=== PATIENT | female | born 1995 | race Caucasian/White ===

== ENCOUNTER 2016-10-27 15:15 | Emergency (ER) | payer OTHER, BC ==
[~2016-10-27 15:15] MED LIST: EMOQTAB PO; INDE80CA PO; LAMI1TAB8 PO; PROPRANOLOL HCL PO; SERO1TAB PO; SING10TA32 PO; WELLTAB38 PO; WELLTAB40 PO; XANA0.5T PO; fiber supplement PO; zyzal PO
[2016-10-27] MEDS ORDERED: ACETAMINOPHEN 325 MG TAB As Ordered ONE (17:14)
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
--- NOTE | 2016-10-27 17:20 | EDDOCDS ---
Physician Documentation [facility] Name: Ghassan Richards Age: 21 yrs Sex: Female : 1995 Arrival Date: 10/27/2016 Time: 15:15 Bed Triage 3 Private MD: Nanci Disposition: 10/27/16 16:59 Discharged to Home/Self Care. Impression: Strain of muscle, fascia and tendon at neck level, Headache. - Condition is Stable. - Discharge Instructions: General Headache Without Cause, Soft Tissue Injury of the Neck. - Prescriptions for Robaxin 500 mg Oral Tablet - take 2 tablet by ORAL route every 6 hours As needed; 40 tablet. - Medication Reconciliation, Local Pharmacy Hours form. - Follow up: Nanci; When: Call to arrange an appointment; Reason: Recheck today's complaints, Continuance of care. - Problem is new. - Symptoms are unchanged. Historical: - Allergies: no known allergies; - Home Meds: 1. Lamictal Oral 2 times per day 2. Amitriptyline Oral once daily 3. Singulair Oral once daily 4. l-methylfolate calcium 7.5 mg daily 5. zyzal 5mg daily 6. thorazine 200 mg daily - PMHx: Bipolar disorder; Anxiety; GERD; Asthma; - PSHx: eye surgery; Tonsillectomy; Adenoidectomy; - Immunization history: Last tetanus immunization: - up to date. < 5 years ago. - Social history: Smoking status: Patient states was never smoker of tobacco. No barriers to communication noted, The patient speaks fluent Urdu, Speaks appropriately for age. - Family history: Not pertinent. - Last oral intake was: yogurt at 1400. - : The pt / caregiver states he / she is not on anticoagulants. Home medication list is obtained from the patient. - Exposure Risk Screening:: None identified. 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 5 in. (165.10 cm) (R); Pain 3/10; 17:15 BP 134 / 80; Pulse 105; Resp 20; Temp 98.9; Pulse Ox 99% on R/A; Pain 3/10; ar3 15:16 Body Mass Index 33.28 (90.72 kg, 165.10 cm) lr2 Kincaid Coma Score: 15:27 Eye Response: spontaneous(4). Verbal Response: oriented(5). Motor Response: obeys ead commands(6). Total: 15. Trauma Score (Adult): 15:27 Eye Response: spontaneous(1); Verbal Response: oriented(1); Motor Response: obeys ead commands(2); Systolic BP: > 89 mm Hg(4); Respiratory Rate: 10 to 29 per min(4); Kincaid Score: 15; Trauma Score: 12 MDM: 16:57 Acetaminophen Tablet 975 mg PO once ordered. mo1 Administered Medications: 17:16 Drug: Acetaminophen 975 mg [acetaminophen 325 mg tablet (3 tabs)] Route: PO; dsf 17:19 Follow up: Response: Pt left department before re-evaluation is appropriate dsf Signatures: Kalani Callahan RN RN Jenna KaurRN RN dsf Nemesio Pruitt PA PA mo1 Bethanie Hollins,RN RN michelle MTDToni
--- NOTE | 2016-10-29 18:20 | EDDOCDS ---
Physician Documentation [facility] Name: Ghassan Richards Age: 21 yrs Sex: Female : 1995 Arrival Date: 10/27/2016 Time: 15:15 Bed Triage 3 Private MD: Nanci Disposition: 10/27/16 16:59 Discharged to Home/Self Care. Impression: Strain of muscle, fascia and tendon at neck level, Headache. - Condition is Stable. - Discharge Instructions: General Headache Without Cause, Soft Tissue Injury of the Neck. - Prescriptions for Robaxin 500 mg Oral Tablet - take 2 tablet by ORAL route every 6 hours As needed; 40 tablet. - Medication Reconciliation, Local Pharmacy Hours form. - Follow up: Nanci; When: Call to arrange an appointment; Reason: Recheck today's complaints, Continuance of care. - Problem is new. - Symptoms are unchanged. Historical: - Allergies: no known allergies; - Home Meds: 1. Lamictal Oral 2 times per day 2. Amitriptyline Oral once daily 3. Singulair Oral once daily 4. l-methylfolate calcium 7.5 mg daily 5. zyzal 5mg daily 6. thorazine 200 mg daily - PMHx: Bipolar disorder; Anxiety; GERD; Asthma; - PSHx: eye surgery; Tonsillectomy; Adenoidectomy; - Immunization history: Last tetanus immunization: - up to date. < 5 years ago. - Social history: Smoking status: Patient states was never smoker of tobacco. No barriers to communication noted, The patient speaks fluent Turkish, Speaks appropriately for age. - Family history: Not pertinent. - Last oral intake was: yogurt at 1400. - : The pt / caregiver states he / she is not on anticoagulants. Home medication list is obtained from the patient. - Exposure Risk Screening:: None identified. 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 5 in. (165.10 cm) (R); Pain 3/10; 17:15 BP 134 / 80; Pulse 105; Resp 20; Temp 98.9; Pulse Ox 99% on R/A; Pain 3/10; ar3 15:16 Body Mass Index 33.28 (90.72 kg, 165.10 cm) lr2 Sophia Coma Score: 15:27 Eye Response: spontaneous(4). Verbal Response: oriented(5). Motor Response: obeys ead commands(6). Total: 15. Trauma Score (Adult): 15:27 Eye Response: spontaneous(1); Verbal Response: oriented(1); Motor Response: obeys ead commands(2); Systolic BP: > 89 mm Hg(4); Respiratory Rate: 10 to 29 per min(4); Sophia Score: 15; Trauma Score: 12 MDM: 16:57 Acetaminophen Tablet 975 mg PO once ordered. mo1 17:50 [facility] Payment Agreement was scanned into [employer] and attached to record. gjb 17:50 [facility] was scanned into [employer] and attached to record. b 17:50 Financial registration complete. gjb Administered Medications: 17:16 Drug: Acetaminophen 975 mg [acetaminophen 325 mg tablet (3 tabs)] Route: PO; dsf 17:19 Follow up: Response: Pt left department before re-evaluation is appropriate dsf Signatures: Kalani Callahan RN RN Jenna KaurRN RN dsf Nemesio Pruitt PA PA mo1 Bethanie HollinsRN RN [place] The chart was reviewed and I authenticate all verbal orders and agree with the evaluation and treatment provided.Attachments: 17:50 [place] Payment Agreement gjb Chart Complete MTDD
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
--- NOTE | 2016-10-29 18:20 | EDDOCDS ---
Physician Documentation [facility] Name: Ghassan Richards Age: 21 yrs Sex: Female : 1995 Arrival Date: 10/27/2016 Time: 15:15 Bed Triage 3 Private MD: Nanci Disposition: 10/27/16 16:59 Discharged to Home/Self Care. Impression: Strain of muscle, fascia and tendon at neck level, Headache. - Condition is Stable. - Discharge Instructions: General Headache Without Cause, Soft Tissue Injury of the Neck. - Prescriptions for Robaxin 500 mg Oral Tablet - take 2 tablet by ORAL route every 6 hours As needed; 40 tablet. - Medication Reconciliation, Local Pharmacy Hours form. - Follow up: Nanci; When: Call to arrange an appointment; Reason: Recheck today's complaints, Continuance of care. - Problem is new. - Symptoms are unchanged. Historical: - Allergies: no known allergies; - Home Meds: 1. Lamictal Oral 2 times per day 2. Amitriptyline Oral once daily 3. Singulair Oral once daily 4. l-methylfolate calcium 7.5 mg daily 5. zyzal 5mg daily 6. thorazine 200 mg daily - PMHx: Bipolar disorder; Anxiety; GERD; Asthma; - PSHx: eye surgery; Tonsillectomy; Adenoidectomy; - Immunization history: Last tetanus immunization: - up to date. < 5 years ago. - Social history: Smoking status: Patient states was never smoker of tobacco. No barriers to communication noted, The patient speaks fluent Lao, Speaks appropriately for age. - Family history: Not pertinent. - Last oral intake was: yogurt at 1400. - : The pt / caregiver states he / she is not on anticoagulants. Home medication list is obtained from the patient. - Exposure Risk Screening:: None identified. BRONC BREAKER: 10/27 15:28 LMP N/A - control method ead Vital Signs: 15:16 BP 131 / 96; Pulse 121; Resp 20; Temp 98.4(O); Pulse Ox 99% on R/A; Weight 90.72 kg / lr2 200 lbs (R); Height 5 ft. 5 in. (165.10 cm) (R); Pain 3/10; 17:15 BP 134 / 80; Pulse 105; Resp 20; Temp 98.9; Pulse Ox 99% on R/A; Pain 3/10; ar3 15:16 Body Mass Index 33.28 (90.72 kg, 165.10 cm) lr2 Mckenna Coma Score: 15:27 Eye Response: spontaneous(4). Verbal Response: oriented(5). Motor Response: obeys ead commands(6). Total: 15. Trauma Score (Adult): 15:27 Eye Response: spontaneous(1); Verbal Response: oriented(1); Motor Response: obeys ead commands(2); Systolic BP: > 89 mm Hg(4); Respiratory Rate: 10 to 29 per min(4); Mckenna Score: 15; Trauma Score: 12 MDM: 16:57 Acetaminophen Tablet 975 mg PO once ordered. mo1 17:50 [facility] Payment Agreement was scanned into [employer] and attached to record. gjb 17:50 [facility] was scanned into [employer] and attached to record. b 17:50 Financial registration complete. gjb Administered Medications: 17:16 Drug: Acetaminophen 975 mg [acetaminophen 325 mg tablet (3 tabs)] Route: PO; dsf 17:19 Follow up: Response: Pt left department before re-evaluation is appropriate dsf Signatures: Kalani Callahan RN RN Jenna KaurRN RN dsf Nemesio Pruitt PA PA mo1 Bethanie HollinsRN RN [place] The chart was reviewed and I authenticate all verbal orders and agree with the evaluation and treatment provided.Attachments: 17:50 [facility] Payment Agreement gjb Chart Complete MTDD
== END 2016-10-27 17:18 | disposition home or self-care (01) ==
LOC: M ED 15:15
DX: S16.1XXA Strain of muscle, fascia and tendon at neck level, initial encounter (principal); S00.93XA Contusion of unspecified part of head, initial encounter; F31.9 Bipolar disorder, unspecified; K21.9 Gastro-esophageal reflux disease without esophagitis; J45.909 Unspecified asthma, uncomplicated; Z79.899 Other long term (current) drug therapy; V49.50XA Passenger injured in collision with unspecified motor vehicles in traffic accident, initial encounter; Y92.410 Unspecified street and highway as the place of occurrence of the external cause; Y93.89 Activity, other specified; Y99.9 Unspecified external cause status

== ENCOUNTER 2016-11-21 17:12 | Emergency (ER) | payer OTHER, BC ==
[~2016-11-21] VITALS: Ht 162.6 cm; Wt 101.6 kg
[2016-11-21] MEDS ORDERED: LAMO100T (17:26)
[2016-11-21] MEDS ORDERED: LEVOTAB10 (17:26)
[2016-11-21] MEDS ORDERED: RANI150T (17:26)
[2016-11-21] MEDS ORDERED: [UNRECOGNIZED DRUG - OTHER] (17:26)
[2016-11-21] MEDS ORDERED: METH54TA (17:26)
[2016-11-21] MEDS ORDERED: CHLOR50TA (17:26)
[2016-11-21] MEDS ORDERED: AMIT50TA (17:26)
[2016-11-21] MEDS ORDERED: NS 1,000 ML IV ONE (18:30)
--- NOTE | 2016-11-21 18:59 | REP ---
Clinical: Headache. Findings: The ventricle sulci and cisterns are normal in position and appearance. Faustin white differentiation is maintained. No acute intracranial hemorrhage, mass/mass effect, pathology or trauma noted. No extra-axial fluid collections are identified. Calvarium is intact. There is partial opacification to the ethmoid sinuses suggesting sinusitis. Impression: Ethmoid sinus opacification suggesting sinusitis. No acute intracranial pathology, hemorrhage or mass/mass effect. Signed by Emiliano Mart MD 11/21/2016 06:51 P
[2016-11-21 19:00] LABS: BASO % 0.6 % (0.0-1.0); EOS # 0.1 K/mm3 (0.0-0.50); EOS % 0.9 % (0.0-3.0); LARGE UNSTAINED CELL # 0.2 K/mm3 (0.0-0.4); LARGE UNSTAINED CELL % 2.6 % (0.0-4.0); LYMPH # 2.5 K/mm3 (1.5-6.5); LYMPH % 38.6 % (24.0-44.0); MEAN CORPUSCULAR HGB CONC 33.9 g/dl (32.0-36.5); MEAN CORPUSCULAR VOLUME 85.4 fl (80.0-96.0); MONO # 0.4 K/mm3 (0.0-0.8); MONO % 6.1 % (0.0-5.0); NEUTROPHILS # 3.1 K/mm3 (1.8-7.7); NEUTROPHILS % 51.1 % (36.0-66.0); PLATELET COUNT, AUTOMATED 278 k/mm3 (150-450); RED CELL DISTRIBUTION WIDTH 12.5 % (11.5-14.5); WHITE BLOOD COUNT 6.1 K/mm3 (4.0-10.0)
[2016-11-21 19:25] LABS: INR 0.92
[2016-11-21 19:28] LABS: ANION GAP 9 MEQ/L (8-16); BLOOD UREA NITROGEN 7 MG/DL (7-18); CARBON DIOXIDE LEVEL 24 MEQ/L (21-32); CHLORIDE LEVEL 108 MEQ/L (98-107); CREATININE FOR GFR 0.72 MG/DL (0.55-1.02); GLUCOSE, FASTING 85 MG/DL (70-105); POTASSIUM SERUM 3.8 MEQ/L (3.5-5.1); SODIUM LEVEL 141 MEQ/L (136-145)
--- NOTE | 2016-11-21 19:44 | REP ---
Clinical: Chest pain . Comparison: 11/30/2014 . Technique: PA and lateral. Findings: The mediastinum and cardiac silhouette are normal. The lung crenshaw are clear and without acute consolidation, effusion, or pneumothorax. The skeletal structures are intact and normal. Impression: 1. No acute cardiopulmonary process. 2. No focal consolidation. Signed by Emiliano Mart MD 11/21/2016 07:36 P
[2016-11-21] MEDS ORDERED: GI COCKTAIL 50ML BTL(HYOSCYAMINE/MAALOX/LIDOCAINE VISCOUS)(1:3:1) PO ONE (21:45)
[2016-11-21] MEDS ORDERED: AUGM875T27 PO (22:04)
[2016-11-21 22:14] VITALS: BP 136/71
--- NOTE | 2016-11-22 09:27 | ECGEPIP ---
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
== END 2016-11-21 22:19 | disposition home or self-care (01) ==
LOC: M ED 18:13
DX: F07.81 Postconcussional syndrome (principal); R07.89 Other chest pain; J01.90 Acute sinusitis, unspecified; Z79.899 Other long term (current) drug therapy; Z88.8 Allergy status to other drugs, medicaments and biological substances

== ENCOUNTER 2016-12-06 20:03 | Emergency (ER) | payer OTHER, BC ==
[~2016-12-06] VITALS: Ht 162.6 cm; Wt 99.8 kg
[~2016-12-06 20:03] MED LIST changes: +AMIT50TA; +AUGM875T27 PO; +CHLOR50TA; +LAMO100T; +LEVOTAB10; +METH54TA; +RANI150T; +[UNRECOGNIZED DRUG - OTHER]
[2016-12-06] MEDS ORDERED: ZANA2CAP PO (20:15)
[2016-12-07] MEDS ORDERED: KETOROLAC 30 MG/ML VIAL (J1885) IV ONE (00:15)
[2016-12-07] MEDS ORDERED: diphenhydrAMINE INJ 50MG/ML VIAL (J1200) IV ONE (00:15)
[2016-12-07] MEDS ORDERED: METOCLOPRAMIDE INJ 10MG/2ML VIAL (J2765) IV ONE (00:15)
[2016-12-07] MEDS ORDERED: NS 1,000 ML IV ONE (00:15)
[2016-12-07 02:02] VITALS: BP 128/83
== END 2016-12-07 02:05 | disposition home or self-care (01) ==
LOC: M ED 21:01
DX: G43.909 Migraine, unspecified, not intractable, without status migrainosus (principal); Z88.8 Allergy status to other drugs, medicaments and biological substances; Z79.899 Other long term (current) drug therapy; J45.909 Unspecified asthma, uncomplicated; F90.9 Attention-deficit hyperactivity disorder, unspecified type; F41.9 Anxiety disorder, unspecified; F32.9 Major depressive disorder, single episode, unspecified
CPT/HCPCS: 96361; 96374; 96375; 99282; J1200; J1885; J2765

== ENCOUNTER → 2016-12-29 | Outpatient (CLI) | payer BC ==
[~2016-12-29] MED LIST changes: +ZANA2CAP PO
== END ==
LOC: M SLEEP HO 10:00
PROVIDERS: ATTEND Family Medicine
DX: R06.83 Snoring (principal)

== ENCOUNTER → 2017-01-05 | Outpatient (CLI) | payer BC ==
--- NOTE | 2017-01-10 08:38 | SLEEPHOME ---
DATE OF PROCEDURE: 01/05/2017 ORDERED BY: Dr. Salma Akers. INTERPRETATION: Diagnostic home sleep testing was performed due to concern for the obstructive sleep apnea syndrome. 10 hours and 59 minutes of data were reviewed. Of these, 8 hours and 21 minutes were marked as time in bed. During the interval marked time in bed, there were only 16 respiratory events of 10 seconds in duration or greater for a respiratory event index of 1.9. Baseline heart rate 77 beats per minute. Pulse rate ranged 60-125. Baseline saturation 95%. Lowest oxygen saturation appreciated 91%. Snoring was noted throughout the study and testing was performed in both the supine and non-supine positions. IMPRESSION: Normal nocturnal polysomnography with snoring. RECOMMENDATION: If the patient's sleep symptoms persist, referral for formal in laboratory sleep testing would be more sensitive to identify mild obstructive sleep apnea syndrome.
== END ==
LOC: M SLEEP HO 13:59
PROVIDERS: ATTEND Family Medicine
DX: R06.81 Apnea, not elsewhere classified (principal)

== ENCOUNTER → 2017-02-17 | Outpatient (CLI) | payer BC | LOC: M WUC 13:17 | PROVIDERS: ATTEND Nurse Practitioner Psychiatric/Mental Health | DX: F31.61 Bipolar disorder, current episode mixed, mild (principal) ==

== ENCOUNTER → 2017-09-19 | Outpatient (CLI) | payer BC ==
[2017-09-19 18:37] LABS: ALBUMIN 3.6 GM/DL (3.2-5.2); ALBUMIN/GLOBULIN RATIO 1.38 (1.00-1.93); ALKALINE PHOSPHATASE 119 U/L (45-117); ALT/SGPT 27 U/L (12-78); ANION GAP 9 MEQ/L (8-16); AST/SGOT 17 U/L (7-37); BILIRUBIN,TOTAL 0.2 MG/DL (0.2-1.0); BLOOD UREA NITROGEN 13 MG/DL (7-18); CALCIUM LEVEL 8.2 MG/DL (8.5-10.1); CARBON DIOXIDE LEVEL 24 MEQ/L (21-32); CHLORIDE LEVEL 109 MEQ/L (98-107); CREATININE FOR GFR 0.75 MG/DL (0.55-1.02); GLOMERULAR FILTRATION RATE > 60.0 (>60); GLUCOSE, FASTING 126 MG/DL (70-105); POTASSIUM SERUM 4.2 MEQ/L (3.5-5.1); SODIUM LEVEL 142 MEQ/L (136-145); TOTAL PROTEIN 6.2 GM/DL (6.4-8.2)
[2017-09-19 19:12] LABS: BASO % 0.6 % (0.0-1.0); EOS # 0.1 10^3/uL (0.0-0.50); HEMATOCRIT 40.5 % (36.0-47.0); HEMOGLOBIN 13.4 g/dl (12.0-16.0); IMMATURE GRANULOCYTE % 0.3 % (0-0); LYMPH # 2.6 10^3/uL (1.5-6.5); LYMPH % 41.3 % (24.0-44.0); MEAN CORPUSCULAR HEMOGLOBIN 27.9 pg (27.0-33.0); MEAN CORPUSCULAR HGB CONC 33.1 g/dl (32.0-36.5); MEAN CORPUSCULAR VOLUME 84.4 fl (80.0-96.0); MONO # 0.6 10^3/uL (0.0-0.8); MONO % 9.9 % (0.0-5.0); NEUTROPHILS # 2.9 10^3/uL (1.8-7.7); NEUTROPHILS % 46.9 % (36.0-66.0); PLATELET COUNT, AUTOMATED 303 10^3/uL (150-450); RED CELL DISTRIBUTION WIDTH 12.8 % (11.5-14.5); WHITE BLOOD COUNT 6.2 10^3/uL (4.0-10.0)
== END ==
LOC: M WUC 10:11
DX: R19.7 Diarrhea, unspecified (principal); R10.84 Generalized abdominal pain
CPT/HCPCS: 80053

== ENCOUNTER → 2017-09-20 | Outpatient (REF) | payer BC | LOC: M LAB REF 10:06 | DX: R19.7 Diarrhea, unspecified (principal) | CPT/HCPCS: 87507 ==

== ENCOUNTER 2017-11-02 21:04 | Inpatient (IN) | payer BC, OTHER ==
[2017-11-02 22:11] LABS: HEMATOCRIT 39.9 % (36.0-47.0); MEAN CORPUSCULAR HEMOGLOBIN 28.3 pg (27.0-33.0); MEAN CORPUSCULAR HGB CONC 35.1 g/dl (32.0-36.5); MEAN CORPUSCULAR VOLUME 80.8 fl (80.0-96.0); PLATELET COUNT, AUTOMATED 284 10^3/uL (150-450); RED BLOOD COUNT 4.94 10^6/uL (4.00-5.40); RED CELL DISTRIBUTION WIDTH 12.3 % (11.5-14.5); WHITE BLOOD COUNT 8.3 10^3/uL (4.0-10.0)
[2017-11-02 22:27] LABS: CONTROL LINE HCG INT CTR LINE PRESENT; HCG, SERUM QUALITATIVE NEGATIVE (NEGATIVE)
[2017-11-02 22:33] LABS: AMPHETAMINES LEVEL URINE NEGATIVE (NEGATIVE); BARBITURATES URINE NEGATIVE (NEGATIVE); BENZODIAZEPINES URINE NEGATIVE (NEGATIVE); CANNABINOIDS URINE NEGATIVE (NEGATIVE); COCAINE METABOLITE URINE NEGATIVE (NEGATIVE); METHADONE URINE NEGATIVE (NEGATIVE); OPIATES URINE NEGATIVE (NEGATIVE); PHENCYCLIDINE URINE NEGATIVE (NEGATIVE)
[2017-11-02 22:41] LABS: ACETAMINOPHEN LEVEL < 2.0 UG/ML (10.0-30.0); ALBUMIN 3.7 GM/DL (3.2-5.2); ALKALINE PHOSPHATASE 160 U/L (45-117); ALT/SGPT 36 U/L (12-78); AST/SGOT 21 U/L (7-37); BILIRUBIN,DIRECT < 0.1 MG/DL (0.0-0.2); BILIRUBIN,TOTAL 0.2 MG/DL (0.2-1.0); BLOOD UREA NITROGEN 9 MG/DL (7-18); CALCIUM LEVEL 8.3 MG/DL (8.5-10.1); CARBON DIOXIDE LEVEL 22 MEQ/L (21-32); CHLORIDE LEVEL 102 MEQ/L (98-107); CREATININE FOR GFR 1.01 MG/DL (0.55-1.30); GLUCOSE, FASTING 316 MG/DL (70-100); POTASSIUM SERUM 4.1 MEQ/L (3.5-5.1); SALICYLATE LEVEL < 1.7 MG/DL (5.0-30.0); SODIUM LEVEL 136 MEQ/L (136-145)
[2017-11-02 22:52] LABS: ALBUMIN/GLOBULIN RATIO 1.23 (1.00-1.93); ETHYL ALCOHOL (ETHANOL) < 0.003 % (0.000-0.010); TOTAL PROTEIN 6.7 GM/DL (6.4-8.2)
[2017-11-02] MEDS ORDERED: MAALOX 30 ML SUSP *UDC PO (23:00)
[2017-11-02] MEDS ORDERED: MOM 30ML SUSPENSION UDC PO (23:00)
[2017-11-02] MEDS ORDERED: ACETAMINOPHEN TAB 650MG DOSE (2X325MG) PO (23:00)
[2017-11-02 23:01] LABS: ANION GAP 12 MEQ/L (8-16)
[2017-11-02] MEDS: HumaLOG INSULIN (NovoLOG) PER UNIT SC (23:56)
[2017-11-03] MEDS ORDERED: NICOTINE 21MG/24HR 1 EA TRANSDERMAL TD (09:00)
[2017-11-03] MEDS ORDERED: MULTIVITAMINS/MINERALS THERAP 1 TAB PO (09:00)
[2017-11-03] MEDS ORDERED: ALBUTEROL 90 MCG/ACT 8GM HFA INHALER INH (10:00)
[2017-11-03] MEDS: FAMOTIDINE 20 MG TAB PO (10:13)
[2017-11-03 11:14] LABS: ESTIMATED AVERAGE GLUCOSE 183 MG/DL (60-110)
[2017-11-03] MEDS: lamoTRIgine 100MG TAB PO ×2 (13:26→20:55)
[2017-11-03] MEDS: METHYLPHENIDATE ER 18 MG TABLET (CONCERTA) PO (13:26)
[2017-11-03] MEDS: MULTIVITAMINS/MINERALS THERAP 1 TAB PO (13:26)
[2017-11-03] MEDS: metFORMIN (GLUCOPHAGE) 500 MG TAB PO (17:01)
[2017-11-03 17:06] LABS: BEDSIDE GLUCOSE 231 MG/DL (70-105)
[2017-11-03] MEDS: LORazepam 1 MG TAB PO (20:54)
[2017-11-03] MEDS: MONTELUKAST 10 MG TAB PO (20:55)
[2017-11-03] MEDS: OLANZapine 10 MG TAB PO (20:55)
[2017-11-03] MEDS: OMEPRAZOLE 20 MG CAP PO (20:56)
[2017-11-03] MEDS: traZODone 50 MG TAB PO (20:56)
[2017-11-04 06:25] LABS: BEDSIDE GLUCOSE 154 MG/DL (70-105)
[2017-11-04 07:12] LABS: CHOLESTEROL LEVEL 191 MG/DL (<200); CHOLESTEROL RISK RATIO 4.441 (<5); HDL CHOLESTEROL 43 MG/DL (>40); LDL CHOLESTEROL 106.2 MG/DL (<100); NON-HDL-C 148 MG/DL; TRIGLYCERIDES LEVEL 209 MG/DL (<150)
[2017-11-04 07:14] LABS: ALBUMIN 3.6 GM/DL (3.2-5.2); ALKALINE PHOSPHATASE 112 U/L (45-117); ALT/SGPT 32 U/L (12-78); ANION GAP 9 MEQ/L (8-16); AST/SGOT 17 U/L (7-37); BILIRUBIN,TOTAL 0.3 MG/DL (0.2-1.0); BLOOD UREA NITROGEN 10 MG/DL (7-18); CALCIUM LEVEL 8.4 MG/DL (8.5-10.1); CARBON DIOXIDE LEVEL 26 MEQ/L (21-32); CHLORIDE LEVEL 106 MEQ/L (98-107); CREATININE FOR GFR 0.74 MG/DL (0.55-1.30); GLOMERULAR FILTRATION RATE > 60.0 (>60); GLUCOSE, FASTING 152 MG/DL (70-100); POTASSIUM SERUM 3.9 MEQ/L (3.5-5.1); SODIUM LEVEL 141 MEQ/L (136-145); TOTAL PROTEIN 6.6 GM/DL (6.4-8.2)
[2017-11-04] MEDS ORDERED: PILL CUTTER/CRUSHER XX (08:00)
[2017-11-04] MEDS: FAMOTIDINE 20 MG TAB PO (08:16)
[2017-11-04] MEDS: MULTIVITAMINS/MINERALS THERAP 1 TAB PO (08:16)
[2017-11-04] MEDS: metFORMIN (GLUCOPHAGE) 500 MG TAB PO ×2 (08:16→17:15)
[2017-11-04] MEDS: METHYLPHENIDATE ER 18 MG TABLET (CONCERTA) PO (08:16)
[2017-11-04] MEDS: lamoTRIgine 100MG TAB PO ×2 (08:16→20:34)
[2017-11-04] MEDS: LORazepam 1 MG TAB PO ×2 (14:25→20:34)
[2017-11-04 17:07] LABS: BEDSIDE GLUCOSE 116 MG/DL (70-105)
[2017-11-04] MEDS: OLANZapine 10 MG TAB PO (20:33)
[2017-11-04] MEDS: OMEPRAZOLE 20 MG CAP PO (20:33)
[2017-11-04] MEDS: MONTELUKAST 10 MG TAB PO (20:34)
[2017-11-05 06:25] LABS: BEDSIDE GLUCOSE 141 MG/DL (70-105)
[2017-11-05] MEDS: MULTIVITAMINS/MINERALS THERAP 1 TAB PO (08:19)
[2017-11-05] MEDS: lamoTRIgine 100MG TAB PO (08:19)
[2017-11-05] MEDS: FAMOTIDINE 20 MG TAB PO (08:20)
[2017-11-05] MEDS: metFORMIN (GLUCOPHAGE) 500 MG TAB PO (08:20)
[2017-11-05] MEDS: METHYLPHENIDATE ER 18 MG TABLET (CONCERTA) PO (08:20)
== END 2017-11-05 13:30 | disposition home or self-care (01) | DRG 753 ==
LOC: M ED INP 23:00 → M PSY 11-03 00:33 → M ED 21:04
DX: F31.9 Bipolar disorder, unspecified (principal); Z68.41 Body mass index [BMI] 40.0-44.9, adult; F60.3 Borderline personality disorder; E66.9 Obesity, unspecified; J45.909 Unspecified asthma, uncomplicated; K21.9 Gastro-esophageal reflux disease without esophagitis; Z79.899 Other long term (current) drug therapy; Z91.5 Personal history of self-harm; Z88.8 Allergy status to other drugs, medicaments and biological substances

== ENCOUNTER → 2017-12-21 | Outpatient (CLI) | payer OTHER, BC ==
[2017-12-21 12:31] LABS: ANION GAP 8 MEQ/L (8-16); BLOOD UREA NITROGEN 7 MG/DL (7-18); CALCIUM LEVEL 8.6 MG/DL (8.5-10.1); CARBON DIOXIDE LEVEL 25 MEQ/L (21-32); CHLORIDE LEVEL 109 MEQ/L (98-107); CREATININE FOR GFR 0.71 MG/DL (0.55-1.30); GLOMERULAR FILTRATION RATE > 60.0 (>60); GLUCOSE, FASTING 115 MG/DL (70-100); SODIUM LEVEL 142 MEQ/L (136-145)
[2017-12-21 13:08] LABS: MALB URINE SIEMENS 30.2 MG/L
[2017-12-21 15:23] LABS: ESTIMATED AVERAGE GLUCOSE 157 MG/DL (60-110); HEMOGLOBIN A1c 7.1 %
[2017-12-22 14:14] LABS: C-PEPTIDE 4.9 ng/mL (1.1-4.4)
== END ==
LOC: M WUC 08:39
DX: E11.9 Type 2 diabetes mellitus without complications (principal)

== ENCOUNTER → 2018-09-01 | Outpatient (CLI) | payer BC, OTHER ==
[~2018-09-01] MED LIST changes: +ARIP5TA PO; -AUGM875T27 PO; +AUGM875T28 PO; +GLUC500T PO; -INDE80CA PO; +INDE80CA9 PO; +L-ME1TAB PO; +LAMO300T PO; +LEVOTAB10 PO; +LORA1TAB12 PO; +LORA2TAB9 PO; +METH54TA PO; +NEXP1IMP SC; +OLAN10TA2 PO; +OLAN15TA PO; +OMEP20CA3 PO; +RANI150T PO; +TRAZO50TA PO; +VITMTA PO
[2018-09-01 09:46] LABS: BLOOD UREA NITROGEN 11 MG/DL (7-18); CALCIUM LEVEL 8.4 MG/DL (8.5-10.1); CARBON DIOXIDE LEVEL 21 MEQ/L (21-32); CHLORIDE LEVEL 109 MEQ/L (98-107); CREATININE FOR GFR 0.78 MG/DL (0.55-1.30); GLOMERULAR FILTRATION RATE > 60.0 (>60); GLUCOSE, FASTING 109 MG/DL (70-100); POTASSIUM SERUM 3.9 MEQ/L (3.5-5.1); SODIUM LEVEL 141 MEQ/L (136-145)
[2018-09-01 10:18] LABS: HEMOGLOBIN A1c 5.5 %
== END ==
LOC: M LAB 07:50
PROVIDERS: ATTEND Physician Assistant
DX: E11.9 Type 2 diabetes mellitus without complications (principal)

== ENCOUNTER → 2018-09-01 | Outpatient (CLI) | payer BC, OTHER ==
[2018-09-01 09:52] LABS: ALBUMIN 3.7 GM/DL (3.2-5.2); ALT/SGPT 19 U/L (12-78); BILIRUBIN,TOTAL 0.2 MG/DL (0.2-1.0); BLOOD UREA NITROGEN 10 MG/DL (7-18); CALCIUM LEVEL 8.5 MG/DL (8.5-10.1); CARBON DIOXIDE LEVEL 21 MEQ/L (21-32); CHLORIDE LEVEL 109 MEQ/L (98-107); CREATININE FOR GFR 0.79 MG/DL (0.55-1.30); GLOMERULAR FILTRATION RATE > 60.0 (>60); GLUCOSE, FASTING 105 MG/DL (70-100); LITHIUM LEVEL 0.37 MEQ/L (0.60-1.20); POTASSIUM SERUM 3.8 MEQ/L (3.5-5.1); SODIUM LEVEL 140 MEQ/L (136-145); TOTAL PROTEIN 6.4 GM/DL (6.4-8.2)
== END ==
LOC: M LAB 07:59
DX: F31.60 Bipolar disorder, current episode mixed, unspecified (principal)

== ENCOUNTER → 2018-12-12 | Outpatient (CLI) | payer BC, OTHER ==
[~2018-12-12] MED LIST changes: +ARIP1TAB6 PO; -ARIP5TA PO
== END ==
LOC: M WUC 11:13
PROVIDERS: ATTEND Nurse Practitioner Adult Health
DX: F31.60 Bipolar disorder, current episode mixed, unspecified (principal)

== ENCOUNTER → 2019-01-11 | Outpatient (REF) | payer OTHER | LOC: M LAB REF 18:34 | PROVIDERS: ATTEND Physician Assistant | DX: L02.611 Cutaneous abscess of right foot (principal) ==

== ENCOUNTER → 2019-03-06 | Outpatient (CLI) | payer BC, OTHER ==
[~2019-03-06] MED LIST changes: -METH54TA; -METH54TA PO; +METH54TA5; +METH54TA5 PO; -OMEP20CA3 PO; +OMEP20CA4 PO; +TRAZ1TAB10 PO; -TRAZO50TA PO
== END ==
LOC: M LAB 17:32
PROVIDERS: ATTEND Physician Assistant
DX: R11.2 Nausea with vomiting, unspecified (principal)

== ENCOUNTER → 2019-03-07 | Outpatient (CLI) | payer BC, OTHER ==
[2019-03-07 13:06] LABS: BASO % 0.4 % (0.0-1.0); EOS # 0.1 10^3/uL (0.0-0.50); EOS % 1.2 % (0.0-3.0); HEMATOCRIT 42.5 % (36.0-47.0); HEMOGLOBIN 14.3 g/dl (12.0-15.5); LYMPH # 2.1 10^3/uL (1.5-6.5); LYMPH % 19.2 % (24.0-44.0); MEAN CORPUSCULAR HEMOGLOBIN 30.8 pg (27.0-33.0); MEAN CORPUSCULAR HGB CONC 33.6 g/dl (32.0-36.5); MEAN CORPUSCULAR VOLUME 91.6 fl (80.0-96.0); MONO # 0.7 10^3/uL (0.0-0.8); MONO % 6.8 % (0.0-5.0); NEUTROPHILS # 7.8 10^3/uL (1.8-7.7); NEUTROPHILS % 71.9 % (36.0-66.0); PLATELET COUNT, AUTOMATED 252 10^3/uL (150-450); RED BLOOD COUNT 4.64 10^6/uL (4.00-5.40); WHITE BLOOD COUNT 10.8 10^3/uL (4.0-10.0)
== END ==
LOC: M WUC 09:12
PROVIDERS: ATTEND Physician Assistant
DX: R11.2 Nausea with vomiting, unspecified (principal)

== ENCOUNTER → 2019-03-21 | Outpatient (REF) | payer OTHER | LOC: M LAB REF 17:03 | PROVIDERS: ATTEND Physician Assistant | DX: N39.0 Urinary tract infection, site not specified (principal) ==

== ENCOUNTER → 2019-04-08 | Outpatient (REF) | payer OTHER | LOC: M LAB REF 15:41 | PROVIDERS: ATTEND Physician Assistant | DX: N89.8 Other specified noninflammatory disorders of vagina (principal) ==

== ENCOUNTER → 2019-04-08 | Outpatient (CLI) | payer OTHER ==
[~2019-04-08] MED LIST changes: -LAMO100T; +LAMO100T3; -LORA1TAB12 PO; +LORA1TAB4 PO; +LORA2TAB14 PO; -LORA2TAB9 PO; +OMEP1CAP73 PO; -OMEP20CA4 PO
[2019-04-08 14:11] LABS: BASO # 0.1 10^3/uL (0.0-0.2); BASO % 0.5 % (0.0-1.0); EOS # 0.1 10^3/uL (0.0-0.50); EOS % 0.9 % (0.0-3.0); HEMATOCRIT 42.2 % (36.0-47.0); HEMOGLOBIN 14.2 g/dl (12.0-15.5); LYMPH # 2.2 10^3/uL (1.5-6.5); LYMPH % 19.3 % (24.0-44.0); MEAN CORPUSCULAR HEMOGLOBIN 29.6 pg (27.0-33.0); MEAN CORPUSCULAR HGB CONC 33.6 g/dl (32.0-36.5); MEAN CORPUSCULAR VOLUME 88.1 fl (80.0-96.0); MONO # 0.5 10^3/uL (0.0-0.8); NEUTROPHILS # 8.7 10^3/uL (1.8-7.7); PLATELET COUNT, AUTOMATED 291 10^3/uL (150-450); RED BLOOD COUNT 4.79 10^6/uL (4.00-5.40); WHITE BLOOD COUNT 11.6 10^3/uL (4.0-10.0)
[2019-04-08 14:23] LABS: ALBUMIN 3.6 GM/DL (3.2-5.2); ALT/SGPT 23 U/L (12-78); BILIRUBIN,TOTAL 0.2 MG/DL (0.2-1.0); BLOOD UREA NITROGEN 10 MG/DL (7-18); CARBON DIOXIDE LEVEL 23 MEQ/L (21-32); CHLORIDE LEVEL 112 MEQ/L (98-107); CREATININE FOR GFR 0.78 MG/DL (0.55-1.30); FREE T4 0.77 NG/DL (0.76-1.46); GLOMERULAR FILTRATION RATE > 60.0 (>60); GLUCOSE, FASTING 121 MG/DL (70-100); IRON (FE) 75 UG/DL (50-170); PERCENT SATURATION 22.6 % (13.2-45.0); POTASSIUM SERUM 3.8 MEQ/L (3.5-5.1); SODIUM LEVEL 142 MEQ/L (136-145); TOTAL IRON BINDING CAPACITY 332 UG/DL (250-450); TOTAL PROTEIN 6.5 GM/DL (6.4-8.2)
== END ==
LOC: M SMT 11:06
PROVIDERS: ATTEND Physician Assistant
DX: R53.83 Other fatigue (principal)

== ENCOUNTER → 2019-04-15 | Outpatient (CLI) | payer OTHER ==
[~2019-04-15] MED LIST changes: +LAMO100T; -LAMO100T3; +LORA1TAB12 PO; -LORA1TAB4 PO; -LORA2TAB14 PO; +LORA2TAB9 PO; -OMEP1CAP73 PO; +OMEP20CA4 PO
[2019-04-15 12:29] LABS: BASO # 0.1 10^3/uL (0.0-0.2); BASO % 0.7 % (0.0-1.0); EOS # 0.1 10^3/uL (0.0-0.50); EOS % 1.2 % (0.0-3.0); HEMATOCRIT 43.1 % (36.0-47.0); HEMOGLOBIN 14.9 g/dl (12.0-15.5); LYMPH # 2.7 10^3/uL (1.5-6.5); LYMPH % 27.6 % (24.0-44.0); MEAN CORPUSCULAR HGB CONC 34.6 g/dl (32.0-36.5); MEAN CORPUSCULAR VOLUME 89.6 fl (80.0-96.0); MONO # 0.6 10^3/uL (0.0-0.8); MONO % 6.1 % (0.0-5.0); NEUTROPHILS # 6.2 10^3/uL (1.8-7.7); PLATELET COUNT, AUTOMATED 309 10^3/uL (150-450); RED BLOOD COUNT 4.81 10^6/uL (4.00-5.40); WHITE BLOOD COUNT 9.8 10^3/uL (4.0-10.0)
[2019-04-15 12:44] LABS: ALBUMIN 3.6 GM/DL (3.2-5.2); ALT/SGPT 22 U/L (12-78); BILIRUBIN,TOTAL 0.3 MG/DL (0.2-1.0); BLOOD UREA NITROGEN 11 MG/DL (7-18); CALCIUM LEVEL 8.9 MG/DL (8.5-10.1); CARBON DIOXIDE LEVEL 24 MEQ/L (21-32); CHLORIDE LEVEL 112 MEQ/L (98-107); CHOLESTEROL LEVEL 158 MG/DL (<200); CHOLESTEROL RISK RATIO 3.291 (<5); CREATININE FOR GFR 0.74 MG/DL (0.55-1.30); GLOMERULAR FILTRATION RATE > 60.0 (>60); GLUCOSE, FASTING 111 MG/DL (70-100); HDL CHOLESTEROL 48 MG/DL (>40); LDL CHOLESTEROL 89 MG/DL (<100); LITHIUM LEVEL 0.52 MEQ/L (0.60-1.20); NON-HDL-C 110 MG/DL; POTASSIUM SERUM 4.1 MEQ/L (3.5-5.1); SODIUM LEVEL 142 MEQ/L (136-145); TOTAL PROTEIN 6.3 GM/DL (6.4-8.2); TRIGLYCERIDES LEVEL 107 MG/DL (<150)
[2019-04-15 13:00] LABS: HEMOGLOBIN A1c 5.4 %
== END ==
LOC: M WUC 09:38
PROVIDERS: ATTEND Nurse Practitioner Adult Health
DX: F31.60 Bipolar disorder, current episode mixed, unspecified (principal)

== ENCOUNTER → 2019-05-04 | Outpatient (REF) | payer OTHER ==
[~2019-05-04] MED LIST changes: -LAMO100T; +LAMO100T3; -LORA1TAB12 PO; +LORA1TAB4 PO; +LORA2TAB14 PO; -LORA2TAB9 PO; +OMEP1CAP73 PO; -OMEP20CA4 PO
== END ==
LOC: M LAB REF 17:17
PROVIDERS: ATTEND Physician Assistant
DX: N39.0 Urinary tract infection, site not specified (principal)

== ENCOUNTER → 2019-05-30 | Outpatient (REF) | payer BC, OTHER | LOC: M LAB REF 17:09 | PROVIDERS: ATTEND Advanced Practice Midwife | DX: Z12.4 Encounter for screening for malignant neoplasm of cervix (principal) ==

== ENCOUNTER → 2019-06-15 | Outpatient (CLI) | payer OTHER ==
[~2019-06-15] MED LIST changes: +LAMO100T; -LAMO100T3; +LORA1TAB12 PO; -LORA1TAB4 PO; -LORA2TAB14 PO; +LORA2TAB9 PO; -OMEP1CAP73 PO; +OMEP20CA4 PO
[2019-06-15 12:25] LABS: PLATELET COUNT, AUTOMATED 246 10^3/uL (150-450)
[2019-06-15 12:45] LABS: ALBUMIN 3.2 GM/DL (3.2-5.2); ALT/SGPT 17 U/L (12-78); BILIRUBIN,DIRECT < 0.1 MG/DL (0.0-0.2); BILIRUBIN,TOTAL 0.3 MG/DL (0.2-1.0); TOTAL PROTEIN 6.4 GM/DL (6.4-8.2); VALPROIC ACID (DEPAKOTE) 52.5 UG/ML (50.0-100.0)
== END ==
LOC: M WUC 09:01
PROVIDERS: ATTEND Psychiatry & Neurology Psychiatry
DX: Z79.899 Other long term (current) drug therapy (principal)

== ENCOUNTER → 2019-09-02 | Outpatient (CLI) | payer OTHER, MEDICAID ==
[~2019-09-02] MED LIST changes: -LAMO100T; +LAMO100T3; +OMEP-172 PO; -OMEP20CA4 PO
[2019-09-02 15:14] LABS: ALBUMIN 3.8 GM/DL (3.2-5.2); ALT/SGPT 27 U/L (12-78); BILIRUBIN,TOTAL 0.2 MG/DL (0.2-1.0); BLOOD UREA NITROGEN 11 MG/DL (7-18); CARBON DIOXIDE LEVEL 25 MEQ/L (21-32); CHLORIDE LEVEL 104 MEQ/L (98-107); CHOLESTEROL LEVEL 185 MG/DL (<200); CHOLESTEROL RISK RATIO 3.557 (<5); CREATININE FOR GFR 0.72 MG/DL (0.55-1.30); FREE T4 0.85 NG/DL (0.76-1.46); GLOMERULAR FILTRATION RATE > 60.0 (>60); GLUCOSE, FASTING 143 MG/DL (70-100); HDL CHOLESTEROL 52 MG/DL (>40); LDL CHOLESTEROL 107 MG/DL (<100); NON-HDL-C 133 MG/DL; POTASSIUM SERUM 4.2 MEQ/L (3.5-5.1); SODIUM LEVEL 137 MEQ/L (136-145); TOTAL PROTEIN 6.9 GM/DL (6.4-8.2); TRIGLYCERIDES LEVEL 129 MG/DL (<150)
[2019-09-02 15:15] LABS: THYROID PEROXIDASE ANTIBODY < 28.0 U/ML (<60.0)
[2019-09-02 15:16] LABS: THYROGLOBULIN ANTIBODY 19.5 U/ML (<60.0)
[2019-09-02 15:19] LABS: HCG, SERUM QUALITATIVE NEGATIVE (NEGATIVE)
== END ==
LOC: M WUC 11:38
PROVIDERS: ATTEND Physician Assistant
DX: E03.9 Hypothyroidism, unspecified (principal); E66.8 Other obesity; N91.1 Secondary amenorrhea

== ENCOUNTER → 2019-11-17 | Outpatient (REF) | payer OTHER, MEDICAID ==
[~2019-11-17] MED LIST changes: -LORA1TAB12 PO; +LORA1TAB4 PO; +LORA2TAB14 PO; -LORA2TAB9 PO; -OMEP-172 PO; +OMEP1CAP73 PO
== END ==
LOC: M LAB REF 17:02
PROVIDERS: ATTEND Physician Assistant
DX: N39.0 Urinary tract infection, site not specified (principal)

== ENCOUNTER → 2020-01-02 | Outpatient (REF) | payer OTHER, MEDICAID | LOC: M LAB REF 17:01 | PROVIDERS: ATTEND Physician Assistant | DX: J02.9 Acute pharyngitis, unspecified (principal) ==

== ENCOUNTER 2020-02-27 19:04 | Emergency (ER) | payer BC, OTHER, MEDICAID ==
[~2020-02-27] VITALS: Ht 162.6 cm; Wt 113.6 kg
[2020-02-27] MEDS ORDERED: LEVOTAB18 (19:14)
[2020-02-27] MEDS ORDERED: VRAY6CAP (19:14)
[2020-02-27] MEDS ORDERED: BUSP10TA (19:14)
[2020-02-27] MEDS ORDERED: LAMO25TA4 (19:14)
[2020-02-27] MEDS ORDERED: CONC36TA4 (19:14)
[2020-02-27 20:12] LABS: BASO % 0.5 % (0.0-1.0); EOS # 0.1 10^3/uL (0.0-0.5); EOS % 0.7 % (0.0-3.0); HEMATOCRIT 41.5 % (36.0-47.0); HEMOGLOBIN 14.2 g/dl (12.0-15.5); LYMPH # 3.4 10^3/uL (1.5-5.0); LYMPH % 38.6 % (24.0-44.0); MEAN CORPUSCULAR HEMOGLOBIN 29.6 pg (27.0-33.0); MEAN CORPUSCULAR HGB CONC 34.2 g/dl (32.0-36.5); MEAN CORPUSCULAR VOLUME 86.6 fl (80.0-96.0); MONO # 0.6 10^3/uL (0.0-0.8); MONO % 7.3 % (0.0-5.0); NEUTROPHILS # 4.6 10^3/uL (1.5-8.5); NEUTROPHILS % 52.7 % (36.0-66.0); PLATELET COUNT, AUTOMATED 316 10^3/uL (150-450); RED BLOOD COUNT 4.79 10^6/uL (4.00-5.40); WHITE BLOOD COUNT 8.8 10^3/uL (4.0-10.0)
[2020-02-27 20:34] LABS: ALBUMIN 3.4 GM/DL (3.2-5.2); ALT/SGPT 22 U/L (12-78); BILIRUBIN,DIRECT 0.1 MG/DL (0.0-0.2); BILIRUBIN,TOTAL 0.2 MG/DL (0.2-1.0); BLOOD UREA NITROGEN 12 MG/DL (7-18); CALCIUM LEVEL 8.8 MG/DL (8.5-10.1); CARBON DIOXIDE LEVEL 24 MEQ/L (21-32); CHLORIDE LEVEL 107 MEQ/L (98-107); CREATININE FOR GFR 0.85 MG/DL (0.55-1.30); GLOMERULAR FILTRATION RATE > 60.0 (>60); GLUCOSE, FASTING 151 MG/DL (70-100); LIPASE 74 U/L (73-393); SODIUM LEVEL 137 MEQ/L (136-145); TOTAL PROTEIN 6.8 GM/DL (6.4-8.2)
[2020-02-27 22:18] VITALS: BP 136/93
[2020-02-27 22:57] LABS: CHLAMYDIA DNA AMPLIFICATION NEGATIVE (NEGATIVE); GC DNA AMPLIFICATION NEGATIVE (NEGATIVE)
== END 2020-02-27 22:23 | disposition home or self-care (01) ==
LOC: M ED 19:04
DX: N94.10 Unspecified dyspareunia (principal); R31.29 Other microscopic hematuria; Z79.899 Other long term (current) drug therapy; Z88.8 Allergy status to other drugs, medicaments and biological substances

== ENCOUNTER → 2020-07-04 | Outpatient (CLI) | payer BC, OTHER, MEDICAID ==
[~2020-07-04] MED LIST changes: +BUSP10TA; +CONC36TA4; +LAMO25TA4; +LEVOTAB18; +VRAY6CAP
[2020-07-04 09:11] LABS: BASO % 0.6 % (0.0-1.0); EOS # 0.1 10^3/uL (0.0-0.5); EOS % 0.9 % (0.0-3.0); HEMATOCRIT 41.7 % (36.0-47.0); HEMOGLOBIN 13.9 g/dl (12.0-15.5); LYMPH # 2.2 10^3/uL (1.5-5.0); MEAN CORPUSCULAR HGB CONC 33.3 g/dl (32.0-36.5); MEAN CORPUSCULAR VOLUME 83.9 fl (80.0-96.0); MONO # 0.5 10^3/uL (0.0-0.8); MONO % 6.9 % (0.0-5.0); NEUTROPHILS # 4.1 10^3/uL (1.5-8.5); NEUTROPHILS % 59.3 % (36.0-66.0); PLATELET COUNT, AUTOMATED 331 10^3/uL (150-450); RED BLOOD COUNT 4.97 10^6/uL (4.00-5.40)
[2020-07-04 09:45] LABS: HCG, SERUM QUALITATIVE NEGATIVE (NEGATIVE)
[2020-07-04 09:52] LABS: ALBUMIN 3.5 GM/DL (3.2-5.2); ALT/SGPT 24 U/L (12-78); BILIRUBIN,TOTAL 0.3 MG/DL (0.2-1.0); BLOOD UREA NITROGEN 10 MG/DL (7-18); CALCIUM LEVEL 8.9 MG/DL (8.5-10.1); CARBON DIOXIDE LEVEL 27 MEQ/L (21-32); CHLORIDE LEVEL 105 MEQ/L (98-107); CHOLESTEROL LEVEL 157 MG/DL (<200); CHOLESTEROL RISK RATIO 3.568 (<5); CREATININE FOR GFR 0.75 MG/DL (0.55-1.30); GLOMERULAR FILTRATION RATE > 60.0 (>60); GLUCOSE, FASTING 163 MG/DL (70-100); GLUCOSE,RANDOM 163 MG/DL (LESS THAN 200); HCG, SERUM QUANTITATIVE < 1.0 MIU/ML; HDL CHOLESTEROL 44 MG/DL (>40); LDL CHOLESTEROL 86 MG/DL (<100); NON-HDL-C 113 MG/DL; PHOSPHORUS LEVEL 3.6 MG/DL (2.5-4.9); POTASSIUM SERUM 3.9 MEQ/L (3.5-5.1); PROLACTIN 19.7 NG/ML; SODIUM LEVEL 138 MEQ/L (136-145); TOTAL 25(OH) VITAMIN D 28.4 NG/ML (30.0-100.0); TOTAL PROTEIN 6.8 GM/DL (6.4-8.2); TRIGLYCERIDES LEVEL 133 MG/DL (<150)
[2020-07-04 11:03] LABS: HEMOGLOBIN A1c 6.2 %
== END ==
LOC: M LAB 08:31
PROVIDERS: ATTEND Registered Nurse
DX: F31.9 Bipolar disorder, unspecified (principal)

== ENCOUNTER → 2020-07-20 | Outpatient (CLI) | payer BC, OTHER, MEDICAID | LOC: M LAB 15:21 | PROVIDERS: ATTEND Registered Nurse | DX: F31.2 Bipolar disorder, current episode manic severe with psychotic features (principal) ==

== ENCOUNTER → 2020-07-30 | Outpatient (REF) | payer MEDICAID, OTHER | LOC: M SFHCWAGY 17:00 | PROVIDERS: ATTEND Nurse Practitioner Women's Health | DX: Z11.3 Encounter for screening for infections with a predominantly sexual mode of transmission (principal) ==

== ENCOUNTER → 2020-09-12 | Outpatient (CLI) | payer OTHER, MEDICAID ==
[2020-09-12 11:41] LABS: BASO % 0.6 % (0.0-1.0); EOS # 0.1 10^3/uL (0.0-0.5); EOS % 1.3 % (0.0-3.0); HEMATOCRIT 42.7 % (36.0-47.0); LYMPH # 2.4 10^3/uL (1.5-5.0); LYMPH % 38.6 % (24.0-44.0); MEAN CORPUSCULAR HEMOGLOBIN 27.5 pg (27.0-33.0); MEAN CORPUSCULAR HGB CONC 32.8 g/dl (32.0-36.5); MEAN CORPUSCULAR VOLUME 83.9 fl (80.0-96.0); MONO # 0.5 10^3/uL (0.0-0.8); MONO % 7.3 % (0.0-5.0); NEUTROPHILS # 3.2 10^3/uL (1.5-8.5); NEUTROPHILS % 51.9 % (36.0-66.0); PLATELET COUNT, AUTOMATED 294 10^3/uL (150-450); RED BLOOD COUNT 5.09 10^6/uL (4.00-5.40); WHITE BLOOD COUNT 6.2 10^3/uL (4.0-10.0)
[2020-09-12 12:28] LABS: ALBUMIN 3.5 GM/DL (3.2-5.2); ALT/SGPT 25 U/L (12-78); BILIRUBIN,TOTAL 0.4 MG/DL (0.2-1.0); BLOOD UREA NITROGEN 11 MG/DL (7-18); CALCIUM LEVEL 8.7 MG/DL (8.5-10.1); CARBON DIOXIDE LEVEL 25 MEQ/L (21-32); CHLORIDE LEVEL 106 MEQ/L (98-107); CHOLESTEROL LEVEL 201 MG/DL (<200); CHOLESTEROL RISK RATIO 4.276 (<5); CREATININE FOR GFR 0.67 MG/DL (0.55-1.30); FREE T4 0.86 NG/DL (0.76-1.46); GLOMERULAR FILTRATION RATE > 60.0 (>60); GLUCOSE, FASTING 129 MG/DL (70-100); HDL CHOLESTEROL 47 MG/DL (>40); LDL CHOLESTEROL 119 MG/DL (<100); NON-HDL-C 154 MG/DL; POTASSIUM SERUM 4.4 MEQ/L (3.5-5.1); SODIUM LEVEL 138 MEQ/L (136-145); TOTAL PROTEIN 6.5 GM/DL (6.4-8.2); TRIGLYCERIDES LEVEL 175 MG/DL (<150)
[2020-09-12 13:25] LABS: HEMOGLOBIN A1c 6.6 %
== END ==
LOC: M WUC 09:30
PROVIDERS: ATTEND Physician Assistant
DX: Z13.29 Encounter for screening for other suspected endocrine disorder (principal); Z13.220 Encounter for screening for lipoid disorders

== ENCOUNTER → 2021-02-28 | Outpatient (CLI) | payer OTHER, MEDICAID ==
[~2021-02-28] MED LIST changes: -OLAN10TA2 PO; -OLAN15TA PO; +OLAN15TA13 PO; +OLAN1TAB20 PO
[2021-02-28 11:15] LABS: BASO # 0.1 10^3/uL (0.0-0.2); BASO % 0.7 % (0.0-1.0); EOS # 0.1 10^3/uL (0.0-0.5); EOS % 1.5 % (0.0-3.0); HEMATOCRIT 40.5 % (36.0-47.0); HEMOGLOBIN 13.9 g/dl (12.0-15.5); LYMPH # 2.7 10^3/uL (1.5-5.0); LYMPH % 36.9 % (24.0-44.0); MEAN CORPUSCULAR HEMOGLOBIN 29.1 pg (27.0-33.0); MEAN CORPUSCULAR HGB CONC 34.3 g/dl (32.0-36.5); MEAN CORPUSCULAR VOLUME 84.7 fl (80.0-96.0); MONO # 0.5 10^3/uL (0.0-0.8); MONO % 7.2 % (2.0-8.0); NEUTROPHILS # 3.9 10^3/uL (1.5-8.5); NEUTROPHILS % 53.4 % (36.0-66.0); PLATELET COUNT, AUTOMATED 290 10^3/uL (150-450); RED BLOOD COUNT 4.78 10^6/uL (4.00-5.40); WHITE BLOOD COUNT 7.4 10^3/uL (4.0-10.0)
[2021-02-28 11:43] LABS: HEMOGLOBIN A1c 5.9 %
[2021-02-28 11:49] LABS: BLOOD UREA NITROGEN 11 MG/DL (7-18); CALCIUM LEVEL 8.4 MG/DL (8.5-10.1); CARBON DIOXIDE LEVEL 27 MEQ/L (21-32); CHLORIDE LEVEL 106 MEQ/L (98-107); CREATININE FOR GFR 0.58 MG/DL (0.55-1.30); FREE T4 0.75 NG/DL (0.76-1.46); GLOMERULAR FILTRATION RATE > 60.0 (>60); GLUCOSE, FASTING 131 MG/DL (70-100); POTASSIUM SERUM 4.2 MEQ/L (3.5-5.1); SODIUM LEVEL 137 MEQ/L (136-145)
[2021-02-28 11:51] LABS: ESTRADIOL 118.4 PG/ML; FOLLICLE STIMULATING HORMONE 0.9 mIU/mL; LUTEINIZING HORMONE 3.4 mIU/mL
[2021-03-01 16:08] LABS: TESTOSTERONE FREE (DIRECT) 3.3 pg/mL (0.0-4.2)
== END ==
LOC: M PLALAB 07:46
PROVIDERS: ATTEND Nurse Practitioner Women's Health
DX: N93.9 Abnormal uterine and vaginal bleeding, unspecified (principal); Z68.41 Body mass index [BMI] 40.0-44.9, adult

== ENCOUNTER → 2021-03-21 | Outpatient (CLI) | payer BC, MEDICAID ==
--- NOTE | 2021-03-21 11:26 | REP ---
INDICATION: N93.9 AUB. COMPARISON: None. TECHNIQUE: Transabdominal and endovaginal probe images with color and duplex Doppler interrogation of the adnexa. FINDINGS: Bladder is partially filled measuring 5.1 x 4.1 x 7 cm. Uterus is anteverted measuring 8.5 x 3.5 by 4.3 cm. On Ev probe the endometrium has a maximum thickness of 12 mm and slightly heterogeneous. May be trace amount of fluid in the endometrial cavity. There are multiple nabothian cysts in the cervix. I do not see evidence of free fluid in the cul-de-sac uterine contour is smooth and regular. No discrete mass. The right ovary is 2.2 x 1.8 x 1.8 cm. Doppler tracing shows resistive index of 0.56. There is flow within the ovary. No adjacent fluid to the ovary. No mass. The left ovary is 2.2 x 1.8 x 2.3 cm. There are multiple subcentimeter follicles in this ovary, most of them are peripheral arrayed. The Doppler tracing shows resistive index of 0.55. Color flow seen within that ovary. No fluid adjacent or discrete ovarian mass. IMPRESSION: 1. Uterus not enlarged. Endometrial stripe thickness of 12 mm and slight heterogeneity. No discrete endometrial nodule or mass. Small nabothian cyst in the cervix. No free fluid in the cul-de-sac 2. Ovaries not enlarged without discrete mass. Normal blood flow and Doppler interrogation, no evidence of torsion. No pelvic free fluid or adnexal mass. <Electronically signed by Jesus Tomlin > 03/21/21 2143
== END ==
LOC: M WHC 10:22
PROVIDERS: ATTEND Nurse Practitioner Women's Health
DX: N93.9 Abnormal uterine and vaginal bleeding, unspecified (principal); N88.8 Other specified noninflammatory disorders of cervix uteri

== ENCOUNTER 2021-06-12 22:54 | Emergency (ER) | payer BC, OTHER, MEDICAID ==
[~2021-06-12] VITALS: Ht 162.6 cm; Wt 113.6 kg
[2021-06-12 22:55] VITALS: BP 136/90
[2021-06-12] MEDS ORDERED: LEXA1TAB PO (23:06)
[2021-06-12] MEDS ORDERED: LEXA5TAB13 PO (23:06)
[2021-06-12 23:51] LABS: APPEARANCE, URINE CLOUDY (CLEAR); BACTERIA, URINE AUTO NEGATIVE (NEGATIVE); BILIRUBIN, URINE AUTO NEGATIVE (NEGATIVE); BLOOD, URINE BLOOD NEGATIVE (NEGATIVE); COLOR, URINE YELLOW (YELLOW); GLUCOSE, URINE (UA) AUTO NEGATIVE (NEGATIVE); KETONE, URINE AUTO NEGATIVE (NEGATIVE); LEUKOCYTE ESTERASE, URINE AUTO NEGATIVE (NEGATIVE); MUCUS, URINE SMALL (NEGATIVE); NITRITE, URINE AUTO NEGATIVE (NEGATIVE); PROTEIN, URINE AUTO NEGATIVE (NEGATIVE); RBC, URINE AUTO 1 /HPF (0-3); SPECIFIC GRAVITY URINE AUTO 1.018 (1.002-1.035); SQUAMOUS EPITHELIAL CELL UR AU 4 /HPF (0-6); UROBILINOGEN, URINE AUTO 0.2 mg/dL (0.0-2.0); WBC, URINE AUTO 0 /HPF (0-3)
--- OUTSIDE RECORDS SUMMARY | 2021-08-07 07:26 | CCD ---
Continuity of Care Document (CCD) Created on: 06/21/2021 Ghassan Richards External Reference #: [id number] : [id number] Sex: Female Author Author Ghassan PASTOR DO Organization Unknown Address [address] [facility] [address] [place] [address] Phone [phone] Care Team Providers Care Issuing Operator Name Role Phone Stevenson Pastor DO AUTM [phone] Problems Active Problems Provider Date Morbid obesity Stevenson Pastor DO Onset: 1 Attention deficit hyperactivity disorder, combined type Chri santhosh Pastor DO Onset: 05/20/2021 Recurrent major depression in partial remission Stevenson Pastor DO Onset: 05/20/2021 Polycystic ovary syndrome Stevenson Pastor DO Onset: Body mass index 40+ - severely obese Stevenson Pastor DO Onset: 06/18/2021 Umbilical hernia Stevenson Pastor DO Onset: 1 Abdominal pain Stevenson Pastor DO Onset: 1 Social History Type Date Description Comments Sex [...] 1 1/2 by mouth every day Unknown Bactrim DS 800-160mg Tablets 1 tab by mouth twice a day for 10 days 30tabs Unknown Immunizations Description No Information Available Vital Signs Date Vital Result Comment 06/18/2021 9:30am BP Systolic 110 mmHg BP Diastolic 66 mmHg Heart Rate 82 /min Height 64.25 inches 5'4.25" Weight 244.00 lb BMI (Body Mass Index) 41.6 kg/m2 05/20/2021 12:57pm BP Systolic 140 mmHg BP Diastolic 60 mmHg Heart Rate 82 /min Height 64.25 inches 5'4.25" Weight 247.00 lb BMI (Body Mass Index) 42.1 kg/m2 Results Test Acquired Date Facility Test Result H/L Range Note CBC With Differential 06/16/[address] [address] [phone] White Blood Count 9.8 10 Normal 4.0-10.0 Red Blood Count 5.01 10 Normal 4.00-5.40 Hemoglobin 14.6 g/dL Normal 12.0-15.5 Hematocrit 42.6 % Normal 36.0-47.0 Mean Corpuscular Volume 85.0 fl Normal 80.0-96.0 Mean Corpuscular Hemoglobin 29.1 pg Normal 27.0-33.0 Mean Corpuscular HGB Conc 34.3 g/dL Normal 32.0-36.5 Red Cell Distribution Width 12.3 % Normal 11.5-14.5 Platelet Count, Automated 299 10 Normal 150-450 Neutrophils % 59.5 % Normal 36.0-66.0 Lymph % 33.4 % Normal 24.0-44.0 [place] % 5.5 % Normal 2.0-8.0 Eos % 0.7 % Normal 0.0-3.0 Baso % 0.6 % Normal 0.0-1.0 Immature Granulocyte % 0.3 % Normal 0-3.0 Nucleated Red Blood Cell % 0.0 % Normal 0-0 Neutrophils # 5.8 10 Normal 1.5-8.5 Lymph # 3.3 10 Normal 1.5-5.0 [place] # 0.5 10 Normal 0.0-0.8 Eos # 0.1 10 Normal 0.0-0.5 Baso # 0.1 10 Normal 0.0-0.2 Ua W/ Reflex To Culture 06/16/[address] [address] [phone] Appearance, Urine RFX HAZY Normal Clear Color, Urine RFX YELLOW Normal Yellow PH,Urine RFX 5.0 units Normal 5.0-9.0 Specific [place] Ur Auto RFX 1.021 Normal 1.002-1.035 Protein, Urine Auto RFX NEGATIVE mg/dL Normal Negative Glucose, Urine (Ua) Auto RFX NEGATIVE mg/dL Normal Negative Ketone, Urine Auto RFX NEGATIVE mg/dL Normal Negative Urobilinogen, Urine Auto RFX 0.2 mg/dL Normal 0.0-2.0 Bilirubin, Urine Auto RFX NEGATIVE Normal Negative Nitrite, Urine Auto RFX NEGATIVE Normal Negative Leukocyte Esterase Ur Auto RFX TRACE High Negative Blood, Urine Blood RFX NEGATIVE Normal Negative WBC, Urine Auto RFX 3 /HPF Normal 0-3 RBC, Urine Auto RFX 0 /HPF Normal 0-3 Bacteria, Urine Auto RFX NEGATIVE Normal Negative Squam Epithelial Cell Ur Aurfx 6 /HPF Normal 0-6 Mucus, Urine RFX SMALL Normal Negative Hyaline Cast, Urine Auto RFX 0 /LPF Normal 0-1 Comprehensive Metabolic Profil 06/16/[address] [address] [phone] Glucose, Fasting 82 mg/dL Normal 70-100 Blood Urea Nitrogen 12 mg/dL Normal 7-18 Creatinine For GFR 0.62 mg/dL Normal 0.55-1.30 Glomerular Filtration Rate > 60.0 Normal >60 1 Sodium Level 136 mEq/L Normal 136-145 Potassium Serum 4.5 mEq/L Normal 3.5-5.1 2 Chloride Level 106 mEq/L Normal 98-107 Carbon Dioxide Level 27 mEq/L Normal 21-32 Anion Gap 3 mEq/L Low 8-16 Calcium Level 8.4 mg/dL Low 8.5-10.1 Ast/Sgot 27 U/L Normal 7-37 Alt/SGPT 22 U/L Normal 12-78 Alkaline Phosphatase 65 U/L Normal 45-117 Bilirubin,Total 0.3 mg/dL Normal 0.2-1.0 Total Protein 7.5 GM/DL Normal 6.4-8.2 Albumin 3.7 GM/DL Normal 3.2-5.2 Albumin/Globulin Ratio 1.0 Low 1.2-2.2 Liver Profile 06/16/2021 [facility] [address] [place] [address] [phone] Bilirubin,Direct < 0.1 mg/dL Normal 0.0-0.2 Laboratory test finding 06/16/2021 [facility] [address] [place] [address] [phone] HCG Serum Qualitative NEGATIVE Normal Negative 3 Wound Culture 06/16/2021 [facility] [address] [place] [address] [phone] Wound Culture FULL REPORT IN L <SEE NOTE> Normal 4 Ua Routine 06/12/2021 [facility] [address] [place], [place] [id number] [phone] Appearance, Urine CLOUDY High Clear Color, Urine YELLOW Normal Yellow PH,Urine 7.0 units Normal 5.0-9.0 Specific [place] Urine Auto 1.018 Normal 1.002-1.035 Protein, Urine [...] /LPF Normal 0-1 Complete Blood Count 05/20/2021 [facility] Sales/Marketing: [place] [address] [phone] WBC 6.5 x10*3/UL 4.1 - 10.9 RBC [...] 2.0 - 7.8 Comprehensive Chem Profile 05/20/2021 [facility] [place] [place] Sales/Marketing: [place] [address] [phone] Glucose 89 mg/dL 74 - 99 5 BUN 8 mg/dL 7 - 18 Creatinine [...] mL/min >60 GFR >= 60 mL/min >60 6 Lipid Profile 05/20/2021 [facility] [place] Sales/Marketing: Dr José Luis [place] [address] [phone] Cholesterol 174 mg/dL 131 - 200 Triglycerides 99 mg/dL 30 - 150 HDL Cholesterol 49 mg/dL 35 - 60 LDL (Calculated) 105 CALC 50 - 159 Laboratory test finding 05/20/2021 [facility] [employer] [facility] [place] [place] Sales/Marketing: Dr José Luis [place] [address] [phone] Thyroid Stimulating Hormone 1.26 uIU/mL 0.3 6 - 3.74 1 Units are mL/min/1.73 m2 Chronic Kidney Disease Staging per NKF: Stage I & II GFR >=60 Normal to Mildly Decreased Stage III GFR 30-59 Moderately Decreased Stage IV GFR 15-29 Severely Decreased Stage V GFR <15 Very Little GFR Left ESRD GFR <15 on ROLL CLAMP OPERATOR 2 Testing was performed on a S LIGHTLY hemolyzed specimen. Suggest recollection of specimen for more accurate test results. 3 note:<nlbl:demographic_chang ed> 4 FULL REPORT IN LAB NOTES (eC W and Medent). ORGANISM 1: STAPHYLOCOCCUS SP COAG NEG QUANTITY OF GROWTH FEW ORGANISM 2: STREP ANGINOSUS GRP QUANTITY OF GROWTH FEW QUANTITY OF GROWTH FEW ORGANISM 1: STAPHYLOCOCCUS SP COAG NEG ORGANISM 2: STREP ANGINOSUS GRP ORGANISM 3: STAPHYLOCOCCUS SP COAG NEG STAPHYLOCOCCUS SP COAG NEG: REACTION ICR (INDUCIBLE CC RESISTANCE) IV ICR TEST RESULT TETRACYCLINE PO 250 mg qid <=1 S PENICILLIN G IV 1 mu q6H >=0.5 R PENICILLIN G IV 1 mu q6h >=0.5 R PENICILLIN G PO 250mg q6h fasting >=0.5 R TRIMETHOPRIM/SULFAMETHOXAZOLE IV 160mg TMP & 800mg SMXq6h <=10 S TRIMETHOPRIM/SULFAMETHOXAZOLE PO Bactrim DS Bid <=10 S ERYTHROMYCIN IV 500mg q6h <=0.25 S ERYTHROMYCIN PO 500mg q6h <=0.25 S GENTAMICIN IV 80mg q8h <=0.5 S CLINDAMYCIN IV 600mg q6h 0.25 S CLINDAMYCIN PO 150mg q6h 0.25 S OXACILLIN IV 500mg q6h <=0.25 S VANCOMYCIN IV 500mg q8h 1 S LINEZOLID (ZYVOX) IV 600MG Q12HR 1 S LINEZOLID (ZYVOX) PO 600MG Q12HR 1 S An isolate with a (+) POSITIVE ICR test is considered CLINDAMYCIN RESISTANT; however, clindamycin may still be effective in some patients. An isolate with a (-) NEGATIVE ICR test is considered CLIDAMYCIN SENSITIVE. Oxacillin result predicts susceptibility to all penicillinase-stable penicillins (Nafcillin, Dicloxacilin), Cephalosporins, Carbapenems, Amoxicillin/Clavulanate & Ampicillin/Sulbactam per CSLI standards. STREP ANGINOSUS GRP: REACTION TETRACYCLINE PO 250 mg qid >=16 R PENICILLIN G IV 1 mu q6h <=0.06 S PENICILLIN G PO 250mg q6h fasting <=0.06 S AMPICILLIN IV 500mg q6h <=0.25 S AMPICILLIN PO 500mg q6h fasting <=0.25 S ERYTHROMYCIN IV 500mg q6h 2 R ERYTHROMYCIN PO 500mg q6h 2 R CLINDAMYCIN IV 600mg q6h <=0.25 S CLINDAMYCIN PO 150mg q6h <=0.25 S LEVOFLOXACIN IV 500mg qd 1 S LEVOFLOXACIN PO 250mg qd 1 S LEVOFLOXACIN PO 500mg qd 1 S VANCOMYCIN IV 500mg q8h 0.5 S MOXIFLOXACIN (AVELOX) IV 400MG QD 0.25 S MOXIFLOXACIN (AVELOX) PO 400MG QD 0.25 S CEFTRIAXONE IV 1gm q24h <=0.12 S CEFOTAXIME IV 1gm q8h <=0.12 S STAPHYLOCOCCUS SP COAG NEG: REACTION ICR (INDUCIBLE CC RESISTANCE) IV ICR TEST RESULT TETRACYCLINE PO 250 mg qid >=16 R PENICILLIN G IV 1 mu q6H >=0.5 R PENICILLIN G IV 1 mu q6h >=0.5 R PENICILLIN G PO 250mg q6h fasting >=0.5 R TRIMETHOPRIM/SULFAMETHOXAZOLE IV 160mg TMP & 800mg SMXq6h <=10 S TRIMETHOPRIM/SULFAMETHOXAZOLE PO Bactrim DS Bid <=10 S ERYTHROMYCIN IV 500mg q6h >=8 R ERYTHROMYCIN PO 500mg q6h >=8 R GENTAMICIN IV 80mg q8h 8 I CLINDAMYCIN IV 600mg q6h 0.25 S CLINDAMYCIN PO 150mg q6h 0.25 S OXACILLIN IV 500mg q6h >=4 R VANCOMYCIN IV 500mg q8h 1 S LINEZOLID (ZYVOX) IV 600MG Q12HR 2 S LINEZOLID (ZYVOX) PO 600MG Q12HR 2 S An isolate with a (+) POSITIVE ICR test is considered CLINDAMYCIN RESISTANT; however, clindamycin may still be effective in some patients. An isolate with a (-) NEGATIVE ICR test is considered CLIDAMYCIN SENSITIVE. 5 100-125 mg/dL PRE-DIABET ES/FASTING >126 mg/dL DIABETES/FASTING 6 CHRONIC KIDNEY DISEASE STAGI NG PER NKF STAGE I & II GFR >= 60 NORMAL TO MILDLY DECREASED STAGE III GFR 30-59 MODERATELY DECREASED STAGE IV GFR 15-29 SEVERELY DECREASED STAGE V GFR <15 VERY LITTLE GFR LEFT ESRD GFR <15 ON ROLL CLAMP OPERATOR Procedures Date Code Description Status 06/18/2021 24724 Office/Outpatient Established Mo d MDM 30-39 Min Completed 05/20/2021 50484 Preventative Medicine (18-39Yrs) Completed 05/20/2021 92258 Brief Emotional/Beha v Assessment W/ Scoring Doc Per Standard Inst Completed 05/20/2021 38100 EKG/Interpretation & Report Comp leted Medical Devices Description No Information Available Encounters Type Date Location Provider Dx Diagnosis Office Visit 06/18/2021 9:40a [facility] sarah Pastor, DO R10.30 Lower abdominal pain, unspec ified K42.9 Umbilical hernia without obs truction or gangrene Z68.41 Body mass index [BMI] 40.0-4 4.9, adult E66.01 Morbid (severe) obesity due to excess calories F33.41 Major depressive disorder, r ecurrent, in partial remission E28.2 Polycystic ovarian syndrome Office Visit 05/20/2021 1:00p [facility] sarah Pastor, DO Z00.00 Encntr for general adult med [...] cardiovascular disorders Assessments Date Code Description Provider 06/18/2021 R10.30 Lower abdominal pain, unspecifie d Stevenson Pastor, 06/18/2021 K42.9 Umbilical hernia without obstruc tion or gangrene Stevenson Pastor, 06/18/2021 Z68.41 Body mass index [BMI] 40.0-44.9, adult Stevenson Pastor, 06/18/2021 E66.01 Morbid (severe) obesity due to e xcess calories Stevenson Pastor, DO 06/18/2021 F33.41 Major depressive disorder, recur rent, in partial remission Stevenson Pastor, DO 06/18/2021 E28.2 Polycystic ovarian syndrome Chrtrevor trevizo Malcom, DO 05/20/2021 Z00.00 Encounter for genera l adult [...] DO 05/20/2021 F41.1 Generalized anxiety disorder Chr sarah Pastor, DO 05/20/2021 N91.5 Oligomenorrhea, unspecified Chrtrevor santhosh Malcom, DO 05/20/2021 Z13.220 Encounter for screening for lipo id disorders Stevenson Pastor, 05/20/2021 Z13.6 Encounter for screening for card iovascular disorders Stevenson Pastor DO Plan of Treatment Future Appointment(s):* 08/19/2021 9:40 am - Stevenson Pastor DO at [facility] 06/18/2021 - Stevenson Pastor DO* R10.30 Lower abdominal pain, unspecified* Comments:* Her acute pain does some consistent with a possible soft tissue abscess, there was some brown discharge today. Patient will complete bactrim and I will refer to surgery for evaluation especially as exam is difficult. * K42.9 Umbilical hernia without obstruction or gangrene* Comments:* Referral to general surgery. * Z68.41 Body mass index [BMI] 40.0-44.9, adult * E66.01 Morbid (severe) obesity due to excess calories* Comments:* She is working some on diet and has lost 3 lbs since JUAN MANUEL. * Recommendations:* Discussed components of healthy lifestyle and lifestyle changes. Balanced diet, 150 minutes of physical activity per week. * F33.41 Major depressive disorder, recurrent, in partial remission* Comments:* Decent control on current regimen, however with stress of the last year should would like to consider changing medications. This is managed by behavior health and she prefers to discuss with them of which she has an appt in 2 days. She is also seeing therapy. Emphasized that healthy lifestyles, exercise in particular can have substantial benefits for mental health. * E28.2 Polycystic ovarian syndrome* Comments:* She is seeing fertility specialist this week as well. Functional Status Description No Information Available Mental Status Description No Information Available Referrals Description No Information Available
--- OUTSIDE RECORDS SUMMARY | 2021-08-07 07:26 | CCD | Continuity of Care Document ---
Author Author Ghassan PASTOR DO Organization Unknown Address [address] [facility] [address] [place] [address] Phone [phone] Care Team Providers Care Director School Of Nursing Name Role Phone Stevenson Pastor DO AUTM [phone] Problems Active Problems Provider Date Morbid obesity [...] H/L Range Note CBC With Differential 06/16/[address] [address] [phone] White Blood Count 9.8 10 Normal 4.0-10.0 [...] 36.0-66.0 Lymph % 33.4 % Normal 24.0-44.0 Hampton % 5.5 % Normal 2.0-8.0 Eos % 0.7 % Normal 0.0-3.0 Baso % 0.6 % Normal 0.0-1.0 Immature Granulocyte % 0.3 % Normal 0-3.0 Nucleated Red Blood Cell % 0.0 % Normal 0-0 Neutrophils # 5.8 10 Normal 1.5-8.5 Lymph # 3.3 10 Normal 1.5-5.0 Hampton # 0.5 10 Normal 0.0-0.8 Eos # 0.1 10 Normal 0.0-0.5 Baso # 0.1 10 Normal 0.0-0.2 Ua W/ Reflex To Culture 06/16/[address] [address] [phone] Appearance, Urine RFX HAZY Normal Clear Color, Urine RFX YELLOW Normal Yellow PH,Urine RFX 5.0 units Normal 5.0-9.0 Specific [place] Ur Auto RFX 1.021 Normal 1.002-1.035 Protein, [...] /LPF Normal 0-1 Comprehensive Metabolic Profil 06/16/[address] [address] [phone] Glucose, Fasting 82 mg/dL Normal 70-100 Blood [...] Ratio 1.0 Low 1.2-2.2 Liver Profile 06/16/2021 [facility] nter [address] [place] [address] [phone] Bilirubin,Direct < 0.1 mg/dL Normal 0.0-0.2 Laboratory test finding 06/16/2021 [facility] [address] [place] [address] [phone] HCG Serum Qualitative NEGATIVE Normal Negative 3 Wound Culture 06/16/2021 [facility] [address] [place] [address] [phone] Wound Culture FULL REPORT IN L <SEE NOTE> Normal 4 Ua Routine 06/12/2021 [facility] [address] [place], [place] [id number] [phone] Appearance, Urine CLOUDY High Clear Color, Urine YELLOW Normal Yellow PH,Urine 7.0 units Normal 5.0-9.0 Specific [place] Urine Auto 1.018 Normal 1.002-1.035 Protein, Urine [...] /LPF Normal 0-1 Complete Blood Count 05/20/2021 [facility] Triage Rn: [place] [address] [phone] WBC 6.5 x10*3/UL 4.1 - 10.9 RBC [...] 2.0 - 7.8 Comprehensive Chem Profile 05/20/2021 [facility] [place] [place] Triage Rn: [place] [address] [phone] Glucose 89 mg/dL 74 - 99 5 [...] 60 mL/min >60 6 Lipid Profile 05/20/2021 [facility] [place] Triage Rn: Dr José [place] [address] [phone] Cholesterol 174 mg/dL 131 - 200 Triglycerides 99 mg/dL 30 - 150 HDL Cholesterol 49 mg/dL 35 - 60 LDL (Calculated) 105 CALC 50 - 159 Laboratory test finding 05/20/2021 [facility] [place] [place] Triage Rn: Dr [place] [address] [phone] Thyroid Stimulating Hormone 1.26 uIU/mL 0.3 6 - 3.74 1 Units are mL/min/1.73 m2 Chronic Kidney Disease Staging per NKF: Stage I & II GFR >=60 Normal to Mildly Decreased Stage III GFR 30-59 Moderately Decreased Stage IV GFR 15-29 Severely Decreased Stage V GFR <15 Very Little GFR Left ESRD GFR <15 on LABOR CONCILIATOR 2 Testing was performed on a S [...] LITTLE GFR LEFT ESRD GFR <15 ON LABOR CONCILIATOR Procedures Date Code Description Status 05/20/2021 28277 Preventative Medicine (18-39Yrs) Completed 05/20/2021 12750 Brief Emotional/Beha v Assessment W/ Scoring Doc Per Standard Inst Completed 05/20/2021 64625 EKG/Interpretation & Report Comp leted Medical Devices Description No Information Available Encounters Type Date Location Provider Dx Diagnosis Office Visit 05/20/2021 1:00p [facility] Chr sarah Pastor, DO Z00.00 Encntr for general [...] Lower abdominal pain, unspecifie d Stevenson Pastor, DO 06/18/2021 K42.9 Umbilical hernia without obstruc tion or gangrene Stevenson Pastor, DO 06/18/2021 Z68.41 Body mass index [BMI] 40.0-44.9, adult Stevenson Pastor, DO 06/18/2021 E66.01 Morbid (severe) obesity due to e xcess calories Stevenson Pastor, DO 06/18/2021 F33.41 Major depressive disorder, recur rent, in partial remission Stevenson Pastor, DO 06/18/2021 E28.2 Polycystic ovarian syndrome Escobar Pastor, DO 05/20/2021 Z00.00 Encounter for genera l [...] Pastor, DO 05/20/2021 N91.5 Oligomenorrhea, unspecified Chri stop Malcom, DO 05/20/2021 Z13.220 Encounter for screening for lipo id disorders Stevenson Pastor, DO 05/20/2021 Z13.6 Encounter for screening for card iovascular disorders Stevenson Pastor DO Plan of Treatment Future Appointment(s):* 08/19/2021 9:40 am - Stevenson Pastor DO at [facility] 06/18/2021 - Stevenson Pastor DO* [...]
--- OUTSIDE RECORDS SUMMARY | 2021-08-07 07:26 | CCD | Continuity of Care Document ---
Author Author Ghassan COOPER Organization Unknown Address [address] [place] [address] [place] [address] Phone [phone] Care Team Providers Care Video Editing Intern Name Role Phone Salma Christine DO AUTM [employer] AUTM [phone] Problems Active Problems Provider Date Asthma without status asthmaticus Onset: Attention deficit hyperactivity disorder Onset: Anxiety state Onset: Social History Type Date Description Comments Sex Unknown Tobacco Use Start: Unknown Never Smoked Cigarettes ETOH Use Denies alcohol use Tobacco Use Start: Unknown Patient has never smoked Smoking Status Reviewed: 05/09/21 Patient has never smoked Allergies and adverse [...] Available Procedures Date Code Description Status 05/09/2021 68087 Office/Outpatient Established Mo d MDM 30-39 Min [...]
--- OUTSIDE RECORDS SUMMARY | 2021-08-07 07:26 | CCD | Continuity of Care Document ---
Author Author Ghassan COOPER Organization Unknown Address [address] [place] [address] [place] [address] Phone [phone] Care Team Providers Care Delivery Crew Member Name Role Phone Salma Christine DO AUTM [employer] AUTM [phone] Problems Active Problems Provider Date Asthma without [...] Available Procedures Date Code Description Status 05/09/2021 32657 Office/Outpatient Established Mo d MDM 30-39 Min Completed Medical Devices Description No Information Available Encounters Type Date Location Provider Dx Diagnosis Office Visit 05/09/2021 5:10p Main Office Jory Godfrey J0 6.9 Acute upper respiratory infection, unspecified A08.4 Viral intestinal infection, unspecified Z20.828 Contact w and exposure to ot h viral communicable diseases Assessments Date Code Description Provider 07/06/2021 Z20.828 Contact with and (miguel spected) exposure to other viral communicable diseases Vega GodfreyAMyriam 05/30/2021 Z20.828 Contact with and (miguel spected) [...]
--- OUTSIDE RECORDS SUMMARY | 2021-08-07 07:26 | CCD ---
Continuity of Care Document (CCD) Created on: 06/20/2021 Ghassan Farmer External Reference #: [id number] : [id number] Sex: Female Author Author Ghassan KANG PA-C Organization Unknown Address [facility] [address] [place] [address] Phone [phone] Care Team Providers Care Plastics Design Engineer Name Role Phone Family [facility] AUTM Marilu vailable Problems Description No Information Available Social History Type Date Description Comments Sex Unknown Allergies and adverse reactions Active Allergies Criticality Reaction | Severity Comments Date NKFA Unable to assess criticality 11/19/2020 NKEA Unable to assess criticality 11/19/2020 Nystatin Unable to assess criticality 11/19/2020 Inactive Allergies NKDA Unable to assess criticality 11/19/2020 Medications Active Medications SIG Qnty Indications Ordering Provide r Date Escitalopram Oxalate 10mg Tablets 2 tabs by mouth every day 135tabs F33.9 Yunior Whitney MD 021 Concerta 36mg Tablets ER take one tablet [...] Information Available Procedures Date Code Description Status 06/20/2021 48764 Office/Outpatient Established Mo d MDM 30-39 Min Completed 04/22/2021 98199 Office/Outpatient Established Mo d MDM 30-39 Min Completed 03/21/2021 55251 Office/Outpatient Established Mo d MDM 30-39 Min Completed 02/14/2021 47444 Office/Outpatient Established Mo d MDM 30-39 Min Completed 01/21/2021 06759 Office/Outpatient Established Mo d MDM 30-39 Min Completed 12/20/2020 02513 Psychiatric Diag Eval W/Medical Service Completed Medical Devices Description No Information Available Encounters Type Date Location Provider Dx Diagnosis Office Visit 06/20/2021 11:00a [facility] Armando Kang PA-C F33.9 Major depressive disorder, recurrent, unspecified F90.9 Attention-deficit hyperactiv ity disorder, unspecified type F60.3 Borderline personality disor ed Assessments Date Code Description Provider 06/20/2021 F33.9 Major depressive disorder, recur rent, unspecified Armando Kang PA-C 06/20/2021 F33.9 Major depressive disorder, recur rent, unspecified Nancy Lampack, [facility] 06/20/2021 F90.9 Attention-deficit hyperactivity disorder, unspecified type Armando Kang PA-C 06/20/2021 F90.9 Attention-deficit hyperactivity disorder, unspecified type Nancy Lampack, [facility] 06/20/2021 F60.3 Borderline personality disorder Armando Kang PA-C 06/20/2021 F60.3 Borderline personality disorder Nancy Lampack, [facility] 06/06/2021 F33.9 Major depressive disorder, recur rent, unspecified Nancy Lampack, [facility] 06/06/2021 F60.3 Borderline personality disorder Nancy Lampack, [facility] 06/06/2021 F90.9 Attention-deficit hyperactivity disorder, unspecified type Nancy Lampack, [facility] 05/22/2021 F33.9 Major depressive disorder, recur rent, unspecified Nancy Lampack, [facility] 05/22/2021 F60.3 Borderline personality disorder Nancy Lampack, [facility] 05/22/2021 F90.9 Attention-deficit hyperactivity disorder, unspecified type Nancy Lampack, [facility] 05/09/2021 F33.9 Major depressive disorder, recur rent, unspecified Nancy Lampack, [facility] 05/09/2021 F60.3 Borderline personality disorder Nancy Lampack, [facility] 05/09/2021 F90.9 Attention-deficit hyperactivity disorder, unspecified type Nancy Lampack, [facility] 04/22/2021 F33.9 Major depressive disorder, recur rent, unspecified Armando Kang, PA-C 04/22/2021 F60.3 Borderline personality disorder Armando Kang, PA-C 04/22/2021 F90.9 Attention-deficit hyperactivity disorder, unspecified type Armando Kang, PA-C 04/03/2021 F33.9 Major depressive disorder, recur rent, unspecified Nancy Lampack, [facility] 04/03/2021 F60.3 Borderline personality disorder Nancy Lampack, [facility] 04/03/2021 F90.9 Attention-deficit hyperactivity disorder, unspecified type Nancy Lampack, [facility] 03/21/2021 F33.9 Major depressive disorder, recur rent, unspecified Armando Kang, PA-C 03/21/2021 F60.3 Borderline personality disorder Armando Kang, PA-C 03/21/2021 F90.9 Attention-deficit hyperactivity disorder, unspecified type Armando Kang, PA-C 03/14/2021 F33.9 Major depressive disorder, recur rent, unspecified Nancy Lampack, [facility] 03/14/2021 F60.3 Borderline personality disorder Nancy Lampack, [facility] 03/14/2021 F90.9 Attention-deficit hyperactivity disorder, unspecified type Nancy Lampack, [facility] 02/14/2021 F33.9 Major depressive disorder, recur rent, unspecified Armando Kang, PA-C 02/14/2021 F60.3 Borderline personality disorder Armando Kang, PA-C 02/14/2021 F90.9 Attention-deficit hyperactivity disorder, unspecified type Armando Kang, PA-C 02/07/2021 F90.9 Attention-deficit hyperactivity disorder, unspecified type Nancy Lampack, [facility] 02/07/2021 F33.9 Major depressive disorder, recur rent, unspecified Nancy Lampack, [facility] 02/07/2021 F60.3 Borderline personality disorder Nancy Lampack, [facility] 01/31/2021 F90.9 Attention-deficit hyperactivity disorder, unspecified type Nancy Lampack, [facility] 01/31/2021 F33.9 Major depressive disorder, recur rent, unspecified Nancy Lampack, [facility] 01/31/2021 F60.3 Borderline personality disorder Nancy Lampack, [facility] 01/21/2021 F90.9 Attention-deficit hyperactivity disorder, unspecified type Armando Kang, PA-C 01/21/2021 F33.9 Major depressive disorder, recur rent, unspecified Armando aKng, PA-C 01/21/2021 F60.3 Borderline personality disorder Armando Kang, PA-C 01/14/2021 F90.9 Attention-deficit hyperactivity disorder, unspecified type Nancy Lampack, [facility] 01/14/2021 F33.9 Major depressive disorder, recur rent, unspecified Nancy Lampack, [facility] 12/20/2020 F90.9 Attention-deficit hyperactivity disorder, unspecified type Armando Kang, PA-C 12/20/2020 F33.9 Major depressive disorder, recur rent, unspecified Armando Kang, PA-C 12/20/2020 F60.3 Borderline personality disorder Armando Kang, PA-C Plan of Treatment Future Appointment(s):* 08/05/2021 4:40 pm - Armando Kang PA-C at [facility] * 08/05/2021 4:00 pm - BESSY Gan at [facility] * 07/01/2021 11:00 am - BESSY Gan at [facility] Functional Status Description No Information Available Mental Status Description No Information Available Referrals Description No Information Available
--- OUTSIDE RECORDS SUMMARY | 2021-08-07 07:26 | CCD | Continuity of Care Document ---
Author Author Ghassan KANG PA-C Organization Unknown Address [facility] [address] [place] [address] Phone [phone] Care Team Providers Care Director Of Retail Marketing Name Role Phone Family Medicine [facility] AUTM Marilu vailable [...] Available Procedures Date Code Description Status 06/20/2021 96085 Office/Outpatient Established Mo d MDM 30-39 Min Completed 04/22/2021 00431 Office/Outpatient Established Mo d MDM 30-39 Min Completed 03/21/2021 12251 Office/Outpatient Established Mo d MDM 30-39 Min Completed 02/14/2021 98687 Office/Outpatient Established Mo d MDM 30-39 Min Completed 01/21/2021 44717 Office/Outpatient Established Mo d MDM 30-39 Min Completed 12/20/2020 00971 Psychiatric Diag Eval W/Medical Service Completed Medical [...] depressive disorder, recur rent, unspecified Nancy Lampack, [facility] 06/20/2021 F90.9 Attention-deficit hyperactivity disorder, unspecified type Armando Kang PA-C 06/20/2021 F90.9 Attention-deficit hyperactivity disorder, unspecified type Nancy Lampack, [facility] 06/20/2021 F60.3 Borderline personality disorder Armando Kang PA-C 06/20/2021 F60.3 Borderline personality disorder Nancy Lampack, [facility] 06/06/2021 F33.9 Major depressive disorder, recur rent, unspecified Nancy Lampack, [facility] 06/06/2021 F60.3 Borderline personality disorder Nancy Lampack, [facility] 06/06/2021 F90.9 Attention-deficit hyperactivity disorder, unspecified type Nancy Lampack, [facility] 05/22/2021 F33.9 Major depressive disorder, recur rent, unspecified Nancy Lampack, [facility] 05/22/2021 F60.3 Borderline personality disorder Nancy Lampack, [facility] 05/22/2021 F90.9 Attention-deficit hyperactivity disorder, unspecified type Nancy Lampack, [facility] 05/09/2021 F33.9 Major depressive disorder, recur rent, unspecified Nancy Lampack, [facility] 05/09/2021 F60.3 Borderline personality disorder Nancy Lampack, [facility] 05/09/2021 F90.9 Attention-deficit hyperactivity disorder, unspecified type Nancy Lampack, [facility] 04/22/2021 F33.9 Major depressive disorder, recur rent, unspecified Armando Kang, PA-C 04/22/2021 F60.3 Borderline personality disorder Armando Kang, PA-C 04/22/2021 F90.9 Attention-deficit hyperactivity disorder, unspecified type Armando Kang, PA-C 04/03/2021 F33.9 Major depressive disorder, recur rent, unspecified Nancy Lampack, [facility] 04/03/2021 F60.3 Borderline personality disorder Nancy Lampack, [facility] 04/03/2021 F90.9 Attention-deficit hyperactivity disorder, unspecified type Nancy Lampack, [facility] 03/21/2021 F33.9 Major depressive disorder, recur rent, unspecified Armando Kang, PA-C 03/21/2021 F60.3 Borderline personality disorder Armando Kang, PA-C 03/21/2021 F90.9 Attention-deficit hyperactivity disorder, unspecified type Armando Kang, PA-C 03/14/2021 F33.9 Major depressive disorder, recur rent, unspecified Nancy Lampack, [facility] 03/14/2021 F60.3 Borderline personality disorder Nancy Lampack, [facility] 03/14/2021 F90.9 Attention-deficit hyperactivity disorder, unspecified type Nancy Lampack, [facility] 02/14/2021 F33.9 Major depressive disorder, recur rent, unspecified Armando Kang, PA-C 02/14/2021 F60.3 Borderline personality disorder Armando Kang, PA-C 02/14/2021 F90.9 Attention-deficit hyperactivity disorder, unspecified type Armando Kang, PA-C 02/07/2021 F90.9 Attention-deficit hyperactivity disorder, unspecified type Nancy Lampack, [facility] 02/07/2021 F33.9 Major depressive disorder, recur rent, unspecified Nancy Lampack, [facility] 02/07/2021 F60.3 Borderline personality disorder Nancy Lampack, [facility] 01/31/2021 F90.9 Attention-deficit hyperactivity disorder, unspecified type Nancy Lampack, [facility] 01/31/2021 F33.9 Major depressive disorder, recur rent, unspecified Nancy Lampack, [facility] 01/31/2021 F60.3 Borderline personality disorder Nancy Lampack, [facility] 01/21/2021 F90.9 Attention-deficit hyperactivity disorder, unspecified type Armando Kang, PA-C 01/21/2021 F33.9 Major depressive disorder, recur rent, unspecified Armando Kang, PA-C 01/21/2021 F60.3 Borderline personality disorder Armando Kang, PA-C 01/14/2021 F90.9 Attention-deficit hyperactivity disorder, unspecified type Nancy Lampack, [facility] 01/14/2021 F33.9 Major depressive disorder, recur rent, unspecified Nancy Lampack, [facility] 12/20/2020 F90.9 Attention-deficit hyperactivity disorder, unspecified type Armando Kang, PA-C 12/20/2020 F33.9 Major depressive disorder, recur rent, unspecified Armando Kang, PA-C 12/20/2020 F60.3 Borderline personality disorder Armando Kang, PA-C Plan of Treatment Future Appointment(s):* 08/05/2021 4:40 pm - Armando Kang PA-C at [facility] * 08/05/2021 4:00 pm - BESSY Gan at [facility] * 07/01/2021 11:00 am - BESSY Gan at [facility] Functional Status Description No Information Available Mental Status Description No Information Available Referrals Description No Information Available
--- OUTSIDE RECORDS SUMMARY | 2021-08-07 07:26 | CCD | Continuity of Care Document ---
Author Author Ghassan LECHUGA HI Organization Unknown Address [address] [place] [address] [place] [address] Phone [phone] Care Team Providers Care Coat Padder Name Role Phone Salma Christine DO AUTM [employer] AUTM [phone] Problems Active Problems Provider Date Asthma without [...] Available Procedures Date Code Description Status 05/09/2021 30096 Office/Outpatient Established Mo d MDM 30-39 Min Completed Medical Devices Description No Information Available Encounters Type Date Location Provider Dx Diagnosis Office Visit 05/09/2021 5:10p Main Office Jory Godfrey J0 6.9 Acute upper respiratory infection, unspecified A08.4 Viral intestinal infection, unspecified Z20.828 Contact w and exposure to ot h viral communicable diseases Assessments Date Code Description Provider 07/13/2021 Z20.828 Contact with and (miguel spected) exposure to other viral communicable diseases [facility] [place] 07/06/2021 Z20.828 Contact with and (miguel spected) exposure to other viral communicable diseases Jory Godfrey 05/30/2021 Z20.828 Contact with and (miguel spected) exposure to other viral communicable diseases ARELI Samuel 05/09/2021 J06.9 Acute upper respiratory infectio n, unspecified Wilda Godfrey.AMyriam 05/09/2021 A08.4 Viral intestinal infection, unsp ecified Wilda Godfrey.A. 05/09/2021 Z20.828 Contact with and (miguel spected) exposure to other viral communicable diseases Jory Godfrey Plan of Treatment No Information Available Functional Status Description No Information Available Mental Status Description No Information Available Referrals Description No Information Available
--- OUTSIDE RECORDS SUMMARY | 2021-08-07 07:26 | CCD | Continuity of Care Document ---
Author Author Ghassan KANG PA-C Organization Unknown Address [facility] [address] [place] [address] Phone [phone] Care Team Providers Care Orderly Name Role Phone [facility] AUTM Marilu vailable Problems Description No Information [...] Available Procedures Date Code Description Status 06/20/2021 52656 Office/Outpatient Established Mo d MDM 30-39 Min Completed 04/22/2021 12818 Office/Outpatient Established Mo d MDM 30-39 Min Completed 03/21/2021 41158 Office/Outpatient Established Mo d MDM 30-39 Min Completed 02/14/2021 07733 Office/Outpatient Established Mo d MDM 30-39 Min Completed 01/21/2021 35805 Office/Outpatient Established Mo d MDM 30-39 Min Completed 12/20/2020 14210 Psychiatric Diag Eval W/Medical Service Completed Medical [...] depressive disorder, recur rent, unspecified Nancy Lampack, [facility] 06/20/2021 F90.9 Attention-deficit hyperactivity disorder, unspecified type Armando Kang PA-C 06/20/2021 F90.9 Attention-deficit hyperactivity disorder, unspecified type Nancy Lampack, [facility] 06/20/2021 F60.3 Borderline personality disorder Armando Kang PA-C 06/20/2021 F60.3 Borderline personality disorder Nancy Lampack, [facility] 06/06/2021 F33.9 Major depressive disorder, recur rent, unspecified Nancy Lampack, [facility] 06/06/2021 F60.3 Borderline personality disorder Nancy Lampack, [facility] 06/06/2021 F90.9 Attention-deficit hyperactivity disorder, unspecified type Nancy Lampack, [facility] 05/22/2021 F33.9 Major depressive disorder, recur rent, unspecified Nancy Lampack, [facility] 05/22/2021 F60.3 Borderline personality disorder Nancy Lampack, [facility] 05/22/2021 F90.9 Attention-deficit hyperactivity disorder, unspecified type Nancy Lampack, [facility] 05/09/2021 F33.9 Major depressive disorder, recur rent, unspecified Nancy Lampack, [facility] 05/09/2021 F60.3 Borderline personality disorder Nancy Lampack, [facility] 05/09/2021 F90.9 Attention-deficit hyperactivity disorder, unspecified type Nancy Lampack, [facility] 04/22/2021 F33.9 Major depressive disorder, recur rent, unspecified Armando Kang, PA-C 04/22/2021 F60.3 Borderline personality disorder Armando Kang, PA-C 04/22/2021 F90.9 Attention-deficit hyperactivity disorder, unspecified type Armando Kang, PA-C 04/03/2021 F33.9 Major depressive disorder, recur rent, unspecified Nancy Lampack, [facility] 04/03/2021 F60.3 Borderline personality disorder Nancy Lampack, [facility] 04/03/2021 F90.9 Attention-deficit hyperactivity disorder, unspecified type Nancy Lampack, [facility] 03/21/2021 F33.9 Major depressive disorder, recur rent, unspecified Armando Kang, PA-C 03/21/2021 F60.3 Borderline personality disorder Armando Kang, PA-C 03/21/2021 F90.9 Attention-deficit hyperactivity disorder, unspecified type Armando Kang, PA-C 03/14/2021 F33.9 Major depressive disorder, recur rent, unspecified Nancy Lampack, [facility] 03/14/2021 F60.3 Borderline personality disorder Nancy Lampack, [facility] 03/14/2021 F90.9 Attention-deficit hyperactivity disorder, unspecified type Nancy Lampack, [facility] 02/14/2021 F33.9 Major depressive disorder, recur rent, unspecified Armando Kang, PA-C 02/14/2021 F60.3 Borderline personality disorder Armando Kang, PA-C 02/14/2021 F90.9 Attention-deficit hyperactivity disorder, unspecified type Armando Kang, PA-C 02/07/2021 F90.9 Attention-deficit hyperactivity disorder, unspecified type Nancy Lampack, [facility] 02/07/2021 F33.9 Major depressive disorder, recur rent, unspecified Nancy Lampack, [facility] 02/07/2021 F60.3 Borderline personality disorder Nancy Lampack, [facility] 01/31/2021 F90.9 Attention-deficit hyperactivity disorder, unspecified type Nancy Lampack, [facility] 01/31/2021 F33.9 Major depressive disorder, recur rent, unspecified Nancy Lampack, [facility] 01/31/2021 F60.3 Borderline personality disorder Nancy Lampack, [facility] 01/21/2021 F90.9 Attention-deficit hyperactivity disorder, unspecified type Armando Kang, PA-C 01/21/2021 F33.9 Major depressive disorder, recur rent, unspecified Armando Kang, PA-C 01/21/2021 F60.3 Borderline personality disorder Armando Kang, PA-C 01/14/2021 F90.9 Attention-deficit hyperactivity disorder, unspecified type Nancy Lampack, [facility] 01/14/2021 F33.9 Major depressive disorder, recur rent, unspecified Nancy Lampack, [facility] 12/20/2020 F90.9 Attention-deficit hyperactivity disorder, unspecified type Armando Kang, PA-C 12/20/2020 F33.9 Major depressive disorder, recur rent, unspecified Armando Kang, PA-C 12/20/2020 F60.3 Borderline personality disorder Armando Kang, PA-C Plan of Treatment Future Appointment(s):* 08/05/2021 4:40 pm - Armando Kang PA-C at [facility] * 08/05/2021 4:00 pm - BESSY Gan at [facility] * 07/01/2021 11:00 am - BESSY Gan at [facility] Functional Status Description No Information Available Mental Status Description No Information Available Referrals Description No Information Available
--- OUTSIDE RECORDS SUMMARY | 2021-08-07 07:26 | CCD | Continuity of Care Document ---
Author Author Ghassan GAN Organization Unknown Address [address] [address] Phone [phone] Care Team Providers Care Elastic Attacher Overlock Name Role Phone [facility] AUTM Marilu vailable Problems Description No Information [...] Available Procedures Date Code Description Status 06/20/2021 53740 Office/Outpatient Established Mo d MDM 30-39 Min Completed 04/22/2021 95143 Office/Outpatient Established Mo d MDM 30-39 Min Completed 03/21/2021 76265 Office/Outpatient Established Mo d MDM 30-39 Min Completed 02/14/2021 95536 Office/Outpatient Established Mo d MDM 30-39 Min Completed 01/21/2021 77372 Office/Outpatient Established Mo d MDM 30-39 Min Completed 12/20/2020 90837 Psychiatric Diag Eval W/Medical Service Completed Medical [...] unspecified Nancy Lampack, [facility] 06/20/2021 F90.9 Attention-deficit hyperactivity disorder, unspecified type Armando Kang PA-C 06/20/2021 F90.9 Attention-deficit hyperactivity disorder, unspecified type Nancy Lampack, [facility] 06/20/2021 F60.3 Borderline personality disorder Armando Kang PA-C 06/20/2021 F60.3 Borderline personality disorder Nancy Lampack, [facility] 06/06/2021 F33.9 Major depressive disorder, recur [...] Major depressive disorder, recur rent, unspecified Nancy Sultana, [facility] 12/20/2020 F90.9 Attention-deficit hyperactivity disorder, unspecified type Armando Kang, PA-C 12/20/2020 F33.9 Major depressive disorder, recur rent, unspecified Armando Kang, PA-C 12/20/2020 F60.3 Borderline personality disorder Armando Kang, [facility] Plan of Treatment Future Appointment(s):* 08/05/2021 4:40 pm - Armando Kang PA-C at [facility] * 08/05/2021 4:00 pm - BESSY Gan at [facility] * 07/01/2021 11:00 am - BESSY Gan at [facility] Functional Status Description No Information Available Mental Status Description No Information Available Referrals Description No Information Available
--- OUTSIDE RECORDS SUMMARY | 2021-08-07 07:26 | CCD | Continuity of Care Document ---
Author Author Ghassan LECHUGA [place] Organization Unknown Address [address] [place] [address] [place] [address] Phone [phone] Care Team Providers Care Train Dispatcher Name Role Phone Salma Christine DO AUTM [employer] [place] [employer] AUTM [phone] Problems Active Problems Provider Date Asthma without [...] Available Procedures Date Code Description Status 05/09/2021 33531 Office/Outpatient Established Mo d MDM 30-39 Min [...] spected) exposure to other viral communicable diseases Wilda Godfrey.AMyriam 05/30/2021 Z20.828 Contact with and (miguel spected) [...]
--- OUTSIDE RECORDS SUMMARY | 2021-08-07 07:27 | CCD | Continuity of Care Document ---
Author Author Ghassan PASTOR DO Organization Unknown Address [address] [facility] [address] [place] [address] Phone [phone] Care Team Providers Care Mailroom Associate Name Role Phone Stevenson Pastor DO AUTM [phone] Problems Active Problems Provider Date Morbid obesity [...] H/L Range Note CBC With Differential 06/16/[address] [address] [phone] White Blood Count 9.8 10 Normal 4.0-10.0 [...] 36.0-66.0 Lymph % 33.4 % Normal 24.0-44.0 [place] % 5.5 % Normal 2.0-8.0 Eos % 0.7 % Normal 0.0-3.0 Baso % 0.6 % Normal 0.0-1.0 Immature Granulocyte % 0.3 % Normal 0-3.0 Nucleated Red Blood Cell % 0.0 % Normal 0-0 Neutrophils # 5.8 10 Normal 1.5-8.5 Lymph # 3.3 10 Normal 1.5-5.0 [place] # 0.5 10 Normal 0.0-0.8 Eos # 0.1 10 Normal 0.0-0.5 Baso # 0.1 10 Normal 0.0-0.2 Ua W/ Reflex To Culture 06/16/[address] [address] [phone] Appearance, Urine RFX HAZY Normal Clear Color, Urine RFX YELLOW Normal Yellow PH,Urine RFX 5.0 units Normal 5.0-9.0 Specific [place] Ur Auto RFX 1.021 Normal 1.002-1.035 Protein, [...] /LPF Normal 0-1 Comprehensive Metabolic Profil 06/16/[address] [id number] [phone] Glucose, Fasting 82 mg/dL Normal 70-100 Blood [...] Ratio 1.0 Low 1.2-2.2 Liver Profile 06/16/2021 [facility] nter [address] [place] [address] [phone] Bilirubin,Direct < 0.1 mg/dL Normal 0.0-0.2 Laboratory test finding 06/16/[address] [id number] [phone] HCG Serum Qualitative NEGATIVE Normal Negative 3 Ua Routine 06/12/2021 [facility] [address] [address] [phone] Appearance, Urine CLOUDY High Clear Color, Urine YELLOW Normal Yellow PH,Urine 7.0 units Normal 5.0-9.0 Specific [place] Urine Auto 1.018 Normal 1.002-1.035 Protein, Urine [...] /LPF Normal 0-1 Complete Blood Count 05/20/2021 [facility] Towel Sorter: [place] [address] [phone] WBC 6.5 x10*3/UL 4.1 - 10.9 RBC [...] 2.0 - 7.8 Comprehensive Chem Profile 05/20/2021 [facility] Towel Sorter: [place] [address] [phone] Glucose 89 mg/dL 74 - 99 4 BUN 8 mg/dL 7 - 18 Creatinine [...] mL/min >60 GFR >= 60 mL/min >60 5 Lipid Profile 05/20/2021 [facility] Towel Sorter: [place] [address] [phone] Cholesterol 174 mg/dL 131 - 200 Triglycerides 99 mg/dL 30 - 150 HDL Cholesterol 49 mg/dL 35 - 60 LDL (Calculated) 105 CALC 50 - 159 Laboratory test finding 05/20/2021 [facility] Towel Sorter: [place] [address] [phone] Thyroid Stimulating Hormone 1.26 uIU/mL 0.3 6 - 3.74 1 Units are mL/min/1.73 m2 Chronic Kidney Disease Staging per NKF: Stage I & II GFR >=60 Normal to Mildly Decreased Stage III GFR 30-59 Moderately Decreased Stage IV GFR 15-29 Severely Decreased Stage V GFR <15 Very Little GFR Left ESRD GFR <15 on BENDING ROLL HAND 2 Testing was performed on a S LIGHTLY hemolyzed specimen. Suggest recollection of specimen for more accurate test results. 3 note:<nlbl:demographic_chang ed> 4 100-125 mg/dL PRE-DIABET ES/FASTING >126 mg/dL DIABETES/FASTING 5 CHRONIC KIDNEY DISEASE STAGI NG PER NKF STAGE I & II GFR >= 60 NORMAL TO MILDLY DECREASED STAGE III GFR 30-59 MODERATELY DECREASED STAGE IV GFR 15-29 SEVERELY DECREASED STAGE V GFR <15 VERY LITTLE GFR LEFT ESRD GFR <15 ON BENDING ROLL HAND Procedures Date Code Description Status 05/20/2021 02586 Preventative Medicine (18-39Yrs) Completed 05/20/2021 55282 Brief Emotional/Beha v Assessment W/ Scoring Doc Per Standard Inst Completed 05/20/2021 05653 EKG/Interpretation & Report Comp leted Medical Devices Description No Information Available Encounters Type Date Location Provider Dx Diagnosis Office Visit 05/20/2021 1:00p [facility] Chr sarah Pastor, DO Z00.00 [...] e xcess calories Stevenson Pastor, DO 05/20/2021 Z00.00 Encounter for genera [...] DO 05/20/2021 F41.1 Generalized anxiety disorder Chr istop Malcom, DO 05/20/2021 N91.5 Oligomenorrhea, unspecified Chri stop Malcom, DO 05/20/2021 Z13.220 Encounter for screening for lipo id disorders Stevenson Pastor, DO 05/20/2021 Z13.6 Encounter for screening for card iovascular disorders Stevenson Pastor DO Plan of Treatment Future Appointment(s):* 08/19/2021 9:40 am - Stevenson Pastor DO at [facility] 06/18/2021 - Stevenson Pastor DO* R10.30 Lower abdominal pain, unspecified * K42.9 Umbilical hernia without obstruction or gangrene * Z68.41 Body mass index [BMI] 40.0-44.9, adult * E66.01 Morbid (severe) obesity due to excess calories* Recommendations:* Discussed components of healthy lifestyle and lifestyle changes. Balanced diet, 150 minutes of physical activity per week. Functional Status Description No Information Available Mental Status Description No Information Available Referrals Description No Information Available
--- OUTSIDE RECORDS SUMMARY | 2021-08-07 07:27 | CCD | Continuity of Care Document ---
Author Author Ghassan PASTOR DO Organization Unknown Address [address] [facility] [address] [place] [address] Phone [phone] Care Team Providers Care Oilseed Meat Presser Name Role Phone Stevenson Pastor DO AUTM [phone] Problems Active Problems Provider Date Morbid obesity [...] H/L Range Note CBC With Differential 06/16/[address] [address] [phone] White Blood Count 9.8 10 Normal 4.0-10.0 [...] 36.0-66.0 Lymph % 33.4 % Normal 24.0-44.0 [place] % 5.5 % Normal 2.0-8.0 Eos % 0.7 % Normal 0.0-3.0 Baso % 0.6 % Normal 0.0-1.0 Immature Granulocyte % 0.3 % Normal 0-3.0 Nucleated Red Blood Cell % 0.0 % Normal 0-0 Neutrophils # 5.8 10 Normal 1.5-8.5 Lymph # 3.3 10 Normal 1.5-5.0 [place] # 0.5 10 Normal 0.0-0.8 Eos # 0.1 10 Normal 0.0-0.5 Baso # 0.1 10 Normal 0.0-0.2 Ua W/ Reflex To Culture 06/16/[address] [address] [phone] Appearance, Urine RFX HAZY Normal Clear Color, Urine RFX YELLOW Normal Yellow PH,Urine RFX 5.0 units Normal 5.0-9.0 Specific [place] Ur Auto RFX 1.021 Normal 1.002-1.035 Protein, [...] /LPF Normal 0-1 Comprehensive Metabolic Profil 06/16/[address] [address] [phone] Glucose, Fasting 82 mg/dL Normal 70-100 Blood [...] Ratio 1.0 Low 1.2-2.2 Liver Profile 06/16/2021 [facility] nter [address] [place] [address] [phone] Bilirubin,Direct < 0.1 mg/dL Normal 0.0-0.2 Laboratory test finding 06/16/2021 [facility] [address] [place] [address] [phone] HCG Serum Qualitative NEGATIVE Normal Negative 3 Wound Culture 06/16/2021 [facility] nter [address] [place] [address] [phone] Wound Culture FULL REPORT IN L <SEE NOTE> Normal 4 Ua Routine 06/12/2021 [facility] n[facility] [address] [place], [place] [id number] [phone] Appearance, Urine CLOUDY High Clear Color, Urine YELLOW Normal Yellow PH,Urine 7.0 units Normal 5.0-9.0 Specific [place] Urine Auto 1.018 Normal 1.002-1.035 Protein, Urine [...] /LPF Normal 0-1 Complete Blood Count 05/20/2021 [facility] Salesperson Stereo Equipment: [place] [address] [phone] WBC 6.5 x10*3/UL 4.1 - 10.9 RBC [...] 2.0 - 7.8 Comprehensive Chem Profile 05/20/2021 [facility], [place] Salesperson Stereo Equipment: [place] [address] [phone] Glucose 89 mg/dL 74 - 99 5 [...] 60 mL/min >60 6 Lipid Profile 05/20/2021 [facility] [place] , [place] Salesperson Stereo Equipment: Dr José Luis [place] [address] [phone] Cholesterol 174 mg/dL 131 - 200 Triglycerides 99 mg/dL 30 - 150 HDL Cholesterol 49 mg/dL 35 - 60 LDL (Calculated) 105 CALC 50 - 159 Laboratory test finding 05/20/2021 [facility] [place], [place] Salesperson Stereo Equipment: Dr José Luis [place] [address] [phone] Thyroid Stimulating Hormone 1.26 uIU/mL 0.3 6 - 3.74 1 Units are mL/min/1.73 m2 Chronic Kidney Disease Staging per NKF: Stage I & II GFR >=60 Normal to Mildly Decreased Stage III GFR 30-59 Moderately Decreased Stage IV GFR 15-29 Severely Decreased Stage V GFR <15 Very Little GFR Left ESRD GFR <15 on JOB SERVICE CONSULTANT 2 Testing was performed on a S LIGHTLY hemolyzed specimen. Suggest recollection of specimen for more accurate test results. 3 note:<nlbl:demographic_chang ed> 4 FULL REPORT IN LAB NOTES (eC W and Medent). ORGANISM 1: STAPHYLOCOCCUS SP COAG NEG QUANTITY OF GROWTH FEW ORGANISM 2: STREP ANGINOSUS GRP QUANTITY OF GROWTH FEW ORGANISM 1: STAPHYLOCOCCUS [...] S CEFOTAXIME IV 1gm q8h <=0.12 S 5 100-125 mg/dL PRE-DIABET ES/FASTING >126 mg/dL DIABETES/FASTING 6 CHRONIC KIDNEY DISEASE STAGI NG PER NKF STAGE I & II GFR >= 60 NORMAL TO MILDLY DECREASED STAGE III GFR 30-59 MODERATELY DECREASED STAGE IV GFR 15-29 SEVERELY DECREASED STAGE V GFR <15 VERY LITTLE GFR LEFT ESRD GFR <15 ON JOB SERVICE CONSULTANT Procedures Date Code Description Status 05/20/2021 12930 Preventative Medicine (18-39Yrs) Completed 05/20/2021 50987 Brief Emotional/Beha v Assessment W/ Scoring Doc Per Standard Inst Completed 05/20/2021 81944 EKG/Interpretation & Report Comp leted Medical Devices Description No Information Available Encounters Type Date Location Provider Dx Diagnosis Office Visit 05/20/2021 1:00p [facility] 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, recur rent, in partial remission Stevenson Pastor, DO 06/18/2021 E28.2 Polycystic ovarian syndrome Petertrevor santhosh Pastor, DO 05/20/2021 Z00.00 Encounter for genera l adult medical examination without abnormal findings Stevenson Pastor, DO 05/20/2021 R03.0 Elevated blood-press ure reading, without diagnosis of hypertension Stevenson Pastor, DO 05/20/2021 Z68.41 Body mass index [BMI] 40.0-44.9, adult Fishsarah Torresg, DO 05/20/2021 E66.01 Morbid (severe) obesity due to e xcess calories Stevenson Pastor, DO 05/20/2021 F90.2 Attention-deficit hyperactivity disorder, combined type Stevenson Pastor, DO 05/20/2021 F33.41 Major depressive disorder, recur rent, in partial remission Stevenson Pastor, DO 05/20/2021 F41.1 Generalized anxiety disorder Chr sarah Pastor, DO 05/20/2021 N91.5 Oligomenorrhea, unspecified Escobar Pastor, DO 05/20/2021 Z13.220 Encounter for screening for lipo id disorders Stevenson Pastor, DO 05/20/2021 Z13.6 Encounter for screening for card iovascular disorders Stevenson Pastor DO Plan of Treatment Future Appointment(s):* 08/19/2021 9:40 am - Stevenson Pastor DO at [facility] 06/18/2021 - Stevenson Pastor DO* [...]
--- OUTSIDE RECORDS SUMMARY | 2021-08-07 07:27 | CCD | Continuity of Care Document ---
Author Author Ghassan PASTOR DO Organization Unknown Address [address] [address] Phone [phone] Care Team Providers Care Robotics Software Engineer Name Role Phone Stevenson Pastor DO AUTM [phone] Problems Active Problems Provider Date Morbid obesity [...] H/L Range Note CBC With Differential 06/16/2021 [facility] [address] [place] [address] [phone] White Blood Count 9.8 10 Normal 4.0-10.0 [...] 36.0-66.0 Lymph % 33.4 % Normal 24.0-44.0 [place] % 5.5 % Normal 2.0-8.0 Eos % 0.7 % Normal 0.0-3.0 Baso % 0.6 % Normal 0.0-1.0 Immature Granulocyte % 0.3 % Normal 0-3.0 Nucleated Red Blood Cell % 0.0 % Normal 0-0 Neutrophils # 5.8 10 Normal 1.5-8.5 Lymph # 3.3 10 Normal 1.5-5.0 [place] # 0.5 10 Normal 0.0-0.8 Eos # 0.1 10 Normal 0.0-0.5 Baso # 0.1 10 Normal 0.0-0.2 Ua W/ Reflex To Culture 06/16/2021 [place] [id number] [phone] Appearance, Urine RFX HAZY Normal Clear Color, Urine RFX YELLOW Normal Yellow PH,Urine RFX 5.0 units Normal 5.0-9.0 Specific [place] Ur Auto RFX 1.021 Normal 1.002-1.035 Protein, [...] /LPF Normal 0-1 Comprehensive Metabolic Profil 06/16/[address] [id number] [phone] Glucose, Fasting 82 mg/dL Normal 70-100 Blood [...] Ratio 1.0 Low 1.2-2.2 Liver Profile 06/16/2021 [facility] nter [address] [place] [address] [phone] Bilirubin,Direct < 0.1 mg/dL Normal 0.0-0.2 Laboratory test finding 06/16/[address] [id number] [phone] HCG Serum Qualitative NEGATIVE Normal Negative 3 Ua Routine 06/12/2021 [facility] nter [address] [place] [address] [phone] Appearance, Urine CLOUDY High Clear Color, Urine YELLOW Normal Yellow PH,Urine 7.0 units Normal 5.0-9.0 Specific [place] Urine Auto 1.018 Normal 1.002-1.035 Protein, Urine [...] /LPF Normal 0-1 Complete Blood Count 05/20/2021 [facility] pc Manager Fleet: [place] [address] [phone] WBC 6.5 x10*3/UL 4.1 - 10.9 RBC [...] 2.0 - 7.8 Comprehensive Chem Profile 05/20/2021 [facility] segura Manager Fleet: [place] [address] [phone] Glucose 89 mg/dL 74 - 99 4 [...] 60 mL/min >60 5 Lipid Profile 05/20/2021 [facility] Manager Fleet: Dr José Luis Pastor [place] [address] [phone] Cholesterol 174 mg/dL 131 - 200 Triglycerides 99 mg/dL 30 - 150 HDL Cholesterol 49 mg/dL 35 - 60 LDL (Calculated) 105 CALC 50 - 159 Laboratory test finding 05/20/2021 [facility], pc Manager Fleet: [place] [address] [phone] Thyroid Stimulating Hormone 1.26 uIU/mL 0.3 6 - 3.74 1 Units are mL/min/1.73 m2 Chronic Kidney Disease Staging per NKF: Stage I & II GFR >=60 Normal to Mildly Decreased Stage III GFR 30-59 Moderately Decreased Stage IV GFR 15-29 Severely Decreased Stage V GFR <15 Very Little GFR Left ESRD GFR <15 on SOCIAL WORKER CLINICAL 2 Testing was performed on a S [...] LITTLE GFR LEFT ESRD GFR <15 ON SOCIAL WORKER CLINICAL Procedures Date Code Description Status 05/20/2021 25025 Preventative Medicine (18-39Yrs) Completed 05/20/2021 30004 Brief Emotional/Beha v Assessment W/ Scoring Doc Per Standard Inst Completed 05/20/2021 93330 EKG/Interpretation & Report Comp leted Medical Devices Description No Information Available Encounters Type Date Location Provider Dx Diagnosis Office Visit 05/20/2021 1:00p [facility] sarah Pastor DO Z00.00 Encntr for general [...] adult medical examination without abnormal findings Stevenson Pastro, 05/20/2021 R03.0 Elevated blood-press ure reading, without diagnosis of hypertension Stevenson Pastor, 05/20/2021 Z68.41 Body mass index [BMI] 40.0-44.9, adult Stevenson Pastor, 05/20/2021 E66.01 Morbid (severe) obesity due to e xcess calories Stevenson Pastor, 05/20/2021 F90.2 Attention-deficit hyperactivity disorder, combined type Stevenson Pastor, 05/20/2021 F33.41 Major depressive disorder, recur rent, in partial remission Stevenson Pastor, 05/20/2021 F41.1 Generalized anxiety disorder Chr sarah Pastor, DO 05/20/2021 N91.5 Oligomenorrhea, unspecified Escobar Pastor, DO 05/20/2021 Z13.220 Encounter for screening for lipo id disorders Stevenson Pastor DO 05/20/2021 Z13.6 Encounter for screening for card iovascular disorders Stevenson Pastor DO Plan of Treatment Future Appointment(s):* 06/18/2021 9:40 am - Stevenson Pastor DO at [facility] * 08/19/2021 9:40 am - Stevenson Pastor DO at [facility] 05/20/2021 - Stevenson Pastor DO* [...]
--- OUTSIDE RECORDS SUMMARY | 2021-08-07 07:28 | CCD ---
Author Author [facility] Organization [facility] Address Unknown Phone Unavailable Care Team Providers Care Ambulance Paramedic Name Role Phone Carrillo, Ashok Unavailable Unavailable Carrillo, Ashok Unavailable Unavailable Carrillo, Ashok Unavailable Unavailable Carrillo, Ashok Unavailable Unavailable Carrillo, Ashok Unavailable Unavailable Carrillo, Ashok Unavailable Unavailable Carrillo, Ashok Unavailable Unavailable Carrillo, Ashok Unavailable Unavailable Carrillo, Ashok Unavailable Unavailable Carrillo, Ashok Unavailable Unavailable Carrillo, Ashok Unavailable Unavailable Carrillo, Ashok Unavailable Unavailable Carrillo, Ashok Unavailable Unavailable Carrillo, Ashok Unavailable Unavailable Carrillo, Ashok Unavailable Unavailable Carrillo, Ashok Unavailable Unavailable Carrillo, Ashok Unavailable Unavailable Carrillo, Ashok Unavailable Unavailable Carrillo, Ashok Unavailable Unavailable [id number], [phone] Unavailable Unavailable CUMMINGS, J ISI PA Unavailable [...] Unavailable CUMMINGS, J ISI PA Unavailable Unavailable Angélica Dasilva MD Unavailable Unavailable [...] Unavailable Angélica Dasilva MD Unavailable Unavailable Dasilva, Angélica Santana MD Unavailable Unavailable Dasilva, Angélica Santana MD Unavailable Unavailable Dasilva, Angélica Santana MD Unavailable Unavailable Dasilva, Angélica Santana MD Unavailable Unavailable Dasilva, Angélica Santana MD Unavailable Unavailable Dasilva, Angélica Santana MD Unavailable Unavailable Dasilva, Angélica Santnaa MD Unavailable Unavailable Dasilva, nAgélica Santana MD Unavailable Unavailable Dasilva, Angélica Santana [...] Unavailable Dasilva, Angélica Santana MD Unavailable Unavailable ALLISON, DELBERT PA Unavailable Unavailable [...] PA Unavailable Unavailable LAMPACK, BRITTNEY Unavailable Unavailable CUMMINGS, J ISI PA Unavailable Unavailable CUMMINGS, J ISI PA Unavailable Unavailable CUMMINGS, J ISI PA Unavailable Unavailable CUMMINGS, J ISI PA Unavailable Unavailable CUMMINGS, J ISI PA Unavailable Unavailable CUMMINGS, J IIS PA Unavailable Unavailable CUMMINGS, J ISI PA [...] Unavailable CUMMINGS, J ISI PA Unavailable Unavailable Atlantic, Christopher DO Unavailable Unavailable Atlantic, Christopher DO Unavailable Unavailable Atlantic, Christopher DO Unavailable Unavailable Atlantic, Christopher DO Unavailable Unavailable Malcom, Christopher DO Unavailable Unavailable Malcom, Christopher DO Unavailable Unavailable Malcom, Christopher DO Unavailable Unavailable Atlantic, Christopher DO Unavailable Unavailable Atlantic, Christopher DO Unavailable Unavailable Atlantic, Christopher DO Unavailable Unavailable Malcom, Christopher DO Unavailable Unavailable Atlantic, Christopher DO Unavailable Unavailable LEONORA, JAYANT COTTON CLASSER Unavailable Unavailable LEONORA, JAYANT COTTON CLASSER Unavailable Unavailable Izabela Zaragoza Unavailable [phone] Izabela Zaragoza Unavailable [phone] Camejo, Mata Unavailable Unavailable Camejo, Mata Unavailable [...] Unavailable Unavailable Camejo, Mata Unavailable Unavailable TURRIN, NHAN Unavailable Unavailable TURRIN, NHAN Unavailable Unavailable TURRIN, NHAN Unavailable Unavailable TURRIN, NHAN Unavailable Unavailable Dwello PA PA, Lynn Unavailable [...] Unavailable O'martha, A Nemesio PA Unavailable Unavailable Fabian Linder ARELI Unavailable Unavailable Re-disclosure Warning The records that [...] is protected by Article 27-F of the [facility] Public Health law. If you continue you may have access to information: Regarding HIV / AIDS; Provided by facilities licensed or operated by the [facility] Office of Mental Health; or Provided by the [facility] Office for People With Developmental Disabilities. If such information is present, then the following [facility] mandated warning applies: This information has been [...] law may result in a fine or detention sentence or both. A general authorization for the release of medical or other information is NOT sufficient authorization for further disc losure. Allergies and Adverse Reactions Type Description Substance Reaction Status Data Source(s ) Drug Allergy Drug Allergy NKDA MEDENT ([facility]) Family History Family Member Name Family Member Gender Family Member Status Date o f Status Description Data Source(s) Unknown Female Diagnosis 03/05/2018 12:00:00 AM EDT NextGen ([facility]) Unknown Female Diagnosis 02/11/2018 12:00:00 AM EDT NextGen ([facility]) Encounters Encounter Providers Location Date Indications Data Source(s ) Referrer: Ashok Carrillo 07/18/2021 09:28:06 AM EST Sema4 ([facility]) Outpatient Attender: ISI SINGLETON 07/11 03:06:00 PM EST - 07/11/2021 03:06:00 PM EST [facility] Outpatient Attender: ISI SINGLETON [facility] 06/20 11:00:00 AM EDT MEDENT ([facility]) Outpatient Attender: ISI SINGLETON 06/20 10:48:00 AM EDT - 06/20/2021 10:48:00 AM EDT [facility] Outpatient Attender: BRITTNEY RAINEY 2020 09:57:00 AM EDT - 06/20/2021 09:57:00 AM EDT [facility] Outpatient Attender: Stevenson Virgen 06/18/2021 09:40:00 AM EDT MEDENT ([facility] ) Outpatient Attender: Fabian SINGLETON 02:27:04 PM EDT - 06/16/2021 03:12:01 PM EDT DocuTap ([facility]) Emergency Attender: NHAN SAMUEL 2020 03:21:00 PM EDT - 2021 07:15:00 PM EDT [facility] Patient discharged. Outpatient Attender: BRITTNEY RAINEY 2020 09:54:00 AM EDT - 06/06/2021 09:54:00 AM EDT [facility] Unknown [address] [address] 05/27/2021 12:00:00 AM EDT eCW1 ([facility]) Outpatient Attender: BRITTNEY RAINEY 2020 09:55:00 AM EDT - 05/22/2021 09:55:00 AM EDT [facility] Outpatient Attender: Stevenson Virgen 05/20/2021 01:00:00 PM EDT MEDENT ([facility] ) Outpatient Attender: DEBLERT kyle 05/09/2021 05:10:00 PM EDT MEDENT ([facility]) Outpatient Attender: Izabela SINGLETON 05/2021 12:13:36 PM EDT - 05/09/2021 12:52:24 PM EDT DocuTap ([facility]) Outpatient Attender: BRITTNEY RAINEY 2020 09:53:00 AM EDT - 05/09/2021 09:53:00 AM EDT [facility] OFFICE OUTPATIENT VISIT 15 MINUTES Attender: Max Dasilva MD Phys ical Therapy 05/02/2021 01:15:00 PM EDT MEDENT ([facility]) Outpatient Attender: SII SINGLETON Family [facility] 04/22 03:00:00 PM EDT MEDENT ([facility]) Outpatient Attender: ISI SINGLETON 04/22 02:58:00 PM EDT - 04/22/2021 02:58:00 PM EDT [facility] Outpatient [address] [address] 04/18/2021 12:00:00 AM EDT eCW1 ([facility]) Outpatient Attender: BRITTNEY RAINEY 2020 09:51:00 AM EDT - 04/03/2021 09:51:00 AM EDT [facility] Outpatient Attender: Mata Camejo Physical Therapy 03/28/2021 10:00:0 0 AM EDT MEDENT ([facility]) Outpatient Attender: ISI SINGLETON [facility] 03/21 12:40:00 PM EDT MEDENT ([facility]) Outpatient Attender: ISI SINGLETON 03/21 12:31:00 PM EDT - 03/21/2021 12:31:00 PM EDT [facility] Outpatient Attender: BRITTNEY RAINEY 2020 08:53:00 AM EDT - 03/14/2021 08:53:00 AM EDT [facility] Unknown [address] [address] 03/06/2021 12:00:00 AM EDT eCW1 ([facility]) Outpatient [address] [address] 02/28/2021 12:00:00 AM EDT eCW1 ([facility]) Outpatient Attender: ISI SINGLETON 02/14 12:54:00 PM EDT - 02/14/2021 12:54:00 PM EDT [facility] Outpatient Attender: ISI SINGLETON Family [facility] 02/14 12:40:00 PM EDT MEDENT ([facility]) Outpatient Attender: BRITTNEY RAINEY 2020 12:56:00 PM EDT - 02/07/2021 12:56:00 PM EDT [facility] OFFICE OUTPATIENT NEW 30 MINUTES Attender: Max Dasilva MD Physic al Therapy 02/07/2021 08:45:00 AM EDT MEDENT ([facility]) Outpatient Attender: BRITTNEY RAINEY 2020 01:01:00 PM EDT - 01/31/2021 01:01:00 PM EDT [facility] Outpatient Attender: ISI SINGLETON 01/21 12:23:00 PM EDT - 01/21/2021 12:23:00 PM EDT [facility] Outpatient Attender: ISI SINGLETON Family [facility] 01/21 12:20:00 PM EDT MEDENT ([facility]) Outpatient Attender: BRITTNEY RAINEY 2020 01:56:00 PM EDT - 01/14/2021 01:56:00 PM EDT [facility] Outpatient Attender: ISI SINGLETON 12/20 10:54:00 AM EDT - 12/20/2020 10:54:00 AM EDT [facility] Outpatient [address] [address] 12/20/2020 12:00:00 AM EDT eCW1 ([facility]) Outpatient Attender: [id number] 11/19/2020 10:00:00 AM EDT MEDENT ([facility]) Outpatient Attender: ISI SINGLETON 11/19 09:54:00 AM EDT - 11/19/2020 09:54:00 AM EDT [facility] Outpatient Attender: BRITTNEY RAINEY 2020 10:53:00 AM EST - 11/02/2020 10:53:00 AM EST [facility] Outpatient Attender: Nemesio SINGLETON [facility] 10/17/2020 07:30:00 AM EST MEDENT ([facility]) Outpatient Attender: JAYANT LEA LMSW 10:58:00 AM EST - 10/05/2020 10:58:00 AM EST [facility] Outpatient Attender: Nemesio SINGLETON [facility] 09/17/2020 10:20:00 AM EST MEDENT ([facility]) Outpatient Attender: Nemesio SINGLETON [facility] 09/10/2020 01:00:00 PM EST MEDENT ([facility]) OFFICE VISIT, ESTOutpatient Attender: Lynn SINGLETON PPNCNY W mauro 08/08/2020 10:40:00 AM EST - 08/08/2020 10:40:00 AM EST Encounter for oth general cnsl and advice on procreationEncounter for test, result negative NextGen ([facility]) Encounter for oth general cnsl and advic e on procreation Encounter for test, result neg ative Outpatient [address] [address] 07/30/2020 12:00:00 AM EST eCW1 ([facility]) Unknown [address] [address] 07/04/2020 12:00:00 AM EST eCW1 ([facility]) Outpatient Attender: Nemesio SINGLETON [facility] 06/22/2020 01:40:00 PM EDT MEDENT ([facility]) Unknown [address] [place] [address] 06/11/2020 12:00:00 AM EDT eCW1 ([facility]) Immunizations Vaccine Date Status Description Data Source(s) COVID-19 VACCINE Moderna 07/13/2021 12:00:00 AM EST completed [facility]SIIS Vaccine Series Complete: NOThis Data was Submitted to [facility] Via HelpHub. COVID-19 dose #2 given elsewhere Unspecified 12/20/2020 09:0 9:00 AM EDT completed eCW1 ([facility]) COVID-19 dose #2 given elsewhere Unspecified 12/20/2020 09:0 9:00 AM EDT completed eCW1 ([facility]) COVID-19 VACCINE Moderna 12/20/2020 12:00:00 AM EDT completed NYSIIS Vaccine Series Complete: YESThis Data wa s Submitted to [facility] Via Help[facility]. COVID-19 dose #1 given elsewhere Unspecified 11/22/2020 09:0 9:00 AM EDT completed eCW1 ([facility]) COVID-19 dose #1 given elsewhere Unspecified 11/22/2020 09:0 9:00 AM EDT completed eCW1 ([facility]) COVID-19 VACCINE Moderna 11/22/2020 12:00:00 AM EDT completed NYSIIS Vaccine Series Complete: NOThis Data was Submitted to [facility] Via HelpHub. Medications Medication Brand Name Start Date Product Form Dose Route Admi nistrative Instructions Pharmacy Instructions Status Indications Reaction Description Data Source(s) Escitalopram 10 MG Oral Tablet Escitalopram Oxalate 02/14/2021 1 2:00:00 AM EDT ORAL active MEDENT ( [facility]) lamotrigine 25 MG Oral Tablet Lamotrigine 01/13/2021 12:00:00 AM EDT active MEDENT ([facility]) Sertraline 25 MG Oral Tablet [Zoloft] Zoloft 25 MG Zoloft 25 MG 12/20/2020 12:00:00 AM EDT 1.0 {tablet} suspended Zoloft 25 MG eCW1 ([facility]) Sertraline 25 MG Oral Tablet Sertraline HCL 12/20/2020 12:00:00 AM EDT ORAL completed MEDENT ([facility]) Sertraline 25 MG Oral Tablet [Zoloft] Zoloft 25 MG Zoloft 25 MG 12/20/2020 12:00:00 AM EDT 1.0 {tablet} suspended Zoloft 25 MG eCW1 ([facility]) Sertraline 25 MG Oral Tablet [Zoloft] Zoloft 25 MG Zoloft 25 MG 12/20/2020 12:00:00 AM EDT 1.0 {tablet} active Zo loft 25 MG eCW1 ([facility]) lamotrigine 25 MG Oral Tablet [Lamictal] Lamictal 10/17/2020 12 :00:00 AM EST ORAL completed MEDENT ([facility]) 24 HR Methylphenidate Hydrochloride 36 M G Extended Release Oral Tablet [Concerta] Concerta 10/17/2020 12:00:00 AM EST ORAL act bonny MEDENT ([facility]) 24 HR Methylphenidate Hydrochloride 36 M G Extended Release Oral Tablet [Concerta] Concerta 09/17/2020 12:00:00 AM EST ORAL act bonny MEDENT ([facility]) 24 HR Metformin hydrochloride 500 MG Extended Release Oral Tablet Metformin HCL ER 09/17/2020 12:00:00 AM EST ORAL active MEDENT ([facility]) 24 HR Metformin hydrochloride 500 MG Extended Release Oral Tablet Metformin HCL ER 09/17/2020 12:00:00 AM EST active MEDENT ([facility]) lamotrigine 25 MG Oral Tablet Lamotrigine 09/11/2020 12:00:00 AM EST completed MEDENT ([facility]) Lamictal Starter/Not Taking Carbamazepine Lamictal Sta rter/Not Taking Carbamazepine 09/10/2020 12:00:00 AM EST completed MEDENT ([facility]) No Active Medications 09/10/2020 12:00:00 AM EST completed MEDENT ([facility]) 27-0.8 MG 27-0.8 MG 07/30/2020 12:00:00 AM EST 1.0 {tablet} active 27-0.8 MG e CW1 ([facility]) 27-0.8 MG 27-0.8 MG 07/30/2020 12:00:00 AM EST 1.0 {tablet} suspended 27-0.8 MG e CW1 ([facility]) 27-0.8 MG 27-0.8 MG 07/30/2020 12:00:00 AM EST 1.0 {tablet} active 27-0.8 MG e CW1 ([facility]) 27-0.8 MG 27-0.8 MG 07/30/2020 12:00:00 AM EST 1.0 {tablet} suspended 27-0.8 MG e CW1 ([facility]) 27-0.8 MG 27-0.8 MG 07/30/2020 12:00:00 AM EST 1.0 {tablet} active 27-0.8 MG e CW1 ([facility]) Norman Austin 07/04/2020 12:00:00 AM EST complet ed MEDENT ([facility]) Naproxen 500 MG Oral Tablet Naproxen 06/22/2020 12:00:00 AM EDT completed MEDENT ([facility]) Wrist Splint/Cock-Up/Right/Canvas/Large 06/22/2020 12:00:00 AM E DT active MEDENT ([facility]) Wrist Splint/Cock-Up/Left/Canvas/Large 06/22/2020 12:00:00 AM ED T active MEDENT ([facility]) 3 ML liraglutide 6 MG/ML Pen Injector [Saxenda] Saxenda 06/22/2020 12:00:00 AM EDT SUBCUTANEOUS completed M EDENT ([facility]) Novofine 06/22/2020 12:00:00 AM EDT active MEDENT ([facility]) Fluticasone Propionate Fluticasone Propionate 06/14/2020 12:00:00 AM E DT completed MEDENT ([facility]) Sprintec 28 0.25-35 MG-MCG Sprintec 28 0.25-35 MG-MCG 2019 12:00:00 AM EDT 1.0 {tablet} suspended Sprintec 28 0.25-35 MG-MCG eCW1 ([facility]) Sprintec 28 0.25-35 MG-MCG Sprintec 28 0.25-35 MG-MCG 2019 12:00:00 AM EDT 1.0 {tablet} active Sprintec 28 0.25-35 MG-MCG eCW1 ([facility]) Sprintec 28 0.25-35 MG-MCG Sprintec 28 0.25-35 MG-MCG 2019 12:00:00 AM EDT 1.0 {tablet} suspended Sprintec 28 0.25-35 MG-MCG eCW1 ([facility]) Sprintec 28 0.25-35 MG-MCG Sprintec 28 0.25-35 MG-MCG 2019 12:00:00 AM EDT 1.0 {tablet} suspended Sprintec 28 0.25-35 MG-MCG eCW1 ([facility]) Sprintec 28 0.25-35 MG-MCG Sprintec 28 0.25-35 MG-MCG 2019 12:00:00 AM EDT 1.0 {tablet} suspended Sprintec 28 0.25-35 MG-MCG eCW1 ([facility]) Sprintec 28 0.25-35 MG-MCG Sprintec 28 0.25-35 MG-MCG 2019 12:00:00 AM EDT 1.0 {tablet} suspended Sprintec 28 0.25-35 MG-MCG eCW1 ([facility]) levocetirizine dihydrochloride 5 MG Oral Tablet Levocetirizi ne Dihydrochloride 06/11/2020 12:00:00 AM EDT completed MEDENT ([facility]) Sprintec 28 Sprintec 28 06/11/2020 12:00:00 AM EDT completed MEDENT ([facility]) levocetirizine dihydrochloride 5 MG Oral Tablet Levocetirizi ne Dihydrochloride 03/21/2020 12:00:00 AM EDT completed MEDENT ([facility]) sitagliptin 100 MG Oral Tablet [Januvia] Januvia 100 m g tablet Januvia 100 mg tablet 1.00 {tablet} ORAL completed sitagliptin 100 MG Oral Tablet [Januvia] NextGen ([facility]) L-Methylfolate 15 mg tablet levomefolate calcium completed NextGen ([facility]) Omeprazole 20 MG Delayed Release Oral Ca psule omeprazole 20 mg capsule,delayed release omeprazole 20 mg capsule,delayed release 1 {capsule} ORA L completed take 1 capsule by or al route 2 times every day 30 minutes to 1 hour before a meal NextGen ([facility]) 24 HR Methylphenidate Hydrochloride 54 M G Extended Release Oral Tablet [Concerta] Concerta 54 mg tablet,extended release Concerta 54 mg tablet,extended release 1.00 {tablet} ORAL completed 24 HR methylphenidate hydrochloride 54 MG Extended Release Oral Tablet [Concerta] NextGen ([facility]) Clonazepam 2 MG Oral Tablet clonazepam 2 mg tablet clonazepam 2 mg tablet 1.00 {tablet} ORAL completed take 1 tablet by oral route 3 times every day NextGen ([facility]) Hollis Aspartate 5 MG Oral Capsule LITHATE (unknown s trength) LITHATE (unknown strength) completed NextGe n ([facility]) unknown dosage 1 tab twice a day levocetirizine dihydrochloride 5 MG Oral Tablet levoce tirizine 5 mg tablet levocetirizine 5 mg tablet 1.00 {tablet} ORAL comp leted take 1 tablet by oral route every day in the evening NextGen ([facility]) Losartan Potassium 50 MG Oral Tablet losartan 50 mg ta blet losartan 50 mg tablet 1.00 {tablet} ORAL completed take 1 tablet by oral route every day NextGen ([facility]) Lorazepam 2 MG Oral Tablet [Ativan] Ativan 2 mg tablet Ativan 2 mg tablet 1.00 {tablet} ORAL completed lorazepam 2 MG O ral Tablet [Ativan] NextGen ([facility]) montelukast 10 MG Oral Tablet montelukast 10 mg tablet monte lukast 10 mg tablet 1.00 {tablet} ORAL completed take 1 tablet by oral route every day in the evening NextGen ([facility]) Vraylar 4.5 mg capsule cariprazine 4.5 MG Oral Capsule 1.00 {capsule} ORAL completed cariprazine 4.5 MG Oral C apsule [Vraylar] NextGen ([facility]) Lamictal XR Starter (Green) 50 mg(14)-100 mg(14)-200 m g(7) tab,ext.rel {14 (24 HR lamotrigine 100 MG Extended Release Oral Tablet) / 7 (24 HR lamotrigine 200 MG Extended Release Oral Tablet) / 14 (24 HR lamotrigine 50 MG Extended Release Oral Tablet) } Pack completed Lamictal XR Green [facility] Insurance Providers Payer name Policy type / Coverage type Policy ID Covered libertarian ID Covered libertarian's relationship to pendleton Policy Pendleton Plan Information [facility] Part B [id number] Self [id number] [facility] Part B [id number] Family Dependent [id number] BS [facility] Part B [id number] Family Dependent [id number] BS [facility] Part B [id number] Self Y [id number] BS [facility] Part B [id number] Family Dependent [id number] [facility] B [id number] Self V [id number] [employer] [id number] Family Dependent VYA [id number] [employer] [id number] Family Dependent VYA [id number] [employer] [id number] Family Dependent VYA [id number] [employer] [id number] Family Dependent VYA [id number] [employer] [id number] Family Dependent VYA [id number] [employer] [id number] Family Dependent [id number] [employer] [id number] Family Dependent [id number] [employer] [id number] Family Dependent [id number] [employer] [id number] Family Dependent [id number] [employer] 417 Family Dependen t [employer] [id number] Family Dependent VYA [employer] Commercial [id number] Family Dependent VYA [employer] [id number] Family Dependent VYA [employer] [id number] Family Dependent VYA [employer] Workers Compensation [id number] Family Dependent [id number] [employer] Workers Compensation [id number] Self 0 [id number] Medicaid Medicaid [id number] Self [id number] [employer] [id number] Self [id number] [facility] NATIONAL ACCOUNT emp [id number] Employee [id number] [employer] Medigap Part B [id number] Family Dependent [id number] [employer] Part B [id number] Family Dependent [id number] [employer] [id number] Family Dependent [id number] [employer] [id number] Family Dependent [id number] [employer] [id number] Self [id number] [employer] Part B [id number] Family Dependent [id number] [employer] [id number] Self [id number] [employer] [id number] Self VYS [id number] [employer] Medigap Part B [id number] Family Dependent [id number] [employer]BS [place]N PPO 302/307 [id number] SP [id number] [facility] [employer] [id number] Family Dependent [id number] [employer] [id number] Self VYS [id number] [employer] Medigap Part B [id number] Family Dependent [id number] [employer] OUTPATIENT CLAIM [id number] FA2 [id number] [employer] [id number] Self VYS [id number] [employer] Medigap Part B [id number] Family Dependent [id number] MEDICAID [id number] SP [id number] [employer] [facility] [employer] Commercial [id number] Self VYS [id number] [employer] Medigap Part B [id number] Family Dependent [id number] BCBS EMPIRE AZEB DIV [id number] FA2 [id number] BCBS OF [place] 306/806 [id number] SP [id number] [facility] U[facility]W Commercial [id number] 2..[id number] Self VYS [id number] Harvest Plan Medigap Part B [id number] 2..1.612906.3.227.99 .806.506.0 Family Dependent [id number] EMEDNY [id number] SP [id number] [facility] U[facility]W Commercial [id number] 2..[id number] Self VYS [id number] [employer] Medigap Part B [id number] 2..1.747263.3.227.99 .806.506.0 Family Dependent [id number] [facility] [id number] UNK2 [id number] [employer] U/W Commercial [id number] 2..[id number] Self VYS [id number] [employer] Medigap Part B [id number] 2..1.774060.3.227.99 .806.506.0 Family Dependent [id number] [facility] Harvest Commercial [id number] 2..[id number] Family Dependent [id number] [facility] U/W Commercial [id number] [id number] Self VYS [id number] [employer] Medigap Part B [id number] 2..1.723259.3.227.99 .806.506.0 Family Dependent [id number] [facility] MEDICAID [id number] SP [id number] A [facility] [id number] DA2 89 [id number] [employer] COMMUNITY PLAN XIX - OP/ER [id number] 19 [id number] ALLSTATE INS CO NO FAULT [id number] MO2 [id number] [place] 306/806 [id number] SP [id number] ALLSTATE INS CO NO FAULT [id number] MO2 [id number] Har[employer] Medigap Part B [id number] [id number] .806.506.0 Family Dependent [id number] [employer] COMMUNITY PLAN XIX [id number] 19 [id number] [facility] [place] [id number] 18 [id number] MEDICAID CO [id number] 18 [id number] [facility] [id number] DA2 89 [id number] [facility] MEDICAID [id number] SP [id number] A [employer] [place] 306/806 [id number] MO2 [id number] BCBS/[employer] Commercial [id number] [facility] Harvest Commercial 2..1.75117 [id number] Family Dependent BCBS [place] AZEB DIV [id number] DA2 [id number] EXCELLUS BCBS P [id number] S VYA [id number] [employer] BCBS P [id number] C VYA [id number] [employer] BCBS P [id number] S YOU [id number] [place] [place] 306/8 P [id number] S [id number] Harvest Plan Medigap Part B [id number] Family Dependent [id number] [facility] U/W Commercial [id number] Self [id number] BCBS [place] AZEB DIV [id number] FA2 [id number] [facility] U/W Commercial [id number] Self [id number] Problems, Conditions, and Diagnoses Code Display Name Description Problem Type Effective Dates Data Source(s) F603 Borderline personality disorder Borderline personality disorder Diagnosis 07/11/2021 03:06:00 PM [facility] F428 Other obsessive-compulsive disorder Other obsess bonny-compulsive disorder Diagnosis 07/11/2021 03:06:00 PM [facility] Z6841 Body mass index [BMI]40.0-44.9, adult Scout dy mass index [BMI]40.0-44.9, adult Diagnosis 2021 03:21:00 PM EDT [facility] E6601 Morbid (severe) obesity due to excess ca lories Morbid (severe) obesity due to excess calories Diagnosis 2021 03:21:00 PM EDT [facility] G8929 Other chronic pain Other chronic pain Diagnosis 03:21:00 PM EDT [facility] R1033 Periumbilical pain Periumbilical pain Diagnosis 03:21:00 PM EDT [facility] F909 Attention-deficit hyperactivity disorder , unspecified type Attention- deficit hyperactivity disorder, unspecified type Diagnosis 06/06 09:54:00 AM EDT [facility] F339 Major depressive disorder, recurrent, un specified Major depressive disorder, recurrent, unspecified Diagnosis 06/06/2021 09:54:00 AM EDT [facility] F319 Bipolar disorder, unspecified Bipolar disorder, unspec ified Diagnosis 11/19/2020 09:54:00 AM EDT [facility] R10.30 Abdominal pain Abdominal pain Problem 06/18/2021 12:00: 00 AM EDT [facility] ([facility]) K42.9 Umbilical hernia Umbilical hernia Problem 06/18/2021 12 :00:00 AM EDT [facility] ([facility]) Z68.41 Body mass index 40+ - severely obese Bod y mass index 40+ - severely obese Problem 06/18/2021 12:00:00 AM EDT [facility] ([facility]) E28.2 Polycystic ovary syndrome Polycystic ovary syndrome Pr oblem 06/18/2021 12:00:00 AM EDT [facility] ([facility]) F33.41 Recurrent major depression in partial re mission Recurrent major depression in partial remission Problem 05/20/2021 12:00:00 AM EDT M EDENT ([facility]) F90.2 Attention deficit hyperactivity disorder , combined type Attention deficit hyperactivity disorder, combined type Problem 05/20/2021 12:00:00 AM EDT [facility] ([facility]) E66.01 Morbid obesity Morbid obesity Problem 05/20/2021 12:00: 00 AM EDT [facility] ([facility]) H61.22 [id number] Left ear impacted cerumen Problem 04/18/2021 12:00:00 AM EDT eCW1 ([facility]) R61 [id number] Diaphoresis Problem 04/18/2021 12:00:00 AM E DT eCW1 ([facility]) H91.93 [id number] Decreased hearing of both ears Problem 04/18/2021 12:00:00 AM EDT eCW1 ([facility]) R19.7 76850296 Diarrhea, unspecified type Problem 12:00:00 AM EDT eCW1 ([facility]) F32.9 35701401 Major depressive disorder, single episode , unspecified Problem 04/18/2021 12:00:00 AM EDT eCW1 ([facility]) F41.9 [id number] Anxiety disorder, unspecified Problem 04/18/2021 12:00:00 AM EDT eCW1 ([facility]) E74.39 [id number] Glucose intolerance Problem 04/18/2021 12:00 :00 AM EDT eCW1 ([facility]) Z68.41 939428899 BMI 40.0-44.9, adult Problem 12/20/2020 12:0 0:00 AM EDT eCW1 ([facility]) N91.1 315356082 Secondary amenorrhea Problem 12/20/2020 12:0 0:00 AM EDT eCW1 ([facility]) N93.9 [id number] Abnormal uterine bleeding (AUB) Problem 07/30/2020 12:00:00 AM EST eCW1 ([facility]) E66.01 247225394 Morbid (severe) obesity due to excess yeni ories Problem 07/30/2020 12:00:00 AM EST eCW1 ([facility]) Z68.41 053000988 Body mass index [BMI]40.0-44.9, adult Pro blem 07/30/2020 12:00:00 AM EST eCW1 ([facility]) Surgeries/Procedures Procedure Description Date Indications Data Source(s) OFFICE OUTPATIENT VISIT 25 MINUTES 06/20/2021 12:00:00 AM EDT [facility] ([facility]) OFFICE OUTPATIENT VISIT 25 MINUTES 06/18/2021 12:00:00 AM EDT [facility] ([facility]) ECG ROUTINE ECG W/LEAST 12 LDS W/I&R 05/20/2021 12:00: 00 AM EDT [facility] ([facility]) Brief Emotional/Behav Assessment W/ Scoring Doc Per Standard Inst 05/20/2021 12:00:00 AM EDT [facility] ([facility] ) INITIAL PREVENTIVE MEDICINE NEW PT AGE 18-39YRS 2020 12:00:00 AM EDT [facility] ([facility]) OFFICE OUTPATIENT VISIT 25 MINUTES 05/09/2021 12:00:00 AM EDT [facility] ([facility]) OFFICE OUTPATIENT VISIT 15 MINUTES 05/02/2021 12:00:00 AM EDT [facility] ([facility] ) OFFICE OUTPATIENT VISIT 25 MINUTES 04/22/2021 12:00:00 AM EDT [facility] ([facility]) Needle electromyography, each extremity, with related paraspinal areas, when performed, done with nerve conduction, amplitude and latency/velocity study; complete, five or more muscles studied, innervated by three or more nerves or four or more spinal levels (list separately in addition to the code for primary procedure). 03/28/2021 12:00:00 AM EDT MEDEN T ([facility] ) 19732 Nerve conduction studies 13 or more studies NEW 201203/28/2021 12:00:00 AM EDT [facility] ([facility] ) OFFICE CONSULTATION NEW/ESTAB PATIENT 60 MIN 12:00:00 AM EDT [facility] ([facility] ) OFFICE OUTPATIENT VISIT 25 MINUTES 03/21/2021 12:00:00 AM EDT [facility] ([facility]) OFFICE OUTPATIENT VISIT 25 MINUTES 02/14/2021 12:00:00 AM EDT [facility] ([facility]) RADEX WRIST COMPLETE MINIMUM 3 VIEWS 02/07/2021 12:00: 00 AM EDT [facility] ([facility] ) OFFICE OUTPATIENT NEW 30 MINUTES 02/07/2021 12:00:00 A M EDT [facility] ([facility] ) OFFICE OUTPATIENT VISIT 25 MINUTES 01/21/2021 12:00:00 AM EDT [facility] ([facility]) Psychiatric Diag Eval W/Medical Service 12/20/2020 12: 00:00 AM EDT [facility] ([facility]) PREVENT MED DIESEL ENGINE SPECIALIST&/RISK FACTOR REDJ SPX 45 MIN 11/19 12:00:00 AM EDT [facility] ([facility]) OFFICE OUTPATIENT VISIT 25 MINUTES 10/17/2020 12:00:00 AM EST [facility] ([facility]) Psychiatric Diagnostic Evaluation 10/05/2020 12:00:00 AM EST [facility] ([facility]) OFFICE OUTPATIENT VISIT 15 MINUTES 09/17/2020 12:00:00 AM EST [facility] ([facility]) OFFICE OUTPATIENT VISIT 25 MINUTES 09/10/2020 12:00:00 AM EST [facility] ([facility]) CVR Ball Holder.Svc. Preconception 08/08/2020 12 :00:00 AM EST - 08/08/2020 12:00:00 AM EST [facility] ([facility]) CVR Ball Holder.Svc. Other 08/08/2020 12:00:00 AM EST - 2019 12:00:00 AM EST [facility] ([facility]) CVR Med.Svc. Height/Weight 08/08/2020 12 :00:00 AM EST - 08/08/2020 12:00:00 AM EST [facility] ([facility]) CVR Blood Pressure 08/08/2020 12:00:00 AM EST - 2019 12:00:00 AM EST [facility] ([facility]) OFFICE VISIT, EST 08/08/2020 12:00:00 AM EST - 020 12:00:00 AM EST [facility] ([facility]) URINE TEST 08/08/2020 12:00:00 AM EST - 08/08/2020 12:00:00 AM EST [facility] ([facility]) Results ID Date Data Source [id number] 07/13/2021 12:00:00 AM EST [facility] Name Value Range Interpretation Code Description Data Cesia e(s) Supporting Document(s) SARS-CoV2 Rapid Antigen Negative [facility] This lab was ordered by [facility] and reported by [facility]. ID Date Data Source [id number] 07/18/2021 09:35:00 AM EST [facility]ema[facility] ([facility]) Name Value Range Interpretation Code Description Data Cesia rce(s) Supporting Document(s) V2 Expanded Carrier Screen (283) Lab Report: [id number] Normal (applies to non-numeric resu lts) Sema4 ([facility]) [file] +71s+vp celebrity services/+Qd/8sf/9R/95//Zf/of/eEf/OEf/P4f/K [file] s03giIQtw7Um/b2dqp9Dx876RKn3/07RJ9g26/+31f ++pvfvXLC+pTfwvvitCZwBfKQkgMLzSfaohx9JVKdsB6NixH3CUA67KfnUqsNhB7SL7KVIYRfmRzxmp6 qsuE1uWWl0FZs7qofXhWjEca/08dykyTZH2aCcRKFHLH8ZWccYf1hQ2k3xNMBr1bAQ/SvYt8ZDPUMBCo pNunp7BJrvyPpIGmdB9JOytTJnMHRNibH6tg0pMQAv DgBUtI9U0lhPR10NcBMCTwkX+TglAtywfMYoxTVZXdwbbacv4hxEZghPt4zsXbAlImn5eaf26rWcXFtx CGbB7xkOU1tFwPElDRsfpasdyjGzJoQ+ajAOu2P3XX3PGuTBj25Px71hWehf3h2w/y24VSmLFRwDdEjm SwsqcXnbR5noibYkulAGOEVrABVRAOWptOjAst24Db FtEKeD75x7t2S+r5dDhtGNqZCGfXnHMIMcGbkvyK//LsL3/+c0gutfz+b/znvf/ri/d8/tNf/Ozdd//b Jz/8/fydTxF52VwqirsCqtVJqwcuXju+7CGK8BuX8adnRK39IxwviHDy1Vn61SRarekXZJAr8aMhc6Ld h1vHSogNmaQF0zp09SD9p5Yyn7+vp5w0d3LtwAq5su puanpydAxb+ll3qgnMg2rEt7yPlDBlbcMKHSierW4IabwXq1go3jOyAry1+jsP9x4+9A5gFMfE9+q84d 01ps0k051Mwy386cvzzdPPz+/03uQCABzbw439+ue/kCL0R42/b1m0jpFn7+CemFsYHZYOmOlH7bfBBm VZ09ifRmRZhjnYAiFqxefCORMYagcUhOvtzDGXhUjC nAWMM6cLpDRQUIl77qU8KQ5vHPYJi7eyHQ2DiLCFJf/WjVl8sE26nnhiVtsjnO3wyNg1TnUDSb+e5IOA nELgKdOkiDP8AC0I2veuuVCN5PpjLRRZ7L9GII+lRg7smNLlXEihUvet7COcm4Q3zUCFshxN9zl6hPI1 lr2r27mayqsOiMOpozS4KjrgiLbI15uiX3A44ld/Trauma Manager [file] msligkFcBFWqIFliqklUBEVZXXyKrLdRqFUa/WiTbe 8rI/Wcz6O2+/+e03X/5ziDo2VLgCd16YGLzO3xHfoKx8HseK3hrP+DsJKKZjAuKcyfBLGduF1Y/CnMON 35JJtOUOUdHRG7QXXwk/bTIcWIFhvrcYHUkRDNT9uQK1PN7bdof0mLGaOjUAMoz7BZ3LrRgepPBiqhi/ wspNObBGQkvVcqMcbuvAQt4Z7OEyoi3acr9XTq32vq q23dNkp2wsyYRqDT7qfIFWsP4P9C0tHZDcwihl+lUOEefQGKZ6UK3GQ5IUmfuDGFJE+M+MsSenSMB2mN xnpUXXGIe/9EpZa364nr7zulbRWQOK4d8JJJ5XgOVaTK/Rviag7EHvcluxOBU44dbi5E5ZONa0pzzAxt k1m3FIgGAKp3LEOALIN26IdkttlrmHe5cHkKQHOrQG Mzz0wJjmwEq48wPTxofamLkCD8Neo9LPtOBD7uV4rHdTNLQ8+cW/v/iYt7RtYGA5tjw+VhDmEFuOQau2 WPB6JrmwkB0B43e8dxLsIR/OQQ7KLvFKMECvBYI7LKGS/rGp8qivw+vSiRM/automotive sales representative/V50393HAppd42p+Gb [file] +/02Lpdg/Z/wSp0Gob/+PDm4Tu2Nxh0i/HHw9+gdhq4cwdQ+automotive sales representative/fjDu2+9tXT+jmN8HbsmfiNVNfDAOs [file] last turner/m7OJdHT3ptEDXlOFkmHRHpxG6LpBXrXuyIKqqAkDhEqcubJT4KKk2I/G4fFb+ESF6CErdXohQAqp [file] bh3oI22zATHv2rz/akVe3LCBQRwPqr0FiIFrKhGp6/3eEyU+26j9G9aEMWDaASr/MEETING SPECIALIST/rJgC3Rch/i1Y [file] graphic design specialist//miwa4Ycw7uRcx06Ynh8pUSuOKgHcqwhEnj9drV0JeAklT2qdRvDCuluLzMHIjJS7UZYbep4ibPv [file] qhLXktlYWrevR8JpXC/oxygraph operator//8o09/6hM30H/n0BEUDU XhD77/kYpwLeC9kbrqy2CCGV0P/+QWB0111yi+ANCL+luhlQ2TvxNl2vVUqvXqiWpAWP0acPU6LPaoHi dsiiRlBnZ8fFsOXVClavlZom3+9NJf/+Mc5lqG6fwpxAu83ZJuM4+qFnS22kdFq/bsVuFs/72xwb5tbu wxE7906A6Re07Q+6GMnontCA88G11zKVK++fllH5ip 8r23wlS0dI8tKWxP3pooTxyAFAzUZ1HZkAI+EPL5kiSiLt8lH/1xxTqtunrrMIQWF/sT7yVOqwImIJXB Aj+zjw2JX78VrRkhTPA3ebLxmrOerVUrXtSwkPMPf8QaGjpL4jTTSz71PqaopWxt53CkzW+GxoXBM9ZU lWz8WxxmUezmcgInO3bVTUo0WvayTzw3VNJGzVEfYb p6cLpexQUD96NUA690rU/y7RzkjQSuZUqV6sVDgLNPQPtZX+etu5EgmTl3lLzkZLBEFAAG6LDVdVObYr PT8lxoEM/eaWdImlgllgAAnIMhVyIxSzFhPYJAjA/xZYNSYx/nbrdBt+DqSe0XxxWUHv8Khrwb5scOdl UL6sbDlwucl2WDPhzZSSxkuVWzfx5Uo1J3YVjrzrg5 Scrw4sTvFEdWjNFqQpChSV7sEgfzAAFXKR1/maQhUdWBLB81zFVoLOPV6Yt3z5+mvXm8qcqQhAEHFZdZ 7o0D0+FySGoQ2yRGDwKUDYQbtKPQdDXdHMbruKoS9PEvX8V9SL1+o+pSI9RSjSkbUUBwYIdYvArdDKu8 Bree+Ja5izwUiFq+b7HlEpyuNGp02XJCn5dzMCNLAjA [file] LsW01Kzv1Gm9IcSCbGLnr9R5MZL/L//PP77/rl19puS22ZS4Qjr8+/YXMi0zlnvd36elAcry47qzE+automotive sales representative [file] /fKf/5y80zu4W+wit81ccuuxgxoE/f//+finisher merchant products/OEff/ [file] 4mR95T73tYG34TTsbcAbaTv0b6tibxyU+/q/TAWANA+yOduqqzGdwEZsAC8EKM4eq2BfSjacRYApm8ArBec5 D9L4yUGsV9GfytBUUAEwuyvzsX0aZh1Xn793DgEiEIQcJNraQARydBlznbSiqjTPU2IeRNqxYSMAH6Vp A4OgfTQ8KUHfMmtoIEHYW2Vej1JkosYaJWQkTG14QL TuGpifE9MayYWzUMPuBYx5SXF8Xn4QBTUFPTjukQIePfe5Lrm5RRC0Vv8JfRWkhRLTvenxOQZmNm0Vc5 54WnSssEDuVPHpAy5dYzSgENKeGg7rPhK3WcDyRXJwRtF2Kwp7ZEqaXQ9aFAWsPW3UJ4TrvdGQnVpxXu C4JVYsCDM+PgplbmRvYmoKNzEgMCBvYmoKPDwvVHlw TGRkIn0pxGmrPs7cpYUxj1FetLB3q5FaJaKyCMGQCx2AOESsSe9ptZSjJCzcXBHkbRzgkcAlhcJTK3S5 NvB1rYVnV9DDPEUiatSQhIPtPgzyP8vXVO8RFPQRQFWyO6zzVH29lUM3Pd5ORDSMmVN8MN3EimBfCTf3 T4ZqJ5sexRL6DZwGCV2iDSjGD91zKJVvrW0sJWxLGF IfeJl1xHyWW1S1eBFjFP7mbpGfHG4+Ql2IEThfCHebQxRpSiE1ZoxlOKH0YgRqWZl0PyS2PVVuEG3LM9 RXIDA+XvriesVaJasENkTlDXCmXdwFNHynFathgPAaOX2TuZD3LITlC70zEYfzLEGcA4ViFBHiOi7+IH U5rfXkuGw4oJ2JvZxUAAnU763VPqzTjACgkrgRcqEL Q9fRbA/t7LvsXFonYTb2lUQ1pADKEnP/f+O15YR5iF9OAI/B2u3tORHYfahwbHV5CF2VLZWW8io8+Roque FaXd4N7tbFd7hdm4CSUjeY1ZRat5Wz/zSlzHYTMzOkj6OEpkksVPM5xOVJkK42VHsZidKotZH6GO6PS1 bEq9Get0g1wgWpKQkjcOk77LNVtDyMcLzh94HaiRVO 1AZ/7pG9UP+klZ4pMvev1Yg9aF1zx66zK/hmN7ZbF37tYtgOYIMdonVmaRwJRnJp1pxYbiiaFyhTCmXQ 4ESU9ua8GlBiY9IJDau0LpEvp0K6D3pAEsO6PolhPWE4P6NkB0yVKtA5F3hIRgQz2FKYIfIw8wmPBtJM euHIJrkMtcixAhhkOTP8PvE21koJ2uBA7GHVFivOh8 nL0UZq7SPAZwLP5xTG95Ju4qdANpCpiqAVIlJk2JK0PsDM9xX94eIXJ0MiZpAOC+PgplbmRvYmoKeHJl EfmmFMqjFdZsAOHpWVCeYZBdLwO0CpQgIoPGDTByTDQpUVOyYJUbMNDkKDWuTDnvYPMnSCy3Psm6ANJv ZRNmBG0vNgRwKOXtGUZnPRKnFILaMBJcqxDYJQKrIW TsNTT3XKJbGOIsSHWeMJbaIONgCAZ8XKR8SDFtOLCaPO1jUyNvKEAtXSp4EQRpJHHaAOKfppASFVFoSP FeQoLtUJUoECSuRYHqMHfgMIQqUOU5UZk6ROMxPKVqXN6nQuDlTUB4LwN2LGzuZFBmPTJemvFXVPXpZY FrHOWgYOBsOURiRTBhWWcrDYDdQBX0JaUjMKHjQZHh NZ9qYgJzRXX5SUt1CnrzNJYrHOMqraXELIZmDQMrTUVgCDOuIMJzAQGoSZwrULTxNMZ4QNRrWPFdIVZi ZT8fSlKcEEG4MHy4ATuvNAWnVZApnmYZQBPqPFQrNWq9ZACpOJXrYIGzCAgpQNOkOIH7JRX0IBAoNNKk PB3aDiOoVAK5FdQjRrRkBGUwAWQpozTTQGTcLOQbCJ ByLTTeQVWyBQYgFSgzYNUyMEH6IdX5QZPmIMRoXA0uWpOcIZO9BpT5VKNhSPNdVTBroeTEJMTkEVU2AM qlWCYaNEHaDXWuNPkiBUVrURYvOVUrLVUnPQHrXC2zAzYrOMP8KpRgHJgnAPTxHOBwoiTTGYZgDSQ3YL LjKUUfMJHeBXInTEwaAPSrRVN1GTTmLWVfIVZhQY7l IpAvACP9LkroPwbfGGPqAGRgvfXMVKVnVAX9VKO7BiVgWQXmFSDnFDvlUUYyXGTuJGWyIMDlMIGmUK1w MpWwXMB5WHR2RtrcSNGgTGWecdECVVZqTNC1DBz3HVPfMORkEWMqDMvgENLbJYR4SUZcMVQlASCsZF9s BjUhYLW4HSneQwzlYMKpEAWtmoEFYYQaUIW8NEV7As SpAKSwYTLyKSrpIGVsVINfYNLdNMZsGSUuMV9nQqRiOAA3IAX3JDIcIZEpJHVmjrJJAGOdAXS5SWFfQk IgAFXjAQUgAFzkGQBaVAG3MCH3WULePGOoKB0lNwTkSIG0YOgwTLRgVCGyJEDgfzZQIRVkKNZ2GTUeBN FgVLGmFFLpAOxmJHAjGNW9CBI5SMNiAEUdHC6eYxXj UGG5JaUeMXFyLTOiFZPnugQNRMOkHAY4IGzgTjZhDVOsFYKfHUcgVUDfOPrwTcQzUARzZTVrRW0uFdBv NEJ6GiJ2UxwfEDJcCPObgvHCJJPeBMO0FLIlDEEpQJHmWGLtTLkcGEJuXAB8XlBpXYRdOOLtBY8gGjAw TDO2Brq6QsBiCUExPIIwoyQBJGHrMTI1JVj6HvPzGU TbGZCzMGmhVZAnARiuXPRrDLEtMXJtQJ8uYvFpRCY5KJX7HWFkABNzVSOgoiPSUUYcDYI1WIimVPFhZI RdAFEjHRbyPBJuSUvbZAB2SRXpVWFhPD1jPbBrXTR5LGQ6NxTeUNDhEVTmybUWRQYhBNM0ErKfIZAyKS ZdWEGePHlsGMYlOBxoHRovMGTkPNDkXC9aZpPdJXU8 CHFmZlOlCVZsERNcfnZKVQQrXARpKUXhHaAbFWGfNATuEAnpEJKeAIHrIvJ1JAEkIVKyMB0jRjHkWRN9 ECUqAOJiKALkOPNaouEEWFXpIEHfBbv8TkBfQXIvLUMzGMroQVJnQRJaDiw8WLNfHJYaAB3oNrBjGMF5 SFI6LHBeVSLnHQFvgyVVNQQrYPNtNOYyVjZiHWOoQI GnBWmgCGHdMVX5NPB9NTErVYDqTS5zYfHfRXD0QpQ4HzazRHJyLZGzslTCPKPgMFOfEqN9RyJhKRDyDV RqXDqeTGCgXDC2LZy9OFUaYKJeQP6eXsEwWHJ8NjQ2XmqoYOIcNZQifeZPZMKgDRFlXzz0SVRqJDQjJE GnWSsnKFOnMYF9CLK0BYPaTBXqVD2lSkLcRWG6Uljh KQXcZNIkKOKdqlZLnFJszWyywqa6BF5SkTpvJJfiCz1Ch427PMS6CFDyAkjgGO5nfxFtZPQcRn7+CnN0 XML6rLIaCrg0Rdg0BSTYZYKEC8D= Patient: Ghassan BranchDate of : Specimen: BloodDate collected: 07/04/2021 Order #: [id number] received: 07/05/2021 Lab ID: [id number] diagnosis: Carrier TestingReport Date: 07/18/2021 09:35 AMTest: Expanded Carrier Screen (283 genes)Method: NANegative for all genes testedRecommendations* CGG repeat analysis of FMR1 for fragile X syndrome is not performedon males as repeat expansion of premutation alleles is not expectedin the male germline.* Individuals of , , and Mediterranean ancestryshould also be screened for hemoglobinopathies by CBC andhemoglobin electrophoresis.* Consideration of residual risk by ethnicity after a negativecarrier screen is recommended for the other diseases on the panel,especially in the case of a positive family history for a specificdisorder.Final report signed by Melva Norman, Ph.D.Test performed at [facility] LaboratoryReferred by: Ashok Carrillo M.D.SEE ATTACHMENT ID Date Data Source [id number] 06/16/2021 06:41:00 PM EDT [facility] ([facility]) Name Value Range Interpretation Code Description Data Cesia rce(s) Supporting Document(s) Wound Culture Laboratory test result [facility] ([facility]) <content>FULL REPORT IN LAB NOTES ([facility] a nd [facility]).</content>
<content></content>
<content>ORGANISM 1: STAPHYLOCOCCUS SP COAG NEG</content>
<content></content>
<content> QUANTITY OF GROWTH FEW</content>
<content></content>
<content></content>
<content>ORGAN ISM 2: STREP ANGINOSUS GRP</content>
<content></content>
<content> QUANTITY OF GROWTH FEW</content>
<content></content>
<content></content>
<content>QUANT ITY OF GROWTH FEW</content>
<content></content>
<content></content>
<content>ORGANISM 1: STAPHYLOCOCCUS SP COAG NEG</content>
<content>ORGANISM 2: STREP ANGINOSUS GRP</content>
<content>ORGANISM 3: STAPHYLOCOCCUS SP COAG NEG</content>
<content></content>
<content>STAPHYLOCOCCUS SP COAG NEG: REACTION</content>
<content>ICR (INDUCIBLE CC RESISTANCE) IV ICR TEST RESULT</content>
<content>TETRACYCLINE PO 250 mg qid <=1 S</content>
<content>PENICILLIN G IV 1 mu q6H >=0.5 R</content>
<content>PENICILLIN G IV 1 mu q6h >=0.5 R</content>
<content>PENICILLIN G PO 250mg q6h fasting >=0.5 R</content>
<content> TRIMETHOPRIM/SULFAMETHOXAZOLE IV 160mg TMP & 800mg SMXq6h <=10 S</content>
<content>TRIMETHOPRIM/SULFAMETHOXAZOLE PO Bactrim DS Bid <=10 S</content>
<content>ERYTHROMYCIN IV 500mg q6h <=0.25 S</content>
<content>ERYTHROMYCIN PO 500mg q6h <=0.25 S</content>
<content>GENTAMICIN IV 80mg q8h <=0.5 S</content>
<content>CLINDAMYCIN IV 600mg q6h 0.25 S</content>
<content>CLINDAMYCIN PO 150mg q6h 0.25 S</content>
<content>OXACILLIN IV 500mg q6h <=0.25 S</content>
<content>VANCOMYCIN IV 500mg q8h 1 S</content>
<content>LINEZOLID (ZYVOX) IV 600MG Q12HR 1 S</content>
<content> LINEZOLID (ZYVOX) PO 600MG Q12HR 1 S</content>
<content>An isolate with a (+) POSITIVE ICR test is considered</content>
<content>CLINDAMYCIN RESISTANT; however, clindamycin may still</content>
<content>be effective in some patients.</content>
<content>An isolate with a (-) NEGATIVE ICR test is considered</content>
<content>CLIDAMYCIN SENSITIVE.</content>
<content>Oxacillin result predicts susceptibility to all penicillinase-stable</content>
<content>penicillins (Nafcillin, Dicloxacilin), Cephalosporins, Carbapenems,</content>
<content>Amoxicillin/Clavulanate & Ampicillin/Sulbactam per [facility] standards.</content>
<content></content>
<content>STREP ANGINOSUS GRP: REACTION</content>
<content>TETRACYCLINE PO 250 mg qid >=16 R</content>
<content>PENICILLIN G IV 1 mu q6h <=0.06 S</content>
<content>PENICILLIN G PO 250mg q6h fasting <=0.06 S</content>
<content>AMPICILLIN IV 500mg q6h <=0.25 S</content>
<content> AMPICILLIN PO 500mg q6h fasting <=0.25 S</content>
<content>ERYTHROMYCIN IV 500mg q6h 2 R</content>
<content>ERYTHROMYCIN PO 500mg q6h 2 R</content>
<content>CLINDAMYCIN IV 600mg q6h <=0.25 S</content>
<content>CLINDAMYCIN PO 150mg q6h <=0.25 S</content>
<content>LEVOFLOXACIN IV 500mg qd 1 S</content>
<content> LEVOFLOXACIN PO 250mg qd 1 S</content>
<content>LEVOFLOXACIN PO 500mg qd 1 S</content>
<content>VANCOMYCIN IV 500mg q8h 0.5 S</content>
<content>MOXIFLOXACIN (AVELOX) IV 400MG QD 0.25 S</content>
<content>MOXIFLOXACIN (AVELOX) PO 400MG QD 0.25 S</content>
<content>CEFTRIAXONE IV 1gm q24h <=0.12 S</content>
<content> CEFOTAXIME IV 1gm q8h <=0.12 S</content>
<content></content>
<content>STAPHYLOCOCCUS SP COAG NEG: REACTION</content>
<content>ICR (INDUCIBLE CC RESISTANCE) IV ICR TEST RESULT</content>
<content>TETRACYCLINE PO 250 mg qid >=16 R</content>
<content> PENICILLIN G IV 1 mu q6H >=0.5 R</content>
<content>PENICILLIN G IV 1 mu q6h >=0.5 R</content>
<content>PENICILLIN G PO 250mg q6h fasting >=0.5 R</content>
<content>TRIMETHOPRIM/SULFAMETHOXAZOLE IV 160mg TMP & 800mg SMXq6h <=10 S</content>
<content>TRIMETHOPRIM/SULFAMETHOXAZOLE PO Bactrim DS Bid <=10 S</content>
<content>ERYTHROMYCIN IV 500mg q6h >=8 R</content>
<content> ERYTHROMYCIN PO 500mg q6h >=8 R</content>
<content>GENTAMICIN IV 80mg q8h 8 I</content>
<content>CLINDAMYCIN IV 600mg q6h 0.25 S</content>
<content>CLINDAMYCIN PO 150mg q6h 0.25 S</content>
<content>OXACILLIN IV 500mg q6h >=4 R</content>
<content>VANCOMYCIN IV 500mg q8h 1 S</content>
<content> LINEZOLID (ZYVOX) IV 600MG Q12HR 2 S</content>
<content>LINEZOLID (ZYVOX) PO 600MG Q12HR 2 S</content>
<content>An isolate with a (+) POSITIVE ICR test is considered</content>
<content>CLINDAMYCIN RESISTANT; however, clindamycin may still</content>
<content>be effective in some patients.</content>
< content>An isolate with a (-) NEGATIVE ICR test is considered</content>
<content>CLIDAMYCIN SENSITIVE.</content>
<content></content> ID Date Data Source [id number] 06/16/2021 06:41:00 PM EDT [facility] Name Value Range Interpretation Code Description Data Cesia rce(s) Supporting Document(s) HCG Serum Qualitative Laboratory test result [facility] <content>note:<nlbl:demographic_changed> </content>
<content></content> ID Date Data Source [id number] 06/16/2021 06:41:00 PM EDT [facility] ([facility]) Name Value Range Interpretation Code Description Data Cesia rce(s) Supporting Document(s) Bilirubin,Direct Laboratory test result 0.0-0.2 [facility] ID Date Data Source [id number] 06/16/2021 06:41:00 PM EDT [facility] Name Value Range Interpretation Code Description Data Cesia rce(s) Supporting Document(s) Glucose, Fasting 82 mg/dL 70-100 [facility] ([facility]) Blood Urea Nitrogen 12 mg/dL 7-18 [facility] ([facility]) Creatinine For GFR 0.62 mg/dL 0.55-1.30 [facility] [facility] Glomerular Filtration Rate Laboratory test result [facility] ([facility]) <content>Units are mL/min/1.73 m2</content>
<content></content>
<content>Chronic Kidney Disease Staging per NKF:</content>
<content></content>
<content>Stage I & II GFR >=60 Normal to Mildly Decreased</content>
<content>Stage III GFR 30- 59 Moderately Decreased</content>
<content>Stage IV GFR 15-29 Severely Decreased</content>
<content>Stage V GFR <15 Very Little GFR Left</content>
<content>ESRD GFR <15 on CPA TAX</content>
<content></content> Sodium Level 136 meq/L 136-145 [facility] ([facility]) Potassium Serum 4.5 meq/L 3.5-5.1 [facility] ([facility]) Testing was performed on a SLIGHTLY hemo lyzed specimen. Suggest recollection of specimen for more accurate test results. Chloride Level 106 meq/L 98-107 [facility] Carbon Dioxide Level 27 meq/L 21-32 [facility] ([facility]) Anion Gap 3 meq/L 8-16 [facility] ([facility]) Ast/Sgot 27 U/L 7-37 [facility] ([facility]) Calcium Level 8.4 mg/dL 8.5-10.1 [facility] ([facility]) Alt/SGPT 22 U/L 12-78 [facility] ([facility]) Alkaline Phosphatase 65 U/L 45-117 [facility] Total Protein 7.5 GM/DL 6.4-8.2 [facility] ([facility]) Bilirubin,Total 0.3 mg/dL 0.2-1.0 [facility] ([facility] Albumin 3.7 GM/DL 3.2-5.2 [facility] ([facility]) Albumin/Globulin Ratio 1.0 1.2-2.2 [facility] ([facility]) ID Date Data Source [id number] 06/16/2021 06:41:00 PM EDT [facility] ([facility] Name Value Range Interpretation Code Description Data Cesia rce(s) Supporting Document(s) Appearance, Urine RFX Laboratory test result [facility] ([facility]) Color, Urine RFX Laboratory test result [facility] ([facility]) PH,Urine RFX 5.0 units 5.0-9.0 [facility] ([facility]) Specific Odd Ur Auto RFX 1.021 1.002-1.035 [facility] ([facility]) Protein, Urine Auto RFX Laboratory test result [facility] ([facility]) Glucose, Urine (Ua) Auto RFX Laboratory test result [facility] ([facility]) Ketone, Urine Auto RFX Laboratory test result [facility] ([facility]) Urobilinogen, Urine Auto RFX 0.2 mg/dL 0.0-2.0 [facility] ([facility]) Bilirubin, Urine Auto RFX Laboratory test result [facility] ([facility]) Nitrite, Urine Auto RFX Laboratory test result [facility] ([facility]) Leukocyte Esterase Ur Auto RFX Laboratory test result [facility] ([facility]) Blood, Urine Blood RFX Laboratory test result [facility] ([facility]) WBC, Urine Auto RFX 3 /HPF 0-3 [facility] ([facility]) RBC, Urine Auto RFX 0 /HPF 0-3 [facility] ([facility]) Bacteria, Urine Auto RFX Laboratory test result [facility] ([facility]) Squam Epithelial Cell Ur Aurfx 6 /HPF 0-6 [facility] ([facility]) Mucus, Urine RFX Laboratory test result [facility] ([facility]) Hyaline Cast, Urine Auto RFX 0 /LPF 0-1 [facility] ([facility]) ID Date Data Source [id number] 06/16/2021 06:41:00 PM EDT [facility] ([facility]) Name Value Range Interpretation Code Description Data Cesia e(s) Supporting Document(s) White Blood Count 9.8 10 4.0-10.0 [facility] ([facility]) Red Blood Count 5.01 10 4.00-5.40 [facility] ([facility]) Hemoglobin 14.6 g/dL 12.0-15.5 [facility] ([facility]) Hematocrit 42.6 % 36.0-47.0 [facility] Mean Corpuscular Volume 85.0 fl 80.0-96.0 [facility]) Mean Corpuscular Hemoglobin 29.1 pg 27.0-33.0 [facility] ([facility]) Mean Corpuscular HGB Conc 34.3 g/dL 32.0-36.5 [facility] ([facility]) Red Cell Distribution Width 12.3 % 11.5-14.5 [facility] ([facility]) Platelet Count, Automated 299 10 150-450 [facility] ([facility]) Neutrophils % 59.5 % 36.0-66.0 [facility] ([facility]) Lymph % 33.4 % 24.0-44.0 [facility]) [place] % 5.5 % 2.0-8.0 [facility]) Eos % 0.7 % 0.0-3.0 [facility]) Immature Granulocyte % 0.3 % 0-3.0 [facility] ([facility]) Baso % 0.6 % 0.0-1.0 [facility]) Nucleated Red Blood Cell % 0.0 % 0-0 [facility] ([facility]) Neutrophils # 5.8 10 1.5-8.5 [facility] ([facility]) Lymph # 3.3 10 1.5-5.0 [facility] ([facility] [place] # 0.5 10 0.0-0.8 [facility] ([facility]) Eos # 0.1 10 0.0-0.5 [facility]) Baso # 0.1 10 0.0-0.2 [facility]) ID Date Data Source [id number] 06/14/2021 04:35:00 PM EDT [facility] [address] [place] [address] PHONE: [phone] FAX: [phone] Name .................. : LAKEISHA Carrera Acct Number.................. : [id number] ROOM. ................. : TR-1B MR Number ................... : [id number] Stay type ............. : E/R Discharge Date......... ... : 06/13/21 Admit Date ......... : 06/13/21 Admit Phys .................... : JIMMIE DISLA Date of ....... : 1995 Family Phys ................... : Phone .................. : [phone] Age ................................ : 26 Film# .................. .:[id number] Sex ................................. : F Unsigned transcriptions are preliminary reports and do not represent a medical or legal document CT ABD & PELVIS W/ IV ONLY [id number] COMPLETE:06/13/21 19:16 [facility] [id number] Reason(s): PERIUMBILICAL PAIN, HERNIA FELT ON EXAM [...] No significant abnormalities Page 1 of 3 [facility] [address] [place] [address] PHONE: [phone] FAX: [phone] Name .................. : LAKEISHA Carrera Acct Number.................. : [id number] ROOM. ................. : [facility] MR Number ................... : [id number] Stay type ............. : E/R Discharge Date......... ... : 06/13/21 Admit Date ......... : 06/13/21 Admit Phys .................... : JIMMIE DISLA Date of ....... : 1995 Family Phys ................... : Phone .................. : [phone] Age ................................ : 26 Film# .................. .:[id number] Sex ................................. : F Unsigned transcriptions are preliminary reports and do not represent a medical or legal document CT ABD & PELVIS W/ IV ONLY [id number] COMPLETE:06/13/21 19:16 [facility] [id number] Reason(s): PERIUMBILICAL PAIN, HERNIA FELT ON EXAM [...] By Sanju Mendieta MD , 06/14/21 16:35, JWDulce Transcribe Initials: GERARDO, Transcribe Date: 06/14/21 11:08, Dictation Date: Page 2 of 3 [place] [address] PHONE: [phone] FAX: [phone] Name .................. : LAKEISHA Carrera Acct Number.................. : [id number] ROOM. ................. : TR-1B MR Number ................... : [id number] Stay type ............. : E/R Discharge Date......... ... : 06/13/21 Admit Date ......... : 06/13/21 Admit Phys .................... : JIMMIE DISLA Date of ....... : 1995 Family Phys ................... : Phone .................. : [phone] Age ................................ : 26 Film# .................. .:[id number] Sex ................................. : F Unsigned transcriptions are preliminary reports and do not represent a medical or legal document CT ABD & PELVIS W/ IV ONLY [id number] COMPLETE:06/13/21 19:16 [facility] [id number] Reason(s): PERIUMBILICAL PAIN, HERNIA FELT ON EXAM Copy for: EMERGENCY DEPT via modem Copy for: 710 MED REC DISC HARGED Page 3 of 3 Name Value Range Interpretation Code Description Data Cesia rce(s) Supporting Document(s) ID Date Data Source [id number] 2021 03:21:00 PM EDT [facility] 1 OrderSheet [facility] Emergency Department [address] [place] [address] Phone #: ext- [phone] 15:12 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 Sex: F : 1995 Age: 26yWEIGHT:113.3 kg (S) HEIGHT:64 inches (S) BMI:42.9ALLERGIES: NystatinCHIEF COMPLAINT: abdominal painDIAGNOSIS: Abdominal painLAB ORDERSOrder Description Priority Entered Acknowledged InitialedUA Reflex to UA 15:37 2021 15:37 Leah Bosch Julie R.N.; R.NMyriam Verbal order per; [facility] Urine Qual STAT 15:37 2021 15:37 Ness [...] IV STAT 16:23 2021 16:53 Florencio,Contrast Only Nhan Samuel R.N.(Oxygen?(No)) M.Macrina;(IV?(Yes)) Reason for Study: PERIUMBILICAL PAIN, HERNIA FELT ON EXAM 2 OrderSheet [facility] Emergency Department [address] [place] [address] Phone #: ext- [phone] 15:12 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 Sex: F : 1995 Age: 26yMEDICATION/IV/DRIP/FLUID ORDERSOrder Description Priority Entered Acknowledged InitialedToradol 15 mg IVP 16:22 2021 16:37 Matias,X1 dose: 15 mg Nhan Samuel R.N.(NOW x1) Mariana.Macrina; Reason for ordering with alerts: Does not appear to be a true allergy -- 16:22 2021 Nhan Samuel M.D.GENERAL ORDERSOrder Description Priority Entered Acknowledged InitialedNPO 16:22 2021 16:23 Jimmie Matias Riccardo Rachel R.N. M.D.;Saline Lock 16:22 2021 16:36 Jimmie Matias Riccardo Rachel R.N. M.D.;[Electronically signed by Riki Wynne (19:18 2021)][Electronically signed by Nhan Samuel M.D. 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 Dose: 15 mg IVP Site: #1 right forearm Name Value Range Interpretation Code Description Data Cesia rce(s) Supporting Document(s) ID Date Data Source [id number] 2021 03:21:00 PM EDT [facility] 1 General Instructions [facility] Emergency Department [address] [place] [address] Phone #: ext- [phone] 15:12 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 Sex: F : 1995 Age: 26yChronic [...] of Abdominal Pain (Female) 2 General Instructions [facility] Emergency Department [address] [place] [address] Phone #: ext- [phone] 15:12 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 [facility]#: [id number] Sex: F : 1995 Age: 26yThe exact [...] for taking these medicines. 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 [place] [address]. All rights reserved. This information is not intended as asubstitute for professional medical care. Always follow your healthcare professional's instructions. You have been given the following additional information: Abdominal Pain, Unknown Cause, (Female)(Electronically signed by Nhan Samuel M.D. 2021 21:08) Name Value Range Interpretation Code Description Data Cesia rce(s) Supporting Document(s) ID Date Data Source [id number] 2021 03:21:00 PM EDT [facility] 1 Clinical Report - Nurses [facility] Emergency Department [address] [place] [address] Phone #: ext- [phone] 15:12 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 Sex: F : 1995 Age: 26yTRIAGEArrived by private vehicle. Historian: patient. Unaccompanied. ( started 1 month ago, last nightstabbing pain, went away and then today had lunch and the pain came back).Acuity: LEVEL 3.Chief Complaint: ABDOMINAL PAIN.Alert.Onset. (1 month). The patient has had nausea and abdominal pain. The pain is described as located inthe central area of the abdomen.Treatment SIZE PAINTER:None.SEPSIS SCREEN: SIRS SCREEN NEGATIVE. SEPSIS SCREEN NEGATIVE. [...] Ness Bosch R.N.ADDITIONAL SURGERIES:Eye surgery.Sinus Surgery.Tonsillectomy Adenoidectomy. --15:19 06/13/21 Ness Bosch R.N. 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 No skin integrity risk identified. --15:23 06/13/21 Ness Bosch R.N. Interventions Identification band on [...] Bosch R.N. 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 Verbalizes understanding. --16:37 06/13/21 Matias, Libertad, R.N. Patient transported to [place] by wheelchair with mask and tech. --16:54 06/13/21 Libertad Matias R.N.DISPOSITION / DISCHARGE Departure time: 19:18 2021. No learning barriers present. Discharge instructions provided and reviewed with the patient. Reviewed warnings (return for worsening codition). Reviewed referral to a primary care physician for followup and testing. Reviewed need for increased fluid intake. Patient verbalized understanding. Written instructions provided in Belgian. 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 Sex: F : 1995 Age: 26y [...] No sensory deficit.LABS, X-RAYS, AND EKGAbdominal CT: [facility] Call: [phone] Online chat: [email or web address] Name: GHASSAN FARMER (Age): 1995 26 Gender: FDate of Exam: 2021 Physician: NHAN SAMUEL # of Images: [id number] As: CT ABDOMEN/PELVIS WPROCEDURE INFORMATION:Exam: CT Abdomen And Pelvis With ContrastExam date and time: 2021 4:37 PMAge: 26 years oldClinical indication: Abdominal pain; Periumbilical; Patient HX: Physician felt umbilical hernia uponphysical examTECHNIQUE:Imaging protocol: Computed tomography of the abdomen and pelvis with contrast. 3 Clinical Report - Physicians/Mid Levels [facility] Emergency Department [address] [place] [address] Phone #: ext- [phone] 15:12 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 [facility]#: [id number] Sex: F : 1995 Age: 26yRadiation optimization: [...] or abscess.IMPRESSION:1. No acute intra-abdominal or pelvic findings.GHASSAN FARMER Preliminary Radiology ReportQUALITY ASSURANCE (QA) DISCREPANCY?If there is a discrepancy between the preliminary and final interpretation, please notify [email or web address].If you do not have access to our QA portal, call our QA team at [phone] STATEMENTThis report is intended only for the use of the referring physician, and only in accordance with law, If youreceived this in error, call [phone] . Midline surface umbilical defect with minute fat filled hernia. Clinically correlate site for priorpostsurgical intervention. Ill-defined soft tissue density within the midline subcutaneous fat should becorrelated for focal infectious or inflammatory etiology.Thank you for allowing us to participate in the care of your patient.Dictated and Authenticated by: Krystina Bell MD2021 6:35 PM Eastern Time ([facility]). Study type: abdomen and pelvis. Abdominal CTperformed with IV contrast. The study was interpreted by the radiologist.Laboratory Tests: Laboratory tests have been ordered, with results reviewed and considered in themedical decision making process. 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 Sex: F : 1995 Age: 26y >42 mL/min Normal 80 and above >35 mL/min Normal Female GFR Interpretation 20-39 yrs >60 mL/min Normal 40-49 yrs >58 mL/min Normal 50-59 yrs >51 mL/min Normal 60-69 yrs >45 mL/min Normal 70-79 yrs >39 mL/min Normal 80 and above >32 mL/min Normal Lipase: (JASON: 2021 16:32) ( MsgRcvd 2021 17:08) Final results Test Result Flag [...] NEGATIVE (NORMAL: NEGAT { KIT LOT # [id number] ){ KIT EXP DATE 09.30.22 ){ PROCEDURAL [...] for 6 Clinical Report - Physicians/Mid Levels [facility] Emergency Department [address] [place] [address] Phone #: ext- [phone] 15:12 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 2021 21:08) Name Value Range Interpretation Code Description Data Cesia rce(s) Supporting Document(s) ID Date Data Source [id number] 2021 05:13:00 PM EDT [facility] Name Value Range Interpretation Code Description Data Cesia rce(s) Supporting Document(s) COMPREHENSIVE METABOLIC PANEL [facility] COMPREHENSIVE METABOLIC PANEL Sodium [Moles/volume] in Serum or Plasma 138 mEq/L 134 - 153 [facility] Potassium [Moles/volume] in Serum or Plasma 3.6 mEq/L 3.6 - 5.0 [facility] Chloride [Moles/volume] in Serum or Plasma 101 mEq/L 98 - 107 [facility] Carbon dioxide, total [Moles/volume] in Serum or Plasma 26 MEQ/L 22 - 30 [facility] Glucose [Mass/volume] in Serum or Plasma 169 MG/DL 70 - 99 H [facility] BUN 11 MG/DL 7 - 21 [facility] al Creatinine [Mass/volume] in Serum or Plasma 0.6 MG/DL 0.7 - 1.5 L [facility] BUN/CREAT 18 8 - 27 [facility] al Protein [Mass/volume] in Serum or Plasma 7.1 G/DL 6.3 - 8.2 [facility] Albumin [Mass/volume] in Serum or Plasma 4.6 G/DL 3.9 - 5.0 [facility] Globulin [Mass/volume] in Serum by calculation 2.5 GM/DL 2.4 - 3.2 [facility] A/G RATIO 1.8 0.8 - 2.0 [facility] Calcium [Mass/volume] in Serum or Plasma 9.3 MG/DL 8.4 - 10.2 [facility] Bilirubin.total [Mass/volume] in Serum or Plasma <0.7 MG/DL 0.2 - 1.3 [facility] Alkaline phosphatase [Enzymatic activity/volume] in Serum or Plasma 67 U/L 38 - 126 [facility] Aspartate aminotransferase [Enzymatic activity/volume] in Serum or Plasma 15 U/L 5 - 40 [facility] Alanine aminotransferase [Enzymatic activity/volume] in Seru m or Plasma 16 U/L 7 - 56 [facility] Anion gap 3 in Serum or Plasma 11.0 mmol/L 8.0 - 16.0 [facility] AGE 26 yrs [facility] NON-AA GFR >60 mL/min [facility] AFR AMER GFR >60 mL/min [facility] Male GFR In terprentation 20-49 [...] >32 mL/min Normal ID Date Data Source [id number] 2021 05:08:00 PM EDT [facility] Name Value Range Interpretation Code Description Data Cesia rce(s) Supporting Document(s) Lipase [Enzymatic activity/volume] in Serum or Plasma 15 U/L 13 - 60 [facility] ID Date Data Source [id number] 2021 04:50:00 PM T [facility] Name Value Range Interpretation Code Description Data Cesia rce(s) Supporting Document(s) CBC W/AUTOMATED DIFF [facility] COMPLETE BLOOD COUNT Leukocytes [#/volume] in Blood by Automated count 8.3 10^3/uL 4.2 - 1 1.0 [facility] Erythrocytes [#/volume] in Blood by Automated count 4.88 10^6/uL 4. 20 - 5.40 [facility] Hemoglobin [Mass/volume] in Blood 14.5 g/dL 12.0 - 16.0 [facility] Hematocrit [Volume Fraction] of Blood by Automated count 40.9 % 3 7.0 - 47.0 [facility] Erythrocyte mean corpuscular volume [Entitic volume] by Auto mated count 83.8 fL 81.0 - 101 [facility] Erythrocyte mean corpuscular hemoglobin [Entitic mass] by Automated count 29.7 pg 27.0 - 34.0 [facility] Erythrocyte mean corpuscular hemoglobin concentration [Mass/volume] by Automated count 35.5 g/dL 31.0 - 36.0 [facility] Erythrocyte distribution width [Ratio] by Automated count 12.3 % 11.5 - 14.5 [facility] Platelets [#/volume] in Blood by Automated count 312 10^3/uL 150 - 45 0 [facility] Platelet mean volume [Entitic volume] in Blood by Automated count 9.6 fL 7.4 - 10.4 [facility] Neutrophils/100 leukocytes in Blood by Automated count 57.6 % 37. 0 - 80.0 [facility] Lymphocytes/100 leukocytes in Blood by Manual count 35.0 % 25.0 - 40.0 [facility] Monocytes/100 leukocytes in Blood by Automated count 5.7 % 3.0 - 8.0 [facility] Eosinophils/100 leukocytes in Blood by Automated count 1.0 % 0.0 - 7.0 [facility] Basophils/100 leukocytes in Blood by Automated count 0.5 % 0.0 - 2.5 [facility] %IG 0.2 % 0.0 - 0.[address] [facility] %NRBC 0.0 % 0.0 - 0.0 [facility] al Neutrophils [#/volume] in Blood by Automated count 4.75 10^3/uL 2.00 - 6.90 [facility] Lymphocytes [#/volume] in Blood by Automated count 2.89 10^3/uL 0.60 - 3.40 [facility] Monocytes [#/volume] in Blood by Automated count 0.47 10^3/uL 0.00 - 0.90 [facility] Eosinophils [#/volume] in Blood by Automated count 0.08 10^3/uL 0.00 - 0.70 [facility] Basophils [#/volume] in Blood by Automated count 0.04 10^3/uL 0.00 - 0.20 [facility] #IG 0.02 10^3/uL 0.00 - 0.10 [facility] ospital #NRBC 0.00 10^3/uL 0.00 - 0.00 [facility] MANUAL DIFF NOT INDICATED [facility] RBC MORPH NOT INDICATED [facility] ID Date Data Source [id number] 2021 04:49:00 PM EDT [facility] Name Value Range Interpretation Code Description Data Ceisa rce(s) Supporting Document(s) Lactate [Moles/volume] in Serum or Plasma 1.9 MMOL/L 0.2 - 2.2 [facility] ID Date Data Source [id number] 06/16/2021 08:29:00 AM EDT [facility] Name Value Range Interpretation Code Description Data Cesia rce(s) Supporting Document(s) CULTURE URINE [facility] _CULTURE URINE_$$[id number]$$[id number]$$[id number]$$[id number]$$[id number]$$[id number]$$[id number]$$[id number]$$[id number]$$ [id number]$$[id number]$$[id number]$$[id number]$$[id number]$$[id number]$$[id number]$$[id number]$$[id number]$$[id number]$$ [id number]$$[id number]$$[id number]$$[id number]$$[id number]$$[id number]$$[id number]$$[id number] -- Continued on next page --Patient: LAKEISHA Carrera Order: [id number] Page 2Culture: CULTURE URINE Status: Final ====$$[id number]$$[id number] DATE/TIME: 06/16/2021 08:06Culture: CULTURE URINE Status: FinalUrine Culture,Comprehensive: [id number] urogenital flora25,000-50,000 colony forming units per mLP1 Test performed by: [facility] Emma TOMLINSON #: [id number] [address] [place] [address] [phone] [facility] [id number] Director : Apollo Portillo MD NPI #:Product Safety Officer : 06/[email or web address] REF ID Date Data Source [id number] 2021 03:52:00 PM EDT [facility] Name Value Range Interpretation Code Description Data Cesia rce(s) Supporting Document(s) UA REFLEX TO UA CULTURE [facility] URINALYSIS SOURCE R [facility] COLOR yellow NORMAL: Yellow [facility] CLARITY clear NORMAL: Clear [facility] Specific gravity of Urine by Test strip 1.030 1.001 - 1.030 [facility] pH 6 5 - [facility] Glucose [Mass/volume] in Urine by Test strip NORM NORMAL: Negat [facility] Bilirubin.total [Presence] in Urine by Test strip NEG NORMAL: Negative [facility] Ketones [Presence] in Urine by Test strip NEG NORMAL: Negative [facility] Protein [Mass/volume] in Urine by Test strip 15 NORMAL: Negat [facility] Nitrite [Presence] in Urine by Test strip NEG NORMAL: Negative [facility] BLOOD NEG NORMAL: Negative [facility] Leukocyte esterase [Presence] in Urine by Test strip 25 OLIVIA L: Negative [facility] Urobilinogen [Mass/volume] in Urine by Test strip NOR less luca n 1.0 mg/dL [facility] MICROSCOPIC See Below [facility] ital WBC 7 - 10 NORMAL: NONE SEEN A [facility] Erythrocytes [#/volume] in Urine by Test strip 0 - 1 NORMAL: NON E SEEN [facility] EPITHELIAL FEW NORMAL: NONE SEEN [facility] Bacteria [Presence] in Urine sediment by Light microscopy Tr sumanth NORMAL: NONE SEEN [facility] ID Date Data Source [id number] 2021 03:49:00 PM EDT [facility] Name Value Range Interpretation Code Description Data Cesia rce(s) Supporting Document(s) HCG URINE QUAL NEGATIVE NORMAL: NEGATIVE [facility] HCG URINE QL REENTER NEGATIVE N[facility]AL: NE[facility]IVE [facility] # [id number] ){ KIT EXP DATE 09.30.22 ){ PROCEDURAL CONTROL VALID ) ID Date Data Source [id number] 06/12/2021 11:10:00 PM EDT [facility] ([facility]) Name Value Range Interpretation Code Description Data Cesia rce(s) Supporting Document(s) Appearance, Urine Laboratory test result [facility] ([facility]) Color, Urine Laboratory test result [facility] PH,Urine 7.0 units 5.0-9.0 [facility] Specific Odd Urine Auto 1.018 1.002-1.035 [facility] ([facility]) Glucose, Urine (Ua) Auto Laboratory test result [facility] ([facility]) Protein, Urine Auto Laboratory test result [facility] ([facility]) Ketone, Urine Auto Laboratory test result [facility] Urobilinogen, Urine Auto 0.2 mg/dL 0.0-2.0 [facility] T [facility] Bilirubin, Urine Auto Laboratory test result [facility] ([facility]) Nitrite, Urine Auto Laboratory test result [facility] Leukocyte Esterase, Urine Auto Laboratory test result [facility] ([facility]) Blood, Urine Blood Laboratory test result [facility] ([facility]) WBC, Urine Auto 0 /HPF 0-3 [facility] ([facility]) Bacteria, Urine Auto Laboratory test result [facility] RBC, Urine Auto 1 /HPF 0-3 [facility] ([facility]) Squamous Epithelial Cell Ur AU 4 /HPF 0-6 [facility] ([facility]) Mucus, Urine Laboratory test result [facility] Hyaline Cast, Urine Auto 0 /LPF 0-1 [facility] ID Date Data Source [id number] 05/30/2021 12:00:00 AM EDT [facility] Name Value Range Interpretation Code Description Data Cesia rce(s) Supporting Document(s) SARS-CoV2 Rapid Antigen Negative [facility] This lab was reported by [facility]. ID Date Data Source [id number] 05/20/2021 01:48:00 PM EDT [facility] ([facility]) Name Value Range Interpretation Code Description Data Cesia rce(s) Supporting Document(s) Thyrotropin [Units/volume] in Serum or Plasma by Detec tion limit <= 0.05 mIU/L 1.26 uIU/mL 0.36-3.74 [facility] ([facility] ) ID Date Data Source [id number] 05/20/2021 01:48:00 PM EDT [facility] ([facility]) Name Value Range Interpretation Code Description Data Cesia rce(s) Supporting Document(s) Triglyceride [Mass/volume] in Serum or Plasma 99 mg/dL 30-150 [facility] ([facility]) Cholesterol [Mass/volume] in Serum or Plasma 174 mg/dL 131-200 [facility] ([facility]) Cholesterol in LDL [Mass/volume] in Serum or Plasma by calcu lation 105 CALC 50-159 [facility] ([facility]) Cholesterol in HDL [Mass/volume] in Serum or Plasma 49 mg/dL 35-60 [facility] ([facility]) ID Date Data Source [id number] 05/20/2021 01:48:00 PM EDT [facility] ([facility]) Name Value Range Interpretation Code Description Data Cesia rce(s) Supporting Document(s) Glucose [Mass/volume] in Serum or Plasma 89 mg/dL 74-99 [facility] ([facility]) 100-125 mg/dL PRE-DIABETES/FASTING >126 mg/dL DIABETES/FASTING Urea nitrogen [Mass/volume] in Serum or Plasma 8 mg/dL 7-18 [facility] ([facility]) Creatinine 0.6 mg/dL 0.6-1.3 [facility] Sodium [Moles/volume] in Serum or Plasma 141 meq/L 136-145 [facility] ([facility]) Potassium [Moles/volume] in Serum or Plasma 4.0 meq/L 3.5-5.1 [facility] ([facility]) Carbon dioxide, total [Moles/volume] in Serum or Plasma 27 meq/L 21 -32 [facility] ([facility]) Chloride [Moles/volume] in Serum or Plasma 106 meq/L 98-107 [facility] ([facility]) Alkaline phosphatase isoenzyme [Units/volume] in Serum or Pl asma 56 mg/dL 46-116 [facility] ([facility]) Total Bilirubin 0.4 mg/dL 0.2-1.0 [facility] ([facility]) Calcium [Mass/volume] in Serum or Plasma 8.8 mg/dL 8.5-10.1 [facility] ([facility]) Aspartate aminotransferase [Enzymatic activity/volume] in Serum or Plasma 10 U/L 15-37 [facility] ([facility] ) Alanine aminotransferase [Enzymatic activity/volume] in Seru m or Plasma 19 U/L 12-78 [facility] ([facility]) Albumin [Mass/volume] in Serum or Plasma 3.8 g/dL 3.4-5.0 [facility] ([facility]) Glomerular filtration rate/1.73 sq M pre dicted among non-blacks [Volume Rate/Area] in Serum or Plasma by Creatinine-based formula (MDRD) Laboratory test result [facility] ) A/G Ratio 1.27 CALC 1.00-1.90 [facility] Proteinase 3 Ab [Units/volume] in Serum 6.8 g/dL 6.4-8.2 [facility] ([facility]) Glomerular filtration rate/1.73 sq M pre dicted among blacks [Volume Rate/Area] in Serum or Plasma by Creatinine-based formula (MDRD) Laboratory test result [facility] <content>CHRONIC KIDNEY DISEASE STAGING PER NKF</content>
<content></content>
<content>STAGE I & II GFR >= 60 NORMAL TO MILDLY DECREASED</content>
<content>STAGE III GFR 30-59 MODERATELY DECREASED</content>
<content>STAGE IV GFR 15-29 SEVERELY DECREASED</content>
<content>STAGE V GFR <15 VERY LITTLE GFR LEFT</content>
<content>ESRD GFR <15 ON CPA TAX</content>
<content></content> ID Date Data Source [id number] 05/20/2021 01:48:00 PM EDT [facility] ([facility]) Name Value Range Interpretation Code Description Data Cesia rce(s) Supporting Document(s) Leukocytes [#/volume] in Blood by Automated count 6.5 x10*3/UL 4.1-10 .9 [facility] Erythrocytes [#/volume] in Blood by Automated count 4.94 x10*6/UL 4.2 0-6.30 [facility] Hemoglobin [Mass/volume] in Blood 14.5 g/dL 12.0-18.0 [facility] Hematocrit [Volume Fraction] of Blood by Automated count 41.3 % 3 7.0-51.0 [facility] ([facility]) MCV 83.5 fL 80.0-97.0 [facility] ([facility]) MCHC 35.2 g/dL 31.0-38.0 [facility] ([facility]) MCH 29.4 pg 26.0-32.0 [facility] ([facility]) MPV 8.0 FL 7.8-11.0 [facility] ([facility]) Erythrocyte distribution width [Ratio] by Automated count 12.4 % 11.6-13.7 [facility] Platelets [#/volume] in Blood by Automated count 297 x10*3/UL 140-440 [facility] Mid % 6.9 % 1.7-9.3 [facility] ([facility]) Neut % 50.7 % 37.0-92.0 [facility] ([facility]) Lymph % 42.4 % 10.0-58.5 [facility] ([facility]) Lymph # 2.7 x10*3/UL 0.6-4.1 [facility] ([facility]) Mid # 0.5 x10*3/UL 0.1-0.6 [facility] ([facility]) Neut # 3.3 x10*3/UL 2.0-7.8 [facility] ([facility]) ID Date Data Source [id number] 05/09/2021 12:30:00 PM EDT [facility] Name Value Range Interpretation Code Description Data Cesia rce(s) Supporting Document(s) SARS-CoV-2 RNA Resp Ql BARBARA+probe NOT DETECTED [facility] This lab was ordered by RAFAEL snider and reported by RAFAEL Keys. ID Date Data Source [id number] 02/28/2021 08:00:00 AM EDT [facility] ([facility]) Name Value Range Interpretation Code Description Data Cesia rce(s) Supporting Document(s) Dehydroepiandrosterone sulfate (DHEA-S) [Mass/volume] in Serum or Plasma 181.0 ug/dL 110.0-431.7 Normal (applies to non-numeric results) [facility] ([facility]) Performed at: - [facility] [address] [id number] Product Safety Officer: Raven Bustillos MD, Phone: [phone] ID Date Data Source [id number] 02/28/2021 08:00:00 AM EDT [facility] ([facility]) Name Value Range Interpretation Code Description Data Cesia rce(s) Supporting Document(s) Testosterone Free (Direct) 3.3 pg/mL 0.0-4.2 Olivia l (applies to non-numeric results) [facility] ([facility]) Testosterone Total For T&D 12.0 ng/dL 13-71 Below low normal [facility] ([facility]) ID Date Data Source [id number] 02/28/2021 08:00:00 AM EDT [facility] ([facility]) Name Value Range Interpretation Code Description Data Cesia rce(s) Supporting Document(s) Follicle Stimulating Hormone 0.9 mIU/mL Nor mal (applies to non-numeric results) [facility] ([facility]) <content>NORMAL MENSTRUATING FEMALES:</c ontent>
<content>FOLLICULAR PHASE 2.5-10.2 mIU/mL</content>
<content>MID CYCLE PEAK 3.4-33.4 mIU/mL</content>
<content>LUTEAL PHASE 1.5-9.1 mIU/mL</content>
<content></content>
<content>: <0.3 mIU/mL</content>
<content>POST MENOPAUSAL FEMALES: 23.0-116.3 mIU/mL</content>
<content></content> Luteinizing Hormone 3.4 mIU/mL Normal (applies to non-nume kalie results) [facility] <content>NORMAL MENSTRUATING FEMALES:</c ontent>
<content>FOLLICULAR PHASE 1.9-12.5 mIU/mL</content>
<content>MID CYCLE PEAK 8.7-76.3 mIU/mL</content>
<content>LUTEAL PHASE 0.5-16.9 mIU/mL</content>
<content></content>
<content> <1.5 mIU/mL</content>
<content>POST MENOPAUSAL FEMALES: 15.9-54.0 mIU/mL</content>
<content>CONTRACEPTIVES 0.7-5.6 mIU/mL</content>
<content></content> ID Date Data Source [id number] 02/28/2021 08:00:00 AM EDT [facility]) Name Value Range Interpretation Code Description Data Cesia rce(s) Supporting Document(s) Free T4 0.75 ng/dL 0.76-1.46 Below low normal [facility] ( [facility]) Thyroid Stimulating Hormone 1.770 uIU/ML 0.358-3.740 Norm al (applies to non- numeric results) [facility] ([facility]) ID Date Data Source [id number] 02/28/2021 08:00:00 AM EDT [facility] ([facility]) Name Value Range Interpretation Code Description Data Cesia rce(s) Supporting Document(s) Estradiol (E2) [Mass/volume] in Serum or Plasma 118.4 pg/mL Normal (applies to non-numeric results) [facility] ([facility]) <content>NORMAL MENSTRUATING FEMALES:</content>
<content></content>
<content>FOLLICULAR PHASE 19.5-144.2 PG/ML</content>
<content>MID CYCLE PEAK 63.9- 356.7 PG/ML</content>
<content>LUTEAL PHASE 55.8-214.2 PG/ML</content>
<content></content>
<content>POST MENOPAUSAL FEMALES <32.2 PG/ML</content>
<content>(UNTREATED)</content>
<content></content>
<content>THE eESTRADIOL2 ASSAY IS PERFORMED ON THE [employer] BY</content>
<content>CHEMILUMINESCENCE AND SHOULD NOT BE COMPARED INTERCHANGEABLY</content>
<content>WITH OTHER METHODS.</content>
<content></content>
<content>Falsely elevated Estradiol test results can be seen in</content>
<content>patients treated with fulvestrant (Faslodex). Estradiol</content>
<content>concentrations in fulvestrant treated women should only be</content>
<content>measured by LC- MS (Liquid Chromatography-Mass Spectrometry).</content>
<content></content> ID Date Data Source [id number] 02/28/2021 08:00:00 AM EDT [facility] ([facility]) Name Value Range Interpretation Code Description Data Cesia rce(s) Supporting Document(s) Hemoglobin A1c 5.9 % Normal (applies to non-numeric r esults) [facility]) <content>REFERENCE RANGES:</content><br/ ><content></content>
<content><=5.6% NORMAL</content>
<content>5.7-6.4% SUGGESTS IMPAIRED GLUCOSE METABOLISM/PREDIABETIC</content>
<content>>= 6.5% ABNORMAL</content>
<content></content> Estimated Average Glucose 123 mg/dL 60-110 Above high normal [facility] ([facility]) ID Date Data Source [id number] 02/28/2021 08:00:00 AM EDT [facility] ([facility]) Name Value Range Interpretation Code Description Data Cesia rce(s) Supporting Document(s) White Blood Count 7.4 10 4.0-10.0 Normal (applies to non-numeri c results) [facility] ([facility]) Red Blood Count 4.78 10 4.00-5.40 Normal (applies to non-numeric results) [facility] ([facility]) Hemoglobin 13.9 g/dL 12.0-15.5 Normal (applies to non-numeric resul ts) [facility] ([facility]) Hematocrit 40.5 % 36.0-47.0 Normal (applies to non-numeric resul ts) [facility] ([facility]) Mean Corpuscular Volume 84.7 fl 80.0-96.0 Normal ( applies to non-numeric results) [facility] ([facility]) Mean Corpuscular Hemoglobin 29.1 pg 27.0-33.0 Norm al (applies to non-numeric results) [facility] ([facility]) Red Cell Distribution Width 12.1 % 11.5-14.5 Norm al (applies to non-numeric results) [facility] ([facility]) Mean Corpuscular HGB Conc 34.3 g/dL 32.0-36.5 Normal (applies to non-numeric results) [facility] ([facility]) Platelet Count, Automated 290 10 150-450 Normal (applies to non-numeric results) [facility] ([facility]) Neutrophils % 53.4 % 36.0-66.0 Normal (applies to non-numeric re sults) [facility] ([facility]) Lymph % 36.9 % 24.0-44.0 Normal (applies to non-numeric resul ts) [facility] ([facility]) [place] % 7.2 % 2.0-8.0 Normal (applies to non-numeric resul ts) [facility] ([facility]) Eos % 1.5 % 0.0-3.0 Normal (applies to non-numeric resul ts) [facility] ([facility]) Baso % 0.7 % 0.0-1.0 Normal (applies to non-numeric resul ts) [facility] ([facility]) Immature Granulocyte % 0.3 % 0-3.0 Normal (applies to non-n umeric results) [facility] ([facility]) Nucleated Red Blood Cell % 0.0 % 0-0 Normal (applies to n on-numeric results) [facility] ([facility]) Neutrophils # 3.9 10 1.5-8.5 Normal (applies to non-numeric re sults) [facility] ([facility]) Lymph # 2.7 10 1.5-5.0 Normal (applies to non-numeric resul ts) [facility] ([facility]) Eos # 0.1 10 0.0-0.5 Normal (applies to non-numeric resul ts) [facility] ([facility]) [place] # 0.5 10 0.0-0.8 Normal (applies to non-numeric resul ts) [facility] ([facility]) Baso # 0.1 10 0.0-0.2 Normal (applies to non-numeric resul ts) [facility] ([facility]) ID Date Data Source [id number] 02/28/2021 08:00:00 AM EDT [facility]) Name Value Range Interpretation Code Description Data Cesia rce(s) Supporting Document(s) Glucose, Fasting 131 mg/dL 70-100 Above high normal [facility]) Creatinine For GFR 0.58 mg/dL 0.55-1.30 Normal (applies to non -numeric results) [facility] ([facility]) Blood Urea Nitrogen 11 mg/dL 7-18 Normal (applies to non-nume kalie results) [facility] ([facility]) Glomerular Filtration Rate Laboratory test result Normal (applies to non- numeric results) [facility] ([facility]) <content>Units are mL/min/1.73 m2</content>
<content></content>
<content>Chronic Kidney Disease Staging per NKF:</content>
<content></content>
<content>Stage I & II GFR >=60 Normal to Mildly Decreased</content>
<content>Stage III GFR 30- 59 Moderately Decreased</content>
<content>Stage IV GFR 15-29 Severely Decreased</content>
<content>Stage V GFR <15 Very Little GFR Left</content>
<content>ESRD GFR <15 on CPA TAX</content>
<content></content> Sodium Level 137 meq/L 136-145 Normal (applies to non-numeric res ults) [facility] ([facility]) Potassium Serum 4.2 meq/L 3.5-5.1 Normal (applies to non-numeric results) [facility] ([facility]) Chloride Level 106 meq/L 98-107 Normal (applies to non-numeric r esults) [facility] ([facility]) Carbon Dioxide Level 27 meq/L 21-32 Normal (applies to non-num vu results) [facility] ([facility]) Anion Gap 4 meq/L 8-16 Below low normal [facility] ( [facility]) Calcium Level 8.4 mg/dL 8.5-10.1 Below low normal [facility] ([facility]) ID Date Data Source [id number] 11/19/2020 11:07:00 AM EDT [facility] ([facility]) Name Value Range Interpretation Code Description Data Cesia rce(s) Supporting Document(s) HCG Urine Qual Laboratory test result [facility] ([facility]) HCG Urine QL Reenter Laboratory test result [facility] ([facility]) { KIT LOT # [id number] ) { KIT EXP DATE 05.30.22 ) { PROCEDURAL CONTROL VALID ) ID Date Data Source [id number] 11/19/2020 04:26:00 PM EDT [facility] Name Value Range Interpretation Code Description Data Cesia rce(s) Supporting Document(s) HCG URINE QUAL NEGATIVE NORMAL: NEGATIVE [facility] HCG URINE QL REENTER NEGATIVE NORMAL: NEGATIVE [facility] { KIT LOT # [id number] ){ KIT EXP DATE 05.30.22 ){ PROCEDURAL CONTROL VALID ) ID Date Data Source [id number] 11/19/2020 11:05:00 AM EDT [facility] ([facility]) Name Value Range Interpretation Code Description Data Cesia rce(s) Supporting Document(s) Laboratory test finding (navigational concept) Laboratory test result [facility] ([facility]) {DIAGNOSIS: F31.9~{MEDICATIONS/DECLARED : CONCERTA, LAMOTRIGINE~{PRESCRIPTION INFO:~{PRESCRIPTIO PDF Laboratory test result [facility] ([facility]) {DIAGNOSIS: F31.9~{MEDICATIONS/DECLARED : CONCERTA, LAMOTRIGINE~{PRESCRIPTION INFO:~{PRESCRIPTIO ID Date Data Source [id number] 11/24/2020 02:40:00 PM EDT [facility] Name Value Range Interpretation Code Description Data Cesia rce(s) Supporting Document(s) Drugs identified in Urine FINAL [facility] TOXASSURE SELECT 13 (MW) Test Result Flag [...] clinical consultation, please call . Report . [facility] ID Date Data Source [id number] 09/12/2020 09:32:00 AM EST [facility] ([facility]) Name Value Range Interpretation Code Description Data Cesia rce(s) Supporting Document(s) Calcitriol [Mass/volume] in Serum or Plasma 40.4 pg/mL 19.9 -79.3 Normal (applies to non-numeric results) [facility] ([facility]) Performed at: [address] [id number] Product Safety Officer: Francoise Patel MD, Phone: [phone] ID Date Data Source [id number] 09/12/2020 09:32:00 AM EST [facility] ([facility]) Name Value Range Interpretation Code Description Data Cesia rce(s) Supporting Document(s) Hemoglobin A1c 6.6 % Normal (applies to non-numeric r esults) [facility] ([facility]) <content>REFERENCE RANGES:</content><br/ ><content></content>
<content><=5.6% NORMAL</content>
<content>5.7-6.4% SUGGESTS IMPAIRED GLUCOSE METABOLISM/PREDIABETIC</content>
<content>>= 6.5% ABNORMAL</content>
<content></content> Estimated Average Glucose 143 mg/dL 60-110 Above high normal [facility] ([facility]) ID Date Data Source [id number] 09/12/2020 09:32:00 AM EST [facility] ([facility]) Name Value Range Interpretation Code Description Data Cesia rce(s) Supporting Document(s) Thyroxine (T4) free [Mass/volume] in Serum or Plasma 0.86 ng/dL 0.76-1.46 Normal (applies to non-numeric results) [facility] ([facility]) <content>note:<nlbl:demographic_changed> </content>
<content></content> Thyrotropin [Units/volume] in Serum or Plasma 2.020 uIU/ML 0. 358-3.740 Normal (applies to non-numeric results) [facility] ([facility]) <content>note:<nlbl:demographic_changed> </content>
<content></content> ID Date Data Source [id number] 09/12/2020 09:32:00 AM EST [facility] ([facility]) Name Value Range Interpretation Code Description Data Cesia rce(s) Supporting Document(s) HDL Cholesterol 47 mg/dL Normal (applies to non-numeric results) [facility] ([facility]) Cholesterol Level 201 mg/dL Above high normal [facility] ([facility]) Triglycerides Level 175 mg/dL Above high normal [facility] ([facility]) LDL Cholesterol 119 mg/dL Above high normal [facility] ([facility]) Non-HDL-C 154 mg/dL Normal (applies to non-numeric resul ts) [facility] ([facility]) Cholesterol Risk Ratio 4.276 Normal (applies to non-n umeric results) [facility] ([facility]) ID Date Data Source [id number] 09/12/2020 09:32:00 AM EST [facility] ([facility]) Name Value Range Interpretation Code Description Data Cesia rce(s) Supporting Document(s) Blood Urea Nitrogen 11 mg/dL 7-18 Normal (applies to non-nume kalie results) [facility] ([facility]) Glucose, Fasting 129 mg/dL 70-100 Above high normal [facility] ([facility]) Glomerular Filtration Rate Laboratory test result Normal (applies to non- numeric results) [facility] ([facility]) <content>Units are mL/min/1.73 m2</content>
<content></content>
<content>Chronic Kidney Disease Staging per NKF:</content>
<content></content>
<content>Stage I & II GFR >=60 Normal to Mildly Decreased</content>
<content>Stage III GFR 30- 59 Moderately Decreased</content>
<content>Stage IV GFR 15-29 Severely Decreased</content>
<content>Stage V GFR <15 Very Little GFR Left</content>
<content>ESRD GFR <15 on CPA TAX</content>
<content></content> Creatinine For GFR 0.67 mg/dL 0.55-1.30 Normal (applies to non -numeric results) [facility] ([facility]) Chloride Level 106 meq/L 98-107 Normal (applies to non-numeric r esults) [facility] ([facility]) Sodium Level 138 meq/L 136-145 Normal (applies to non-numeric res ults) [facility] ([facility]) Potassium Serum 4.4 meq/L 3.5-5.1 Normal (applies to non-numeric results) [facility] [facility]) Carbon Dioxide Level 25 meq/L 21-32 Normal (applies to non-num vu results) [facility] ([facility]) Anion Gap 7 meq/L 8-16 Below low normal [facility] ( [facility]) Ast/Sgot 12 U/L 7-37 Normal (applies to non-numeric resul ts) [facility] ([facility]) Calcium Level 8.7 mg/dL 8.5-10.1 Normal (applies to non-numeric re sults) [facility] ([facility]) Alt/SGPT 25 U/L 12-78 Normal (applies to non-numeric resul ts) [facility] ([facility]) Alkaline Phosphatase 74 U/L 45-117 Normal (applies to non-num vu results) [facility] ([facility]) Bilirubin,Total 0.4 mg/dL 0.2-1.0 Normal (applies to non-numeric results) [facility]) Albumin 3.5 GM/DL 3.2-5.2 Normal (applies to non-numeric resul ts) [facility] ([facility]) Total Protein 6.5 GM/DL 6.4-8.2 Normal (applies to non-numeric re sults) [facility] ([facility]) Albumin/Globulin Ratio 1.2 1.2-2.2 Normal (applies to non-n umeric results) [facility] ([facility]) ID Date Data Source [id number] 09/12/2020 09:32:00 AM EST [facility] ([facility]) Name Value Range Interpretation Code Description Data Cesia rce(s) Supporting Document(s) Red Blood Count 5.09 10 4.00-5.40 Normal (applies to non-numeric results) [facility] ([facility]) White Blood Count 6.2 10 4.0-10.0 Normal (applies to non-numeri c results) [facility] ([facility]) Mean Corpuscular Volume 83.9 fl 80.0-96.0 Normal ( applies to non-numeric results) [facility] ([facility]) Hematocrit 42.7 % 36.0-47.0 Normal (applies to non-numeric resul ts) [facility] ([facility]) Hemoglobin 14.0 g/dL 12.0-15.5 Normal (applies to non-numeric resul ts) [facility] ([facility]) Mean Corpuscular Hemoglobin 27.5 pg 27.0-33.0 Norm al (applies to non-numeric results) [facility] ([facility]) Platelet Count, Automated 294 10 150-450 Normal (applies to non-numeric results) [facility] ([facility]) Mean Corpuscular HGB Conc 32.8 g/dL 32.0-36.5 Normal (applies to non-numeric results) [facility] ([facility]) Red Cell Distribution Width 12.4 % 11.5-14.5 Norm al (applies to non-numeric results) [facility] ([facility]) Lymph % 38.6 % 24.0-44.0 Normal (applies to non-numeric resul ts) [facility] ([facility]) Neutrophils % 51.9 % 36.0-66.0 Normal (applies to non-numeric re sults) [facility] ([facility]) Eos % 1.3 % 0.0-3.0 Normal (applies to non-numeric resul ts) [facility] ([facility]) [place] % 7.3 % 0.0-5.0 Above high normal [facility] ([facility]) Baso % 0.6 % 0.0-1.0 Normal (applies to non-numeric resul ts) [facility] ([facility]) Nucleated Red Blood Cell % 0.0 % 0-0 Normal (applies to n on-numeric results) [facility] ([facility]) Immature Granulocyte % 0.3 % 0-3.0 Normal (applies to non-n umeric results) [facility] ([facility]) Lymph # 2.4 10 1.5-5.0 Normal (applies to non-numeric resul ts) [facility] ([facility]) Neutrophils # 3.2 10 1.5-8.5 Normal (applies to non-numeric re sults) [facility] ([facility]) [place] # 0.5 10 0.0-0.8 Normal (applies to non-numeric resul ts) [facility] ([facility]) Eos # 0.1 10 0.0-0.5 Normal (applies to non-numeric resul ts) [facility] ([facility]) Baso # 0.0 10 0.0-0.2 Normal (applies to non-numeric resul ts) [facility] ([facility]) ID Date Data Source [id number] 09/12/2020 09:32:00 AM EST [facility] ([facility]) Name Value Range Interpretation Code Description Data Cesia rce(s) Supporting Document(s) Rheumatoid factor [Units/volume] in Serum or Plasma Laboratory test result [facility] ([facility]) HLA-B27 related Ag [Presence] Laboratory test result [facility] ([facility]) ID Date Data Source [id number] 09/12/2020 09:32:00 AM EST [facility] ([facility]) Name Value Range Interpretation Code Description Data Cesia rce(s) Supporting Document(s) C reactive protein [Mass/volume] in Serum or Plasma by High sensitivity method Laboratory test result [facility] ([facility]) ID Date Data Source [id number] 09/12/2020 09:32:00 AM EST [facility] ([facility]) Name Value Range Interpretation Code Description Data Cesia rce(s) Supporting Document(s) Cyclic citrullinated peptide IgG Ab [Units/volume] in Serum or Plasma Laboratory test result [facility] ([facility]) ID Date Data Source [id number] 09/02/2020 12:00:00 AM EST [facility] Name Value Range Interpretation Code Description Data Cesia rce(s) Supporting Document(s) SARS-CoV2 Rapid Antigen [facility] This lab was ordered by [facility] and reported by [facility]. ID Date Data Source [id number] 08/08/2020 11:07:06 AM EST [facility] ([facility]) Name Value Range Interpretation Code Description Data Cesia rce(s) Supporting Document(s) NegativeLot: [id number]: 10/28/2021 High Sensitivity Urine Test [facility] ([facility]) ID Date Data Source [id number] 08/03/2020 12:00:00 AM EST [facility] Name Value Range Interpretation Code Description Data Cesia rce(s) Supporting Document(s) SARS-CoV2 Rapid Antigen [facility] This lab was ordered by [facility] and reported by [facility]. ID Date Data Source [id number] & GC DNA [id number] 07/30/2020 12:00:00 AM EST eCW1 (Critical access hospital) Name Value Range Interpretation Code Description Data Cesia rce(s) Supporting Document(s) Negative Negative eCW1 ([facility]) Negative Negative eCW1 ([facility]) Procedure Social History Code Duration Value Status Description Data Source(s ) Smoking 05/09/2021 12:00:00 AM EDT Patient has never smoked co mpleted Patient has never smoked [facility] ([facility]) 08/08/2020 12:00:00 AM EST Current non-smoker completed C urrent non-smoker [facility] Smoking 08/08/2020 12:00:00 AM EST Never smoker completed Never s moker [facility] Vital Signs ID Date Data Source [id number] Name Value Range Interpretation Code Description Data Source(s) Diastolic blood pressure 66 mm[Hg] 66 mm[Hg] [facility] ([facility]) Heart rate 82 /min 82 /min [facility] ([facility]) Body height 64.25 [in_i] 64.25 [in_i] [facility] ([facility]) 5'4.25" Body weight 244.00 [lb_av] 244.00 [lb_av] [facility] ([facility]) Systolic blood pressure 110 mm[Hg] 110 mm[Hg] [facility] ([facility]) Body mass index (BMI) [Ratio] 41.6 kg/m2 41.6 k g/m2 [facility] ([facility]) Systolic blood pressure 140 mm[Hg] 140 mm[Hg] [facility] ([facility]) Diastolic blood pressure 60 mm[Hg] 60 mm[Hg] [facility] ([facility]) Heart rate 82 /min 82 /min [facility] ([facility]) Body height 64.25 [in_i] 64.25 [in_i] [facility] ([facility]) 5'4.25" Body weight 247.00 [lb_av] 247.00 [lb_av] [facility] ([facility]) Body mass index (BMI) [Ratio] 42.1 kg/m2 42.1 k g/m2 [facility] ([facility]) Systolic blood pressure 127 mm[Hg] 127 mm[Hg] [facility] ([facility]) Body temperature 98.0 [degF] 98.0 [degF] [facility] ([facility]) Body weight 255.00 [lb_av] 255.00 [lb_av] [facility] ([facility], [facility]) Body height 63 [in_i] 63 [in_i] [facility] ([facility], [facility]) 5'3" Body mass index (BMI) [Ratio] 45.2 kg/m2 45.2 k g/m2 [facility] ([facility], [facility]) Diastolic blood pressure 86 mm[Hg] 86 mm[Hg] [facility] ([facility], [facility]) Heart rate 76 /min 76 /min [facility] ([facility], [facility]) Respiratory rate 16 /min 16 /min [facility] ( [facility], [facility]) Oxygen saturation in Arterial blood by Pulse oximetry 98 % 98 % [facility] ([facility], [facility]) Body weight 245.6 [lb_av] 245.6 [lb_av] eCW1 (Critical access hospital) Body weight 111.4 kg 111.4 kg W1 ([facility]) Body height 63 [in_i] 63 [in_i] eCW1 ([facility]) Body mass index (BMI) [Ratio] 43.50 kg/m2 43.50 kg/m2 [facility] ([facility]) Heart rate 92 /min 92 /min W1 ([facility]) Respiratory rate 18 /min 18 /min eCW1 ([facility]) Systolic blood pressure 126 mm[Hg] 126 mm[Hg] e CW1 ([facility]) Diastolic blood pressure 84 mm[Hg] 84 mm[Hg] eCW1 ([facility]) Body weight 245.00 [lb_av] 245.00 [lb_av] [facility] ([facility] ) Body mass index (BMI) [Ratio] 42.0 kg/m2 42.0 k g/m2 [facility] ([facility] ) Body height 64 [in_i] 64 [in_i] [facility] ([facility] ) 5'4" Body temperature 96.9 [degF] 96.9 [degF] [facility] ([facility] ) Body mass index (BMI) [Ratio] 44.28 kg/m2 44.28 kg/m2 eCW1 ([facility]) Body weight 250 [lb_av] 250 [lb_av] eCW1 ([facility]) Diastolic blood pressure 78 mm[Hg] 78 mm[Hg] eCW1 ([facility]) Systolic blood pressure 126 mm[Hg] 126 mm[Hg] e CW1 ([facility]) Body weight 113.4 kg 113.4 kg eCW1 ([facility]) Body height 63 [in_i] 63 [in_i] eCW1 ([facility]) Body temperature 97.3 [degF] 97.3 [degF] [facility] ([facility]) Body height 64 [in_i] 64 [in_i] [facility] ([facility]) 5'4" Body mass index (BMI) [Ratio] 42.0 kg/m2 42.0 k g/m2 [facility] ([facility]) Body weight 245.00 [lb_av] 245.00 [lb_av] [facility] ([facility]) Body weight 249 [lb_av] 249 [lb_av] eCW1 ([facility]) Body weight 112.94 kg 112.94 kg eCW1 ([facility]) Body height 63 [in_i] 63 [in_i] eCW1 ([facility]) Body mass index (BMI) [Ratio] 44.1 kg/m2 44.1 k g/m2 eCW1 ([facility]) Systolic blood pressure 136 mm[Hg] 136 mm[Hg] e CW1 ([facility]) Diastolic blood pressure 86 mm[Hg] 86 mm[Hg] eCW1 ([facility]) Systolic blood pressure--sitting 135 mm[Hg] 135 mm[Hg] [facility] ([facility]) Diastolic blood pressure--sitting 88 mm[Hg] 88 mm[Hg] [facility] ([facility]) Respiratory rate 18 /min 18 /min [facility] ( [facility]) Body weight 249.12 [lb_av] 249.12 [lb_av] [facility] ([facility]) Body weight 113.003 kg 113.003 kg [facility] ([facility]) Body height 64 [in_i] 64 [in_i] [facility] ([facility]) 5'4" Body mass index (BMI) [Ratio] 42.8 kg/m2 42.8 k g/m2 [facility] ([facility]) Body surface area Derived from formula 2.15 m2 2.15 m2 [facility] ([facility]) Oxygen saturation in Arterial blood by Pulse oximetry 100 % 100 % [facility] ([facility]) Heart rate 77 /min 77 /min [facility] ([facility]) Body temperature 98.2 [degF] 98.2 [degF] [facility] ([facility]) Oral Respiratory rate 20 /min 20 /min [facility] ( [facility]) Body temperature 97.6 [degF] 97.6 [degF] [facility] ([facility]) Oxygen saturation in Arterial blood by Pulse oximetry 98 % 98 % [facility] ([facility]) Body height 63.25 [in_i] 63.25 [in_i] [facility] ([facility]) 5'3.25" Systolic blood pressure 124 mm[Hg] 124 mm[Hg] M [facility] ([facility]) Diastolic blood pressure 84 mm[Hg] 84 mm[Hg] [facility] ([facility]) Body weight 260.25 [lb_av] 260.25 [lb_av] [facility] ([facility]) Body mass index (BMI) [Ratio] 45.7 kg/m2 45.7 k g/m2 [facility] ([facility]) Heart rate 75 /min 75 /min [facility] ([facility]) [place] body weight 115 [lb_av] 115 [lb_av] [facility] ([facility]) Body height 63.25 [in_i] 63.25 [in_i] [facility] ([facility]) 5'3.25" Body weight 260.12 [lb_av] 260.12 [lb_av] [facility] ([facility]) Body mass index (BMI) [Ratio] 45.7 kg/m2 45.7 k g/m2 [facility] ([facility]) Diastolic blood pressure 74 mm[Hg] 74 mm[Hg] [facility] ([facility]) Systolic blood pressure 126 mm[Hg] 126 mm[Hg] M [facility] ([facility]) Heart rate 90 /min 90 /min [facility] ([facility]) Respiratory rate 18 /min 18 /min [facility] ( [facility]) Body temperature 97.1 [degF] 97.1 [degF] [facility] ([facility]) Oxygen saturation in Arterial blood by Pulse oximetry 97 % 97 % [facility] ([facility]) [place] body weight 115 [lb_av] 115 [lb_av] [facility] ([facility]) Body temperature 98.4 [degF] 98.4 [degF] [facility] ([facility]) Body mass index (BMI) [Ratio] 45.7 kg/m2 45.7 k g/m2 [facility] ([facility]) Diastolic blood pressure 74 mm[Hg] 74 mm[Hg] [facility] ([facility]) Body height 63.25 [in_i] 63.25 [in_i] [facility] ([facility]) 5'3.25" Body weight 260.00 [lb_av] 260.00 [lb_av] [facility] ([facility]) Oxygen saturation in Arterial blood by Pulse oximetry 97 % 97 % [facility] ([facility]) [place] body weight 115 [lb_av] 115 [lb_av] [facility] ([facility]) Systolic blood pressure 120 mm[Hg] 120 mm[Hg] M [facility] ([facility]) Heart rate 105 /min 105 /min [facility] ([facility]) Respiratory rate 18 /min 18 /min [facility] ( [facility]) Body height 165.10 cm 165.10 cm [facility] ([facility] Body weight 72.575 kg 72.575 kg [facility] ([facility]) Systolic blood pressure 126 mm[Hg] 126 mm[Hg] N [facility] ([facility]) Diastolic blood pressure 79 mm[Hg] 79 mm[Hg] [facility] ([facility]) Heart rate 83 /min 83 /min [facility] ([facility]) Body mass index (BMI) [Ratio] 26.63 kg/m2 Overweight 26.63 kg/m2 [facility] ([facility]) Body weight 254 [lb_av] 254 [lb_av] eCW1 ([facility]) Body weight 115.21 kg 115.21 kg W1 ([facility]) Body height 63 [in_i] 63 [in_i] eCW1 ([facility]) Body mass index (BMI) [Ratio] 44.99 kg/m2 44.99 kg/m2 [facility] ([facility]) Systolic blood pressure 124 mm[Hg] 124 mm[Hg] e CW1 ([facility]) Diastolic blood pressure 84 mm[Hg] 84 mm[Hg] eCW1 ([facility]) Body temperature 98.1 [degF] 98.1 [degF] [facility] ([facility]) Body mass index (BMI) [Ratio] 45.1 kg/m2 45.1 k g/m2 [facility] ([facility]) Heart rate 85 /min 85 /min [facility] ([facility]) Systolic blood pressure 118 mm[Hg] 118 mm[Hg] [facility] ([facility]) Respiratory rate 16 /min 16 /min [facility] ( [facility]) Diastolic blood pressure 80 mm[Hg] 80 mm[Hg] [facility] ([facility]) Body height 63.25 [in_i] 63.25 [in_i] [facility] ([facility]) 5'3.25" Body weight 256.38 [lb_av] 256.38 [lb_av] [facility] ([facility]) Oxygen saturation in Arterial blood by Pulse oximetry 99 % 99 % [facility] [place] body weight 115 [lb_av] 115 [lb_av] [facility] ([facility]) Patient Treatment Plan of Care Planned Activity Planned Date Details Description Data Source (s) 27-0.8 MG 07/30/2020 12:00:00 AM EST eCW1 ([facility]) 27-0.8 MG 07/30/2020 12:00:00 AM EST eCW1 ([facility]) Sprintec 28 0.25-35 MG-MCG 06/11/2020 12:00:00 AM EDT eCW1 ([facility]) Lorazepam 2 MG Oral Tablet [Ativan] [facility] ([facility]) Vraylar 4.5 mg capsule [facility] ([facility]) Hollis Aspartate 5 MG Oral Capsule [facility] ([facility]) Clonazepam 2 MG Oral Tablet [facility] ([facility]) sitagliptin 100 MG Oral Tablet [Januvia] [facility] ([facility]) Losartan Potassium 50 MG Oral Tablet [facility] ([facility]) levocetirizine dihydrochloride 5 MG Oral Tablet [facility] ([facility]) montelukast 10 MG Oral Tablet [facility] ([facility]) L-Methylfolate 15 mg tablet [facility] ([facility]) 24 HR Methylphenidate Hydrochloride 54 M G Extended Release Oral Tablet [Concerta] [facility] ([facility]) Omeprazole 20 MG Delayed Release Oral Capsule [facility] ([facility]) Lamictal XR Starter (Green) 50 mg(14)-100 mg(14)-200 mg(7) tab,ext. rel [facility] ([facility])
== END 2021-06-13 01:54 | disposition left against medical advice (07) ==
LOC: M ED 22:54
DX: Z53.21 Procedure and treatment not carried out due to patient leaving prior to being seen by health care provider (principal)

== ENCOUNTER 2021-06-16 15:22 | Emergency (ER) | payer BC, OTHER, MEDICAID ==
[~2021-06-16] VITALS: Ht 162.6 cm; Wt 100.0 kg
[~2021-06-16 15:22] MED LIST changes: +LEXA1TAB PO; +LEXA5TAB13 PO
--- OUTSIDE RECORDS SUMMARY | 2021-06-16 17:28 | CCD | Continuity of Care Document ---
Author Author Ghassan GAN [place] [address] Phone [phone] Care Team Providers Care Truss Driver Helper Name Role Phone [facility] AUTM Marilu vailable Problems Description No Information Available Social History Type Date Description Comments Sex Unknown Allergies, Adverse Reactions, Alerts Active Allergies Criticality Reaction | Severity Comments Date NKFA Unable to assess criticality 11/19/2020 NKEA Unable to assess criticality 11/19/2020 Nystatin Unable to assess criticality 11/19/2020 Inactive Allergies NKDA Unable to assess criticality 11/19/2020 Medications Active Medications SIG Qnty Indications Ordering Provide r Date Escitalopram Oxalate 10mg Tablets 1 1/2 tabs by mouth every day 135tabs F33.9 Yunior Whitney MD Concerta 36mg Tablets ER take one tablet by mouth every morning 30tabs Yunior Whintey MD Metformin HCL ER 500mg Tablets ER 24HR Take 2 Tablets By Mouth Every Day With Dinner Un known 09/17/2020 History Medications Sertraline HCL 25mg Tablets 1 by mouth every day 30tabs F90.9 Yunior Whitney MD 12/20/2020 - 01/21/2021 Immunizations Description No Information Available Vital Signs Date Vital Result Comment 11/19/2020 10:14am BP Systolic Sitting 135 mmHg BP Diastolic Sitting 88 mmHg Heart Rate 77 /min Body Temperature 98.2 F Oral Respiratory Rate 18 /min O2 % BldC Oximetry 100 % Weight 249.12 lb Weight 113.003 kg Height 64 inches 5'4" BMI (Body Mass Index) 42.8 kg/m2 BSA (Body Surface Area) 2.15 m2 Results Description No Information Available Procedures Date Code Description Status 04/22/2021 25005 Office/Outpatient Established Mo d MDM 30-39 Min Completed 03/21/2021 52999 Office/Outpatient Established Mo d MDM 30-39 Min Completed 02/14/2021 57596 Office/Outpatient Established Mo d MDM 30-39 Min Completed 01/21/2021 34673 Office/Outpatient Established Mo d MDM 30-39 Min Completed 12/20/2020 18652 Psychiatric Diag Eval W/Medical Service Completed Medical Devices Description No Information Available Encounters Description No Information Available Assessments Date Code Description Provider 06/06/2021 F33.9 Major depressive disorder, recur rent, unspecified Nancy Lampack, [facility] 06/06/2021 F60.3 Borderline personality disorder Nancy Lampack, [facility] 06/06/2021 F90.9 Attention-deficit hyperactivity disorder, unspecified type Nancy Lampack, [facility] 05/22/2021 F33.9 Major depressive disorder, recur rent, unspecified Nancy Lampack, [facility] 05/22/2021 F60.3 Borderline personality disorder Nancy Lampack, [facility] 05/22/2021 F90.9 Attention-deficit hyperactivity disorder, unspecified type Nancy Lampack, [facility] 05/09/2021 F33.9 Major depressive disorder, recur rent, unspecified Nancy Lampack, [facility] 05/09/2021 F60.3 Borderline personality disorder Nancy Lampack, [facility] 05/09/2021 F90.9 Attention-deficit hyperactivity disorder, unspecified type Nancy Lampack, [facility] 04/22/2021 F33.9 Major depressive disorder, recur rent, unspecified Armando Kang PA-C 04/22/2021 F60.3 Borderline personality disorder Armando Kang PA-C 04/22/2021 F90.9 Attention-deficit hyperactivity disorder, unspecified type Armando Kang PA-C 04/03/2021 F33.9 Major depressive disorder, recur rent, unspecified Nancy Lampack, [facility] 04/03/2021 F60.3 Borderline personality disorder Nancy Lampack, [facility] 04/03/2021 F90.9 Attention-deficit hyperactivity disorder, unspecified type Nancy Lampack, [facility] 03/21/2021 F33.9 Major depressive disorder, recur rent, unspecified Armando Kang, PA-C 03/21/2021 F60.3 Borderline personality disorder Armando Kang, PA-C 03/21/2021 F90.9 Attention-deficit hyperactivity disorder, unspecified type Armando Kang, PA-C 03/14/2021 F33.9 Major depressive disorder, recur rent, unspecified Nancy Lampack, [facility] 03/14/2021 F60.3 Borderline personality disorder Nancy Lampack, [facility] 03/14/2021 F90.9 Attention-deficit hyperactivity disorder, unspecified type Nancy Lampack, [facility] 02/14/2021 F33.9 Major depressive disorder, recur rent, unspecified Armando Jorge Luis, PA-C 02/14/2021 F60.3 Borderline personality disorder Armandorobert Kang, PA-C 02/14/2021 F90.9 Attention-deficit hyperactivity disorder, unspecified type Armando Kang, PA-C 02/07/2021 F90.9 Attention-deficit hyperactivity disorder, unspecified type Nancy Lampack, [facility] 02/07/2021 F33.9 Major depressive disorder, recur rent, unspecified Nancy Lampack, [facility] 02/07/2021 F60.3 Borderline personality disorder Nancy Lampack, [facility] 01/31/2021 F90.9 Attention-deficit hyperactivity disorder, unspecified type Nancy Lampack, [facility] 01/31/2021 F33.9 Major depressive disorder, recur rent, unspecified Nancy Lampack, [facility] 01/31/2021 F60.3 Borderline personality disorder Nancy Lampack, [facility] 01/21/2021 F90.9 Attention-deficit hyperactivity disorder, unspecified type Armando Kang, PA-C 01/21/2021 F33.9 Major depressive disorder, recur rent, unspecified Armando Kang, PA-C 01/21/2021 F60.3 Borderline personality disorder Armando Kang, PA-C 01/14/2021 F90.9 Attention-deficit hyperactivity disorder, unspecified type Nancy Lampack, [facility] 01/14/2021 F33.9 Major depressive disorder, recur rent, unspecified Nancy Lampack, [facility] 12/20/2020 F90.9 Attention-deficit hyperactivity disorder, unspecified type Armando Kang PA-C 12/20/2020 F33.9 Major depressive disorder, recur rent, unspecified Armando Kang PA-C 12/20/2020 F60.3 Borderline personality disorder Armando Kang PA-C Plan of Treatment Future Appointment(s):* 07/29/2021 11:00 am - [facility] * 07/15/2021 11:00 am - [facility] * 07/01/2021 11:00 am - [facility]Y Gan at [facility] * 06/20/2021 10:00 am - [facility] * 06/20/2021 11:00 am - Armando Kang PA-C at [facility] Functional Status Description No Information Available Mental Status Description No Information Available Referrals Description No Information Available
--- OUTSIDE RECORDS SUMMARY | 2021-06-16 17:28 | CCD | Continuity of Care Document ---
Author Author Ghassan CHARLES ME Organization Unknown Address [address] [place] [address] [place] [address] Phone [phone] Care Team Providers Care Felt Hat Inspector And Packer Name Role Phone Salma Christine DO [facility] [employer] [facility] [phone] Problems Active Problems Provider Date Asthma without status asthmaticus Onset: Attention deficit hyperactivity disorder Onset: Anxiety state Onset: Social History Type Date Description Comments Sex Unknown Tobacco Use Start: Unknown Never Smoked Cigarettes ETOH Use Denies alcohol use Tobacco Use Start: Unknown Patient has never smoked Smoking Status Reviewed: 05/09/21 Patient has never smoked Allergies, Adverse Reactions, Alerts Active Allergies Criticality Reaction | Severity Comments Date Nystatin Unable to assess criticality 06/26/2009 Medications Active Medications SIG Qnty Indications Ordering Provide r Date Lexapro 15MG Unknown Concerta 36MG Unknown Immunizations Description No Information Available Vital Signs Date Vital Result Comment 05/09/2021 6:25pm BP Systolic 127 mmHg BP Diastolic 86 mmHg Heart Rate 76 /min Respiratory Rate 16 /min O2 % BldC Oximetry 98 % Body Temperature 98.0 F Weight 255.00 lb Height 63 inches 5'3" BMI (Body Mass Index) 45.2 kg/m2 Pain Level 3 08/26/2019 6:48pm BP Systolic 146 mmHg BP Diastolic 92 mmHg Heart Rate 93 /min Respiratory Rate 16 /min O2 % BldC Oximetry 98 % Body Temperature 97.9 F Weight 245.00 lb Height 63 inches 5'3" BMI (Body Mass Index) 43.4 kg/m2 Pain Level 0 Results Description No Information Available Procedures Date Code Description Status 05/09/2021 39221 Office/Outpatient Established Mo d MDM 30-39 Min Completed Medical Devices Description No Information Available Encounters Type Date Location Provider Dx Diagnosis Office Visit 05/09/2021 5:10p Main Office Jory Godfrey J0 6.9 Acute upper respiratory infection, unspecified A08.4 Viral intestinal infection, unspecified Z20.828 Contact w and exposure to ot h viral communicable diseases Assessments Date Code Description Provider 05/09/2021 J06.9 Acute upper respiratory infectio n, unspecified Bobby King P.A. 05/09/2021 A08.4 Viral intestinal infection, unsp ecified Jory Godfrey 05/09/2021 Z20.828 Contact with and (miguel spected) exposure to other viral communicable diseases Bobby King, P.AMyriam Plan of Treatment No Information Available Functional Status Description No Information Available Mental Status Description No Information Available Referrals Description No Information Available
--- OUTSIDE RECORDS SUMMARY | 2021-06-16 17:28 | CCD | Continuity of Care Document ---
Author Author Ghassan CHARLES ND Organization Unknown Address [address] [place] [address] [place] [address] Phone [phone] Care Team Providers Care Die Assembler Name Role Phone Salma Christine DO AUTM [phone] [employer] [facility] [phone] Problems Active Problems Provider Date Asthma without [...] Available Procedures Date Code Description Status 05/09/2021 36435 Office/Outpatient Established Mo d MDM 30-39 Min Completed Medical Devices Description No Information Available Encounters Type Date Location Provider Dx Diagnosis Office Visit 05/09/2021 5:10p Main Office Jory Godfrey J0 6.9 Acute upper respiratory infection, unspecified A08.4 Viral intestinal infection, unspecified Z20.828 Contact w and exposure to ot h viral communicable diseases Assessments Date Code Description Provider 05/30/2021 Z20.828 Contact with and (miguel spected) exposure to other viral communicable diseases ARELI Samuel 05/09/2021 J06.9 Acute upper respiratory infectio n, unspecified Jory Godfrey 05/09/2021 A08.4 Viral intestinal infection, unsp ecified Wilda Godfrey.AMyriam 05/09/2021 Z20.828 Contact with and (miguel spected) exposure to other viral communicable diseases Jory Godfrey Plan of Treatment No Information Available Functional Status Description No Information Available Mental Status Description No Information Available Referrals Description No Information Available
--- OUTSIDE RECORDS SUMMARY | 2021-06-16 17:28 | CCD ---
Author Author [facility] Organization [facility] Address Unknown Phone Unavailable Care Team Providers Care Learning Consultant Name Role Phone Steffanie Menjivar Unavailable PROBLEMS Type Condition ICD9-CM Code [id number] Code Onset Dates Condition S tatus W/U Status Risk SNOMED Code Notes Problem General counseling for prescription of oral contraceptives V25.01 Active confirmed 107277187525498 Problem Dysmenorrhea 625.3 Active confirmed 1639016 00 Problem Irregular menstrual cycle 626.4 Active confirmed 13877235 Problem Family planning, BCP maintenance V25.41 Active confirmed 357381413847463 Problem Unspecified vitamin D deficiency 268.9 Active conf irmed 56515381 Problem Body mass index [BMI]40.0-44.9, adult Z68.41 Ac tive confirmed 032426393 Problem Encounter for monitoring of etonogestrel implant Z 30.49 Active confirmed 651049611 Problem Secondary amenorrhea N91.1 Active confirmed 275115207 Problem BMI 40.0-44.9, adult Z68.41 Active confirmed 659376457 Problem Glucose intolerance E74.39 Active confirmed 15933366 Problem Anxiety disorder, unspecified F41.9 Active confirm ed 729273619 Problem Morbid (severe) obesity due to excess calories E66 .01 Active confirmed 959768231 Problem Major depressive disorder, single episode, unspecified F32.9 Active confirmed 34684027 Problem Abnormal uterine bleeding (AUB) N93.9 Active confirmed 71343474889279 Problem Diarrhea, unspecified type R19.7 Active confirmed 67233674 Problem Decreased hearing of both ears H91.93 Active confir med 938106917 Problem Diaphoresis R61 Active confirmed 20623649 Problem Left ear impacted cerumen H61.22 Active [facility] med 4093984718949946 ALLERGIES Allergen (clinical drug ingredient) Drug/Non Drug Allergy do cumented on EMR Reaction Allergy Type Onset Date Status liraglutide Saxenda([facility] Code:[address]-24) suicidal Drug Allergy Active environmental sinus infections Non Drug Allergy Active ENCOUNTERS from 1995 to 2021-05-28 Encounter Location Date Provider Diagnosis [facility] [address] [facility] [facility] [phone] [place] [address] 27 May, 2021 Steffanie Servage IMMUNIZATIONS Vaccine Route Administration Date Status COVID-19 dose #2 given elsewhere Unspecified Unknown Apr il 2020 Administered COVID-19 dose #1 given elsewhere Unspecified Unknown Mar ch 2020 Administered SOCIAL HISTORY Sex Assigned At : Social History Observation Description Sex Assigned At Unknown Education: Question Answer Notes Level of Education: Not Finished College Audit Question Answer Notes Total Score: 0 Interpretation: Alcohol Education Language: Question Answer Notes Languages spoken: Khmer Orthodoxy: Question Answer Notes Orthodoxy 99 Other Sexual Hx: Question Answer Notes Had sex in the last 12 months (vaginal, oral, or anal)? Yes Have you ever had an STD? No Prevention Strategies discussed: Other with Men only Use protection? No Drug and Alcohol Question Answer Notes Total Score: 0 Interpretation: No problems reported Alcohol Screening: Question Answer Notes Did you have a drink containing alcohol in the past year? No Points 0 Interpretation Negative REASON FOR REFERRAL No Information VITAL SIGNS No information MEDICATIONS Medication SIG (Take, Route, Frequency, Duration) Notes Start Da te End Date Status Concerta 36 MG 1 tablet in the morning Orally Once a day Active Lexapro 5 MG 1 tablet Orally Once a day Active PROCEDURES No Information RESULTS No Results REASON FOR VISIT no show MEDICAL (GENERAL) HISTORY Type Description Date Medical History ADHD Medical History Anxiety Medical History Depression Medical History borderline personality disorder Medical History Asthma Medical History irregular menses Medical History morbid obesity Surgical History T & A Surgical History eyes bilateral surgery for exophoria Surgical History sinus surgery age 18 Surgical History wisdom teeth Hospitalization History Psychiatric admission Goals Section No Information Health Concerns No Information MEDICAL EQUIPMENT No Information MENTAL STATUS No Information FUNCTIONAL STATUS No Information ASSESSMENTS No Information PLAN OF TREATMENT Next Appt Details Provider Name:Cheryl Diaz, 2021-06-17 1 0:20:00 AM, [address], , [place], [address], Insurance Providers Payer Name Payer Address Payer Phone Insured Name Patient Relati onship to Insured Coverage Start Date Coverage End Date [facility] [address] [facility] [id number] SHANNEN SEGURA MEDICAID [employer] [address] [facility] [id number] STARLA SEGURA self
--- OUTSIDE RECORDS SUMMARY | 2021-06-16 17:28 | CCD | Continuity of Care Document ---
Author Author Ghassan GAN [place] [address] Phone [phone] Care Team Providers Care Flooring Machine Operator Name Role Phone [facility] AUTM Marilu vailable Problems Description No Information [...] tablet by mouth every morning 30tabs Yunior Whitney MD Metformin HCL ER 500mg Tablets ER [...] Available Procedures Date Code Description Status 04/22/2021 53187 Office/Outpatient Established Mo d MDM 30-39 Min Completed 03/21/2021 43215 Office/Outpatient Established Mo d MDM 30-39 Min Completed 02/14/2021 61303 Office/Outpatient Established Mo d MDM 30-39 Min Completed 01/21/2021 63132 Office/Outpatient Established Mo d MDM 30-39 Min Completed 12/20/2020 72193 Psychiatric Diag Eval W/Medical Service Completed Medical Devices Description No Information Available Encounters Description No Information Available Assessments Date Code Description Provider 06/06/2021 F33.9 Major depressive disorder, recur rent, unspecified Nancy Lampack, [facility] 06/06/2021 F60.3 Borderline personality disorder Nancy Lampack, [facility] 06/06/2021 F90.9 Attention-deficit hyperactivity disorder, unspecified type Nancy Lampack, [facility] 05/22/2021 F33.9 Major depressive disorder, recur rent, unspecified Nancy Lampack, [facility] 05/22/2021 F60.3 Borderline personality disorder Nancy Lampack, [facility] 05/22/2021 F90.9 Attention-deficit hyperactivity disorder, unspecified type Nancy Lampack, [facility] 05/09/2021 F33.9 Major depressive disorder, recur rent, unspecified Nancy Lampack, [facility] 05/09/2021 F60.3 Borderline personality disorder Nancy Lampack, [facility] 05/09/2021 F90.9 Attention-deficit hyperactivity disorder, unspecified type Nancy Lampack, [facility] 04/22/2021 F33.9 Major depressive disorder, recur rent, unspecified Armando Kang PA-C 04/22/2021 F60.3 Borderline personality disorder Armando Kang PA-C 04/22/2021 F90.9 Attention-deficit hyperactivity disorder, unspecified type Armando Kang PA-C 04/03/2021 F33.9 Major depressive disorder, recur rent, unspecified Nancy Lampack, [facility] 04/03/2021 F60.3 Borderline personality disorder Anncy Lampack, [facility] 04/03/2021 F90.9 Attention-deficit hyperactivity disorder, unspecified type Nancy Lampack, [facility] 03/21/2021 F33.9 Major depressive disorder, recur rent, unspecified Armando Kang, PA-C 03/21/2021 F60.3 Borderline personality disorder Armando Kang, PA-C 03/21/2021 F90.9 Attention-deficit hyperactivity disorder, unspecified type Armando Kang, PA-C 03/14/2021 F33.9 Major depressive disorder, recur rent, unspecified Anncy Lampack, [facility] 03/14/2021 F60.3 Borderline personality disorder Nancy Lampack, [facility] 03/14/2021 F90.9 Attention-deficit hyperactivity disorder, unspecified type Nancy Lampack, [facility] 02/14/2021 F33.9 Major depressive disorder, recur rent, unspecified Armando Jorge Luis, PA-C 02/14/2021 F60.3 Borderline personality disorder Armandorobert Kang, PA-C 02/14/2021 F90.9 Attention-deficit hyperactivity disorder, unspecified type Armando Kang, PA-C 02/07/2021 F90.9 Attention-deficit hyperactivity disorder, unspecified type Nancy Lampack, [facility] 02/07/2021 F33.9 Major depressive disorder, recur rent, unspecified Nancy Lampack, [facility] 02/07/2021 F60.3 Borderline personality disorder Nancy Lampack, [facility] 01/31/2021 F90.9 Attention-deficit hyperactivity disorder, unspecified type Nancy Lampack, [facility] 01/31/2021 F33.9 Major depressive disorder, recur rent, unspecified Nancy Lampack, [facility] 01/31/2021 F60.3 Borderline personality disorder Nancy Lampack, [facility] 01/21/2021 F90.9 Attention-deficit hyperactivity disorder, unspecified type Armando Kang, PA-C 01/21/2021 F33.9 Major depressive disorder, recur rent, unspecified Armando Kang, PA-C 01/21/2021 F60.3 Borderline personality disorder Armando Kang, PA-C 01/14/2021 F90.9 Attention-deficit hyperactivity disorder, unspecified type Nancy Lampack, [facility] 01/14/2021 F33.9 Major depressive disorder, recur [...] 07/01/2021 11:00 am - BESSY Gan at [facility] * 06/20/2021 10:00 am - BESSY Gan at [facility] * 06/20/2021 11:00 am - Armando Kang PA-C at [facility] Functional Status Description No Information Available Mental Status Description No Information Available Referrals Description No Information Available
--- OUTSIDE RECORDS SUMMARY | 2021-06-16 17:28 | CCD | Continuity of Care Document ---
Author Author Ghassan GAN [place] [address] Phone [phone] Care Team Providers Care Resistor Testing Machine Operator Name Role Phone [facility] AUTM Marilu vailable Problems Description No Information [...] Available Procedures Date Code Description Status 04/22/2021 93634 Office/Outpatient Established Mo d MDM 30-39 Min Completed 03/21/2021 32282 Office/Outpatient Established Mo d MDM 30-39 Min Completed 02/14/2021 12172 Office/Outpatient Established Mo d MDM 30-39 Min Completed 01/21/2021 28546 Office/Outpatient Established Mo d MDM 30-39 Min Completed 12/20/2020 24552 Psychiatric Diag Eval W/Medical Service Completed Medical Devices Description No Information Available Encounters Description No Information Available Assessments Date Code Description Provider 06/06/2021 F33.9 Major depressive disorder, recur rent, unspecified Nancy Lampack, [facility] 06/06/2021 F60.3 Borderline personality disorder Nancy Lampack, [facility] 06/06/2021 F90.9 Attention-deficit hyperactivity disorder, unspecified type Nancy Lampack, [facility] 05/22/2021 F33.9 Major depressive disorder, recur rent, unspecified Nancy Lampack, [facility] 05/22/2021 F60.3 Borderline personality disorder Nancy Lampack, [facility] 05/22/2021 F90.9 Attention-deficit hyperactivity disorder, unspecified type Nancy Lampack, [facility] 05/09/2021 F33.9 Major depressive disorder, recur rent, unspecified Nancy Lampack, [facility] 05/09/2021 F60.3 Borderline personality disorder Nancy Lampack, [facility] 05/09/2021 F90.9 Attention-deficit hyperactivity disorder, unspecified type Nancy Lampack, [facility] 04/22/2021 F33.9 Major depressive disorder, recur rent, unspecified Armando Kang PA-C 04/22/2021 F60.3 Borderline personality disorder Armando Kang PA-C 04/22/2021 F90.9 Attention-deficit hyperactivity disorder, unspecified type Armando Kang PA-C 04/03/2021 F33.9 Major depressive disorder, recur rent, unspecified Nancy Lampack, [facility] 04/03/2021 F60.3 Borderline personality disorder Nancy Lampack, [facility] 04/03/2021 F90.9 Attention-deficit hyperactivity disorder, unspecified type Nancy Lampack, [facility] 03/21/2021 F33.9 Major depressive disorder, recur rent, unspecified Armando Kang, PA-C 03/21/2021 F60.3 Borderline personality disorder Armando Kang, PA-C 03/21/2021 F90.9 Attention-deficit hyperactivity disorder, unspecified type Armando Kang, PA-C 03/14/2021 F33.9 Major depressive disorder, recur rent, unspecified Nancy Lampack, [facility] 03/14/2021 F60.3 Borderline personality disorder Nancy Lampack, [facility] 03/14/2021 F90.9 Attention-deficit hyperactivity disorder, unspecified type Nancy Lampack, [facility] 02/14/2021 F33.9 Major depressive disorder, recur rent, unspecified Armando Jorge Luis, PA-C 02/14/2021 F60.3 Borderline personality disorder Armandorobert Kang, PA-C 02/14/2021 F90.9 Attention-deficit hyperactivity disorder, unspecified type Armando Kang, PA-C 02/07/2021 F90.9 Attention-deficit hyperactivity disorder, unspecified type Nancy Lampack, [facility] 02/07/2021 F33.9 Major depressive disorder, recur rent, unspecified Nancy Lampack, [facility] 02/07/2021 F60.3 Borderline personality disorder Nancy Lampack, [facility] 01/31/2021 F90.9 Attention-deficit hyperactivity disorder, unspecified type Nancy Lampack, [facility] 01/31/2021 F33.9 Major depressive disorder, recur rent, unspecified Nancy Lampack, [facility] 01/31/2021 F60.3 Borderline personality disorder Nancy Lampack, [facility] 01/21/2021 F90.9 Attention-deficit hyperactivity disorder, unspecified type Armando Kang, PA-C 01/21/2021 F33.9 Major depressive disorder, recur rent, unspecified Armando Kang, PA-C 01/21/2021 F60.3 Borderline personality disorder Armando Kang, PA-C 01/14/2021 F90.9 Attention-deficit hyperactivity disorder, unspecified type Nancy Lampack, [facility] 01/14/2021 F33.9 Major depressive disorder, recur rent, [...] 07/01/2021 11:00 am - BESSY Gan at [facility] * 06/20/2021 10:00 am - BESSY Gan at [facility] * 06/20/2021 11:00 am - Armando Kang PA-C at [facility] Functional Status Description No Information Available Mental Status Description No Information Available Referrals Description No Information Available
--- OUTSIDE RECORDS SUMMARY | 2021-06-16 17:28 | CCD | Continuity of Care Document ---
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 Name Role Phone Stevenson Pastor DO AUTM [phone] Problems Active Problems Provider Date Morbid obesity Stevenson Pastor DO Onset: Attention deficit hyperactivity disorder, combined type Chri santhosh Pastor DO Onset: 05/20/2021 Recurrent major depression in partial remission Stevenson Pastor DO Onset: 05/20/2021 Social History Type Date Description Comments Sex Unknown ETOH Use Denies alcohol use Tobacco Use Start: Unknown Patient has never smoked Allergies and adverse reactions Active Allergies Criticality Reaction | Severity Comments Date Nystatin Unable to assess criticality rash as baby 05/20/2021 Medications Active Medications SIG Qnty Indications Ordering Provide r Date Concerta 18mg Tablets ER 2 by mouth daily Unknown Lexapro 10mg Tablets 1 1/2 by mouth every day Unknown Immunizations Description No Information Available Vital Signs Date Vital Result Comment 05/20/2021 12:57pm BP Systolic 140 mmHg BP Diastolic 60 mmHg Heart Rate 82 /min Height 64.25 inches 5'4.25" Weight 247.00 lb BMI (Body Mass Index) 42.1 kg/m2 Results Test Acquired Date Facility Test Result H/L Range Note Ua Routine 06/12/2021 [facility] [address], [place] [id number] [phone] Appearance, Urine CLOUDY High Clear Color, Urine YELLOW Normal Yellow PH,Urine 7.0 units Normal 5.0-9.0 Specific Alvo Urine Auto 1.018 Normal 1.002-1.035 Protein, Urine Auto NEGATIVE mg/dL Normal Negative Glucose, Urine (Ua) Auto NEGATIVE mg/dL Normal Negative Ketone, Urine Auto NEGATIVE mg/dL Normal Negative Urobilinogen, Urine Auto 0.2 mg/dL Normal 0.0-2.0 Bilirubin, Urine Auto NEGATIVE Normal Negative Nitrite, Urine Auto NEGATIVE Normal Negative Leukocyte Esterase, Urine Auto NEGATIVE Normal Negative Blood, Urine Blood NEGATIVE Normal Negative WBC, Urine Auto 0 /HPF Normal 0-3 RBC, Urine Auto 1 /HPF Normal 0-3 Bacteria, Urine Auto NEGATIVE Normal Negative Squamous Epithelial Cell Ur AU 4 /HPF Normal 0-6 Mucus, Urine SMALL Normal Negative Hyaline Cast, Urine Auto 0 /LPF Normal 0-1 Complete Blood Count 05/20/2021 [facility] [employer] Diving Teacher: Dr José [place] [address] [phone] WBC 6.5 x10*3/UL 4.1 - 10.9 RBC 4.94 x10*6/UL 4.20 - 6.30 Hemoglobin 14.5 g/dL 12.0 - 18.0 Hematocrit 41.3 % 37.0 - 51.0 MCV 83.5 fL 80.0 - 97.0 MCH 29.4 pg 26.0 - 32.0 MCHC 35.2 g/dL 31.0 - 38.0 RDW 12.4 % 11.6 - 13.7 PLT 297 x10*3/UL 140 - 440 MPV 8.0 FL 7.8 - 11.0 Lymph % 42.4 % 10.0 - 58.5 Mid % 6.9 % 1.7 - 9.3 Neut % 50.7 % 37.0 - 92.0 Lymph # 2.7 x10*3/UL 0.6 - 4.1 Mid # 0.5 x10*3/UL 0.1 - 0.6 Neut # 3.3 x10*3/UL 2.0 - 7.8 Comprehensive Chem Profile 05/20/2021 [facility] [employer] Diving Teacher: Dr José Luis [place] [address] [phone] Glucose 89 mg/dL 74 - 99 1 BUN 8 mg/dL 7 - 18 Creatinine 0.6 mg/dL 0.6 - 1.3 Sodium 141 mEq/L 136 - 145 Potassium 4.0 mEq/L 3.5 - 5.1 Chloride 106 mEq/L 98 - 107 Carbon Dioxide 27 mEq/L 21 - 32 Calcium 8.8 mg/dL 8.5 - 10.1 Alk. Phosphatase 56 mg/dL 46 - 116 Total Bilirubin 0.4 mg/dL 0.2 - 1.0 Ast (Sgot) 10 U/L Low 15 - 37 Alt (SGPT) 19 U/L 12 - 78 Albumin 3.8 g/dL 3.4 - 5.0 Total Protein 6.8 g/dL 6.4 - 8.2 A/G Ratio 1.27 CALC 1.00 - 1.90 GFR >= 60 mL/min >60 GFR >= 60 mL/min >60 2 Lipid Profile 05/20/2021 [facility] [employer] Diving Teacher: [place] José [place] [address] [phone] Cholesterol 174 mg/dL 131 - 200 Triglycerides 99 mg/dL 30 - 150 HDL Cholesterol 49 mg/dL 35 - 60 LDL (Calculated) 105 CALC 50 - 159 Laboratory test finding 05/20/2021 [place] [facility] Scuba Diving Teacher: [place] José [place] [address] [phone] Thyroid Stimulating Hormone 1.26 uIU/mL 0.3 6 - 3.74 1 100-125 mg/dL PRE-DIABET ES/FASTING >126 mg/dL DIABETES/FASTING 2 CHRONIC KIDNEY DISEASE STAGI NG PER NKF STAGE I & II GFR >= 60 NORMAL TO MILDLY DECREASED STAGE III GFR 30-59 MODERATELY DECREASED STAGE IV GFR 15-29 SEVERELY DECREASED STAGE V GFR <15 VERY LITTLE GFR LEFT ESRD GFR <15 ON ADMINISTRATIVE OFFICE CLERK Procedures Date Code Description Status 05/20/2021 08834 Preventative Medicine (18-39Yrs) Completed 05/20/2021 33064 Brief Emotional/Beha v Assessment W/ Scoring Doc Per Standard Inst Completed 05/20/2021 13936 EKG/Interpretation & Report Comp leted Medical Devices Description No Information Available Encounters Type Date Location Provider Dx Diagnosis Office Visit 05/20/2021 1:00p [facility] Chr sarah Pastor DO Z00.00 Encntr for general adult med ical exam w/o abnormal findings R03.0 Elevated blood-pressure read ing, w/o diagnosis of htn Z68.41 Body mass index [BMI] 40.0-4 4.9, adult E66.01 Morbid (severe) obesity due to excess calories F90.2 Attention-deficit hyperactiv ity disorder, combined type F33.41 Major depressive disorder, r ecurrent, in partial remission F41.1 Generalized anxiety disorder N91.5 Oligomenorrhea, unspecified Z13.220 Encounter for screening for lipoid disorders Z13.6 Encounter for screening for cardiovascular disorders Assessments Date Code Description Provider 05/20/2021 Z00.00 Encounter for genera l adult medical examination without abnormal findings Stevenson Pastor, DO 05/20/2021 R03.0 Elevated blood-press ure reading, without diagnosis of hypertension Stevenson Pastor, DO 05/20/2021 Z68.41 Body mass index [BMI] 40.0-44.9, adult Stevenson Pastor, DO 05/20/2021 E66.01 Morbid (severe) obesity due to e xcess calories Stevenson Pastor, DO 05/20/2021 F90.2 Attention-deficit hyperactivity disorder, combined type Stevenson Pastor, DO 05/20/2021 F33.41 Major depressive disorder, recur rent, in partial remission Stevenson Pastor, DO 05/20/2021 F41.1 Generalized anxiety disorder Chr istopher Pastor, DO 05/20/2021 N91.5 Oligomenorrhea, unspecified Chri stopher Pastor, DO 05/20/2021 Z13.220 Encounter for screening for lipo id disorders Stevenson Pastor, DO 05/20/2021 Z13.6 Encounter for screening for card iovascular disorders Stevenson Pastor DO Plan of Treatment Future Appointment(s):* 08/19/2021 9:40 am - Stevenson Pastor DO at [facility] 05/20/2021 - Stevenson Pastor DO* Z00.00 Encounter for general adult medical examination without abnormal findings* Comments:* She is generally doing well at this time without any acute complaints. Her medical, social and family history were reviewed at length. Her main issues include mental health and obesity at this time. Will obtain basic labs to better estimate ASCVD risk. Discussed healthy lifestyles at length today. * R03.0 Elevated blood-pressure reading, without diagnosis of hypertension* Comments:* Repeat blood pressure was reassuring, she is at risk given her weight, but I suspect initial blood pressure read was elevated related to significant anxiety about being in the clinic. * Z68.41 Body mass index [BMI] 40.0-44.9, adult * E66.01 Morbid (severe) obesity due to excess calories* Recommendations:* Discussed components of healthy lifestyle and lifestyle changes. Balanced diet, 150 minutes of physical activity per week. * F90.2 Attention-deficit hyperactivity disorder, combined type* Comments:* Well controlled on current regimen, managed by behavior health and seeing therapy. * F33.41 Major depressive disorder, recurrent, in partial remission* Comments:* Decent control on current regimen, managed by behavior health and seeing therapy. Emphasized that healthy lifestyles, exercise in particular can have substantial benefits for mental health. * F41.1 Generalized anxiety disorder* Comments:* As above. * N91.5 Oligomenorrhea, unspecified* Comments:* She does meet 2/3 criteria for PCOS with oligomenorrhea and reports ovarian cysts. She is seeing a specialist soon to further investigate this and help with fertility issues. * Z13.220 Encounter for screening for lipoid disorders * Z13.6 Encounter for screening for cardiovascular disorders Functional Status Description No Information Available Mental Status Description No Information Available Referrals Description No Information Available
--- OUTSIDE RECORDS SUMMARY | 2021-06-16 17:28 | CCD | Continuity of Care Document ---
Author Author Ghassan PASTOR DO Organization Unknown Address [address] [facility] [address] [place] [address] Phone [phone] Care Team Providers Care Communications Director Name Role Phone Stevenson Pastor DO AUTM [phone] Problems Active Problems Provider Date Morbid obesity Steevnson Pastor DO Onset: Attention deficit hyperactivity disorder, combined type Chri santhosh Pastor DO Onset: 05/20/2021 Recurrent major depression in partial remission Stevenson Pastor DO Onset: 05/20/2021 Social History Type Date Description Comments Sex Unknown ETOH Use Denies alcohol use Tobacco Use Start: Unknown Patient has never smoked Allergies, Adverse Reactions, [...] Date Facility Test Result H/L Range Note Complete Blood Count 05/20/2021 [place] [facility] [employer] Fo[employer] Kiss Maker: Dr José [place] [address] [phone] WBC 6.5 x10*3/UL 4.1 - 10.9 RBC [...] 2.0 - 7.8 Comprehensive Chem Profile 05/20/2021 [facility] [employer] Kiss Maker: [place] José [place] [address] [phone] Glucose 89 mg/dL 74 - 99 1 [...] 60 mL/min >60 2 Lipid Profile 05/20/2021 [facility] , [employer] Fo[employer] Kiss Maker: [place] José [place] [address] [phone] Cholesterol 174 mg/dL 131 - 200 Triglycerides 99 mg/dL 30 - 150 HDL Cholesterol 49 mg/dL 35 - 60 LDL (Calculated) 105 CALC 50 - 159 Laboratory test finding 05/20/2021 [place] [facility] [employer] Fo[employer] Kiss Maker: [place] José [place] [address] [phone] Thyroid Stimulating Hormone 1.26 uIU/mL 0.3 6 - 3.74 1 100-125 mg/dL PRE-DIABET ES/FASTING >126 mg/dL DIABETES/FASTING 2 CHRONIC KIDNEY DISEASE STAGI NG PER NKF STAGE I & II GFR >= 60 NORMAL TO MILDLY DECREASED STAGE III GFR 30-59 MODERATELY DECREASED STAGE IV GFR 15-29 SEVERELY DECREASED STAGE V GFR <15 VERY LITTLE GFR LEFT ESRD GFR <15 ON SHOE CUTTER Procedures Date Code Description Status 05/20/2021 53483 Preventative Medicine (18-39Yrs) Completed 05/20/2021 00932 Brief Emotional/Beha v Assessment W/ Scoring Doc Per Standard Inst Completed 05/20/2021 09244 EKG/Interpretation & Report Comp leted Medical Devices Description No Information Available Encounters Type Date Location Provider Dx Diagnosis Office Visit 05/20/2021 1:00p [facility] Chr sarah Pastor DO Z00.00 Encntr [...] adult medical examination without abnormal findings Stevenson Pastor DO 05/20/2021 R03.0 Elevated blood-press ure reading, without diagnosis of hypertension Stevenson Pastor DO 05/20/2021 Z68.41 Body mass index [BMI] 40.0-44.9, adult Stevenson Pastor DO 05/20/2021 E66.01 Morbid (severe) obesity due to e xcess calories Stevenson Pastor, DO 05/20/2021 F90.2 Attention-deficit hyperactivity disorder, combined type Stevenson Pastor, DO 05/20/2021 F33.41 Major depressive disorder, recur rent, in partial remission Stevenson Pastor, DO 05/20/2021 F41.1 Generalized anxiety disorder Chr istopher Pastor, DO 05/20/2021 N91.5 Oligomenorrhea, unspecified Chri santhosh Pastor, DO 05/20/2021 Z13.220 Encounter for screening for lipo id disorders Fishsarah Pastor, DO 05/20/2021 Z13.6 Encounter for screening for card iovascular disorders Fishsarah Malcom, DO Plan of Treatment 05/20/2021 - Fishsarah Duttonlogg, DO* Z00.00 Encounter for general adult medical [...]
--- OUTSIDE RECORDS SUMMARY | 2021-06-16 17:29 | CCD | Continuity of Care Document ---
Author Author Ghassan [place] [address] Phone [phone] Care Team Providers Care Supervisor Airplane Flight Attendant Name Role Phone [facility] AUTM Marilu vailable Problems Description No Information [...] r Date Escitalopram Oxalate 10mg Tablets 1 tab by mouth every day 90tabs F33.9 Yunior Whitney MD 02/14/2021 Concerta 36mg Tablets ER take one tablet [...] BSA (Body Surface Area) 2.15 m2 Results Test Acquired Date Facility Test Result H/L Range Note HCG Urine Qual 11/19/2020 [facility] HCG Urine Qual NEGATIVE Normal: Negative HCG Urine QL Reenter NEGATIVE Normal: Negative 1 Medwatch Toxassure Select 13 11/19/2020 [facility] Summary Report (Summary) FINAL 2, 3 PDF . 1 { KIT LOT # [id number] ) { KIT EXP DATE 05.30.22 ) { PROCEDURAL CONTROL VALID ) 2 {DIAGNOSIS: F31.9~{MEDICATI ONS/DECLARED: CONCERTA, LAMOTRIGINE~{PRESCRIPTION INFO:~{PRESCRIPTIO 3 TOXASSURE SELECT 13 (MW) Test Result Flag Units NO DRUGS DETECTED. Test Result Flag Units Ref Range Creatinine 140 mg/dL >=20 Declared Medications: The flagging and interpretation on this report are based on the following declared medications. Unexpected results may arise from inaccuracies in the declared medications. Note: The testing scope of this panel does not include following reported medications: Lamotrigine Methylphenidate (Concerta) For clinical consultation, please call . Procedures Date Code Description Status 04/22/2021 39076 Office/Outpatient Established Mo d MDM 30-39 Min Completed 03/21/2021 41827 Office/Outpatient Established Mo d MDM 30-39 Min Completed 02/14/2021 29882 Office/Outpatient Established Mo d MDM 30-39 Min Completed 01/21/2021 78565 Office/Outpatient Established Mo d MDM 30-39 Min Completed 12/20/2020 27515 Psychiatric Diag Eval W/Medical Service Completed 11/19/2020 34122 Preventive Counseling Indiv 45 M in Completed Medical Devices Description No Information Available Encounters Description No Information Available Assessments Date Code Description Provider 04/22/2021 F33.9 Major depressive disorder, recur rent, unspecified Armando Kang PA-C 04/22/2021 F60.3 Borderline personality disorder Armando Kang PA-C 04/22/2021 F90.9 Attention-deficit hyperactivity disorder, unspecified type Armando Kang PA-C 04/03/2021 F33.9 Major depressive disorder, recur rent, unspecified Nancy Lampack, [facility] 04/03/2021 F60.3 Borderline personality disorder Nancy Lamporen, [facility] 04/03/2021 F90.9 Attention-deficit hyperactivity disorder, unspecified type Nancy Lampack, [facility] 03/21/2021 F33.9 Major depressive disorder, recur rent, unspecified Armando Kang PA-C 03/21/2021 F60.3 Borderline personality disorder Armando Kang PA-C 03/21/2021 F90.9 Attention-deficit hyperactivity disorder, unspecified type RADHA AguilarC 03/14/2021 F33.9 Major depressive disorder, recur rent, unspecified Nancy Lampack, [facility] 03/14/2021 F60.3 Borderline personality disorder Nancy Lampack, [facility] 03/14/2021 F90.9 Attention-deficit hyperactivity disorder, unspecified type Nancy Lampack, [facility] 02/14/2021 F33.9 Major depressive disorder, recur rent, unspecified Armando Kang, PA-C 02/14/2021 F60.3 Borderline personality disorder Armandorobert Kang, PA-C 02/14/2021 F90.9 Attention-deficit hyperactivity disorder, unspecified type Armando Jorge Luis, PA-C 02/07/2021 F90.9 Attention-deficit hyperactivity disorder, unspecified type Nancy Lampack, [facility] 02/07/2021 F33.9 Major depressive disorder, recur rent, unspecified Nancy Lampack, [facility] 02/07/2021 F60.3 Borderline personality disorder Nancy Lampack, [facility] 01/31/2021 F90.9 Attention-deficit hyperactivity disorder, unspecified type Nancy Lampack, [facility] 01/31/2021 F33.9 Major depressive disorder, recur rent, unspecified Nancy Lampack, [facility] 01/31/2021 F60.3 Borderline personality disorder Nancy Lampack, [facility] 01/21/2021 F90.9 Attention-deficit hyperactivity disorder, unspecified type Armando Kang, PA-C 01/21/2021 F33.9 Major depressive disorder, recur rent, unspecified Armando Kang, PA-C 01/21/2021 F60.3 Borderline personality disorder Armando Kang, PA-C 01/14/2021 F90.9 Attention-deficit hyperactivity disorder, unspecified type Nancy Lampack, [facility] 01/14/2021 F33.9 Major depressive disorder, recur rent, unspecified Nancy Lampack, [facility] 12/20/2020 F90.9 Attention-deficit hyperactivity disorder, unspecified type Armando Kang, PA-C 12/20/2020 F33.9 Major depressive disorder, recur rent, unspecified Armando Kang, PA-C 12/20/2020 F60.3 Borderline personality disorder Armando Kang PA-C 11/19/2020 F31.9 Bipolar disorder, unspecified An terrie Hernandez RN Plan of Treatment Future Appointment(s):* 06/20/2021 10:00 am - BESSY Gan at [facility] * 06/06/2021 10:00 am - BESSY Gan at [facility] * 05/22/2021 10:00 am - BESSY Gan at [facility] * 06/20/2021 11:00 am - Armando Kang PA-C at [facility] Functional Status Description No Information Available Mental Status Description No Information Available Referrals Description No Information Available
--- OUTSIDE RECORDS SUMMARY | 2021-06-16 17:29 | CCD | Continuity of Care Document ---
Author Author Ghassan PASTOR DO Organization Unknown Address [address] [facility] [address] [place] [address] Phone [phone] Care Team Providers Care Golf Course Designer Name Role Phone Stevenson Pastor DO AUTM [phone] Problems Active Problems Provider Date Recurrent major depression in partial remission Stevenson Pastor DO Onset: 05/20/2021 Attention deficit hyperactivity disorder, combined type Chri santhosh Pastor DO Onset: 05/20/2021 Morbid obesity Stevenson Pastor DO Onset: Social History Type Date Description Comments [...] Date Facility Test Result H/L Range Note Laboratory test finding 05/20/2021 [facility] [employer] [employer]: [place] [address] [place] [address] [phone] TSH <pending> Procedures Description No Information Available Medical Devices Description No Information Available Encounters Description No Information Available Assessments Date Code Description Provider 05/20/2021 Z00.00 Encounter for genera l adult medical examination without abnormal findings Stevenson Pastor, 05/20/2021 R03.0 Elevated blood-press ure reading, without diagnosis of hypertension Stevenson Pastor DO 05/20/2021 E66.01 Morbid (severe) obesity due to e xcess calories Stevenson Pastor, 05/20/2021 F90.2 Attention-deficit hyperactivity disorder, combined type Stevenson Pastor, 05/20/2021 F33.41 Major depressive disorder, recur rent, in partial remission Stevenson Pastor DO Plan of Treatment 05/20/2021 - Stevenson Pastor DO* Z00.00 Encounter for general adult medical examination without abnormal findings * R03.0 Elevated blood-pressure reading, without diagnosis of hypertension * E66.01 Morbid (severe) obesity due to excess calories* Recommendations:* Discussed components of healthy lifestyle and lifestyle changes. Balanced diet, 150 minutes of physical activity per week. * F90.2 Attention-deficit hyperactivity disorder, combined type * F33.41 Major depressive disorder, recurrent, in partial remission Functional Status Description No Information Available Mental Status Description No Information Available Referrals Description No Information Available
--- OUTSIDE RECORDS SUMMARY | 2021-06-16 17:29 | CCD | Continuity of Care Document ---
Author Author Ghassan COOPER Organization Unknown Address [address] [place] [address] [place] [address] Phone [phone] Care Team Providers Care Quality Systems Specialist Name Role Phone Salma Christine DO AUTM [phone] [employer] AUTM [phone] Problems Active Problems Provider Date Asthma without [...] Available Procedures Date Code Description Status 05/09/2021 81457 Office/Outpatient Established Mo d MDM 30-39 Min [...] Acute upper respiratory infectio n, unspecified Bobby Cooper P.A. 05/09/2021 A08.4 Viral intestinal infection, unsp ecified Wilda Godfrey.A. 05/09/2021 Z20.828 Contact with and (miguel spected) exposure to other viral communicable diseases Bobby Cooper, P.AMyriam Plan of Treatment No Information Available Functional Status Description No Information Available Mental Status Description No Information Available Referrals Description No Information Available
--- OUTSIDE RECORDS SUMMARY | 2021-06-16 17:29 | CCD | Continuity of Care Document ---
Author Author Ghassan GAN Organization Unknown Address [address] [address] Phone [phone] Care Team Providers Care Clinical Professor Name Role Phone [facility] AUTM Marilu vailable Problems Description No Information Available Social History Type Date Description Comments Sex Unknown Allergies, Adverse Reactions, Alerts Active Allergies Reaction Severity Comments Date NKFA 11/19/2020 NKEA 11/19/2020 Nystatin 11/19/2020 Inactive Allergies NKDA 11/19/2020 Medications Active Medications SIG Qnty Indications [...] H/L Range Note HCG Urine Qual 11/19/2020 [facility] HCG Urine Qual NEGATIVE Normal: Negative HCG Urine QL Reenter NEGATIVE Normal: Negative 1 [employer] Toxassure Select 13 11/19/2020 [facility] Summary Report (Summary) FINAL 2, 3 PDF . 1 { KIT LOT # [id number] ) { KIT EXP DATE 05.30.22 ) [...] call . Procedures Date Code Description Status 03/21/2021 47051 Office/Outpatient Established Mo d MDM 30-39 Min Completed 02/14/2021 79998 Office/Outpatient Established Mo d MDM 30-39 Min Completed 01/21/2021 43414 Office/Outpatient Established Mo d MDM 30-39 Min Completed 12/20/2020 03591 Psychiatric Diag Eval W/Medical Service Completed 11/19/2020 14224 Preventive Counseling Indiv 45 M in Completed 10/05/2020 60712 Psychiatric Diagnostic Evaluatio n Completed Medical Devices Description No Information Available Encounters Description No Information Available Assessments Date Code Description Provider 03/21/2021 F33.9 Major depressive disorder, recur rent, unspecified RADHA AguilarC 03/21/2021 F60.3 Borderline personality disorder RADHA AguilarC 03/21/2021 F90.9 Attention-deficit hyperactivity disorder, unspecified type [facility], [facility] 03/14/2021 F33.9 Major depressive disorder, recur rent, unspecified Nancy Lampack, [facility] 03/14/2021 F60.3 Borderline personality disorder Nancy Lamporen, [facility] 03/14/2021 F90.9 Attention-deficit hyperactivity disorder, unspecified type Nancy Lampack, [facility] 02/14/2021 F33.9 Major depressive disorder, recur rent, unspecified Armando Kang, [facility] 02/14/2021 F60.3 Borderline personality disorder Armando Kang, [facility] 02/14/2021 F90.9 Attention-deficit hyperactivity disorder, unspecified type RADHA AguilarC 02/07/2021 F90.9 Attention-deficit hyperactivity disorder, unspecified type Nancy Lamporen, [facility] 02/07/2021 F33.9 Major depressive disorder, recur rent, unspecified Nancy Lampack, [facility] 02/07/2021 F60.3 Borderline personality disorder Nancy Lampack, [facility] 01/31/2021 F90.9 Attention-deficit hyperactivity disorder, unspecified type Nancy Lampack, [facility] 01/31/2021 F33.9 Major depressive disorder, recur rent, unspecified Nancy Lampack, [facility] 01/31/2021 F60.3 Borderline personality disorder Nancy Lampack, [facility] 01/21/2021 F90.9 Attention-deficit hyperactivity disorder, unspecified type Armando Kang, PA-C 01/21/2021 F33.9 Major depressive disorder, recur rent, unspecified Armando Kang, PA-C 01/21/2021 F60.3 Borderline personality disorder Armando Kang, PA-C 01/14/2021 F90.9 Attention-deficit hyperactivity disorder, unspecified type Nancy Lampack, [facility] 01/14/2021 F33.9 Major depressive disorder, recur rent, unspecified Nancy Lampack, [facility] 12/20/2020 F90.9 Attention-deficit hyperactivity disorder, unspecified type Armando Kang, PA-C 12/20/2020 F33.9 Major depressive disorder, recur rent, unspecified Armando Jorge Luis, PA-C 12/20/2020 F60.3 Borderline personality disorder Armandorobert Kang, PA-C 11/19/2020 F31.9 Bipolar disorder, unspecified An terrie Hernandez, RN 11/02/2020 F31.9 Bipolar disorder, unspecified Th eresa Weinberg, [facility] 10/05/2020 F31.9 Bipolar disorder, unspecified Paco Dunn LCSW Plan of Treatment Future Appointment(s):* 05/22/2021 10:00 am - [facility] * 05/09/2021 10:00 am - BESSY Gan at [facility] * 06/20/2021 11:00 am - Armando Kang PA-C at [facility] * 04/25/2021 11:00 am - BESSY Gan at [facility] Functional Status Description No Information Available Mental Status Description No Information Available Referrals Description No Information Available
--- OUTSIDE RECORDS SUMMARY | 2021-06-16 17:29 | CCD | Continuity of Care Document ---
Author Author Ghassan COOPER Organization Unknown Address [address] [place] [address] [place] [address] Phone [phone] Care Team Providers Care It Systems Analyst Name Role Phone Salma Christine DO AUT[employer] AUTM [phone] Problems Active Problems Provider Date Asthma without [...] Available Procedures Date Code Description Status 05/09/2021 22599 Office/Outpatient Established Mo d MDM 30-39 Min [...]
--- OUTSIDE RECORDS SUMMARY | 2021-06-16 17:29 | CCD | Continuity of Care Document ---
Author Author Ghassan KANG PAChelseaC Organization Unknown Address [facility] [address] [place] [address] Phone [phone] Care Team Providers Care Night Shift Name Role Phone Family [facility] AUTM Marilu vailable Problems Description No [...] H/L Range Note HCG Urine Qual 11/19/2020 [facility] HCG Urine Qual NEGATIVE Normal: Negative HCG Urine QL Reenter NEGATIVE Normal: Negative 1 Medwatch Toxassure Select 13 11/19/2020 [facility] Summary Report (Summary) FINAL 2, 3 PDF . 1 { KIT LOT # [id number] ) { KIT EXP DATE 05.30.22 ) [...] . Procedures Date Code Description Status 04/22/2021 19933 Office/Outpatient Established Mo d MDM 30-39 Min Completed 03/21/2021 66275 Office/Outpatient Established Mo d MDM 30-39 Min Completed 02/14/2021 28841 Office/Outpatient Established Mo d MDM 30-39 Min Completed 01/21/2021 44139 Office/Outpatient Established Mo d MDM 30-39 Min Completed 12/20/2020 36453 Psychiatric Diag Eval W/Medical Service Completed 11/19/2020 78689 Preventive Counseling Indiv 45 M in Completed Medical Devices Description No Information Available Encounters Type Date Location Provider Dx Diagnosis Office Visit 04/22/2021 3:00p [facility] Armando Kang PA-C F33.9 Major depressive disorder, recurrent, unspecified F60.3 Borderline personality disor ed F90.9 Attention-deficit hyperactiv ity disorder, unspecified type Assessments Date Code Description Provider 04/22/2021 F33.9 Major depressive disorder, recur rent, unspecified Armando Kang PA-C 04/22/2021 F60.3 Borderline personality disorder Armando Kang PA-C 04/22/2021 F90.9 Attention-deficit hyperactivity disorder, unspecified type Armando Kang PA-C 04/03/2021 F33.9 Major depressive disorder, recur rent, unspecified Nancy Lampack, [facility] 04/03/2021 F60.3 Borderline personality disorder Nancy Lampack, [facility] 04/03/2021 F90.9 Attention-deficit hyperactivity disorder, unspecified type Nancy Lampack, [facility] 03/21/2021 F33.9 Major depressive disorder, recur rent, unspecified Armando Kang, PA-C 03/21/2021 F60.3 Borderline personality disorder Armando Kang, PA-C 03/21/2021 F90.9 Attention-deficit hyperactivity disorder, unspecified type Armando Kang, PA-C 03/14/2021 F33.9 Major depressive disorder, recur rent, unspecified Nancy Lampack, [facility] 03/14/2021 F60.3 Borderline personality disorder Nancy Lampack, [facility] 03/14/2021 F90.9 Attention-deficit hyperactivity disorder, unspecified type Nancy Lampack, [facility] 02/14/2021 F33.9 Major depressive disorder, recur rent, unspecified Armando Kang, PA-C 02/14/2021 F60.3 Borderline personality disorder Armando Kang, PA-C 02/14/2021 F90.9 Attention-deficit hyperactivity disorder, unspecified type Armando Kang, PA-C 02/07/2021 F90.9 Attention-deficit hyperactivity disorder, unspecified type Nancy Lampack, [facility] 02/07/2021 F33.9 Major depressive disorder, recur rent, unspecified Nancy Lampack, [facility] 02/07/2021 F60.3 Borderline personality disorder Nancy Lampack, [facility] 01/31/2021 F90.9 Attention-deficit hyperactivity disorder, unspecified type Nancy Lampack, [facility] 01/31/2021 F33.9 Major depressive disorder, recur rent, unspecified Nancy Lampack, [facility] 01/31/2021 F60.3 Borderline personality disorder Nancy Lampack, [facility] 01/21/2021 F90.9 Attention-deficit hyperactivity disorder, unspecified type Armando Kang, PA-C 01/21/2021 F33.9 Major depressive disorder, recur rent, unspecified Armando Kang, PA-C 01/21/2021 F60.3 Borderline personality disorder Armando Kang, PA-C 01/14/2021 F90.9 Attention-deficit hyperactivity disorder, unspecified type Nancy Lampack, [facility] 01/14/2021 F33.9 Major depressive disorder, recur rent, unspecified Nancy Lampack, [facility] 12/20/2020 F90.9 Attention-deficit hyperactivity disorder, unspecified type Armando Kang PA-C 12/20/2020 F33.9 Major depressive disorder, recur rent, unspecified Armando Kang PA-C 12/20/2020 F60.3 Borderline personality disorder Armando Kang PA-C 11/19/2020 F31.9 Bipolar disorder, unspecified An terrie Hernandez RN 11/02/2020 F31.9 Bipolar disorder, unspecified Th BESSY Neal Plan of Treatment Future Appointment(s):* 05/22/2021 10:00 am - [facility] * 05/09/2021 10:00 am - BESSY Gan at [facility] * 06/20/2021 11:00 am - Armando Kang PA-C at [facility] Functional Status Description No Information Available Mental Status Description No Information Available Referrals Description No Information Available
--- OUTSIDE RECORDS SUMMARY | 2021-06-16 17:29 | CCD | Continuity of Care Document ---
Author Author Ghassan EASTON MD Organization Unknown Address [address] [place] [address], [facility] e [address] [place] [address] Phone [phone] Problems Description No Information Available Social History Type Date Description Comments Sex Unknown ETOH Use Denies alcohol use Tobacco Use Start: Unknown Denies Smoking Allergies, Adverse Reactions, Alerts Description No Known Drug Allergies Medications Active Medications SIG Qnty Indications Ordering Provide r Date Concerta 36mg Tablets ER 1 by mouth every day 90tabs Unknown Lexapro 5mg Tablets 1 tab by mouth daily. combine with the 10mg tab for a total of 15mg Un known Immunizations Description No Information Available Vital Signs Date Vital Result Comment 03/28/2021 10:34am Body Temperature 96.9 F Height 64 inches 5'4" Weight 245.00 lb BMI (Body Mass Index) 42.0 kg/m2 02/07/2021 8:56am Body Temperature 97.3 F Height 64 inches 5'4" Weight 245.00 lb BMI (Body Mass Index) 42.0 kg/m2 Results Description No Information Available Procedures Date Code Description Status 03/28/2021 32236 Consultation Outpatient Level 4 Completed 03/28/2021 72777 Nerve Conduction 13+ Studies Com pleted 03/28/2021 05027 Needle Electromyography,Complete Five Or More Muscles Studied Completed 02/07/2021 17893 Office/Outpatient [facility] 30 -44 Minutes Completed 02/07/2021 60112 X-Ray Wrist Complete Completed Medical Devices Description No Information Available Encounters Type Date Location Provider Dx Diagnosis Office Visit 03/28/2021 10:00a [facility] Mata Easton MD M54.2 Cervicalgia R20.2 Paresthesia of skin G56.01 Carpal tunnel syndrome, righ t upper limb Office Visit 02/07/2021 8:45a [facility] Max Dasilva MD G56.03 Carpal tunnel syndrome, bilateral upper limbs M18.12 Unil primary osteoarth of fi rst carpometacarp joint, l hand Assessments Date Code Description Provider 03/28/2021 M54.2 Cervicalgia Mata Easton MD 03/28/2021 R20.2 Paresthesia of skin Mata york MD 03/28/2021 G56.01 Carpal tunnel syndrome, right up per limb Mata Easton MD 02/07/2021 G56.03 Carpal tunnel syndrome, bilatera l upper limbs Max Dasilva MD 02/07/2021 G56.03 Carpal tunnel syndrome, bilatera l upper limbs Max Dasilva MD 02/07/2021 M18.12 Unilateral primary o steoarthritis of first carpometacarpal joint, left hand Max Dasilva MD Plan of Treatment Future Appointment(s):* 05/02/2021 1:15 pm - Max Dasilva MD at [facility] 03/28/2021 - Mata Easton MD* M54.2 Cervicalgia* Follow up:* EMG results with BLB. * R20.2 Paresthesia of skin * G56.01 Carpal tunnel syndrome, right upper limb Functional Status Description No Information Available Mental Status Description No Information Available Referrals Refer to Reason for Referral Status Appt Date Adebayo Ontiveros MD [facility] NO AUTH REQUIRED TO SCHEDULING NT Create d [address] [place] [address], [address] [place] [address] [phone]
--- OUTSIDE RECORDS SUMMARY | 2021-06-16 17:29 | CCD ---
Author Author [facility] Organization [facility] Address Unknown Phone Unavailable Care Team Providers Care Grain Trader Name Role Phone Steffanie Menjivar Unavailable PROBLEMS Type Condition ICD9-CM Code HEW45-DX Code Onset Dates Condition S tatus W/U Status Risk SNOMED Code Notes Problem General counseling for prescription of oral contraceptives V25.01 Active confirmed 775863377496289 Problem Dysmenorrhea 625.3 Active confirmed 3511214 00 Problem Irregular menstrual cycle 626.4 Active confirmed 49826909 Problem Family planning, BCP maintenance V25.41 Active confirmed 744098748383029 Problem Unspecified vitamin D deficiency 268.9 Active conf irmed 80856294 Problem Body mass index [BMI]40.0-44.9, adult Z68.41 Ac tive confirmed 831512077 Problem Encounter for monitoring of etonogestrel implant Z 30.49 Active confirmed 729642307 Problem Secondary amenorrhea N91.1 Active confirmed 747016102 Problem BMI 40.0-44.9, adult Z68.41 Active confirmed 439137962 Problem Glucose intolerance E74.39 Active confirmed 00358926 Problem Anxiety disorder, unspecified F41.9 Active confirm ed 158815595 Problem Morbid (severe) obesity due to excess calories E66 .01 Active confirmed 325658011 Problem Major depressive disorder, single episode, unspecified F32.9 Active confirmed 63505795 Problem Abnormal uterine bleeding (AUB) N93.9 Active confirmed 27389913660933 Problem Diarrhea, unspecified type R19.7 Active confirmed 20248548 Problem Decreased hearing of both ears H91.93 Active confir med 431921744 Problem Diaphoresis R61 Active confirmed 03429847 Problem Left ear impacted cerumen H61.22 Active [facility] med [id number] ALLERGIES Allergen (clinical drug ingredient) Drug/Non Drug Allergy do cumented on EMR Reaction Allergy Type Onset Date Status liraglutide Saxenda([facility] Code:[address]-02) suicidal Drug Allergy Active environmental sinus infections Non Drug Allergy Active ENCOUNTERS from 1996 to 2021-04-24 Encounter Location Date Provider Diagnosis [address] [phone] [place] [address] Mar, Steffanie Servage Encounter to establish care Z76.89 ; Glucose intolerance E74.39 ; Diarrhea, unspecified type R19.7 ; Decreased hearing of both ears H91.93 ; Diaphoresis R61 ; Left ear impacted cerumen H61.22 ; Anxiety disorder, unspecified F41.9 ; Major depressive disorder, single episode, unspecified F32.9 and Family history of diabetes mellitus Z83.3 IMMUNIZATIONS Vaccine Route Administration Date Status COVID-19 dose #2 given elsewhere Unspecified Unknown Nov Administered COVID-19 dose #1 given elsewhere Unspecified Unknown Oct Administered SOCIAL HISTORY Sex Assigned At : Social History Observation Description Sex Assigned At Unknown Education: Question Answer Notes Level of Education: Not Finished College Audit Question Answer Notes Total Score: 0 Interpretation: Alcohol Education Language: Question Answer Notes Languages spoken: Y[place] Uatsdin: Question Answer Notes Uatsdin 99 Other Sexual Hx: Question Answer Notes [...] REASON FOR REFERRAL No Information VITAL SIGNS Weight 245.6 lbs Mar, Weight-kg 111.4 kg Mar, Height 63 in Mar, BMI 43.50 kg/m2 Mar, Heart Rate 92 /min Mar, Respiratory Rate 18 /min Mar, Oximetry 100 Mar, Blood pressure systolic 126 mm Hg Mar, Blood pressure diastolic 84 mm Hg Mar, MEDICATIONS Medication SIG (Take, Route, Frequency, Duration) Notes Start Da te End Date Status Concerta 36 MG 1 tablet in the morning Orally Once a day Active Lexapro 5 MG 1 tablet Orally Once a day Active PROCEDURES No Information RESULTS No Results REASON FOR VISIT to establish MEDICAL (GENERAL) HISTORY Type Description Date Medical [...] No Information FUNCTIONAL STATUS No Information ASSESSMENTS Encounter Date Diagnosis Assessment Notes Treatment Notes Treatm ent Clinical Notes Mar, Encounter to establish care (ICD-10 - Z76.89) age appropriate anticipatory guidance given, per USPSTF recommendations; had covid vaccine Mar, Glucose intolerance (ICD-10 - E74.39) 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 Mar, Decreased hearing of both ears (ICD-10 - H91.93) cerumen in ear Mar, Diaphoresis (ICD-10 - R61) coincides with starting of lexapro Mar, Left ear impacted cerumen (ICD-10 - H61.22) discussed using dobrox or baby oil to soften up 3 days before making appt to have it removed. 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 Decreased hearing of both ears cerumen i n ear Diaphoresis coincides with start ing of lexapro Left ear impacted cerumen discussed david vo dobrox or baby oil to soften up 3 days before making appt to have it removed. Anxiety disorder, unspecified has been o n numerous psych medications thru [facility], feels she is stable Major depressive disorder, single episode, unspecified denies suicidal tlhoughts Treatment Notes Test Name Order Date GASTROINTESTINAL GI PANEL (GIPANEL) 2021-04-18 Next Appt Details 6 Weeks Steffanie follow up and flush ear Reason: Provider Name:Steffanie Menjivar, 01:00:00 PM, [address] [facility], , [place], [address], Insurance Providers Payer Name Payer Address Payer Phone Insured Name Patient Relati onship to Insured Coverage Start Date Coverage End Date [facility] [address] [facility] [id number] SHANNEN [place] [facility] [facility] [employer] [address] [facility] [address] STARLA SEGURA self
--- OUTSIDE RECORDS SUMMARY | 2021-06-16 17:29 | CCD | Continuity of Care Document ---
Author Author Ghassan TIWARI MD Organization Unknown Address [address] [place] [address] Phone [phone] Problems Description No Information Available Social History [...] Available Procedures Date Code Description Status 03/28/2021 69457 Consultation Outpatient Level 4 Completed 03/28/2021 23455 Nerve Conduction 13+ Studies Com pleted 03/28/2021 85535 Needle Electromyography,Complete Five Or More Muscles Studied Completed 02/07/2021 81778 Office/Outpatient [facility] 30 -44 Minutes Completed 02/07/2021 65618 X-Ray Wrist Complete Completed Medical Devices Description No Information Available Encounters Type Date Location Provider Dx Diagnosis Office Visit 03/28/2021 10:[place] Mata Camejo MD M54.2 Cervicalgia R20.2 Paresthesia of skin G56.01 Carpal tunnel syndrome, righ t upper limb Office Visit 02/07/2021 8:45a [place] Max Tiwari MD G56.03 Carpal tunnel syndrome, bilateral upper limbs M18.12 Unil primary osteoarth of fi rst carpometacarp joint, l hand Assessments Date Code Description Provider 05/02/2021 M54.2 Cervicalgia Max Tiwari MD 05/02/2021 R20.2 Paresthesia of skin Max Field rd, MD 05/02/2021 G56.01 Carpal tunnel syndrome, right up per limb Max Tiwari MD 03/28/2021 M54.2 Cervicalgia Mata Camejo MD 03/28/2021 R20.2 Paresthesia of skin Mata [place] MD 03/28/2021 G56.01 Carpal tunnel syndrome, right up per limb Mata Camejo MD 02/07/2021 G56.03 Carpal tunnel syndrome, bilatera l upper limbs Max Tiwari MD 02/07/2021 G56.03 Carpal tunnel syndrome, bilatera l upper limbs Max Tiwari MD 02/07/2021 M18.12 Unilateral primary o steoarthritis of first carpometacarpal joint, left hand Max Tiwari MD Plan of Treatment 05/02/2021 - Max Tiwari MD* M54.2 Cervicalgia * R20.2 Paresthesia of skin * G56.01 Carpal tunnel syndrome, right upper limb* Follow up:* PRN Functional Status Description No Information Available Mental Status Description No Information Available Referrals Refer to Dr Reason for Referral Status Appt Date Adebayo Ontiveros MD [facility] NO AUTH REQUIRED TO SCHEDULING NT Create d [address] [facility], [address] [place] [address] [phone]
--- OUTSIDE RECORDS SUMMARY | 2021-06-16 17:29 | CCD | Continuity of Care Document ---
Author Author Ghassan GAN Organization [place] [address] Phone [phone] Care Team Providers Care Piano Regulator Inspector Name Role Phone [facility] AUTM Marilu vailable Problems Description No [...] Available Procedures Date Code Description Status 04/22/2021 36614 Office/Outpatient Established Mo d MDM 30-39 Min Completed 03/21/2021 28462 Office/Outpatient Established Mo d MDM 30-39 Min Completed 02/14/2021 04080 Office/Outpatient Established Mo d MDM 30-39 Min Completed 01/21/2021 22545 Office/Outpatient Established Mo d MDM 30-39 Min Completed 12/20/2020 47918 Psychiatric Diag Eval W/Medical Service Completed Medical Devices Description No Information Available Encounters Description No Information Available Assessments Date Code Description Provider 05/09/2021 F33.9 Major depressive disorder, recur rent, unspecified Nancy Lampack, [facility] 05/09/2021 F60.3 Borderline personality disorder Nancy Lampack, [facility] 05/09/2021 F90.9 Attention-deficit hyperactivity disorder, unspecified type Nancy Lampack, [facility] 04/22/2021 F33.9 Major depressive disorder, recur rent, unspecified Armando Kang, PA-C 04/22/2021 F60.3 Borderline personality disorder Armando Kang, PA-C 04/22/2021 F90.9 Attention-deficit hyperactivity disorder, unspecified type Armando Kang, PA-C 04/03/2021 F33.9 Major depressive disorder, recur rent, unspecified Nancy Lampack, [facility] 04/03/2021 F60.3 Borderline personality disorder Nancy Lampack, [facility] 04/03/2021 F90.9 Attention-deficit hyperactivity disorder, unspecified type Nancy Lampack, [facility] 03/21/2021 F33.9 Major depressive disorder, recur rent, unspecified Armando Kang, PA-C 03/21/2021 F60.3 Borderline personality disorder Armando Kang, PA-C 03/21/2021 F90.9 Attention-deficit hyperactivity disorder, unspecified type Armando Jorge Luis, PA-C 03/14/2021 F33.9 Major depressive disorder, recur rent, unspecified Nancy Lampack, [facility] 03/14/2021 F60.3 [...] unspecified Nancy Lampack, [facility] 12/20/2020 F90.9 Attention-deficit hyperactivity disorder, unspecified type Armando Kang, PA-C 12/20/2020 F33.9 Major depressive disorder, recur rent, unspecified Armando Kang, PA-C 12/20/2020 F60.3 Borderline personality disorder Armando Kang, ARELI-C Plan of Treatment Future Appointment(s):* 07/29/2021 11:00 am - BESSY Gan at [facility] * 07/15/2021 11:00 am - BESSY Gan at [facility] * 07/01/2021 11:00 am - [facility] Gan [facility] * 06/20/2021 10:00 am - [facility]Y Gan [facility] * 06/06/2021 10:00 am - [facility]Y Gan [facility] * 06/20/2021 11:00 am - Armando Kang PA-C at [facility] Functional Status Description No Information Available Mental Status Description No Information Available Referrals Description No Information Available
--- OUTSIDE RECORDS SUMMARY | 2021-06-16 17:29 | CCD | Continuity of Care Document ---
Author Author Ghassan PASTOR DO Organization Unknown Address [address] [facility] [address] [place] [address] Phone [phone] Care Team Providers Care Small Business Representative Name Role Phone Stevenson Pastor DO AUTM [phone] Problems Active Problems Provider Date Recurrent major [...] H/L Range Note Complete Blood Count 05/20/2021 [place] [employer]: [place] [address] [phone] WBC 6.5 x10*3/UL 4.1 - 10.9 RBC [...] 2.0 - 7.8 Comprehensive Chem Profile 05/20/2021 [facility], [facility] Carpenter: [place] [address] [phone] Glucose 89 mg/dL 74 - 99 1 [...] 60 mL/min >60 2 Lipid Profile 05/20/2021 [facility] , Boat Carpenter: [place] [address] [phone] Cholesterol 174 mg/dL 131 - 200 Triglycerides 99 mg/dL 30 - 150 HDL Cholesterol 49 mg/dL 35 - 60 LDL (Calculated) 105 CALC 50 - 159 Laboratory test finding 05/20/2021 [place] [employer] [facility] [employer] Carpenter: [place] [address] [phone] Thyroid Stimulating Hormone 1.26 uIU/mL 0.3 6 - 3.74 1 100-125 mg/dL PRE-DIABET ES/FASTING >126 mg/dL DIABETES/FASTING 2 CHRONIC KIDNEY DISEASE STAGI NG PER NKF STAGE I & II GFR >= 60 NORMAL TO MILDLY DECREASED STAGE III GFR 30-59 MODERATELY DECREASED STAGE IV GFR 15-29 SEVERELY DECREASED STAGE V GFR <15 VERY LITTLE GFR LEFT ESRD GFR <15 ON MATERIAL CONTROL CLERK Procedures Description No Information Available Medical Devices Description No Information Available Encounters Description No Information Available Assessments Date Code Description Provider 05/20/2021 Z00.00 Encounter for genera l adult medical examination without abnormal findings Stevenson Pastor, 05/20/2021 R03.0 Elevated blood-press ure reading, without diagnosis of hypertension Stevenson Pastor, 05/20/2021 E66.01 Morbid (severe) obesity due to e xcess calories Stevenson Pastor, DO 05/20/2021 F90.2 Attention-deficit hyperactivity disorder, combined type Stevenson Pastor, DO 05/20/2021 F33.41 Major depressive disorder, recur rent, in partial remission Stevenson Pastor, 05/20/2021 F41.1 Generalized anxiety disorder [facility] sarah Pastor, DO 05/20/2021 N91.5 Oligomenorrhea, unspecified Chri santhosh Pastor, DO Plan of Treatment 05/20/2021 - Stevenson Pastor, DO* Z00.00 Encounter for general adult medical [...] anxiety about being in the clinic. * E66.01 Morbid (severe) obesity due to [...] investigate this and help with fertility issues. Functional Status Description No Information Available Mental Status Description No Information Available Referrals Description No Information Available
--- OUTSIDE RECORDS SUMMARY | 2021-06-16 17:29 | CCD | Continuity of Care Document ---
Author Author Ghassan TIWARI MD Organization Unknown Address [address] [place] [address] Phone [phone] Problems Description No Information Available Social History [...] Information Available Procedures Date Code Description Status 05/02/2021 90300 Office/Outpatient Established Lo w MDM 20-29 Min Completed 03/28/2021 98591 Consultation Outpatient Level 4 Completed 03/28/2021 02634 Nerve Conduction 13+ Studies Com pleted 03/28/2021 53613 Needle Electromyography,Complete Five Or More Muscles Studied Completed 02/07/2021 24852 Office/Outpatient [place] MDM 30 -44 Minutes Completed 02/07/2021 33629 X-Ray Wrist Complete Completed Medical Devices Description No Information Available Encounters Type Date Location Provider Dx Diagnosis Office Visit 05/02/2021 1:15p [place] Max Tiwari MD G56.01 Carpal tunnel syndrome, right upper limb Office Visit 03/28/2021 10:00a Leopoldterrie Camejo MD M54.2 Cervicalgia R20.2 Paresthesia of skin G56.01 Carpal tunnel syndrome, righ t upper limb Office Visit 02/07/2021 8:45a Leopoldterrie Tiwari MD G56.03 Carpal tunnel syndrome, bilateral upper limbs M18.12 Unil primary osteoarth of fi rst carpometacarp joint, l hand Assessments Date Code Description Provider 05/02/2021 G56.01 Carpal tunnel syndrome, right up [...] of Treatment 05/02/2021 - Max Tiwari MD* G56.01 Carpal tunnel syndrome, right upper limb * Follow up:* PRN Functional Status Description No Information Available Mental Status Description No Information Available Referrals Refer to Dr Reason for Referral Status Appt Date Adebayo Ontiveros MD [facility] NO AUTH REQUIRED TO SCHEDULING NT Create d [address] [facility], [address] [place] [address] [phone]
--- OUTSIDE RECORDS SUMMARY | 2021-06-16 17:30 | CCD ---
Author Author [facility] Organization [facility] Address Unknown Phone Unavailable Care Team Providers Care Oral Health Therapist Name Role Phone [id number] [phone] Unavailable Unavailable Angélica Dasilva MD Unavailable Unavailable Angélica Dasilva MD Unavailable Unavailable Angélica Dasilva MD Unavailable Unavailable Angélica Dasilva MD Unavailable Unavailable Angélica Dasilva MD Unavailable Unavailable Angélica Dasilva MD Unavailable Unavailable Angélica Dasilva MD Unavailable Unavailable Angélica Dasilva MD Unavailable Unavailable Angélica Dasilva MD Unavailable Unavailable Angélica Dasilva MD Unavailable Unavailable Angélica Dasilva MD Unavailable Unavailable Angélica Dasilva MD Unavailable Unavailable Angélica Dasilva MD Unavailable Unavailable Angélica Dasilva MD Unavailable Unavailable Dasilva, L Max GARCIA Unavailable Unavailable Dasilva, Angélica Santana MD Unavailable Unavailable Dasilva, L Max GARCIA Unavailable Unavailable Dasilva, L Max GARCIA Unavailable Unavailable Dasilva, L Max GARCIA Unavailable Unavailable Dasilva, L Max GARCIA Unavailable Unavailable Dasilva, L Max GARCIA Unavailable Unavailable Dasilva, Angélica Santana MD Unavailable Unavailable Dasilva, Angélica Santana MD Unavailable Unavailable Dasilva, Angélica Santana MD Unavailable Unavailable Dasilva, L Max GARCAI Unavailable Unavailable Dasilva, L Max GARCIA Unavailable Unavailable Dasilva, L Max GARCIA Unavailable Unavailable Dasilva, L Max GARCIA Unavailable Unavailable Dasilva, L Mxa GARCIA Unavailable Unavailable Dasilva, L Max GARCIA Unavailable Unavailable Dasilva, Angélica Santana MD Unavailable Unavailable Dasilva, Angélica Santana MD Unavailable Unavailable Dasilva, L Max GARCIA Unavailable Unavailable Dasilva, Angélica Santana MD Unavailable Unavailable Dasilva, L Max GARCIA Unavailable Unavailable Dasilva, L Max GARCIA Unavailable Unavailable Dasilva, Angélica Santana MD Unavailable Unavailable Dasilva, Angélica Santana MD Unavailable Unavailable Dasilva, Angélica Santana MD Unavailable Unavailable Dasilva, Angélica Santana MD Unavailable Unavailable Dasilva, Angélica Santana MD Unavailable Unavailable Dasilva, Angélica Santana MD Unavailable Unavailable Dasilva, L Max GARCIA Unavailable Unavailable Dasliva, L Max GARCIA Unavailable Unavailable Dasilva, L Max GARCIA Unavailable Unavailable Dasilva, L Max GARCIA Unavailable Unavailable Dasilva, Angélica Santana MD Unavailable Unavailable Dasilva, L Max GARCIA Unavailable Unavailable Dasilva, L Max GARCIA Unavailable Unavailable Dasilva, L Max GARCIA Unavailable Unavailable CUMMINGS, J ISI PA Unavailable Unavailable CUMMINGS, J ISI PA Unavailable Unavailable CUMMINGS, J ISI PA Unavailable Unavailable CUMMINGS, J ISI PA Unavailable Unavailable CUMMINGS, J ISI PA Unavailable Unavailable CUMMINGS, J ISI PA Unavailable Unavailable CUMMINGS, J ISI PA Unavailable Unavailable CUMMINGS, J ISI PA Unavailable Unavailable CUMMINGS, J ISI PA Unavailable Unavailable CUMMINGS, J ISI PA Unavailable Unavailable CUMMINGS, J ISI PA Unavailable Unavailable CUMMINGS, J ISI PA Unavailable Unavailable CUMMINGS, J ISI PA Unavailable Unavailable CUMMINGS, J ISI PA Unavailable Unavailable CUMMINGS, J ISI PA Unavailable Unavailable CUMMINGS, J ISI PA Unavailable Unavailable CUMMINGS, J ISI PA Unavailable Unavailable CUMMINGS, J ISI PA Unavailable Unavailable CUMMINGS, J ISI PA Unavailable Unavailable CUMMINGS, J ISI PA Unavailable Unavailable CUMMINGS, J ISI PA Unavailable Unavailable CUMMINGS, J ISI PA Unavailable Unavailable CUMMINGS, J ISI PA Unavailable Unavailable CUMMINGS, J ISI PA Unavailable Unavailable Deandre CUMMINGS PA Unavailable Unavailable Deandre CUMMINGS PA Unavailable Unavailable CUMMINGSDeandre PA Unavailable Unavailable ALLISON, DELBERT PA Unavailable Unavailable ALLISON, DELBERT PA Unavailable Unavailable ALLISON, DELBERT PA Unavailable Unavailable ALLISON, DELBERT PA Unavailable Unavailable ALLISON, DELBERT PA Unavailable Unavailable ALLISON, DELBERT PA Unavailable Unavailable ALLISON, DELBERT PA Unavailable Unavailable ALLISON, DELBERT PA Unavailable Unavailable ALLISON, DELBERT PA Unavailable Unavailable ALLISON, DELBERT PA Unavailable Unavailable ALLISON, DELBERT PA Unavailable Unavailable ALLISON, DELBERT PA Unavailable Unavailable ALLISON, DELBERT PA Unavailable Unavailable ALLISON, DELBERT PA Unavailable Unavailable ALLISON, DELBERT PA Unavailable Unavailable ALLISON, DELBERT PA Unavailable Unavailable ALLISON, DELBERT PA Unavailable Unavailable ALLISON, DELBERT PA Unavailable Unavailable ALLISON, DELBERT PA Unavailable Unavailable ALLISON, DELBERT PA Unavailable Unavailable ALLISON, DELBERT PA Unavailable Unavailable ALLISON, DELBERT PA Unavailable Unavailable ALLISON, DELBERT PA Unavailable Unavailable ALLISON, DELBERT PA Unavailable Unavailable ALLISON, DELBERT PA Unavailable Unavailable ALLISON, DELBERT PA Unavailable Unavailable ALLISON, DELBERT PA Unavailable Unavailable ALLISON, DELBERT PA Unavailable Unavailable ALLISON, DELBERT PA Unavailable Unavailable ALLISON, DELBERT PA Unavailable Unavailable ALLISON, DELBERT PA Unavailable Unavailable ALLISON, DELBERT PA Unavailable Unavailable ALLISON, DELBERT PA Unavailable Unavailable ALLISON, DELBERT PA Unavailable Unavailable ALLISON, DELBERT PA Unavailable Unavailable ALLISON, DELBERT PA Unavailable Unavailable LAMPACK, BRITTNEY Unavailable Unavailable Deandre CUMMINGS PA Unavailable Unavailable Deandre CUMMINGS PA Unavailable Unavailable Deandre CUMMINGS PA Unavailable Unavailable Deandre CUMMINGS PA Unavailable Unavailable Deandre CUMMINGSEB PA Unavailable Unavailable Deandre CUMMINGSEB PA Unavailable Unavailable Deandre CUMMINGSEB PA Unavailable Unavailable Deandre CUMMINGSEB PA Unavailable Unavailable Deandre CUMMINGSEB PA Unavailable Unavailable Deandre CUMMINGSEB PA Unavailable Unavailable Deandre CUMMINGSEB PA Unavailable Unavailable Deandre CUMMINGSEB PA Unavailable Unavailable Deandre CUMMINGSEB PA Unavailable Unavailable Deandre CUMMINGSEB PA Unavailable Unavailable Deandre CUMMINGSEB PA Unavailable Unavailable CUMMINGS, J ISI PA Unavailable Unavailable CUMMINGS, J ISI PA Unavailable Unavailable CUMMINGS, J ISI PA Unavailable Unavailable CUMMINGS, J ISI PA Unavailable Unavailable CUMMINGS, J ISI PA Unavailable Unavailable CUMMINGS, J ISI PA Unavailable Unavailable CUMMINGS, J ISI PA Unavailable Unavailable CUMMINGS, J ISI PA Unavailable Unavailable CUMMINGS, J ISI PA Unavailable Unavailable CUMMINGS, J ISI PA Unavailable Unavailable CUMMINGS, J ISI PA Unavailable Unavailable CUMMINGS, J ISI PA Unavailable Unavailable [place], Christopher DO Unavailable Unavailable [place], Christopher DO Unavailable Unavailable [place], Christopher DO Unavailable Unavailable [place], Christopher DO Unavailable Unavailable [place], Christopher DO Unavailable Unavailable [place], Christopher DO Unavailable Unavailable Malcom, Christopher DO Unavailable Unavailable Malcom, Christopher DO Unavailable Unavailable LEONORA, JAYANT TRANSISTOR TESTER Unavailable Unavailable LEONORA, JAYANT TRANSISTOR TESTER Unavailable Unavailable Izabela Zaragoza PA Unavailable Unavailable Camejo, Mata Unavailable Unavailable Camejo, Mata Unavailable Unavailable Camejo, Mata Unavailable Unavailable Camejo, Mata Unavailable Unavailable Camejo, Mata Unavailable Unavailable Camejo, Mata Unavailable Unavailable Camejo, Mata Unavailable Unavailable Camejo, Mata Unavailable Unavailable Camejo, Mata Unavailable Unavailable Camejo, Mata Unavailable Unavailable Camejo, Mata Unavailable Unavailable Camejo, Mata Unavailable Unavailable Camejo, Mata Unavailable Unavailable Camejo, Mata Unavailable Unavailable Camejo, Mata Unavailable Unavailable Camejo, Mata Unavailable Unavailable Camejo, Mata Unavailable Unavailable Camejo, Mata Unavailable Unavailable Camejo, Mata Unavailable Unavailable Camejo, Mata Unavailable Unavailable Camejo, Mata Unavailable Unavailable Camejo, Mata Unavailable Unavailable Camejo, Mata Unavailable Unavailable Camejo, Mata Unavailable Unavailable Camejo, Mata Unavailable Unavailable Camejo, Mata Unavailable Unavailable Camejo, Mata Unavailable Unavailable Camejo, Mata Unavailable Unavailable Camejo, Mata Unavailable Unavailable Camejo, Mata Unavailable Unavailable Camejo, Mata Unavailable Unavailable Camejo, Mata Unavailable Unavailable Camejo, Mata Unavailable Unavailable Camejo, Mata Unavailable Unavailable Camejo, Mata Unavailable Unavailable Camejo, Mata Unavailable Unavailable Camejo, Mata Unavailable Unavailable Camejo, Mata Unavailable Unavailable Camejo, Mata Unavailable Unavailable Camejo, Mata Unavailable Unavailable Camejo, Mata Unavailable Unavailable Camejo, Mata Unavailable Unavailable Camejo, Mata Unavailable Unavailable Camejo, Mata Unavailable Unavailable Camejo, Mata Unavailable Unavailable TURRIN, DARNELL Unavailable Unavailable TURRIN, DARNELL Unavailable Unavailable TURRIN, DARNELL Unavailable Unavailable TURRIN, DARNELL Unavailable Unavailable Dwello PA PA, Lynn Unavailable Unavailable Dwello PA PA, Lynn Unavailable Unavailable Dwello PA PA, Lynn Unavailable Unavailable Dwello PA PA, Lynn Unavailable Unavailable Dwello PA PA, Lynn Unavailable Unavailable Dwello PA PA, Lynn Unavailable Unavailable Dwello PA PA, Lynn Unavailable Unavailable O'martha, A Nemesio PA Unavailable Unavailable O'martha, A Nemesio PA Unavailable Unavailable O'martha, A Nemesio PA Unavailable Unavailable O'martha, A Nemesio PA Unavailable Unavailable O'martha, A Nemesio PA Unavailable Unavailable O'martha, A Nemesio PA Unavailable Unavailable O'martha, A Nemesio PA Unavailable Unavailable O'martha, A Nemesio PA Unavailable Unavailable O'martha, A Nemesio PA Unavailable Unavailable O'martha, A Nemesio PA Unavailable Unavailable O'martha, A Nemesio PA Unavailable Unavailable O'martha, A Nemesio PA Unavailable Unavailable O'martha, A Nemesio PA Unavailable Unavailable O'martha, A Nemesio PA Unavailable Unavailable O'martha, A Nemesio PA Unavailable Unavailable O'martha, A Nemesio PA Unavailable Unavailable O'martha, A Nemesio PA Unavailable Unavailable O'martha, A Nemesio PA Unavailable Unavailable O'martha, A Nemesio PA Unavailable Unavailable O'martha, A Nemesio PA Unavailable Unavailable O'martha, A Nemesio PA Unavailable Unavailable O'martha, A Nemesio PA Unavailable Unavailable O'martha, A Nemesio PA Unavailable Unavailable O'martha, A Nemesio PA Unavailable Unavailable O'martha, A Nemesio PA Unavailable Unavailable O'martha, A Nemesio PA Unavailable Unavailable O'martha, A Nemesio PA Unavailable Unavailable O'martha, A Nemesio PA Unavailable Unavailable O'martha, A Nemesio PA Unavailable Unavailable O'martha, A Nemesio PA Unavailable Unavailable O'martha, A Nemesio PA Unavailable Unavailable O'martha, A Nemesio PA Unavailable Unavailable O'martha, A Nemesio PA Unavailable Unavailable Norgrove, Fabian PA Unavailable Unavailable Re-disclosure Warning The records that you are about to access may contain information from federally-assisted alcohol or drug abuse programs. If such information is present, then the following federally mandated warning applies: This information has been disclosed to you from records protected by federal confidentiality rules (42 CFR part 2). The federal rules prohibit you from making any further disclosure of this information unless further disclosure is expressly permitted by the written consent of the person to whom it pertains or as otherwise permitted by 42 CFR part 2. A general authorization for the release of medical or other information is NOT sufficient for this purpose. The Federal rules restrict any use of the information to criminally investigate or prosecute any alcohol or drug abuse patient.The records that you are about to access may contain highly sensitive health information, the redisclosure of which is protected by Article 27-F of the [place] [facility] law. If you continue you may have access to information: Regarding HIV / AIDS; Provided by facilities licensed or operated by the [facility] Office of Mental Health; or Provided by the [facility] Office for People With Developmental Disabilities. If such information is present, then the following [facility] mandated warning applies: This information has been disclosed to you from confidential records which are protected by state law. State law prohibits you from making any further disclosure of this information without the specific written consent of the person to whom it pertains, or as otherwise permitted by law. Any unauthorized further disclosure in violation of state law may result in a fine or usp sentence or both. A general authorization for the release of medical or other information is NOT sufficient authorization for further disc losure. Allergies and Adverse Reactions Type Description Substance Reaction Status Data Source(s ) Drug Allergy Drug Allergy NKDA MEDENT ([facility]) Family History Family Member Name Family Member Gender Family Member Status Date o f Status Description Data Source(s) Unknown Female Diagnosis 03/05/2018 12:00:00 AM EDT [facility] ([facility]) Unknown Female Diagnosis 02/11/2018 12:00:00 AM EDT [facility] ([facility]) Encounters Encounter Providers Location Date Indications Data Source(s ) Outpatient Attender: Fabian SINGLETON 02:27:04 PM EDT - 06/16/2021 03:12:01 PM EDT [facility]Tap ([facility]) Emergency Attender: DARNELL SAMUEL 2020 03:21:00 PM EDT - 2021 07:15:00 PM EDT [facility] Patient discharged. Outpatient Attender: BRITTNEY ARINEY 2020 09:54:00 AM EDT - 06/06/2021 09:54:00 AM EDT [facility] [place] [address] [address] 05/27/2021 12:00:00 AM EDT [facility]CW1 ([facility]) Outpatient Attender: BRITTNEY RAINEY 2020 09:55:00 AM EDT - 05/22/2021 09:55:00 AM EDT [facility] Outpatient Attender: Granthector Malcom Malcom Hanna jose 05/20/2021 01:00:00 PM EDT MEDENT ([facility] ) Outpatient Attender: DELBERT kyle 05/09/2021 05:10:00 PM EDT [facility] Outpatient Attender: Izabela SINGLETON 05/2021 12:13:36 PM EDT - 05/09/2021 12:52:24 PM EDT [facility] ([facility]) Outpatient Attender: BRITTNEY RAINEY 2020 09:53:00 AM EDT - 05/09/2021 09:53:00 AM EDT [facility] OFFICE OUTPATIENT VISIT 15 MINUTES Attender: Max Dasilva MD Phys ical Therapy 05/02/2021 01:15:00 PM EDT MEDENT ([facility]) Outpatient Attender: ISI SINGLETON [facility] 04/22 03:00:00 PM EDT [facility] ([facility] Outpatient Attender: ISI SINGLETON 04/22 02:58:00 PM EDT - 04/22/2021 02:58:00 PM EDT [facility] Outpatient [address] [address] 04/18/2021 12:00:00 AM EDT eCW1 ([facility]) Outpatient Attender: BRITTNEY RAINEY 2020 09:51:00 AM EDT - 04/03/2021 09:51:00 AM EDT [facility] Outpatient Attender: Mata Camejo Physical Therapy 03/28/2021 10:00:0 0 AM EDT MEDENT ([facility]) Outpatient Attender: ISI SINGLETON Family [facility] 03/21 12:40:00 PM EDT [facility]) Outpatient Attender: ISI SINGLETON 03/21 12:31:00 PM EDT - 03/21/2021 12:31:00 PM EDT [facility] Outpatient Attender: BRITTNEY RAINEY 2020 08:53:00 AM EDT - 03/14/2021 08:53:00 AM EDT [facility] [place] [address] [address] 03/06/2021 12:00:00 AM EDT eCW1 ([facility]) [place] [address] [address] 02/28/2021 12:00:00 AM EDT eCW1 ([facility]) Outpatient Attender: ISI SINGLETON 02/14 12:54:00 PM EDT - 02/14/2021 12:54:00 PM EDT [facility] Outpatient Attender: ISI SINGLETON Family Practice 02/14 12:40:00 PM EDT MED[facility] ([facility]) Outpatient Attender: BRITTNEY RAINEY 2020 12:56:00 PM EDT - 02/07/2021 12:56:00 PM EDT [facility] OFFICE OUTPATIENT NEW 30 MINUTES Attender: Max Dasilva MD Physic al Therapy 02/07/2021 08:45:00 AM EDT MEDENT ([facility]) Outpatient Attender: BRITTNEY RAINEY 2020 01:01:00 PM EDT - 01/31/2021 01:01:00 PM EDT [facility] Outpatient Attender: ISI SINGLETON 01/21 12:23:00 PM EDT - 01/21/2021 12:23:00 PM EDT [facility] Outpatient Attender: ISI SINGLETON [facility] 01/21 12:20:00 PM EDT [facility] Outpatient Attender: BRITTNEY RAINEY 2020 01:56:00 PM EDT - 01/14/2021 01:56:00 PM EDT [facility] Outpatient Attender: ISI SINGLETON 12/20 10:54:00 AM EDT - 12/20/2020 10:54:00 AM EDT [facility] Outpatient [address] [address] 12/20/2020 12:00:00 AM EDT eCW1 ([facility]) Outpatient Attender: [id number] MEDENT_[id number] Family Practice 11/19/2020 10:00:00 AM EDT [facility] ([facility] Outpatient Attender: ISI SINGLETON 11/19 09:54:00 AM EDT - 11/19/2020 09:54:00 AM EDT [facility] Outpatient Attender: BRITTNEY RAINEY 2020 10:53:00 AM EST - 11/02/2020 10:53:00 AM EST [facility] Outpatient Attender: Nemesio SINGLETON [facility] 10/17/2020 07:30:00 AM EST MEDENT ([facility]) Outpatient Attender: JAYANT LEA LMSW 10:58:00 AM EST - 10/05/2020 10:58:00 AM EST [facility] Outpatient Attender: Nemesio SINGLETON [facility] 09/17/2020 10:20:00 AM EST MEDENT ([facility]) Outpatient Attender: Nemesio SINGLETON [facility] 09/10/2020 01:00:00 PM EST MEDENT ([facility]) OutpatientOFFICE VISIT, EST Attender: Lynn SINGLETON PPNCNY W mauro 08/08/2020 10:40:00 AM EST - 08/08/2020 10:40:00 AM EST Encounter for oth general cnsl and advice on procreationEncounter for test, result negative NextGen ([facility]) Encounter for oth general cnsl and advic e on procreation Encounter for test, result neg ative [place] [address] [address] 07/30/2020 12:00:00 AM EST eCW1 ([facility]) [place] [address] [address] 07/04/2020 12:00:00 AM EST eCW1 ([facility]) Outpatient Attender: Nemesio SINGLETON [facility] 06/22/2020 01:40:00 PM EDT MEDENT ([facility]) [place] [address] [address] 06/11/2020 12:00:00 AM EDT eCW1 ([facility]) Immunizations Vaccine Date Status Description Data Source(s) COVID-19 dose #2 given elsewhere Unspecified 12/20/2020 09:0 9:00 AM EDT completed eCW1 ([facility]) COVID-19 dose #2 given elsewhere Unspecified 12/20/2020 09:0 9:00 AM EDT completed eCW1 ([facility]) COVID-19 VACCINE Moderna 12/20/2020 12:00:00 AM EDT completed [facility] Vaccine Series Complete: YESThis Data wa s Submitted to [facility] Via [employer]. COVID-19 dose #1 given elsewhere Unspecified 11/22/2020 09:0 9:00 AM EDT completed eCW1 ([facility]) COVID-19 dose #1 given elsewhere Unspecified 11/22/2020 09:0 9:00 AM EDT completed eCW1 ([facility]) COVID-19 VACCINE Moderna 11/22/2020 12:00:00 AM EDT completed [facility] Vaccine Series Complete: NOThis Data was Submitted to [facility] Via [employer]. Medications Medication Brand Name Start Date Product Form Dose Route Admi nistrative Instructions Pharmacy Instructions Status Indications Reaction Description Data Source(s) Escitalopram 10 MG Oral Tablet Escitalopram Oxalate 02/14/2021 1 2:00:00 AM EDT ORAL active MEDENT ( [facility]) lamotrigine 25 MG Oral Tablet Lamotrigine 01/13/2021 12:00:00 AM EDT active MEDENT ([facility]) Sertraline 25 MG Oral Tablet [Zoloft] Zoloft 25 MG Zoloft 25 MG 12/20/2020 12:00:00 AM EDT 1.0 {tablet} suspended Zoloft 25 MG eCW1 ([facility]) Sertraline 25 MG Oral Tablet Sertraline HCL 12/20/2020 12:00:00 AM EDT ORAL completed MEDENT ([facility]) Sertraline 25 MG Oral Tablet [Zoloft] Zoloft 25 MG Zoloft 25 MG 12/20/2020 12:00:00 AM EDT 1.0 {tablet} suspended Zoloft 25 MG eCW1 ([facility]) Sertraline 25 MG Oral Tablet [Zoloft] Zoloft 25 MG Zoloft 25 MG 12/20/2020 12:00:00 AM EDT 1.0 {tablet} active Zo loft 25 MG eCW1 ([facility]) lamotrigine 25 MG Oral Tablet [Lamictal] Lamictal 10/17/2020 12 :00:00 AM EST ORAL completed MEDENT ([facility]) 24 HR Methylphenidate Hydrochloride 36 M G Extended Release Oral Tablet [Concerta] Concerta 10/17/2020 12:00:00 AM EST ORAL act bonny MEDENT ([facility]) 24 HR Methylphenidate Hydrochloride 36 M G Extended Release Oral Tablet [Concerta] Concerta 09/17/2020 12:00:00 AM EST ORAL act bonny MEDENT ([facility]) 24 HR Metformin hydrochloride 500 MG Extended Release Oral Tablet Metformin HCL ER 09/17/2020 12:00:00 AM EST ORAL active MEDENT ([facility]) 24 HR Metformin hydrochloride 500 MG Extended Release Oral Tablet Metformin HCL ER 09/17/2020 12:00:00 AM EST active MEDENT ([facility]) lamotrigine 25 MG Oral Tablet Lamotrigine 09/11/2020 12:00:00 AM EST completed MEDENT ([facility]) Lamictal Starter/Not Taking Carbamazepine Lamictal Sta rter/Not Taking Carbamazepine 09/10/2020 12:00:00 AM EST completed MEDENT ([facility]) No Active Medications 09/10/2020 12:00:00 AM EST completed MEDENT ([facility]) 27-0.8 MG 27-0.8 MG 07/30/2020 12:00:00 AM EST 1.0 {tablet} active 27-0.8 MG e CW1 ([facility]) 27-0.8 MG 27-0.8 MG 07/30/2020 12:00:00 AM EST 1.0 {tablet} suspended 27-0.8 MG e CW1 ([facility]) 27-0.8 MG 27-0.8 MG 07/30/2020 12:00:00 AM EST 1.0 {tablet} active 27-0.8 MG e CW1 ([facility]) 27-0.8 MG 27-0.8 MG 07/30/2020 12:00:00 AM EST 1.0 {tablet} suspended 27-0.8 MG e CW1 ([facility]) 27-0.8 MG 27-0.8 MG 07/30/2020 12:00:00 AM EST 1.0 {tablet} active 27-0.8 MG e CW1 ([facility]) Norman Austin 07/04/2020 12:00:00 AM EST complet ed MEDENT ([facility]) Naproxen 500 MG Oral Tablet Naproxen 06/22/2020 12:00:00 AM EDT completed MEDENT ([facility]) Wrist Splint/Cock-Up/Right/Canvas/Large 06/22/2020 12:00:00 AM E DT active [facility]ENT ([facility]) Wrist Splint/Cock-Up/Left/Canvas/Large 06/22/2020 12:00:00 AM ED T active MEDENT ([facility]) 3 ML liraglutide 6 MG/ML Pen Injector [Saxenda] Saxenda 06/22/2020 12:00:00 AM EDT SUBCUTANEOUS completed M EDENT ([facility]) Novofine 06/22/2020 12:00:00 AM EDT active MEDENT ([facility]) Fluticasone Propionate Fluticasone Propionate 06/14/2020 12:00:00 AM E DT completed MEDENT ([facility]) Sprintec 28 0.25-35 MG-MCG Sprintec 28 0.25-35 MG-MCG 2019 12:00:00 AM EDT 1.0 {tablet} suspended Sprintec 28 0.25-35 MG-MCG eCW1 ([facility]) Sprintec 28 0.25-35 MG-MCG Sprintec 28 0.25-35 MG-MCG 2019 12:00:00 AM EDT 1.0 {tablet} active Sprintec 28 0.25-35 MG-MCG eCW1 ([facility]) Sprintec 28 0.25-35 MG-MCG Sprintec 28 0.25-35 MG-MCG 2019 12:00:00 AM EDT 1.0 {tablet} suspended Sprintec 28 0.25-35 MG-MCG eCW1 ([facility]) Sprintec 28 0.25-35 MG-MCG Sprintec 28 0.25-35 MG-MCG 2019 12:00:00 AM EDT 1.0 {tablet} suspended Sprintec 28 0.25-35 MG-MCG eCW1 ([facility]) Sprintec 28 0.25-35 MG-MCG Sprintec 28 0.25-35 MG-MCG 2019 12:00:00 AM EDT 1.0 {tablet} suspended Sprintec 28 0.25-35 MG-MCG eCW1 ([facility]) Sprintec 28 0.25-35 MG-MCG Sprintec 28 0.25-35 MG-MCG 2019 12:00:00 AM EDT 1.0 {tablet} suspended Sprintec 28 0.25-35 MG-MCG eCW1 ([facility]) levocetirizine dihydrochloride 5 MG Oral Tablet Levocetirizi ne Dihydrochloride 06/11/2020 12:00:00 AM EDT completed MEDENT ([facility]) Sprintec 28 Sprintec 28 06/11/2020 12:00:00 AM EDT completed MEDENT ([facility]) levocetirizine dihydrochloride 5 MG Oral Tablet Levocetirizi ne Dihydrochloride 03/21/2020 12:00:00 AM EDT completed MEDENT ([facility]) sitagliptin 100 MG Oral Tablet [Januvia] Januvia 100 m g tablet Januvia 100 mg tablet 1.00 {tablet} ORAL completed sitagliptin 100 MG Oral Tablet [Januvia] NextGen ([facility]) L-Methylfolate 15 mg tablet levomefolate calcium completed NextGen ([facility]) Omeprazole 20 MG Delayed Release Oral Ca psule omeprazole 20 mg capsule,delayed release omeprazole 20 mg capsule,delayed release 1 {capsule} ORA L completed take 1 capsule by or al route 2 times every day 30 minutes to 1 hour before a meal NextGen ([facility]) 24 HR Methylphenidate Hydrochloride 54 M G Extended Release Oral Tablet [Concerta] Concerta 54 mg tablet,extended release Concerta 54 mg tablet,extended release 1.00 {tablet} ORAL completed 24 HR methylphenidate hydrochloride 54 MG Extended Release Oral Tablet [Concerta] NextGen ([facility]) Clonazepam 2 MG Oral Tablet clonazepam 2 mg tablet clonazepam 2 mg tablet 1.00 {tablet} ORAL completed take 1 tablet by oral route 3 times every day NextGen ([facility]) Rowley Aspartate 5 MG Oral Capsule LITHATE (unknown s trength) LITHATE (unknown strength) completed NextGe n ([facility]) unknown dosage 1 tab twice a day levocetirizine dihydrochloride 5 MG Oral Tablet levoce tirizine 5 mg tablet levocetirizine 5 mg tablet 1.00 {tablet} ORAL comp leted take 1 tablet by oral route every day in the evening NextGen ([facility]) Losartan Potassium 50 MG Oral Tablet losartan 50 mg ta blet losartan 50 mg tablet 1.00 {tablet} ORAL completed take 1 tablet by oral route every day NextGen ([facility]) Lorazepam 2 MG Oral Tablet [Ativan] Ativan 2 mg tablet Ativan 2 mg tablet 1.00 {tablet} ORAL completed lorazepam 2 MG O ral Tablet [Ativan] NextGen ([facility]) montelukast 10 MG Oral Tablet montelukast 10 mg tablet monte lukast 10 mg tablet 1.00 {tablet} ORAL completed take 1 tablet by oral route every day in the evening [facility] ([facility] Vraylar 4.5 mg capsule cariprazine 4.5 MG Oral Capsule 1.00 {capsule} ORAL completed cariprazine 4.5 MG Oral C apsule [Vraylar] NextGen ([facility]) Lamictal XR Starter (Green) 50 mg(14)-100 mg(14)-200 m g(7) tab,ext.rel {14 (24 HR lamotrigine 100 MG Extended Release Oral Tablet) / 7 (24 HR lamotrigine 200 MG Extended Release Oral Tablet) / 14 (24 HR lamotrigine 50 MG Extended Release Oral Tablet) } Pack completed Lamictal XR Green [facility] Insurance Providers Payer name Policy type / Coverage type Policy ID Covered green party ID Covered green party's relationship to pendleton Policy Pendleton Plan Information [facility] Part B [id number] Self [id number] [facility] Part B [id number] Family Dependent [id number] BS [facility] Part B [id number] [id number] Family Dependent [id number] BS [facility] Part B [id number]..[id number] Self Y [id number] BS [facility] Part B [id number] Self V [id number] [facility] Part B [id number] Family Dependent [id number] [employer] [id number] Family Dependent [id number] [employer] [id number] Family Dependent VYA [employer] [id number] [id number] Family Dependent VYA [employer] [id number] 2.0.1.142881.3.227.99.806.506.0 Family Dependent VYA [id number] [employer] [id number] 2.0.1.717241.3.227.99.806.506.0 Family Dependent VYA [employer] [id number] Family Dependent [id number] [employer] [id number] Family Dependent [id number] [employer] [id number] 2.0.1.281847.3.227.99.806.506.0 Family Dependent VYA [id number] [employer] [id number] 2.16840.1.506406.3.227.99.806.506.0 Family Dependent VYA [employer] [id number] 2.0.1.885692.3.227.99.806.506.0 Family Dependent VYA Dimitrios [employer] [id number] Family Dependent [id number] [employer] [id number] 2.0.1.745982.3.227.99.806.506.0 Family Dependent VYA Dimitrios [employer] [id number] 2.0.1.315014.3.227.99.806.506.0 Family Dependent VYA [employer] [id number] Family Dependen t [employer] ([employer]) Workers Compensation [id number] 2.0.1.304730.3.227.99.991.97546.0 Self 0 [id number] [employer]) Workers Compensation [id number] 2.0.1.552833.3.227.99.991.62319.72852 Family Dependent [id number] Medicaid Medicaid [id number] Self [id number] [employer] 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 ACCOUNT emp [id number] Employee [id number] [place] [employer] [place] [id number] 2..1.597443.3.227.99.1767.86223.0 Family Dependent [id number] [employer] [id number] 2.0.1.434603.3.227.99.806.506.0 Self VYS [id number] [place] Plan Medigap Part B [id number] 2.0.1.319739.3.227.99 .806.506.0 Family Dependent [id number] [employer] [id number] 2.0.1.157446.3.227.99.806.506.0 Self VYS [id number] [place] Plan Medigap Part B [id number] 2.0.1.256525.3.227.99 .806.506.0 Family Dependent [id number] [facility] [employer] [facility] [employer] [id number] 2.0.1.780334.3.227.99.806.506.0 Self VYS [id number] [place] Plan Medigap Part B [id number] 2.0.1.209610.3.227.99 .806.506.0 Family Dependent [id number] BC[employer] OF [place] 306/806 [id number] SP [id number] [facility] [employer] [facility] [employer] [id number] 2.0.1.589456.3.227.99.806.506.0 Self VYS [id number] [place] Plan [employer]ap Part B [id number] 2..1.477532.3.227.99 .806.506.0 Family Dependent [id number] [facility] [employer] [facility] [employer] [id number] 2.0.1.285880.3.227.99.806.506.0 Self VYS [id number] [place] Plan [employer] Part B [id number] 2.0.1.064600.3.227.99 .806.506.0 Family Dependent [id number] [place] [id number] SP [id number] A [facility] [employer] [facility] [employer] [id number] 2.0.1.855024.3.227.99.806.506.0 Self VYS [id number] [place] Plan [employer] Part B [id number] 2.0.1.037481.3.227.99 .806.506.0 Family Dependent [id number] [facility] [employer] [id number] 2.0.1.571908.3.227.99.1767.23565.0 Family Dependent [id number] [employer] [facility] [employer] Commercial [id number] ..1.040090.3.227.99.806.506.0 Self VYS [id number] [place] Plan Medigap Part B [id number] .0.1.223606.3.227.99 .806.506.0 Family Dependent [id number] [employer] CO NO FAULT [id number] MO2 [id number] [employer] [place] 306/806 [id number] SP [id number] [employer] CO NO FAULT [id number] MO2 [id number] [place] Plan Medigap Part B [id number] .1.715389.3.227.99 .806.506.0 Family Dependent [id number] [employer] [place] 306/806 [id number] MO2 [id number] [employer] Commercial [id number] [facility] [place] Commercial ..[id number] 3.3.227.99.1767.30311.0 Family Dependent [employer] BCBS P [id number] S VYA [id number] [employer] BCBS P [id number] C VYA [id number] [employer] BCBS P [id number] S YOU [id number] [employer] [place] 306/8 P [id number] S [id number] [facility] [id number] UNK2 [id number] BCBS EMPIRE AZEB DIV [id number] DA2 [id number] [facility] [id number] DA2 [id number] UNHC COMMUNITY PLAN XIX - OP/ER [id number] 19 [id number] MEDICAID [id number] [facility] [place] [id number] 18 [id number] [facility] [id number] FA2 89 [id number] EMEDNY [id number] SP [id number] BCBS EMPIRE AZEB DIV [id number] FA2 [id number] MEDICAID [id number] SP [id number] VALUE OPTIONS OUTPATIENT CLAIM [id number] FA2 [id number] BCBS [place] PPO 302/307 [id number] SP [id number] [facility] U/[employer] Commercial [id number] Self [id number] [place] Plan Medigap Part B [id number] Family Dependent [id number] BCBS EMPIRE AZEB DIV [id number] FA2 [id number] [facility] [employer] Commercial [id number] Self [id number] [place] Plan [facility] [id number] Family Dependent [id number] [facility] [employer] Commercial [id number] Self [id number] [place] Plan [facility] Part B [id number] Family Dependent [id number] [facility] [employer] [id number] Family Dependent [id number] [facility] [employer] [id number] Family Dependent [id number] [facility] [employer] Commercial [id number] Self [id number] [place] Plan [employer] Part B [id number] Family Dependent [id number] Dimitrios [facility] U/[employer] Commercial [id number] Self VYS [id number] [place] Plan Medigap Part B [id number]9 .806.506.0 Family Dependent [id number] Problems, Conditions, and Diagnoses Code Display Name Description Problem Type Effective Dates Data Source(s) F909 Attention-deficit hyperactivity disorder , unspecified type Attention- deficit hyperactivity disorder, unspecified type Diagnosis 06/06 09:54:00 AM EDT [facility] F603 Borderline personality disorder Borderline personality disorder Diagnosis 06/06/2021 09:54:00 AM EDT [facility] F339 Major depressive disorder, recurrent, un specified Major depressive disorder, recurrent, unspecified Diagnosis 06/06/2021 09:54:00 AM EDT [facility] F319 Bipolar disorder, unspecified Bipolar disorder, unspec ified Diagnosis 11/19/2020 09:54:00 AM EDT [facility] F33.41 Recurrent major depression in partial re mission Recurrent major depression in partial remission Problem 05/20/2021 12:00:00 AM EDT M MARIANO ([facility]) F90.2 Attention deficit hyperactivity disorder , combined type Attention deficit hyperactivity disorder, combined type Problem 05/20/2021 12:00:00 AM EDT RADU ([facility]) E66.01 Morbid obesity Morbid obesity Problem 05/20/2021 12:00: 00 AM EDT MEDCHARLOTTE ([facility]) H61.22 [id number] Left ear impacted cerumen Problem 04/18/2021 12:00:00 AM EDT eCW1 ([facility]) R61 [id number] Diaphoresis Problem 04/18/2021 12:00:00 AM E DT eCW1 ([facility]) H91.93 [id number] Decreased hearing of both ears Problem 04/18/2021 12:00:00 AM EDT eCW1 ([facility]) R19.7 18080234 Diarrhea, unspecified type Problem 12:00:00 AM EDT eCW1 ([facility]) F32.9 35802727 Major depressive disorder, single episode , unspecified Problem 04/18/2021 12:00:00 AM EDT eCW1 ([facility]) F41.9 182461811 Anxiety disorder, unspecified Problem 04/18/2021 12:00:00 AM EDT eCW1 ([facility]) E74.39 27175712 Glucose intolerance Problem 04/18/2021 12:00 :00 AM EDT eCW1 ([facility]) Z68.41 516663291 BMI 40.0-44.9, adult Problem 12/20/2020 12:0 0:00 AM EDT eCW1 ([facility]) N91.1 675733435 Secondary amenorrhea Problem 12/20/2020 12:0 0:00 AM EDT eCW1 ([facility]) N93.9 [id number] Abnormal uterine bleeding (AUB) Problem 07/30/2020 12:00:00 AM EST eCW1 ([facility]) E66.01 258467175 Morbid (severe) obesity due to excess yeni ories Problem 07/30/2020 12:00:00 AM EST eCW1 ([facility]) Z68.41 261716764 Body mass index [BMI]40.0-44.9, adult Pro blem 07/30/2020 12:00:00 AM EST eCW1 ([facility]) Surgeries/Procedures Procedure Description Date Indications Data Source(s) ECG ROUTINE ECG W/LEAST 12 LDS W/I&R 05/20/2021 12:00: 00 AM EDT RADU ([facility]) Brief Emotional/Behav Assessment W/ Scoring Doc Per Standard Inst 05/20/2021 12:00:00 AM EDT MEDENT ([facility] ) INITIAL PREVENTIVE MEDICINE NEW PT AGE 18-39YRS 2020 12:00:00 AM EDT MEDENT ([facility]) OFFICE OUTPATIENT VISIT 25 MINUTES 05/09/2021 12:00:00 AM EDT MEDENT ([facility]) OFFICE OUTPATIENT VISIT 15 MINUTES 05/02/2021 12:00:00 AM EDT MEDENT ([facility] ) OFFICE OUTPATIENT VISIT 25 MINUTES 04/22/2021 12:00:00 AM EDT MEDENT ([facility]) Needle electromyography, each extremity, with related paraspinal areas, when performed, done with nerve conduction, amplitude and latency/velocity study; complete, five or more muscles studied, innervated by three or more nerves or four or more spinal levels (list separately in addition to the code for primary procedure). 03/28/2021 12:00:00 AM EDT MEDEN T ([facility] ) 30634 Nerve conduction studies 13 or more studies NEW 201203/28/2021 12:00:00 AM EDT MEDENT ([facility] ) OFFICE CONSULTATION NEW/ESTAB PATIENT 60 MIN 12:00:00 AM EDT MEDENT ([facility] ) OFFICE OUTPATIENT VISIT 25 MINUTES 03/21/2021 12:00:00 AM EDT MEDENT ([facility]) OFFICE OUTPATIENT VISIT 25 MINUTES 02/14/2021 12:00:00 AM EDT MEDENT ([facility]) RADEX WRIST COMPLETE MINIMUM 3 VIEWS 02/07/2021 12:00: 00 AM EDT MEDENT ([facility] ) OFFICE OUTPATIENT NEW 30 MINUTES 02/07/2021 12:00:00 A M EDT MEDENT ([facility] ) OFFICE OUTPATIENT VISIT 25 MINUTES 01/21/2021 12:00:00 AM EDT MEDENT ([facility]) Psychiatric Diag Eval W/Medical Service 12/20/2020 12: 00:00 AM EDT MEDENT ([facility]) PREVENT MED TECHNICAL SUPPORT CONSULTANT&/RISK FACTOR REDJ SPX 45 MIN 11/19 12:00:00 AM EDT MEDENT ([facility]) OFFICE OUTPATIENT VISIT 25 MINUTES 10/17/2020 12:00:00 AM EST MEDENT ([facility]) Psychiatric Diagnostic Evaluation 10/05/2020 12:00:00 AM EST MEDENT ([facility]) OFFICE OUTPATIENT VISIT 15 MINUTES 09/17/2020 12:00:00 AM EST MEDENT ([facility]) OFFICE OUTPATIENT VISIT 25 MINUTES 09/10/2020 12:00:00 AM EST MEDENT ([facility]) CVR Ratoprinter.Svc. Preconception 08/08/2020 12 :00:00 AM EST - 08/08/2020 12:00:00 AM EST [facility] ([facility]) CVR Ratoprinter.Svc. Other 08/08/2020 12:00:00 AM EST - 2019 12:00:00 AM EST [facility] ([facility]) CVR Med.Svc. Height/Weight 08/08/2020 12 :00:00 AM EST - 08/08/2020 12:00:00 AM EST [facility] ([facility]) CVR Blood Pressure 08/08/2020 12:00:00 AM EST - 2019 12:00:00 AM EST [facility] ([facility]) OFFICE VISIT, EST 08/08/2020 12:00:00 AM EST - 020 12:00:00 AM EST [facility] ([facility]) URINE TEST 08/08/2020 12:00:00 AM EST - 08/08/2020 12:00:00 AM EST [facility] ([facility]) Results ID Date Data Source [id number] 06/14/2021 04:35:00 PM EDT [facility] [address] [place] [address] PHONE: [phone] FAX: [phone] Name .................. : LAKEISHA Carrera Acct Number.................. : [id number] ROOM. ................. : TR-1B MR Number ................... : [id number] Stay type ............. : E/R Discharge Date......... ... : 06/13/21 Admit Date ......... : 06/13/21 Admit Phys .................... : JIMMIE DISLA Date of ....... : 1995 Family Phys ................... : Phone .................. : [phone] Age ................................ : 26 Film# .................. .:[id number] Sex ................................. : F Unsigned transcriptions are preliminary reports and do not represent a medical or legal document CT ABD & PELVIS W/ IV ONLY [id number] COMPLETE:06/13/21 19:16 [facility] [id number] Reason(s): PERIUMBILICAL PAIN, HERNIA FELT ON EXAM CT ABDOMEN AND PELVIS WITH IV CONTRAST INDICATION: Periumbilical abdominal pain, question umbilical hernia COMPARISON: None IV CONTRAST: 75 cc Isovue-370 One or more of the following dose reduction techniques were utilized in effectively lowering the radiation dose for this examination: Automated Exposure Control, Adjustment of the mA and/or kV according to patient size, or Iterative reconstruction. FINDINGS: LUNG BASES: No pulmonary nodules or masses. No pleural effusions. LIVER/BILIARY: The liver is unremarkable. No abnormalities are seen in the gallbladder. The bile ducts are not dilated. SPLEEN: Normal. PANCREAS: Normal. ADRENALS: Normal bilaterally. RIGHT KIDNEY: No hydronephrosis, stones or masses. Several cortical cysts measuring up to 3 mm. LEFT KIDNEY: No hydronephrosis, stones or masses. Several cortical cysts measuring up to 7 mm. OTHER : No abnormalities seen in the urinary bladder. No significant abnormalities Page 1 of 3 [facility] [address] [place] [address] PHONE: [phone] FAX: [phone] Name .................. : LAKEISHA Carrera Acct Number.................. : [id number] ROOM. ................. : TR-1B MR Number ................... : [id number] Stay type ............. : E/R Discharge Date......... ... : 06/13/21 Admit Date ......... : 06/13/21 Admit Phys .................... : JIMMIE [facility] Date of ....... : 1995 Family Phys ................... : Phone .................. : [phone] Age ................................ : 26 Film# .................. .:[id number] Sex ................................. : F Unsigned transcriptions are preliminary reports and do not represent a medical or legal document CT ABD & PELVIS W/ IV ONLY [id number] COMPLETE:06/13/21 19:16 [facility] [address]39 Reason(s): PERIUMBILICAL PAIN, HERNIA FELT ON EXAM seen in the reproductive organs. BOWEL/GI: No dilated bowel or obstruction. No bowel wall thickening. The appendix is visible and is unremarkable. There is small umbilical hernia containing fat, no bowel. Mild periumbilical skin thickening. In the subcutaneous fat there is a rounded focus of low attenuation measuring 17 mm. Mild stranding in the surrounding fat. PERITONEUM: No free fluid, focal fluid collection or free air. NODES: No enlarged lymph nodes. RETROPERITONEUM: No masses. No AAA. SKELETAL: 9 mm sclerotic focus right superior acetabulum. This is likely a benign bone island. IMPRESSION: 1. Normal appendix. No evidence of appendicitis. 2. Tiny umbilical hernia containing fat. 3. Mild skin thickening with subcutaneous inflammation in the periumbilical region. 17 mm low-attenuation focus deep to the umbilicus in the subcutaneous fat could be a developing abscess. Preliminary report for this exam was provided by Cynthia. Electronically Reviewed and Signed By Sanju Mendieta MD , 06/14/21 16:35, JWS Transcribe Initials: GERARDO, Transcribe Date: 06/14/21 11:08, Dictation Date: Page 2 of 3 [place] [address] PHONE: [phone] FAX: [phone] Name .................. : LAKEISHA Carrera Acct Number.................. : [id number] [facility]... : [id number] Stay type ............. : E/R Discharge Date......... ... : 06/13/21 Admit Date ......... : 06/13/21 Admit Phys .................... : JIMMIE DISLA Date of ....... : 1995 Family Phys ................... : Phone .................. : [phone] Age ................................ : 26 Film# .................. .:[id number] Sex ................................. : F Unsigned transcriptions are preliminary reports and do not represent a medical or legal document CT ABD & PELVIS W/ IV ONLY [id number] COMPLETE:06/13/21 19:16 [facility] [id number] Reason(s): PERIUMBILICAL PAIN, HERNIA FELT ON EXAM Copy for: EMERGENCY DEPT via modem Copy for: 710 MED REC DISC HARGED Page 3 of 3 Name Value Range Interpretation Code Description Data Cesia rce(s) Supporting Document(s) ID Date Data Source [id number] 2021 03:21:00 PM EDT [facility] 1 OrderSheet [facility] Emergency Department [address] [place] [address] Phone #: ext- [phone] 15:12 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 Verbal order per; Stevenson Corley- CCBC w Diff STAT 16:22 2021 16:36 Jimmie Matias Riccardo Rachel R.N. M.D.;CMP STAT 16:22 2021 16:37 Jimmie Matias Riccardo Rachel R.N. M.D.;Lipase STAT 16:22 2021 16:37 Jimmie Matias Riccardo Rachel R.N. M.D.;Lactic Acid STAT 16:22 2021 16:36 Jimmie Matias Riccardo Rachel R.N. 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 M.D.;Saline Lock 16:22 2021 16:36 Jimmie Matias Riccardo Rachel R.N. M.D.;[Electronically signed by Riki Wynne (19:18 2021)][Electronically signed by Darnell Samuel M.D. (21:08 2021)][Electronically locked by Riki Wynne (19:18 2021)] Name Value Range Interpretation Code Description Data Cesia rce(s) Supporting Document(s) ID Date Data Source [id number] 2021 03:21:00 PM EDT [facility] 1 Medication Reconciliation Report [facility] Emergency Department [address] [place] [address] Phone #: ext- [phone] 15:12 [id number] Sex[facility] F : 1995 Age: 26yWeight: 113.3 kgHeight/Length: 64 in.BMI: 42.9ALLERGIES: NystatinThe patient's Home Medications are listed below:CONTINUE TAKING THE FOLLOWING MEDICATIONS: Concerta Oral (36 mg), daily Lexapro Oral 15mg, daily Vitamin OralThe source(s) of the original Home Medication information:Not obtained.The following Medications were given to the patient in the Emergency Department:Toradol [IVP] IVP 15 mg, administered: 16:37 2021The following Medications were prescribed to the patient:None. 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 Dose: 15 mg IVP Site: #1 right forearm Name Value Range Interpretation Code Description Data Cesia rce(s) Supporting Document(s) ID Date Data Source [id number] 2021 03:21:00 PM EDT [facility] 1 General Instructions [facility] Emergency Department [address] [place] [address] Phone #: ext- [phone] 15:12 Patient: STARLA FARMER Sex: F : 1995 Age: 26yChronic periumbilical abdominal pain of unknown cause, now resolved.INSTRUCTIONSDrink plenty of fluids. Avoid alcohol and NSAIDS. NSAIDS include aspirin, ibuprofen (Advil) and naproxen(Aleve). Avoid fatty, fried/greasy, lactose-containing (such as milk, cheese and ice cream), salty and spicyfoods. No alcohol. Do not smoke.Warnings: Further evaluation is necessary. It is very important to follow up with a healthcare provider.GENERAL WARNINGS: Return or contact your physician immediately if your condition worsens orchanges unexpectedly, if not improving as expected, or if other problems arise. SPECIFICALLY, return ifyou develop pain in the abdomen, pelvis, back or shoulder, fever, vomiting, the inability to keep fluidsdown, blood in vomitus, blood in diarrhea, fainting or lightheadedness.Your Current Medications: Your current home medications have been reviewed.CONTINUE TAKING THE FOLLOWING MEDICATIONS:Concerta Oral : Tablet Extended Release 36 mg, daily.Lexapro Oral : 15mg daily. Vitamin Oral.Follow-up:Return to the emergency department as needed. Follow up with your healthcare provider in five dayseven if well. Call for an appointment. Reason for referral: evaluation and treatment. Summary of careprovided to patient via paper.Understanding of the discharge instructions verbalized by patient. Expected course of illness, dischargeinstructions, activity level, diet, follow-up appointment and risks and benefits of treatment reviewed withpatient and understanding verbalized. Agrees to plan of care. ADDITIONAL INFORMATIONUnknown Causes of Abdominal Pain (Female) 2 General Instructions [facility] Emergency Department [address] [place] [address] Phone #: ext- [phone] 15:12 Patient: STARLA FARMER [facility]#: [id number] Sex: F : 1995 Age: 26yThe exact cause of your belly (abdominal) pain is not clear. This does not mean that this is somethingto worry about. Everyone likes to know the exact cause of the problem. But sometimes with bellypain, there is no clear-cut cause, and this could be a good thing. The good news is that yoursymptoms can be treated, and you will feel better.Your condition does not seem serious now. But sometimes the signs of a serious problem may takemore time to appear. For this reason, it is important for you to watch for any new symptoms,problems, or worsening of your condition.Over the next few days, the abdominal pain may come and go. Or it may be constant. Other commonsymptoms can include nausea and vomiting. Sometimes it can be difficult to tell if you feel nauseous.You may just feel bad and not connect that feeling to nausea. Constipation, diarrhea, and a fever maygo along with the pain.The pain may continue even if treated correctly over the following days. Depending on how things go,sometimes the cause can become clear and may need more or different treatment. Additionalevaluations, medicines, or tests may also be needed.Home careYour healthcare provider may prescribe medicine for pain, symptoms, or an infection. Follow thehealthcare provider's instructions for taking these medicines. 3 General Instructions [facility] Emergency Department [address] [place] [address] Phone #: ext- [phone] 15:12 Patient: STARLA FARMER Sex: F : 1995 Age: 26[facility] care Rest as much as you can until your next exam. No strenuous activities. Try to find positions that ease discomfort. A small pillow placed on the abdomen may help relieve pain. Something warm on your abdomen (such as a heating pad) may help, but be careful not to burn yourself.Diet Don't force yourself to eat, especially if having cramps, vomiting, or diarrhea. Water is important so you don't get dehydrated. Soup may also be good. Sports drinks may also help, especially if they are not too acidic. Don't drink sugary drinks as this can make things worse. Take liquids in small amounts. Don't guzzle them. Caffeine sometimes makes the pain and cramping worse. Don't take dairy products if you have vomiting or diarrhea. Don't eat large amounts at a time. Wait a few minutes between bites. Eat a diet low in fiber (called a low-residue diet). Foods allowed include refined breads, white rice, fruit and vegetable juices without pulp, tender meats. These foods will pass more easily through the intestine. Don't have whole-grain foods, whole fruits and vegetables, meats, seeds and nuts, fried or fatty foods, dairy, alcohol and spicy foods until your symptoms go away.Follow-up careFollow up with your healthcare provider, or as advised, if your pain does not begin to improve in thenext 24 hours.Call [phone] if any of these occur: Trouble breathing Confusion Fainting or loss of consciousness Rapid heart rate 4 General Instructions [facility] Emergency Department [address] [place] [address] Phone #: ext- [phone] 15:12 Patient: STARLA FARMER Sex: F : 1995 Age: 26y SeizureWhen to seek medical adviceCall your healthcare provider right away if any of these occur: Pain gets worse or moves to the right lower abdomen New or worsening vomiting or diarrhea Swelling of the abdomen Unable to pass stool for more than 3 days Fever of 100.4F (38C) or higher, or as directed by your healthcare provider. Blood in vomit or bowel movements (dark red or black color) Yellow color of eyes and skin (jaundice) Weakness, dizziness Chest, arm, back, neck, or jaw pain Unexpected vaginal bleeding or missed period Can't keep down liquids or water and you are getting dehydrated [id number] [employer]. [address] [place] [address]. All rights reserved. This information is not intended as asubstitute for professional medical care. Always follow your healthcare professional's instructions. You have been given the following additional information: Abdominal Pain, Unknown Cause, (Female)(Electronically signed by Darnell Samuel M.D. 2021 21:08) Name Value Range Interpretation Code Description Data Cesia rce(s) Supporting Document(s) ID Date Data Source [id number] 2021 03:21:00 PM EDT [facility] 1 Clinical Report - Nurses [facility] Emergency Department [address] [place] [address] Phone #: ext- [phone] 15:12 Patient: STARLA FARMER Sex: F : 1995 Age: 26yTRIAGEArrived by private vehicle. Historian: patient. Unaccompanied. ( started 1 month ago, last nightstabbing pain, went away and then today had lunch and the pain came back).Acuity: LEVEL 3.Chief Complaint: ABDOMINAL PAIN.Alert.Onset. (1 month). The patient has had nausea and abdominal pain. The pain is described as located inthe central area of the abdomen.Treatment CLINICAL ACCOUNT MANAGER:None.SEPSIS SCREEN: SIRS SCREEN NEGATIVE. SEPSIS SCREEN NEGATIVE. No suspected or confirmedsigns of infection present. --15:23 06/13/21 Ness Bosch R.N.15:16 06/13/21. BP: 125/9. MAP: 47. HR: 96. RR: 16. O2 saturation: 98%. Temp: 97.1 F. Pain level now:12/08. --15:23 06/13/21 Ness Bosch R.N.Weight: 113.3 kg stated. Height/Length: 64 inches Per Patient. BMI: 42.9. --15:15 06/13/21 Ness Bosch R.N.MedicationsLexapro Oral 15mg, daily. --15:18 06/13/21 Ness Bosch R.N. Concerta Oral (Tablet Extended Release 36 mg), daily. --15:18 06/13/21 Ness Bosch R.N. Vitamin Oral. --15:19 06/13/21 Ness Bosch R.N.AllergiesNystatin. --15:18 06/13/21 Ness Bosch R.N.PROBLEMS:Depression.Anxiety Reaction.ADHD - Attention Deficit Hyperactivity Disorder. --15:19 06/13/21 Ness Bosch R.N.ADDITIONAL SURGERIES:Eye surgery.Sinus Surgery.Tonsillectomy Adenoidectomy. --15:06/13/21 Ness Bosch R.N. 2 Clinical Report - Nurses [facility] Emergency Department [address] [place] [address] Phone #: ext- [phone] 15:12 Patient: STARLA FARMER Sex: F : 1995 Age: 26y History PAST MEDICAL HX: Immunizations: up-to-date. Last normal menstrual period- Jun 04. SOCIAL HX: Never smoker. No alcohol use or drug use. No recent travel. No known contact with a sick individual. The patient was offered HIV testing but declined and hepatitis C testing but declined. The patient has not traveled outside the [place] Infectious disease exposure: No infectious disease exposure. The patient was not exposed to Coronavirus. (vaccinated for covid). Patient is not a known carrier of tuberculosis, hepatitis, HIV, MRSA or VRE. Patient is not a known carrier of CRE. SELF HARM ASSESSMENT: Self harm assessment was performed. The patient answered "no" to the question(s) "Have you recently felt down, depressed, or hopeless?", "Do you have thoughts of harming or killing yourself?" and "Do you have a plan for harming or killing yourself?". ABUSE ASSESSMENT: Abuse assessment. Abuse denied. No suspicion of abuse. No report of abuse. NUTRITIONAL RISK ASSESSMENT: The nutritional risk assessment revealed no deficiencies. FUNCTIONAL ASSESSMENT: Functional assessment: no impairments noted. LEARNING NEEDS ASSESSMENT: The learning needs assessment revealed no barriers. FALL RISK ASSESSMENT: Fall risk assessment completed. No risk factors identified. SKIN INTEGRITY ASSESSMENT: Skin integrity risk assessment completed. No skin integrity risk identified. --15:06/13/21 Ness Bosch R.N. Interventions Identification band on patient. To treatment room. --15:23 06/13/21 Ness Bosch R.N.PHYSICAL ASSESSMENTAmbulatory to room.GENERAL / NEURO / PSYCH: Alert. Oriented X 4. Appears in no acute distress.HEENT: Mucous membranes are pink.RESPIRATORY: Respirations not labored. Breath sounds within normal limits.CVS: Capillary refill less than 2 seconds.GI / : Abdominal tenderness in the periumbilical area. Bowel sounds within normal limits.SKIN: Skin is warm and dry. --16:37 06/13/21 Libertad Matias R.N.NURSING PROGRESS NOTESPatient ID band checked for patient name and birthdate: patient confirmed. Instructions provided to collectclean catch urine and patient verbalized understanding. Clean catch urine collected; sample sent to lab forurinalysis. Specimen labeled in the presence of the patient. --15:38 06/13/21 Ness Bosch R.N. 3 Clinical Report - Nurses [facility] Emergency Department [address] [place] [address] Phone #: ext- [phone] 15:12 Patient: STARLA FARMER [facility]#: [id number] Sex: F : 1995 Age: 26y 16:37 2021 Site #1 started via IV in the right forearm with an 20g angiocath; one attempt. Blood drawn: rainbow set and green tube(s). Saline lock flushed with 10 mL saline. --16:37 06/13/21 Libertad Matias R.N. 16:37 2021 Toradol (Ketorolac Tromethamine) IVP 15 mg given via site #1. A llergies verified and confirmed 5 rights. IV patency established. IV site checked: no pain, redness, or swelling. IV flushed thoroughly pre- and post- medication administration. IVP given by RN. Information reviewed with patient including reason for taking this medication. Verbalizes understanding. --16:37 06/13/21 Libertad Matias R.N. Patient transported to [place] by wheelchair with mask and tech. --16:54 06/13/21 Libertad Matias R.N.DISPOSITION / DISCHARGE Departure time: 19:18 2021. No learning barriers present. Discharge instructions provided and reviewed with the patient. Reviewed warnings (return for worsening codition). Reviewed referral to a primary care physician for followup and testing. Reviewed need for increased fluid intake. Patient verbalized understanding. Written instructions provided in Nicaraguan. No medication instructions, treatment instructions, activity restrictions, note given or follow up contact number given. The patient was discharged by the physician. She was discharged home and unaccompanied at time of discharge. She left ambulatory and via private vehicle. --19:18 06/13/21 Riki Wynne 19:10 06/13/21. BP: 112/64. MAP: 80. HR: 71. RR: 18. O2 saturation: 98%. Temp: 97.5 F. Pain level now: 0/10. --19:18 06/13/21 Riki Wynne.Locked/Released at 2021 19:18 by Riki Wynne Name Value Range Interpretation Code Description Data Cesia rce(s) Supporting Document(s) ID Date Data Source [id number] 2021 03:21:00 PM EDT [facility] 1 Clinical Report - Physicians/Mid Levels [facility] Emergency Department [address] [place] [address] Phone #: ext- [phone] 15:12 Patient: STARLA FARMER Sex: F : 1995 Age: 26y Time Seen: 16:00 2021; initial patient contact. Arrived- By private vehicle. Historian- patient. Disposition decision: 19:05 2021.HISTORY OF PRESENT ILLNESS Chief Complaint: ABDOMINAL PAIN. This started 6 months ago and is still present and now worse. (since last night). It has been intermittent. No radiation. It is described as located in the periumbilical area. At its maximum, severity described as severe and 8 / 10. When seen in the E.D., severity described as moderate and 4 / 10. Modifying factors- worsened by food. Relieved by rest. The patient has had mild associated nausea. No loss of appetite, vomiting or diarrhea. No recent travel. Similar symptoms previously. Patient has had similar symptoms chronically. ( daily since 11/2020, worse since last night). Recent medical care: Not recently seen/assessed.REVIEW OF SYSTEMSNo constipation, black stools, hematemesis, difficulty with urination or pain with urination. No urinaryfrequency, bloody stools, fever, headache or sore throat. No blurred vision, chest pain, difficulty breathing,cough or joint pain. No skin rash, chills or back pain. The patient has not had weight loss. All othersystems reviewed and are negative.PAST HISTORYSee nurses notes. Problems: Obesity. Depression. Anxiety Reaction. ADHD - Attention Deficit Hyperactivity Disorder. Additional Surgeries: Eye surgery. Sinus Surgery. Tonsillectomy Adenoidectomy. Medications: Vitamin Oral. Concerta Oral (Tablet Extended Release 36 mg), daily. Lexapro Oral 15mg, daily. 2 Clinical Report - Physicians/Mid Levels [facility] Emergency Department [address] [place] [address] Phone #: ext- [phone] 15:12 Patient: STARLA FARMER Sex: F : 1995 Age: 26y Allergies: Nystatin.SOCIAL HISTORYNever smoker. No alcohol use or drug use. No recent travel.ADDITIONAL NOTESThe nursing notes have been reviewed with agreement regarding the chief complaint, HPI, ROS, PMH andpatient medications and allergies.PHYSICAL EXAMVital Signs: 2021 15:16 BP: 125/9. MAP: 47. HR: 96. RR: 16. O2 saturation: 98%. Temp: 97.1 F.Pain level now: 12/08. Have been reviewed. Oxygen saturation normal.Appearance: Alert. Oriented X3. Anxious. Patient in mild distress. Distress appears due to pain.Eyes: Pupils equal, round and reactive to light. Eyes normal inspection.ENT: Nose normal. Pharynx normal.Neck: Normal inspection. Neck supple.CVS: Normal heart rate and rhythm. Heart sounds normal. Pulses normal.Respiratory: No respiratory distress. Painless inspiration. Breath sounds normal. Chest nontender.Abdomen: Soft. Mild tenderness in the periumbilical area. No guarding or rebound tenderness. Bowelsounds normal. No organomegaly. No mass. Femoral pulses equal. Mildly obese. (small tenderumbilical hernia possibly felt, reducible).Back: Normal inspection. No CVA tenderness.Skin: Skin warm and dry. Normal skin color. No rash. Normal skin turgor.Extremities: Extremities exhibit normal ROM. No lower extremity edema.Neuro: Oriented X 3. No motor deficit. No sensory deficit.LABS, X-RAYS, AND EKGAbdominal CT: [facility] Call: [phone] Online chat: [email or web address] Name: STARLA FARMER (Age): 1995 26 Gender: FDate of Exam: 2021 Physician: DARNELL SAMUEL # of Images: [id number] As: CT ABDOMEN/PELVIS WPROCEDURE INFORMATION:Exam: CT Abdomen And Pelvis With ContrastExam date and time: 2021 4:37 PMAge: 26 years oldClinical indication: Abdominal pain; Periumbilical; Patient HX: Physician felt umbilical hernia uponphysical examTECHNIQUE:Imaging protocol: Computed tomography of the abdomen and pelvis with contrast. 3 Clinical Report - Physicians/Mid Levels [facility] Emergency Department [address] [place] [address] Phone #: ext- [phone] 15:12 [id number] Sex: F : 1995 Age: 26yRadiation optimization: All CT scans at this facility use at least one of these dose optimizationtechniques: automated exposure control; mA and/or kV adjustment per patient size (includes targetedexams where dose is matched to clinical indication); or iterative reconstruction.Contrast material: ISOVUE 370; Contrast volume: 75 ml; Contrast route: INTRAVENOUS (IV);COMPARISON:No relevant prior studies available.FINDINGS:Liver: Normal. No mass.Gallbladder and bile ducts: Normal. No calcified stones. No ductal dilation.Pancreas: Normal. No ductal dilation.Spleen: Normal. No splenomegaly.Adrenal glands: Normal. No mass.Kidneys and ureters: Normal. No hydronephrosis.Stomach and bowel: Unremarkable. No obstruction. No mucosal thickening.Appendix: No evidence of appendicitis.Intraperitoneal space: Unremarkable. No free air. No significant fluid collection.Vasculature: Unremarkable. No abdominal aortic aneurysm.Lymph nodes: Unremarkable. No enlarged lymph nodes.Urinary bladder: Unremarkable as visualized.Reproductive: Unremarkable as visualized.Bones/joints: Unremarkable. No acute fracture.Soft tissues: Midline umbilical defect with minute fat filled small hernia. Ill-defined 1.7 cm midline softtissue density could represent subcutaneous secondary infection series 201 image 76. No abdominalwall mass or abscess.IMPRESSION:1. No acute intra-abdominal or pelvic findings.STARLA FARMER Preliminary Radiology ReportQUALITY ASSURANCE (QA) DISCREPANCY?If there is a discrepancy between the preliminary and final interpretation, please notify [facility] [email or web address].If you do not have access to our QA portal, call our QA team at [phone] STATEMENTThis report is intended only for the use of the referring physician, and only in accordance with law, If youreceived this in error, call [phone] . Midline surface umbilical defect with minute fat filled hernia. Clinically correlate site for priorpostsurgical intervention. Ill-defined soft tissue density within the midline subcutaneous fat should becorrelated for focal infectious or inflammatory etiology.Thank you for allowing us to participate in the care of your patient.Dictated and Authenticated by: Krystina Bell MD2021 6:35 PM Eastern Time ([facility]). Study type: abdomen and pelvis. Abdominal CTperformed with IV contrast. The study was interpreted by the radiologist.Laboratory Tests: Laboratory tests have been ordered, with results reviewed and considered in themedical decision making process. 4 Clinical Report - Physicians/Mid Levels [facility] Emergency Department [address] [place] [address] Phone #: ext- [phone] 15:12 Patient: STARLA FARMER Sex: F : 1995 Age: 26yCBC w Diff: (JASON: 2021 16:32) ( MsgRcvd 2021 16:51) Final results Test Result Flag Units (Reference) CBC W/AUTOMATED DIFF COMPLETE BLOOD COUNT WBC 8.3 10/uL (4.2 - 11.0) RBC 4.88 10/uL (4.20 - 5.40) HEMOGLOBIN 14.5 g/dL (12.0 - 16.0) HEMATOCRIT 40.9 % (37.0 - 47.0) MCV 83.8 fL (81.0 - 101) MCH 29.7 pg (27.0 - 34.0) MCHC 35.5 g/dL (31.0 - 36.0) RDW 12.3 % (11.5 - 14.5) PLATELETS 312 10/uL (150 - 450) MPV 9.6 fL (7.4 - 10.4) NEUT 57.6 % (37.0 - 80.0) LYMPH 35.0 % (25.0 - 40.0) MONO 5.7 % (3.0 - 8.0) EOS 1.0 % (0.0 - 7.0) BASO 0.5 % (0.0 - 2.5) %IG 0.2 H % (0.0 - 0.0) %NRBC 0.0 % (0.0 - 0.0) #NEUT 4.75 10/uL (2.00 - 6.90) #LYMPH 2.89 10/uL (0.60 - 3.40) #MONO 0.47 10/uL (0.00 - 0.90) #EOS 0.08 10/uL (0.00 - 0.70) #BASO 0.04 10/uL (0.00 - 0.20) #IG 0.02 10/uL (0.00 - 0.10) #NRBC 0.00 10/uL (0.00 - 0.00) MANUAL DIFF NOT INDICATED RBC MORPH NOT INDICATEDCMP: (JASON: 2021 16:32) ( MsgRcvd 2021 17:13) Final results Test Result Flag Units (Reference) COMPREHENSIVE METABOLIC PANEL COMPREHENSIVE METABOLIC PANEL SODIUM 138 mEq/L (134 - 153) POTASSIUM 3.6 mEq/L (3.6 - 5.0) CHLORIDE 101 mEq/L (98 - 107) CO2 26 MEQ/L (22 - 30) GLUCOSE 169 H MG/DL (70 - 99) BUN 11 MG/DL (7 - 21) CREATININE 0.6 L MG/DL (0.7 - 1.5) BUN/CREAT 18 (8 - 27) TOTAL PROTEIN 7.1 G/DL (6.3 - 8.2) ALBUMIN 4.6 G/DL (3.9 - 5.0) GLOBULIN 2.5 GM/DL (2.4 - 3.2) A/G RATIO 1.8 (0.8 - 2.0) CALCIUM 9.3 MG/DL (8.4 - 10.2) TOTAL BILI <0.7 MG/DL (0.2 - 1.3) ALKALINE PHOS 67 U/L (38 - 126) SGOT/AST 15 U/L (5 - 40) SGPT/ALT 16 U/L (7 - 56) ANION GAP 11.0 mmol/L (8.0 - 16.0) AGE 26 yrs NON-AA GFR >60 mL/min AFR AMER GFR >60 mL/min Male GFR Interprentation 20-49 yrs >60 mL/min Owwdwk03-91 yrs >56 mL/min Normal 60-69 yrs >49 mL/min Normal 70-79yrs 5 Clinical Report - Physicians/Mid Levels [facility] Emergency Department [address] [place] [address] Phone #: ext- [phone] 15:12 Patient: STARLA FARMER Sex: F : 1995 Age: 26y >42 mL/min Normal 80 and above >35 mL/min Normal Female GFR Interpretation 20-39 yrs >60 mL/min Normal 40-49 yrs >58 mL/min Normal 50-59 yrs >51 mL/min Normal 60-69 yrs >45 mL/min Normal 70-79 yrs >39 mL/min Normal 80 and above >32 mL/min Normal Lipase: (JASON: 2021 16:32) ( CagRcvd 2021 17:08) Final results Test Result Flag Units (Reference) LIPASE 15 U/L (13 - 60) Lactic Acid: (JASON: 2021 16:32) ( MsgRcvd 2021 16:49) Final results Test Result Flag Units (Reference) LACTIC ACID 1.9 MMOL/L (0.2 - 2.2) UA REFLEX TO UA CULTURE: (JASON: 2021 15:35) ( MsgRcvd 2021 15:53) Final results Test Result Flag Units (Reference) UA REFLEX TO UA CULTURE URINALYSIS SOURCE R COLOR yellow (NORMAL: Yello CLARITY clear (NORMAL: Clear SPEC GRAVITY 1.030 (1.001 - 1.030 pH 6 (5 - 9) GLUCOSE NORM (NORMAL: Negat BILIRUBIN NEG (NORMAL: Negat KETONE NEG (NORMAL: Negat PROTEIN 15 (NORMAL: Negat NITRITE NEG (NORMAL: Negat BLOOD NEG (NORMAL: Negat LEUK EST 25 (NORMAL: Negat UROBILINOGEN NOR (less than 1.0 MICROSCOPIC See Below WBC 7 - 10 A (NORMAL: NONE RBC 0 - 1 (NORMAL: NONE EPITHELIAL FEW (NORMAL: NONE BACTERIA Trace (NORMAL: NONE Beta-HCG, Qual Urine: (JASON: 2021 15:35) ( MsgRcvd 2021 15:49) Final results Test Result Flag Units (Reference) HCG URINE QUAL NEGATIVE (NORMAL: NEGAT HCG URINE QL REENTER NEGATIVE (NORMAL: NEGAT { KIT LOT # [id number] ){ KIT EXP DATE 09.30.22 ){ PROCEDURAL CONTROL VALID ).PROGRESS AND PROCEDURESCourse of Care: 19:03 06/13/21. workup all in and nml, CTAP w IV nml, see report, pt doing much better,abdominal pain etiology?, will d/c home w instructions, pt understands and agrees. Patient counseled in person regarding the patient's stable conditio n, test results, diagnosis and need for 6 Clinical Report - Physicians/Mid Levels [facility] Emergency Department [address] [place] [address] Phone #: ext- [phone] 15:12 Patient: STARLA FARMER Sex: F : 1995 Age: 26y follow-up. Patient agrees with plan of care. Disposition: Condition: good and stable. Discharge decision based on the following: patient's condition is stable; patient's condition is improved; patient is ambulatory; patient is active; patient drinking fluids; patient eating; patient's pain is controlled; patient's exam is improved; no abnormal test results; improving condition on repeat evaluation; social support is good; transportation is available; follow-up is available; clinical impression is consistent with outpatient treatment.CLINICAL IMPRESSION Chronic periumbilical abdominal pain of unknown cause, now resolved.INSTRUCTIONS Drink plenty of fluids. Avoid alcohol and NSAIDS. NSAIDS include aspirin, ibuprofen (Advil) and naproxen (Aleve). Avoid fatty, fried/greasy, lactose-containing (such as milk, cheese and ice cream), salty and spicy foods. No alcohol. Do not smoke. Warnings: Further evaluation is necessary. It is very important to follow up with a healthcare provider. GENERAL WARNINGS: Return or contact your physician immediately if your condition worsens or changes unexpectedly, if not improving as expected, or if other problems arise. SPECIFICALLY, return if you develop pain in the abdomen, pelvis, back or shoulder, fever, vomiting, the inability to keep fluids down, blood in vomitus, blood in diarrhea, fainting or lightheadedness. Your Current Medications: Your current home medications have been reviewed. CONTINUE TAKING THE FOLLOWING MEDICATIONS: Concerta Oral : Tablet Extended Release 36 mg, daily. Lexapro Oral : 15mg daily. Vitamin Oral. Follow-up: Return to the emergency department as needed. Follow up with your healthcare provider in five days even if well. Call for an appointment. Reason for referral: evaluation and treatment. Summary of care provided to patient via paper. Understanding of the discharge instructions verbalized by patient. Expected course of illness, discharge instructions, activity level, diet, follow-up appointment and risks and benefits of treatment reviewed with patient and understanding verbalized. Agrees to plan of care. 7 Clinical Report - Physicians/Mid Levels [facility] Emergency Department [address] [place] [address] Phone #: ext- [phone] 15:12 Patient: STARLA FARMER Sex: F : 1995 Age: 26y(Electronically signed by Darnell Samuel M.D. 2021 21:08) Name Value Range Interpretation Code Description Data Cesia e(s) Supporting Document(s) ID Date Data Source [id number] 2021 05:13:00 PM EDT [facility] Name Value Range Interpretation Code Description Data Cesia rce(s) Supporting Document(s) COMPREHENSIVE METABOLIC PANEL [facility] COMPREHENSIVE METABOLIC PANEL Sodium [Moles/volume] in Serum or Plasma 138 mEq/L 134 - 153 [facility] Potassium [Moles/volume] in Serum or Plasma 3.6 mEq/L 3.6 - 5.0 [facility] Chloride [Moles/volume] in Serum or Plasma 101 mEq/L 98 - 107 [facility] Carbon dioxide, total [Moles/volume] in Serum or Plasma 26 MEQ/L 22 - 30 [facility] Glucose [Mass/volume] in Serum or Plasma 169 MG/DL 70 - 99 H [facility] BUN 11 MG/DL 7 - 21 [facility] Creatinine [Mass/volume] in Serum or Plasma 0.6 MG/DL 0.7 - 1.5 L [facility] BUN/CREAT 18 8 - 27 [facility] Protein [Mass/volume] in Serum or Plasma 7.1 G/DL 6.3 - 8.2 [facility] Albumin [Mass/volume] in Serum or Plasma 4.6 G/DL 3.9 - 5.0 [facility] Globulin [Mass/volume] in Serum by calculation 2.5 GM/DL 2.4 - 3.2 [facility] A/G RATIO 1.8 0.8 - 2.0 [facility] Calcium [Mass/volume] in Serum or Plasma 9.3 MG/DL 8.4 - 10.2 [facility] Bilirubin.total [Mass/volume] in Serum or Plasma <0.7 MG/DL 0.2 - 1.3 [facility] Alkaline phosphatase [Enzymatic activity/volume] in Serum or Plasma 67 U/L 38 - 126 [facility] Aspartate aminotransferase [Enzymatic activity/volume] in Serum or Plasma 15 U/L 5 - 40 [facility] Alanine aminotransferase [Enzymatic activity/volume] in Seru m or Plasma 16 U/L 7 - 56 [facility] Anion gap 3 in Serum or Plasma 11.0 mmol/L 8.0 - 16.0 [facility] AGE 26 yrs [facility] NON-AA GFR >60 mL/min [facility] ital AFR AMER GFR >60 mL/min [facility] Male GFR In terprentation 20-49 yrs >60 mL/min Normal 50-59 yrs >56 mL/min Normal 60-69 yrs >49 mL/min Normal 70-79yrs >42 mL/min Normal 80 and above >35 mL/min Normal Female GFR Interpretation 20-39 yrs >60 mL/min Normal 40-49 yrs >58 mL/min Normal 50-59 yrs >51 mL/min Normal 60-69 yrs >45 mL/min Normal 70-79 yrs >39 mL/min Normal 80 and above >32 mL/min Normal ID Date Data Source [id number] 2021 05:08:00 PM T [facility] Name Value Range Interpretation Code Description Data Cesia rce(s) Supporting Document(s) Lipase [Enzymatic activity/volume] in Serum or Plasma 15 U/L 13 - 60 [facility] ID Date Data Source [id number] 2021 04:50:00 PM [facility] Name Value Range Interpretation Code Description Data Cesia rce(s) Supporting Document(s) CBC W/AUTOMATED DIFF [facility] COMPLETE BLOOD COUNT Leukocytes [#/volume] in Blood by Automated count 8.3 10^3/uL 4.2 - 1 1.0 [facility] Erythrocytes [#/volume] in Blood by Automated count 4.88 10^6/uL 4. 20 - 5.40 [facility] Hemoglobin [Mass/volume] in Blood 14.5 g/dL 12.0 - 16.0 [facility] Hematocrit [Volume Fraction] of Blood by Automated count 40.9 % 3 7.0 - 47.0 [facility] Erythrocyte mean corpuscular volume [Entitic volume] by Auto mated count 83.8 fL 81.0 - 101 [facility] Erythrocyte mean corpuscular hemoglobin [Entitic mass] by Automated count 29.7 pg 27.0 - 34.0 [facility] Erythrocyte mean corpuscular hemoglobin concentration [Mass/volume] by Automated count 35.5 g/dL 31.0 - 36.0 [facility] Erythrocyte distribution width [Ratio] by Automated count 12.3 % 11.5 - 14.5 [facility] Platelets [#/volume] in Blood by Automated count 312 10^3/uL 150 - 45 0 [facility] Platelet mean volume [Entitic volume] in Blood by Automated count 9.6 fL 7.4 - 10.4 [facility] Neutrophils/100 leukocytes in Blood by Automated count 57.6 % 37. 0 - 80.0 [facility] Lymphocytes/100 leukocytes in Blood by Manual count 35.0 % 25.0 - 40.0 [facility] Monocytes/100 leukocytes in Blood by Automated count 5.7 % 3.0 - 8.0 [facility] Eosinophils/100 leukocytes in Blood by Automated count 1.0 % 0.0 - 7.0 [facility] Basophils/100 leukocytes in Blood by Automated count 0.5 % 0.0 - 2.5 [facility] %IG 0.2 % 0.0 - 0.0 [facility] 0.0 % 0.0 - 0.0 [facility] Neutrophils [#/volume] in Blood by Automated count 4.75 10^3/uL 2.00 - 6.90 [facility] Lymphocytes [#/volume] in Blood by Automated count 2.89 10^3/uL 0.60 - 3.40 [facility] Monocytes [#/volume] in Blood by Automated count 0.47 10^3/uL 0.00 - 0.90 [facility] Eosinophils [#/volume] in Blood by Automated count 0.08 10^3/uL 0.00 - 0.70 [facility] Basophils [#/volume] in Blood by Automated count 0.04 10^3/uL 0.00 - 0.20 [facility] #IG 0.02 10^3/uL 0.00 - 0.10 [facility] ospital #NRBC 0.00 10^3/uL 0.00 - 0.00 [facility] MANUAL DIFF NOT INDICATED [facility] RBC MORPH NOT INDICATED [facility] ID Date Data Source [id number] 2021 04:49:00 PM EDT [facility] Name Value Range Interpretation Code Description Data Cesia rce(s) Supporting Document(s) Lactate [Moles/volume] in Serum or Plasma 1.9 MMOL/L 0.2 - 2.2 [facility] ID Date Data Source [id number] 06/16/2021 08:29:00 AM EDT [facility] Name Value Range Interpretation Code Description Data Cesia rce(s) Supporting Document(s) CULTURE URINE [facility] _CULTURE URINE_$$[id number]$$[id number]$$[id number]$$[id number]$$[id number]$$[id number]$$[id number]$$[id number]$$[id number]$$ [id number]$$[id number]$$[id number]$$200551$$[id number]$$882934$$[id number]$$[id number]$$552355$$376081$$ 228181$$484399$$950831$$985950$$377138$$810535$$754106$$[id number] -- Continued on next page --Patient: LAKEISHA Carrera Order: [id number] Page 2Culture: CULTURE URINE Status: Final ====$$[id number]$$[id number] DATE/TIME: 06/16/2021 08:06Culture: CULTURE URINE Status: FinalUrine Culture,Comprehensive: S1Nmdfx urogenital flora25,000-50,000 colony forming units per mLP1 Test performed by: Stanton TOMLINSON #: [id number] [address] [place] [id number] [facility] [id number] Director : Apollo Portillo MD NPI #:Dance Critic : 06/16/[email or web address] REF ID Date Data Source [id number] 2021 03:52:00 PM EDT [facility] Name Value Range Interpretation Code Description Data Cesia rce(s) Supporting Document(s) UA REFLEX TO UA CULTURE [facility] COL[facility] yellow NORMAL: Yellow [facility] CLARITY clear NORMAL: Clear [facility] Specific gravity of Urine by Test strip 1.030 1.001 - 1.030 [facility] pH 6 5 - 9 [facility] Glucose [Mass/volume] in Urine by Test strip NORM NORMAL: Negat [facility] Bilirubin.total [Presence] in Urine by Test strip NEG NORMAL: Negative [facility] Ketones [Presence] in Urine by Test strip NEG NORMAL: Negative [facility] Protein [Mass/volume] in Urine by Test strip 15 NORMAL: Negat [facility] Nitrite [Presence] in Urine by Test strip NEG NORMAL: Negative [facility] BLOOD NEG NORMAL: Negative [facility] Leukocyte esterase [Presence] in Urine by Test strip 25 SAMANTHA L: Negative [facility] Urobilinogen [Mass/volume] in Urine by Test strip NOR less luca n 1.0 mg/dL [facility] MICROSCOPIC See Below [facility] ital WBC 7 - 10 NORMAL: NONE SEEN A [facility] Erythrocytes [#/volume] in Urine by Test strip 0 - 1 NORMAL: NON E SEEN [facility] EPITHELIAL FEW NORMAL: NONE SEEN [facility] Bacteria [Presence] in Urine sediment by Light microscopy Tr sumanth NORMAL: NONE SEEN [facility] ID Date Data Source [id number] 2021 03:49:00 PM EDT [facility] Name Value Range Interpretation Code Description Data Cesia rce(s) Supporting Document(s) HCG URINE QUAL NEGATIVE NORMAL: NEGATIVE [facility] HCG URINE QL REENTER NEGATIVE NORMAL: NEGATIVE [facility] { KIT LOT # [id number] ){ KIT EXP DATE 09.30.22 ){ PROCEDURAL CONTROL VALID ) ID Date Data Source [id number] 06/12/2021 11:10:00 PM EDT [facility] ([facility]) Name Value Range Interpretation Code Description Data Cesia rce(s) Supporting Document(s) Appearance, Urine Laboratory test result [facility] ([facility]) Color, Urine Laboratory test result [facility] Specific [place] Urine Auto 1.018 1.002-1.035 [facility] ([facility]) Protein, Urine Auto Laboratory test result [facility] PH,Urine 7.0 units 5.0-9.0 [facility] Glucose, Urine (Ua) Auto Laboratory test result [facility] ([facility]) Ketone, Urine Auto Laboratory test result [facility] ([facility]) Urobilinogen, Urine Auto 0.2 mg/dL 0.0-2.0 [facility] Bilirubin, Urine Auto Laboratory test result [facility] ([facility]) Nitrite, Urine Auto Laboratory test result [facility] Leukocyte Esterase, Urine Auto Laboratory test result [facility] ([facility]) WBC, Urine Auto 0 /HPF 0-3 [facility] ([facility]) Blood, Urine Blood Laboratory test result [facility] ([facility]) Squamous Epithelial Cell Ur AU 4 /HPF 0-6 [facility] ([facility]) Bacteria, Urine Auto Laboratory test result [facility] ([facility]) RBC, Urine Auto 1 /HPF 0-3 [facility] ([facility]) Hyaline Cast, Urine Auto 0 /LPF 0-1 [facility] Mucus, Urine Laboratory test result [facility] ID Date Data Source [id number] 05/30/2021 12:00:00 AM EDT [facility] Name Value Range Interpretation Code Description Data Cesia rce(s) Supporting Document(s) SARS-CoV2 Rapid Antigen Negative [facility] This lab was reported by [facility]. ID Date Data Source [id number] 05/20/2021 01:48:00 PM EDT [facility] ([facility]) Name Value Range Interpretation Code Description Data Cesia rce(s) Supporting Document(s) Thyrotropin [Units/volume] in Serum or Plasma by Detec tion limit <= 0.05 mIU/L 1.26 uIU/mL 0.36-3.74 [facility] ([facility] ) ID Date Data Source [id number] 05/20/2021 01:48:00 PM EDT [facility] ([facility]) Name Value Range Interpretation Code Description Data Cesia rce(s) Supporting Document(s) Cholesterol [Mass/volume] in Serum or Plasma 174 mg/dL 131-200 [facility] ([facility]) Cholesterol in LDL [Mass/volume] in Serum or Plasma by calcu lation 105 CALC 50-159 [facility] ([facility]) Triglyceride [Mass/volume] in Serum or Plasma 99 mg/dL 30-150 [facility] ([facility]) Cholesterol in HDL [Mass/volume] in Serum or Plasma 49 mg/dL 35-60 [facility] ([facility]) ID Date Data Source [id number] 05/20/2021 01:48:00 PM EDT [facility] ([facility]) Name Value Range Interpretation Code Description Data Cesia rce(s) Supporting Document(s) Glucose [Mass/volume] in Serum or Plasma 89 mg/dL 74-99 [facility] ([facility]) 100-125 mg/dL PRE-DIABETES/FASTING >126 mg/dL DIABETES/FASTING Creatinine 0.6 mg/dL 0.6-1.3 [facility] Urea nitrogen [Mass/volume] in Serum or Plasma 8 mg/dL 7-18 [facility] ([facility]) Sodium [Moles/volume] in Serum or Plasma 141 meq/L 136-145 [facility] ([facility]) Chloride [Moles/volume] in Serum or Plasma 106 meq/L 98-107 [facility] ([facility]) Potassium [Moles/volume] in Serum or Plasma 4.0 meq/L 3.5-5.1 [facility] ([facility]) Alkaline phosphatase isoenzyme [Units/volume] in Serum or Pl asma 56 mg/dL 46-116 [facility] ([facility]) Carbon dioxide, total [Moles/volume] in Serum or Plasma 27 meq/L 21 -32 [facility] ([facility]) Calcium [Mass/volume] in Serum or Plasma 8.8 mg/dL 8.5-10.1 [facility] ([facility]) Aspartate aminotransferase [Enzymatic activity/volume] in Serum or Plasma 10 U/L 15-37 [facility] ([facility] ) Alanine aminotransferase [Enzymatic activity/volume] in Seru m or Plasma 19 U/L 12-78 [facility] ([facility]) Total Bilirubin 0.4 mg/dL 0.2-1.0 [facility] ([facility]) A/G Ratio 1.27 CALC 1.00-1.90 [facility]) Proteinase 3 Ab [Units/volume] in Serum 6.8 g/dL 6.4-8.2 [facility] ([facility]) Albumin [Mass/volume] in Serum or Plasma 3.8 g/dL 3.4-5.0 [facility] ([facility]) Glomerular filtration rate/1.73 sq M pre dicted among non-blacks [Volume Rate/Area] in Serum or Plasma by Creatinine-based formula (MDRD) Laboratory test result [facility] ([facility] ) Glomerular filtration rate/1.73 sq M pre dicted among blacks [Volume Rate/Area] in Serum or Plasma by Creatinine-based formula (MDRD) Laboratory test result [facility] ([facility]) <content>CHRONIC KIDNEY DISEASE STAGING PER NKF</content>
<content></content>
<content>STAGE I & II GFR >= 60 NORMAL TO MILDLY DECREASED</content>
<content>STAGE III GFR 30-59 MODERATELY DECREASED</content>
<content>STAGE IV GFR 15-29 SEVERELY DECREASED</content>
<content>STAGE V GFR <15 VERY LITTLE GFR LEFT</content>
<content>ESRD GFR <15 ON DROSSER</content>
<content></content> ID Date Data Source [id number] 05/20/2021 01:48:00 PM EDT [facility] ([facility]) Name Value Range Interpretation Code Description Data Cesia rce(s) Supporting Document(s) Erythrocytes [#/volume] in Blood by Automated count 4.94 x10*6/UL 4.2 0-6.30 [facility] ([facility]) Leukocytes [#/volume] in Blood by Automated count 6.5 x10*3/UL 4.1-10 .9 [facility] ([facility]) Hemoglobin [Mass/volume] in Blood 14.5 g/dL 12.0-18.0 [facility] ([facility]) Hematocrit [Volume Fraction] of Blood by Automated count 41.3 % 3 7.0-51.0 [facility] ([facility]) MCV 83.5 fL 80.0-97.0 [facility] MCHC 35.2 g/dL 31.0-38.0 [facility] ([facility]) Erythrocyte distribution width [Ratio] by Automated count 12.4 % 11.6-13.7 [facility] ([facility]) MCH 29.4 pg 26.0-32.0 [facility] MPV 8.0 FL 7.8-11.0 [facility]) Platelets [#/volume] in Blood by Automated count 297 x10*3/UL 140-440 [facility] ([facility]) Lymph % 42.4 % 10.0-58.5 [facility] Mid % 6.9 % 1.7-9.3 [facility] Neut % 50.7 % 37.0-92.0 [facility] Lymph # 2.7 x10*3/UL 0.6-4.1 [facility] ([facility]) Mid # 0.5 x10*3/UL 0.1-0.6 [facility] ([facility]) Neut # 3.3 x10*3/UL 2.0-7.8 [facility] ([facility]) ID Date Data Source [id number] 05/09/2021 12:30:00 PM [facility]T [facility] Name Value Range Interpretation Code Description Data Cesia rce(s) Supporting Document(s) SARS-CoV-2 RNA Resp Ql BARBARA+probe NOT DETECTED [facility] This lab was ordered by RAFAEL snider and reported by RAFAEL Keys. ID Date Data Source [id number] 02/28/2021 08:00:00 AM EDT [facility] ([facility]) Name Value Range Interpretation Code Description Data Cesia rce(s) Supporting Document(s) Dehydroepiandrosterone sulfate (DHEA-S) [Mass/volume] in Serum or Plasma 181.0 ug/dL 110.0-431.7 Normal (applies to non-numeric results) [facility] ([facility]) Performed at: - [facility] [address] [id number] Dance Critic: Raven Bustillos MD, Phone: [phone] ID Date Data Source [id number] 02/28/2021 08:00:00 AM EDT [facility] ([facility]) Name Value Range Interpretation Code Description Data Cesia rce(s) Supporting Document(s) Testosterone Free (Direct) 3.3 pg/mL 0.0-4.2 Samantha l (applies to non-numeric results) [facility] ([facility]) Testosterone Total For T&D 12.0 ng/dL 13-71 Below low normal [facility] ([facility]) ID Date Data Source [id number] 02/28/2021 08:00:00 AM EDT [facility] ([facility]) Name Value Range Interpretation Code Description Data Cesia rce(s) Supporting Document(s) Follicle Stimulating Hormone 0.9 mIU/mL Nor mal (applies to non-numeric results) [facility] ([facility]) <content>NORMAL MENSTRUATING FEMALES:</c ontent>
<content>FOLLICULAR PHASE 2.5-10.2 mIU/mL</content>
<content>MID CYCLE PEAK 3.4-33.4 mIU/mL</content>
<content>LUTEAL PHASE 1.5-9.1 mIU/mL</content>
<content></content>
<content>: <0.3 mIU/mL</content>
<content>POST MENOPAUSAL FEMALES: 23.0-116.3 mIU/mL</content>
<content></content> Luteinizing Hormone 3.4 mIU/mL Normal (applies to non-nume kalie results) [facility]) <content>NORMAL MENSTRUATING FEMALES:</c ontent>
<content>FOLLICULAR PHASE 1.9-12.5 mIU/mL</content>
<content>MID CYCLE PEAK 8.7-76.3 mIU/mL</content>
<content>LUTEAL PHASE 0.5-16.9 mIU/mL</content>
<content></content>
<content> <1.5 mIU/mL</content>
<content>POST MENOPAUSAL FEMALES: 15.9-54.0 mIU/mL</content>
<content>CONTRACEPTIVES 0.7-5.6 mIU/mL</content>
<content></content> ID Date Data Source [id number] 02/28/2021 08:00:00 AM EDT [facility] ([facility]) Name Value Range Interpretation Code Description Data Cesia rce(s) Supporting Document(s) Free T4 0.75 ng/dL 0.76-1.46 Below low normal [facility] ( [facility]) Thyroid Stimulating Hormone 1.770 uIU/ML 0.358-3.740 Norm al (applies to non- numeric results) [facility] ([facility]) ID Date Data Source [id number] 02/28/2021 08:00:00 AM EDT [facility] ([facility]) Name Value Range Interpretation Code Description Data Cesia rce(s) Supporting Document(s) Estradiol (E2) [Mass/volume] in Serum or Plasma 118.4 pg/mL Normal (applies to non-numeric results) [facility] ([facility]) <content>NORMAL MENSTRUATING FEMALES:</content>
<content></content>
<content>FOLLICULAR PHASE 19.5-144.2 PG/ML</content>
<content>MID CYCLE PEAK 63.9- 356.7 PG/ML</content>
<content>LUTEAL PHASE 55.8-214.2 PG/ML</content>
<content></content>
<content>POST MENOPAUSAL FEMALES <32.2 PG/ML</content>
<content>(UNTREATED)</content>
<content></content>
<content>THE eESTRADIOL2 ASSAY IS PERFORMED ON THE [facility] BY</content>
<content>CHEMILUMINESCENCE AND SHOULD NOT BE COMPARED INTERCHANGEABLY</content>
<content>WITH OTHER METHODS.</content>
<content></content>
<content>Falsely elevated Estradiol test results can be seen in</content>
<content>patients treated with fulvestrant (Faslodex). Estradiol</content>
<content>concentrations in fulvestrant treated women should only be</content>
<content>measured by LC- MS (Liquid Chromatography-Mass Spectrometry).</content>
<content></content> ID Date Data Source [id number] 02/28/2021 08:00:00 AM EDT [facility] ([facility]) Name Value Range Interpretation Code Description Data Cesia rce(s) Supporting Document(s) Hemoglobin A1c 5.9 % Normal (applies to non-numeric r esults) [facility] ([facility]) <content>REFERENCE RANGES:</content><br/ ><content></content>
<content><=5.6% NORMAL</content>
<content>5.7-6.4% SUGGESTS IMPAIRED GLUCOSE METABOLISM/PREDIABETIC</content>
<content>>= 6.5% ABNORMAL</content>
<content></content> Estimated Average Glucose 123 mg/dL 60-110 Above high normal [facility] ([facility]) ID Date Data Source [id number] 02/28/2021 08:00:00 AM EDT [facility] ([facility]) Name Value Range Interpretation Code Description Data Cesia rce(s) Supporting Document(s) White Blood Count 7.4 10 4.0-10.0 Normal (applies to non-numeri c results) [facility] ([facility]) Red Blood Count 4.78 10 4.00-5.40 Normal (applies to non-numeric results) [facility] ([facility]) Hemoglobin 13.9 g/dL 12.0-15.5 Normal (applies to non-numeric resul ts) [facility] ([facility]) Hematocrit 40.5 % 36.0-47.0 Normal (applies to non-numeric resul ts) [facility] ([facility]) Mean Corpuscular Volume 84.7 fl 80.0-96.0 Normal ( applies to non-numeric results) [facility] ([facility]) Mean Corpuscular Hemoglobin 29.1 pg 27.0-33.0 Norm al (applies to non-numeric results) [facility] ([facility]) Red Cell Distribution Width 12.1 % 11.5-14.5 Norm al (applies to non-numeric results) [facility] ([facility]) Mean Corpuscular HGB Conc 34.3 g/dL 32.0-36.5 Normal (applies to non-numeric results) [facility] ([facility]) Platelet Count, Automated 290 10 150-450 Normal (applies to non-numeric results) [facility] ([facility]) Neutrophils % 53.4 % 36.0-66.0 Normal (applies to non-numeric re sults) [facility] ([facility]) Lymph % 36.9 % 24.0-44.0 Normal (applies to non-numeric resul ts) [facility] ([facility]) [place] % 7.2 % 2.0-8.0 Normal (applies to non-numeric resul ts) [facility] ([facility]) Eos % 1.5 % 0.0-3.0 Normal (applies to non-numeric resul ts) [facility] ([facility]) Baso % 0.7 % 0.0-1.0 Normal (applies to non-numeric resul ts) [facility] ([facility]) Immature Granulocyte % 0.3 % 0-3.0 Normal (applies to non-n umeric results) [facility] ([facility]) Nucleated Red Blood Cell % 0.0 % 0-0 Normal (applies to n on-numeric results) [facility] ([facility]) Neutrophils # 3.9 10 1.5-8.5 Normal (applies to non-numeric re sults) [facility] ([facility]) Lymph # 2.7 10 1.5-5.0 Normal (applies to non-numeric resul ts) [facility] ([facility]) Eos # 0.1 10 0.0-0.5 Normal (applies to non-numeric resul ts) [facility] ([facility]) [place] # 0.5 10 0.0-0.8 Normal (applies to non-numeric resul ts) [facility] ([facility]) Baso # 0.1 10 0.0-0.2 Normal (applies to non-numeric resul ts) [facility] ([facility]) ID Date Data Source [id number] 02/28/2021 08:00:00 AM EDT [facility] ([facility]) Name Value Range Interpretation Code Description Data Cesia rce(s) Supporting Document(s) Glucose, Fasting 131 mg/dL 70-100 Above high normal [facility]) Creatinine For GFR 0.58 mg/dL 0.55-1.30 Normal (applies to non -numeric results) [facility] ([facility]) Blood Urea Nitrogen 11 mg/dL 7-18 Normal (applies to non-nume kalie results) [facility] ([facility]) Glomerular Filtration Rate Laboratory test result Normal (applies to non- numeric results) [facility] ([facility]) <content>Units are mL/min/1.73 m2</content>
<content></content>
<content>Chronic Kidney Disease Staging per NKF:</content>
<content></content>
<content>Stage I & II GFR >=60 Normal to Mildly Decreased</content>
<content>Stage III GFR 30- 59 Moderately Decreased</content>
<content>Stage IV GFR 15-29 Severely Decreased</content>
<content>Stage V GFR <15 Very Little GFR Left</content>
<content>ESRD GFR <15 on DROSSER</content>
<content></content> Sodium Level 137 meq/L 136-145 Normal (applies to non-numeric res ults) [facility] ([facility]) Potassium Serum 4.2 meq/L 3.5-5.1 Normal (applies to non-numeric results) [facility] ([facility]) Chloride Level 106 meq/L 98-107 Normal (applies to non-numeric r esults) [facility] ([facility]) Carbon Dioxide Level 27 meq/L 21-32 Normal (applies to non-num vu results) [facility] ([facility]) Anion Gap 4 meq/L 8-16 Below low normal [facility] ( [facility]) Calcium Level 8.4 mg/dL 8.5-10.1 Below low normal [facility] ([facility]) ID Date Data Source [id number] 11/19/2020 11:07:00 AM EDT [facility] ([facility]) Name Value Range Interpretation Code Description Data Cesia rce(s) Supporting Document(s) HCG Urine Qual Laboratory test result [facility] ([facility]) HCG Urine QL Reenter Laboratory test result [facility] ([facility]) { KIT LOT # [id number] ) { KIT EXP DATE 05.30.22 ) { PROCEDURAL CONTROL VALID ) ID Date Data Source [id number] 11/19/2020 04:26:00 PM EDT [facility] Name Value Range Interpretation Code Description Data Cesia rce(s) Supporting Document(s) HCG URINE QUAL NEGATIVE NORMAL: NEGATIVE [facility] HCG URINE QL REENTER NEGATIVE NORMAL: NEGATIVE [facility] { KIT LOT # [id number] ){ KIT EXP DATE 05.30.22 ){ PROCEDURAL CONTROL VALID ) ID Date Data Source [id number] 11/19/2020 11:05:00 AM EDT [facility] ([facility]) Name Value Range Interpretation Code Description Data Cesia rce(s) Supporting Document(s) Laboratory test finding (navigational concept) Laboratory test result [facility] ([facility]) {DIAGNOSIS: F31.9~{MEDICATIONS/DECLARED : CONCERTA, LAMOTRIGINE~{PRESCRIPTION INFO:~{PRESCRIPTIO PDF Laboratory test result [facility] ([facility]) {DIAGNOSIS: F31.9~{MEDICATIONS/DECLARED : CONCERTA, LAMOTRIGINE~{PRESCRIPTION INFO:~{PRESCRIPTIO ID Date Data Source [id number] 11/24/2020 02:40:00 PM EDT [facility] Name Value Range Interpretation Code Description Data Cesia rce(s) Supporting Document(s) Drugs identified in Urine FINAL [facility] TOXASSURE SELECT 13 (MW) Test Result Flag Units NO DRUGS DETECTED. Yudelka t Result Flag Units Ref Range Creatinine 140 mg/dL > =20 Declared Medications: The flagging and interpretation on this report are based on the following declared medications. Unexpected results may arise from inaccuracies in the declared medications. Note: The testing scope of this panel does not include following reported medications: Lamotrigine Methylphenidate (Concerta) For clinical consultation, please call . Report . [facility] ID Date Data Source [id number] 09/12/2020 09:32:00 AM EST [facility] ([facility]) Name Value Range Interpretation Code Description Data Cesia rce(s) Supporting Document(s) Calcitriol [Mass/volume] in Serum or Plasma 40.4 pg/mL 19.9 -79.3 Normal (applies to non-numeric results) [facility] ([facility]) Performed at: [address] [id number] Dance Critic: Francoise Paetl MD, Phone: [phone] ID Date Data Source [id number] 09/12/2020 09:32:00 AM EST [facility] ([facility]) Name Value Range Interpretation Code Description Data Cesia rce(s) Supporting Document(s) Hemoglobin A1c 6.6 % Normal (applies to non-numeric r esults) [facility] ([facility]) <content>REFERENCE RANGES:</content><br/ ><content></content>
<content><=5.6% NORMAL</content>
<content>5.7-6.4% SUGGESTS IMPAIRED GLUCOSE METABOLISM/PREDIABETIC</content>
<content>>= 6.5% ABNORMAL</content>
<content></content> Estimated Average Glucose 143 mg/dL 60-110 Above high normal [facility] ([facility]) ID Date Data Source [id number] 09/12/2020 09:32:00 AM EST [facility] ([facility]) Name Value Range Interpretation Code Description Data Cesia rce(s) Supporting Document(s) Thyroxine (T4) free [Mass/volume] in Serum or Plasma 0.86 ng/dL 0.76-1.46 Normal (applies to non-numeric results) [facility] ([facility]) <content>note:<nlbl:demographic_changed> </content>
<content></content> Thyrotropin [Units/volume] in Serum or Plasma 2.020 uIU/ML 0. 358-3.740 Normal (applies to non-numeric results) [facility] ([facility]) <content>note:<nlbl:demographic_changed> </content>
<content></content> ID Date Data Source [id number] 09/12/2020 09:32:00 AM EST [facility] ([facility]) Name Value Range Interpretation Code Description Data Cesia rce(s) Supporting Document(s) HDL Cholesterol 47 mg/dL Normal (applies to non-numeric results) [facility] ([facility]) Cholesterol Level 201 mg/dL Above high normal [facility] ([facility]) Triglycerides Level 175 mg/dL Above high normal [facility] LDL Cholesterol 119 mg/dL Above high normal [facility] ([facility]) Non-HDL-C 154 mg/dL Normal (applies to non-numeric resul ts) [facility] ([facility]) Cholesterol Risk Ratio 4.276 Normal (applies to non-n umeric results) [facility] ([facility]) ID Date Data Source [id number] 09/12/2020 09:32:00 AM EST [facility] ([facility]) Name Value Range Interpretation Code Description Data Cesia rce(s) Supporting Document(s) Blood Urea Nitrogen 11 mg/dL 7-18 Normal (applies to non-nume kalie results) [facility] ([facility]) Glucose, Fasting 129 mg/dL 70-100 Above high normal M [facility] ([facility]) Glomerular Filtration Rate Laboratory test result Normal (applies to non- numeric results) [facility] ([facility]) <content>Units are mL/min/1.73 m2</content>
<content></content>
<content>Chronic Kidney Disease Staging per NKF:</content>
<content></content>
<content>Stage I & II GFR >=60 Normal to Mildly Decreased</content>
<content>Stage III GFR 30- 59 Moderately Decreased</content>
<content>Stage IV GFR 15-29 Severely Decreased</content>
<content>Stage V GFR <15 Very Little GFR Left</content>
<content>ESRD GFR <15 on DROSSER</content>
<content></content> Creatinine For GFR 0.67 mg/dL 0.55-1.30 Normal (applies to non -numeric results) [facility] ([facility]) Chloride Level 106 meq/L 98-107 Normal (applies to non-numeric r esults) [facility] ([facility]) Sodium Level 138 meq/L 136-145 Normal (applies to non-numeric res ults) [facility] ([facility]) Potassium Serum 4.4 meq/L 3.5-5.1 Normal (applies to non-numeric results) [facility] ([facility]) Carbon Dioxide Level 25 meq/L 21-32 Normal (applies to non-num uv results) [facility] ([facility]) Anion Gap 7 meq/L 8-16 Below low normal [facility] Ast/Sgot 12 U/L 7-37 Normal (applies to non-numeric resul ts) [facility] ([facility]) Calcium Level 8.7 mg/dL 8.5-10.1 Normal (applies to non-numeric re sults) [facility] ([facility]) Alt/SGPT 25 U/L 12-78 Normal (applies to non-numeric resul ts) [facility] ([facility]) Alkaline Phosphatase 74 U/L 45-117 Normal (applies to non-num vu results) [facility] ([facility]) Bilirubin,Total 0.4 mg/dL 0.2-1.0 Normal (applies to non-numeric results) [facility] ([facility]) Albumin 3.5 GM/DL 3.2-5.2 Normal (applies to non-numeric resul ts) [facility] ([facility]) Total Protein 6.5 GM/DL 6.4-8.2 Normal (applies to non-numeric re sults) [facility] ([facility]) Albumin/Globulin Ratio 1.2 1.2-2.2 Normal (applies to non-n umeric results) [facility] ([facility]) ID Date Data Source [id number] 09/12/2020 09:32:00 AM EST [facility] ([facility]) Name Value Range Interpretation Code Description Data Cesia rce(s) Supporting Document(s) Red Blood Count 5.09 10 4.00-5.40 Normal (applies to non-numeric results) [facility] ([facility]) White Blood Count 6.2 10 4.0-10.0 Normal (applies to non-numeri c results) [facility] ([facility]) Mean Corpuscular Volume 83.9 fl 80.0-96.0 Normal ( applies to non-numeric results) [facility] ([facility]) Hematocrit 42.7 % 36.0-47.0 Normal (applies to non-numeric resul ts) [facility] ([facility]) Hemoglobin 14.0 g/dL 12.0-15.5 Normal (applies to non-numeric resul ts) [facility] ([facility]) Mean Corpuscular Hemoglobin 27.5 pg 27.0-33.0 Norm al (applies to non-numeric results) [facility] ([facility]) Platelet Count, Automated 294 10 150-450 Normal (applies to non-numeric results) [facility] ([facility]) Mean Corpuscular HGB Conc 32.8 g/dL 32.0-36.5 Normal (applies to non-numeric results) [facility] ([facility]) Red Cell Distribution Width 12.4 % 11.5-14.5 Norm al (applies to non-numeric results) [facility] ([facility]) Lymph % 38.6 % 24.0-44.0 Normal (applies to non-numeric resul ts) [facility] ([facility]) Neutrophils % 51.9 % 36.0-66.0 Normal (applies to non-numeric re sults) [facility] ([facility]) Eos % 1.3 % 0.0-3.0 Normal (applies to non-numeric resul ts) [facility] ([facility]) [place] % 7.3 % 0.0-5.0 Above high normal [facility] ([facility]) Baso % 0.6 % 0.0-1.0 Normal (applies to non-numeric resul ts) [facility] ([facility]) Nucleated Red Blood Cell % 0.0 % 0-0 Normal (applies to n on-numeric results) [facility] ([facility]) Immature Granulocyte % 0.3 % 0-3.0 Normal (applies to non-n umeric results) [facility] ([facility]) Lymph # 2.4 10 1.5-5.0 Normal (applies to non-numeric resul ts) [facility] ([facility]) Neutrophils # 3.2 10 1.5-8.5 Normal (applies to non-numeric re sults) [facility] ([facility]) [place] # 0.5 10 0.0-0.8 Normal (applies to non-numeric resul ts) [facility] ([facility]) Eos # 0.1 10 0.0-0.5 Normal (applies to non-numeric resul ts) [facility] ([facility]) Baso # 0.0 10 0.0-0.2 Normal (applies to non-numeric resul ts) [facility] ([facility]) ID Date Data Source [id number] 09/12/2020 09:32:00 AM EST [facility] ([facility]) Name Value Range Interpretation Code Description Data Cesia rce(s) Supporting Document(s) Rheumatoid factor [Units/volume] in Serum or Plasma Laboratory test result [facility] ([facility]) HLA-B27 related Ag [Presence] Laboratory test result [facility] ([facility]) ID Date Data Source [id number] 09/12/2020 09:32:00 AM EST [facility] ([facility]) Name Value Range Interpretation Code Description Data Cesia rce(s) Supporting Document(s) C reactive protein [Mass/volume] in Serum or Plasma by High sensitivity method Laboratory test result [facility] ([facility]) ID Date Data Source [id number] 09/12/2020 09:32:00 AM EST [facility] ([facility]) Name Value Range Interpretation Code Description Data Cesia rce(s) Supporting Document(s) Cyclic citrullinated peptide IgG Ab [Units/volume] in Serum or Plasma Laboratory test result [facility] ([facility]) ID Date Data Source [id number] 09/02/2020 12:00:00 AM EST [facility] Name Value Range Interpretation Code Description Data Cesia rce(s) Supporting Document(s) SARS-CoV2 Rapid Antigen [facility] This lab was ordered by [facility] and reported by [facility] ID Date Data Source [id number] 08/08/2020 11:07:06 AM EST [facility] ([facility]) Name Value Range Interpretation Code Description Data Cesia rce(s) Supporting Document(s) NegativeLot: [id number]: 10/28/2021 High Sensitivity Urine Test [facility] ([facility]) ID Date Data Source [id number] 08/03/2020 12:00:00 AM EST [facility] Name Value Range Interpretation Code Description Data Cesia rce(s) Supporting Document(s) SARS-CoV2 Rapid Antigen [facility] This lab was ordered by [facility] and reported by [facility]. ID Date Data Source [id number] & GC DNA PROBES 07/30/2020 12:00:00 AM EST [facility]CW1 ([facility]) Name Value Range Interpretation Code Description Data Cesia rce(s) Supporting Document(s) Negative Negative [facility]CW1 ([facility]) Negative Negative [facility]CW1 ([facility]) Procedure Social History Code Duration Value Status Description Data Source(s ) Smoking 05/09/2021 12:00:00 AM EDT Patient has never smoked co mpleted Patient has never smoked [facility] ([facility]) 08/08/2020 12:00:00 AM EST Current non-smoker completed C urrent non-smoker [facility] ([facility]) Smoking 08/08/2020 12:00:00 AM EST Never smoker completed Never s moker [facility] Vital Signs ID Date Data Source [id number] Name Value Range Interpretation Code Description Data Source(s) Body weight 247.00 [lb_av] 247.00 [lb_av] [facility] ([facility]) Body height 64.25 [in_i] 64.25 [in_i] [facility] 5'4.25" Systolic blood pressure 140 mm[Hg] 140 mm[Hg] M [facility] Diastolic blood pressure 60 mm[Hg] 60 mm[Hg] [facility] Heart rate 82 /min 82 /min [facility] ([facility]) Body mass index (BMI) [Ratio] 42.1 kg/m2 42.1 k g/m2 [facility] Body height 63 [in_i] 63 [in_i] [facility] ([facility]) 5'3" Body mass index (BMI) [Ratio] 45.2 kg/m2 45.2 k g/m2 [facility] ([facility]) Systolic blood pressure 127 mm[Hg] 127 mm[Hg] [facility] Diastolic blood pressure 86 mm[Hg] 86 mm[Hg] [facility] ([facility]) Heart rate 76 /min 76 /min [facility] ([facility]) Respiratory rate 16 /min 16 /min [facility] ( [facility]) Oxygen saturation in Arterial blood by Pulse oximetry 98 % 98 % [facility] ([facility]) Body temperature 98.0 [degF] 98.0 [degF] [facility] ([facility]) Body weight 255.00 [lb_av] 255.00 [lb_av] [facility] ([facility]) Body weight 245.6 [lb_av] 245.6 [lb_av] eCW1 ([facility]) Body weight 111.4 kg 111.4 kg eCW1 ([facility]) Body height 63 [in_i] 63 [in_i] eCW1 ([facility]) Body mass index (BMI) [Ratio] 43.50 kg/m2 43.50 kg/m2 eCW1 ([facility]) Heart rate 92 /min 92 /min eCW1 ([facility]) Respiratory rate 18 /min 18 /min eCW1 ([facility]) Systolic blood pressure 126 mm[Hg] 126 mm[Hg] e CW1 ([facility]) Diastolic blood pressure 84 mm[Hg] 84 mm[Hg] eCW1 ([facility]) Body weight 245.00 [lb_av] 245.00 [lb_av] [facility] ([facility]) Body mass index (BMI) [Ratio] 42.0 kg/m2 42.0 k g/m2 [facility] ([facility]) Body temperature 96.9 [degF] 96.9 [degF] [facility] ([facility]) Body height 64 [in_i] 64 [in_i] [facility] ([facility]) 5'4" Body weight 250 [lb_av] 250 [lb_av] eCW1 ([facility]) Body mass index (BMI) [Ratio] 44.28 kg/m2 44.28 kg/m2 eCW1 ([facility]) Systolic blood pressure 126 mm[Hg] 126 mm[Hg] e CW1 ([facility]) Body weight 113.4 kg 113.4 kg eCW1 ([facility]) Body height 63 [in_i] 63 [in_i] eCW1 ([facility]) Diastolic blood pressure 78 mm[Hg] 78 mm[Hg] eCW1 ([facility]) Body temperature 97.3 [degF] 97.3 [degF] [facility] ([facility]) Body height 64 [in_i] 64 [in_i] [facility] ([facility]) 5'4" Body mass index (BMI) [Ratio] 42.0 kg/m2 42.0 k g/m2 [facility] ([facility]) Body weight 245.00 [lb_av] 245.00 [lb_av] [facility] T ([facility]) Body weight 249 [lb_av] 249 [lb_av] eCW1 ([facility]) Body weight 112.94 kg 112.94 kg W1 ([facility]) Body height 63 [in_i] 63 [in_i] eCW1 ([facility]) Body mass index (BMI) [Ratio] 44.1 kg/m2 44.1 k g/m2 W1 ([facility]) Systolic blood pressure 136 mm[Hg] 136 mm[Hg] e CW1 ([facility]) Diastolic blood pressure 86 mm[Hg] 86 mm[Hg] eCW1 ([facility]) Body mass index (BMI) [Ratio] 42.8 kg/m2 42.8 k g/m2 [facility] ([facility]) Body surface area Derived from formula 2.15 m2 2.15 m2 [facility] ([facility]) Body weight 113.003 kg 113.003 kg [facility] ([facility]) Body height 64 [in_i] 64 [in_i] [facility] ([facility]) 5'4" Systolic blood pressure--sitting 135 mm[Hg] 135 mm[Hg] [facility] ([facility]) Diastolic blood pressure--sitting 88 mm[Hg] 88 mm[Hg] [facility] ([facility]) Heart rate 77 /min 77 /min [facility] ([facility]) Body temperature 98.2 [degF] 98.2 [degF] [facility] ([facility]) Oral Respiratory rate 18 /min 18 /min [facility] ( [facility]) Oxygen saturation in Arterial blood by Pulse oximetry 100 % 100 % [facility] ([facility]) Body weight 249.12 [lb_av] 249.12 [lb_av] [facility] T ([facility]) Respiratory rate 20 /min 20 /min [facility] ( [facility]) Body temperature 97.6 [degF] 97.6 [degF] [facility] ([facility]) Oxygen saturation in Arterial blood by Pulse oximetry 98 % 98 % [facility] ([facility]) Body height 63.25 [in_i] 63.25 [in_i] [facility] ([facility]) 5'3.25" Systolic blood pressure 124 mm[Hg] 124 mm[Hg] M [facility] ([facility]) Diastolic blood pressure 84 mm[Hg] 84 mm[Hg] [facility] ([facility]) Body weight 260.25 [lb_av] 260.25 [lb_av] [facility] T ([facility]) Body mass index (BMI) [Ratio] 45.7 kg/m2 45.7 k g/m2 [facility] ([facility]) Heart rate 75 /min 75 /min [facility] ([facility]) [place] body weight 115 [lb_av] 115 [lb_av] [facility] T ([facility]) Body height 63.25 [in_i] 63.25 [in_i] [facility] ([facility]) 5'3.25" Body weight 260.12 [lb_av] 260.12 [lb_av] [facility] ([facility]) Body mass index (BMI) [Ratio] 45.7 kg/m2 45.7 k g/m2 [facility] ([facility]) Systolic blood pressure 126 mm[Hg] 126 mm[Hg] M [facility] ([facility]) Diastolic blood pressure 74 mm[Hg] 74 mm[Hg] [facility] ([facility]) Heart rate 90 /min 90 /min [facility] ([facility]) Respiratory rate 18 /min 18 /min [facility] ( [facility]) Body temperature 97.1 [degF] 97.1 [degF] MEDENT ([facility]) Oxygen saturation in Arterial blood by Pulse oximetry 97 % 97 % MEDENT ([facility]) [place] body weight 115 [lb_av] 115 [lb_av] MEDEN T ([facility]) Body temperature 98.4 [degF] 98.4 [degF] MEDENT ([facility]) Body mass index (BMI) [Ratio] 45.7 kg/m2 45.7 k g/m2 MEDENT ([facility]) Diastolic blood pressure 74 mm[Hg] 74 mm[Hg] MEDENT ([facility]) Body height 63.25 [in_i] 63.25 [in_i] [facility] 5'3.25" Body weight 260.00 [lb_av] 260.00 [lb_av] MEDEN T ([facility]) Oxygen saturation in Arterial blood by Pulse oximetry 97 % 97 % [facility] [place] body weight 115 [lb_av] 115 [lb_av] MEDEN T ([facility]) Systolic blood pressure 120 mm[Hg] 120 mm[Hg] M EDENT ([facility]) Heart rate 105 /min 105 /min MEDENT ([facility]) Respiratory rate 18 /min 18 /min MEDENT ( [facility]) Body height 165.10 cm 165.10 cm [facility] ([facility] Body weight 72.575 kg 72.575 kg [facility] ([facility]) Systolic blood pressure 126 mm[Hg] 126 mm[Hg] N extGen ([facility]) Diastolic blood pressure 79 mm[Hg] 79 mm[Hg] Next[facility] ([facility]) Heart rate 83 /min 83 /min [facility] ([facility]) Body mass index (BMI) [Ratio] 26.63 kg/m2 Overweight 26.63 kg/m2 NextGen ([facility]) Body weight 254 [lb_av] 254 [lb_av] eCW1 ([facility]) Body weight 115.21 kg 115.21 kg eCW1 ([facility]) Body height 63 [in_i] 63 [in_i] eCW1 ([facility]) Body mass index (BMI) [Ratio] 44.99 kg/m2 44.99 kg/m2 eCW1 ([facility]) Systolic blood pressure 124 mm[Hg] 124 mm[Hg] e CW1 ([facility]) Diastolic blood pressure 84 mm[Hg] 84 mm[Hg] eCW1 ([facility]) Body temperature 98.1 [degF] 98.1 [degF] MEDENT ([facility]) Systolic blood pressure 118 mm[Hg] 118 mm[Hg] M EDENT ([facility]) Body mass index (BMI) [Ratio] 45.1 kg/m2 45.1 k g/m2 MED[facility] ([facility]) Heart rate 85 /min 85 /min [facility] ([facility]) Respiratory rate 16 /min 16 /min MED[facility] ( [facility]) Diastolic blood pressure 80 mm[Hg] 80 mm[Hg] MEDENT ([facility]) Body height 63.25 [in_i] 63.25 [in_i] [facility] ([facility]) 5'3.25" Body weight 256.38 [lb_av] 256.38 [lb_av] MEDEN T ([facility]) Oxygen saturation in Arterial blood by [facility]ulse [facility]ximetry 99 % 99 % [facility] [place] body weight 115 [lb_av] 115 [lb_av] MEDEN T ([facility]) Patient Treatment Plan of Care Planned Activity Planned Date Details Description Data Source (s) 27-0.8 MG 07/30/2020 12:00:00 AM EST eCW1 ([facility]) 27-0.8 MG 07/30/2020 12:00:00 AM EST eCW1 ([facility]) Sprintec 28 0.25-35 MG-MCG 06/11/2020 12:00:00 AM EDT eCW1 ([facility]) Lorazepam 2 MG Oral Tablet [Ativan] NextGen ([facility]) Vraylar 4.5 mg capsule NextG en ([facility]) [place] Aspartate 5 MG Oral Capsule NextGen ([facility]) Clonazepam 2 MG Oral Tablet Next[facility] ([facility]) sitagliptin 100 MG Oral Tablet [Januvia] Next[facility] ([facility]) Losartan Potassium 50 MG Oral Tablet NextGen ([facility]) levocetirizine dihydrochloride 5 MG Oral Tablet Next[facility] ([facility]) montelukast 10 MG Oral Tablet NextGen ([facility]) L-Methylfolate 15 mg tablet NextGen ([facility]) 24 HR Methylphenidate Hydrochloride 54 M G Extended Release Oral Tablet [Concerta] NextGen ([facility]) Omeprazole 20 MG Delayed Release Oral Capsule NextGen ([facility]) Lamictal XR Starter (Green) 50 mg(14)-100 mg(14)-200 mg(7) tab,ext. rel NextGen ([facility])
[2021-06-16 19:06] LABS: BASO # 0.1 10^3/uL (0.0-0.2); BASO % 0.6 % (0.0-1.0); EOS # 0.1 10^3/uL (0.0-0.5); EOS % 0.7 % (0.0-3.0); HEMATOCRIT 42.6 % (36.0-47.0); HEMOGLOBIN 14.6 g/dl (12.0-15.5); LYMPH # 3.3 10^3/uL (1.5-5.0); LYMPH % 33.4 % (24.0-44.0); MEAN CORPUSCULAR HEMOGLOBIN 29.1 pg (27.0-33.0); MEAN CORPUSCULAR HGB CONC 34.3 g/dl (32.0-36.5); MONO # 0.5 10^3/uL (0.0-0.8); MONO % 5.5 % (2.0-8.0); NEUTROPHILS # 5.8 10^3/uL (1.5-8.5); NEUTROPHILS % 59.5 % (36.0-66.0); PLATELET COUNT, AUTOMATED 299 10^3/uL (150-450); RED BLOOD COUNT 5.01 10^6/uL (4.00-5.40); WHITE BLOOD COUNT 9.8 10^3/uL (4.0-10.0)
[2021-06-16 19:27] LABS: HCG, SERUM QUALITATIVE NEGATIVE (NEGATIVE)
[2021-06-16 19:33] LABS: ALBUMIN 3.7 GM/DL (3.2-5.2); ALT/SGPT 22 U/L (12-78); BILIRUBIN,DIRECT < 0.1 MG/DL (0.0-0.2); BILIRUBIN,TOTAL 0.3 MG/DL (0.2-1.0); BLOOD UREA NITROGEN 12 MG/DL (7-18); CALCIUM LEVEL 8.4 MG/DL (8.5-10.1); CARBON DIOXIDE LEVEL 27 MEQ/L (21-32); CHLORIDE LEVEL 106 MEQ/L (98-107); CREATININE FOR GFR 0.62 MG/DL (0.55-1.30); GLOMERULAR FILTRATION RATE > 60.0 (>60); GLUCOSE, FASTING 82 MG/DL (70-100); POTASSIUM SERUM 4.5 MEQ/L (3.5-5.1); SODIUM LEVEL 136 MEQ/L (136-145); TOTAL PROTEIN 7.5 GM/DL (6.4-8.2)
[2021-06-16] MEDS ORDERED: ISOVUE-370 76% 100ML VIAL As Ordered ONE (19:43)
--- NOTE | 2021-06-16 21:28 | REPVR ---
PROCEDURE INFORMATION: Exam: CT Abdomen And Pelvis With Contrast Exam date and time: 06/16/2021 7:46 PM Age: 26 years old Clinical indication: Abdominal pain; Periumbilical; Additional info: Periumbilical, rlq pain, eryuthema umbilicus, possible absce TECHNIQUE: Imaging protocol: Computed tomography of the abdomen and pelvis with contrast. Radiation optimization: All CT scans at this facility use at least one of these dose optimization techniques: automated exposure control; mA and/or kV adjustment per patient size (includes targeted exams where dose is matched to clinical indication); or iterative reconstruction. Contrast material: ISOVUE 370; Contrast volume: 100 ml; Contrast route: INTRAVENOUS (IV); COMPARISON: PELVIS NON-OB COMPLETE US 03/21/2021 10:35 AM FINDINGS: Liver: The liver is low in density Gallbladder and bile ducts: Normal. No calcified stones. No ductal dilation. Pancreas: Normal. No ductal dilation. Spleen: 1 cm accessory spleen anterior to the splenic mm low-density lesion. Adrenal glands: Normal. No mass. Kidneys and ureters: 7 mm low-density lesion upper pole left kidney. Two less than 4 mm low-density lesions mid left kidney. Two 5 mm low-density lesions lower pole left kidney. Less than 5 mm low-density lesions in the right kidney. No hydronephrosis in either kidney. Stomach and bowel: Unremarkable. No obstruction. No mucosal thickening. Appendix: No evidence of appendicitis. Intraperitoneal space: Unremarkable. No free air. No significant fluid collection. Vasculature: Unremarkable. No abdominal aortic aneurysm. Lymph nodes: Unremarkable. No enlarged lymph nodes. Urinary bladder: Unremarkable as visualized. Reproductive: Unremarkable as visualized. Bones/joints: Unremarkable. No acute fracture. Soft tissues: Skin thickening noted along the margins of the umbilicus with small air-fluid collection within the umbilicus measuring approximately 1 cm in diameter. IMPRESSION: 1. Cellulitis with small abscess within the umbilicus. No intra-abdominal extension of the abscess 2. Hepatic steatosis. 3. Bilateral subcentimeter low-density renal lesions too small to characterize fully. See below comment section. COMMENTS: Consistent with the [place] [employer]'s Incidental Findings Committee white paper (J Am Cornell Radiol 2018): Any incidental renal lesion less than 1 cm or classified as too small to characterize, or any incidental cystic renal lesion characterized as simple-appearing, is likely benign. No follow-up imaging is recommended for these lesions per consensus recommendations based on imaging criteria. Electronically signed by: Inocencia Umana On 06/16/2021 21:28:02 PM
[2021-06-16] MEDS ORDERED: BACTRIM 160MG/800MG DS TAB PO ONE (21:55)
[2021-06-16] MEDS ORDERED: BACT800T5 PO (21:58)
[2021-06-16 22:26] VITALS: BP 133/81
== END 2021-06-16 22:28 | disposition home or self-care (01) ==
LOC: M ED 15:22
DX: L02.216 Cutaneous abscess of umbilicus (principal); L03.316 Cellulitis of umbilicus; J45.909 Unspecified asthma, uncomplicated; F41.9 Anxiety disorder, unspecified; F90.9 Attention-deficit hyperactivity disorder, unspecified type; Z88.8 Allergy status to other drugs, medicaments and biological substances; Z79.899 Other long term (current) drug therapy
CPT/HCPCS: 36415; 74177; 80053; 81001; 82248; 84703; 85025; 87070; 87077; 87086; 87186; 99284; Q9967

== ENCOUNTER → 2021-09-27 | Outpatient (REF) | payer OTHER ==
[~2021-09-27] MED LIST changes: +BACT800T5 PO
== END ==
LOC: M LAB REF 11:13
PROVIDERS: ATTEND Pediatrics
DX: Z20.822 Contact with and (suspected) exposure to COVID-19 (principal)

== ENCOUNTER 2021-10-06 08:42 | Emergency (ER) | payer BC, OTHER ==
[~2021-10-06] VITALS: Ht 162.6 cm; Wt 111.4 kg
[2021-10-06 10:02] LABS: BASO % 0.6 % (0.0-1.0); EOS # 0.1 10^3/uL (0.0-0.5); EOS % 1.9 % (0.0-3.0); HEMATOCRIT 39.3 % (36.0-47.0); HEMOGLOBIN 13.8 g/dl (12.0-15.5); LYMPH # 2.2 10^3/uL (1.5-5.0); LYMPH % 30.2 % (24.0-44.0); MEAN CORPUSCULAR HEMOGLOBIN 29.7 pg (27.0-33.0); MEAN CORPUSCULAR HGB CONC 35.1 g/dl (32.0-36.5); MEAN CORPUSCULAR VOLUME 84.7 fl (80.0-96.0); MONO # 0.4 10^3/uL (0.0-0.8); MONO % 5.7 % (2.0-8.0); NEUTROPHILS # 4.4 10^3/uL (1.5-8.5); PLATELET COUNT, AUTOMATED 287 10^3/uL (150-450); RED BLOOD COUNT 4.64 10^6/uL (4.00-5.40); WHITE BLOOD COUNT 7.2 10^3/uL (4.0-10.0)
[2021-10-06 10:37] LABS: ALBUMIN 3.4 GM/DL (3.2-5.2); ALT/SGPT 26 U/L (12-78); BILIRUBIN,DIRECT < 0.1 MG/DL (0.0-0.2); BILIRUBIN,TOTAL 0.1 MG/DL (0.2-1.0); BLOOD UREA NITROGEN 9 MG/DL (7-18); CALCIUM LEVEL 8.7 MG/DL (8.5-10.1); CARBON DIOXIDE LEVEL 26 MEQ/L (21-32); CHLORIDE LEVEL 105 MEQ/L (98-107); CREATININE FOR GFR 0.57 MG/DL (0.55-1.30); GLOMERULAR FILTRATION RATE > 60.0 (>60); GLUCOSE, FASTING 120 MG/DL (70-100); SODIUM LEVEL 139 MEQ/L (136-145); TOTAL PROTEIN 6.2 GM/DL (6.4-8.2)
[2021-10-06] MEDS ORDERED: NS 1,000 ML IV ONE (10:55)
[2021-10-06] MEDS ORDERED: cefTRIAXone SOD 1 GM in D5W MINI-BAG PLUS 50 ML IV ONE (11:00)
[2021-10-06] MEDS ORDERED: KETOROLAC 30 MG/ML 1ML VIAL IV ONE (11:00)
[2021-10-06] MEDS ORDERED: diazePAM 10MG/2ML SYRINGE (J3360 PER 5MG) IV ONE (11:00)
[2021-10-06] MEDS ORDERED: ONDANSETRON 4MG/2ML VIAL IV ONE (11:00)
[2021-10-06] MEDS ORDERED: ISOVUE-370 76% 100ML VIAL As Ordered ONE (13:00)
[2021-10-06 13:51] LABS: GC DNA AMPLIFICATION NEGATIVE (NEGATIVE)
[2021-10-06] MEDS ORDERED: AZIT-12 PO (15:03)
[2021-10-06 15:18] VITALS: BP 119/72
== END 2021-10-06 15:59 | disposition home or self-care (01) ==
LOC: M ED 08:42
DX: N80.9 Endometriosis, unspecified (principal); N83.291 Other ovarian cyst, right side; R10.2 Pelvic and perineal pain; R11.0 Nausea; R30.0 Dysuria; E11.9 Type 2 diabetes mellitus without complications; K58.8 Other irritable bowel syndrome; Z86.16 Personal history of COVID-19; Z88.8 Allergy status to other drugs, medicaments and biological substances; Z79.899 Other long term (current) drug therapy; Z79.84 Long term (current) use of oral hypoglycemic drugs
CPT/HCPCS: 72193; 76830; 76856; 80048; 80076; 81001; 83605; 84702; 85025; 87040; 87210; 87808; 87810; 87850; 93976; 96365; 96375; 99284; J0696; J1885; J2405; J3360; Q9967

== ENCOUNTER 2021-10-06 20:41 | Emergency (ER) | payer BC, OTHER ==
[~2021-10-06] VITALS: Ht 162.6 cm; Wt 111.4 kg
[~2021-10-06 20:41] MED LIST changes: +AZIT-12 PO
[2021-10-06 21:04] VITALS: BP 144/82
[2021-10-06 22:00] LABS: CK-MB VALUE MASS < 1.0 NG/ML (<3.6); CPK CREATINE PHOSPHOKINASE 49 U/L (26-192); MB/CK RELATIVE INDEX 2.04 (< OR =4)
== END 2021-10-06 23:59 | disposition home or self-care (01) ==
LOC: M ED 20:41
DX: R07.89 Other chest pain (principal); F31.9 Bipolar disorder, unspecified; F90.9 Attention-deficit hyperactivity disorder, unspecified type; Z88.8 Allergy status to other drugs, medicaments and biological substances; Z79.899 Other long term (current) drug therapy

== ENCOUNTER 2021-10-13 13:55 | Emergency (ER) | payer BC, OTHER ==
[~2021-10-13] VITALS: Ht 160 cm; Wt 114.2 kg
[2021-10-13] MEDS ORDERED: METF-838 (14:26)
[2021-10-13] MEDS ORDERED: NOXI1TAB PO (14:26)
[2021-10-13] MEDS ORDERED: FLUV100C (14:26)
[2021-10-13] MEDS ORDERED: PROB250C PO (14:26)
[2021-10-13 15:30] LABS: BASO # 0.1 10^3/uL (0.0-0.2); BASO % 0.8 % (0.0-1.0); EOS # 0.1 10^3/uL (0.0-0.5); EOS % 1.3 % (0.0-3.0); HEMATOCRIT 38.3 % (36.0-47.0); HEMOGLOBIN 13.4 g/dl (12.0-15.5); LYMPH # 3.1 10^3/uL (1.5-5.0); LYMPH % 39.9 % (24.0-44.0); MEAN CORPUSCULAR HEMOGLOBIN 29.9 pg (27.0-33.0); MEAN CORPUSCULAR VOLUME 85.5 fl (80.0-96.0); MONO # 0.5 10^3/uL (0.0-0.8); MONO % 6.7 % (2.0-8.0); PLATELET COUNT, AUTOMATED 296 10^3/uL (150-450); RED BLOOD COUNT 4.48 10^6/uL (4.00-5.40); WHITE BLOOD COUNT 7.9 10^3/uL (4.0-10.0)
[2021-10-13 15:53] LABS: BLOOD UREA NITROGEN 13 MG/DL (7-18); CALCIUM LEVEL 8.8 MG/DL (8.5-10.1); CARBON DIOXIDE LEVEL 23 MEQ/L (21-32); CHLORIDE LEVEL 108 MEQ/L (98-107); CREATININE FOR GFR 0.53 MG/DL (0.55-1.30); GLOMERULAR FILTRATION RATE > 60.0 (>60); GLUCOSE, FASTING 90 MG/DL (70-100); POTASSIUM SERUM 4.1 MEQ/L (3.5-5.1); SODIUM LEVEL 139 MEQ/L (136-145)
[2021-10-13 16:00] LABS: HCG, SERUM QUALITATIVE NEGATIVE (NEGATIVE)
[2021-10-13 18:07] VITALS: BP 122/72
== END 2021-10-13 18:35 | disposition home or self-care (01) ==
LOC: M ED 13:55
DX: R53.83 Other fatigue (principal); R53.81 Other malaise; J45.909 Unspecified asthma, uncomplicated; F90.9 Attention-deficit hyperactivity disorder, unspecified type; G43.909 Migraine, unspecified, not intractable, without status migrainosus; K58.8 Other irritable bowel syndrome; Z79.84 Long term (current) use of oral hypoglycemic drugs; Z79.899 Other long term (current) drug therapy

== ENCOUNTER → 2021-10-29 | Outpatient (REF) | payer BC, OTHER ==
[~2021-10-29] MED LIST changes: +FLUV100C; +METF-838; +NOXI1TAB PO; +PROB250C PO
[2021-10-29 14:02] LABS: APPEARANCE, URINE CLOUDY (CLEAR); BACTERIA, URINE AUTO NEGATIVE (NEGATIVE); BILIRUBIN, URINE AUTO NEGATIVE (NEGATIVE); BLOOD, URINE BLOOD 3+ (NEGATIVE); COLOR, URINE YELLOW (YELLOW); GLUCOSE, URINE (UA) AUTO NEGATIVE (NEGATIVE); KETONE, URINE AUTO NEGATIVE (NEGATIVE); LEUKOCYTE ESTERASE, URINE AUTO NEGATIVE (NEGATIVE); MUCUS, URINE SMALL (NEGATIVE); NITRITE, URINE AUTO NEGATIVE (NEGATIVE); PROTEIN, URINE AUTO 1+ mg/dL (NEGATIVE); RBC, URINE AUTO TNTC /HPF (0-3); SPECIFIC GRAVITY URINE AUTO 1.021 (1.002-1.035); SQUAMOUS EPITHELIAL CELL UR AU 0 /HPF (0-6); UROBILINOGEN, URINE AUTO 0.2 mg/dL (0.0-2.0); WBC, URINE AUTO 0 /HPF (0-3)
== END ==
LOC: M SFHCWAGY 13:20
PROVIDERS: ATTEND Obstetrics & Gynecology
DX: R30.0 Dysuria (principal)

== ENCOUNTER → 2021-11-25 | Outpatient (CLI) | payer BC, OTHER ==
[2021-11-25 07:39] LABS: HCG, SERUM QUANTITATIVE < 1.0 MIU/ML
[2021-11-25 08:10] LABS: PROGESTERONE 0.34 NG/ML
[2021-11-25 08:11] LABS: ESTRADIOL 64.2 PG/ML
== END ==
LOC: M RAD 06:44
PROVIDERS: ATTEND Obstetrics & Gynecology
DX: Z31.49 Encounter for other procreative investigation and testing (principal)

== ENCOUNTER → 2021-11-29 | Outpatient (REF) | payer BC, OTHER ==
[~2021-11-29] MED LIST changes: +BENZ200C70 PO; +GNP15SYP PO; +LETR2.5T2 PO; +LEVO750T13 PO; +PRED20TA PO; +VENTAER INH; +ZITH250T PO
== END ==
LOC: M LAB REF 12:17
PROVIDERS: ATTEND Physician Assistant Medical
DX: R50.9 Fever, unspecified (principal); R53.83 Other fatigue; R05.9 Cough, unspecified

== ENCOUNTER 2021-11-30 00:06 | Emergency (ER) | payer BC, OTHER ==
[~2021-11-30] VITALS: Ht 162.6 cm; Wt 112.6 kg
[~2021-11-30 00:06] MED LIST changes: -BENZ200C70 PO; -GNP15SYP PO; -LETR2.5T2 PO; -LEVO750T13 PO; -PRED20TA PO; -VENTAER INH; -ZITH250T PO
[2021-11-30] MEDS ORDERED: PRED20TA PO (00:27)
[2021-11-30] MEDS ORDERED: LETR2.5T2 PO (00:27)
[2021-11-30] MEDS ORDERED: VENTAER INH (00:27)
[2021-11-30] MEDS ORDERED: ZITH250T PO (00:27)
[2021-11-30] MEDS ORDERED: GNP15SYP PO (00:27)
[2021-11-30 03:16] LABS: BASO % 0.7 % (0.0-1.0); EOS % 0.5 % (0.0-3.0); HEMATOCRIT 39.3 % (36.0-47.0); HEMOGLOBIN 13.6 g/dl (12.0-15.5); LYMPH # 1.4 10^3/uL (1.5-5.0); LYMPH % 23.8 % (24.0-44.0); MEAN CORPUSCULAR HEMOGLOBIN 30.1 pg (27.0-33.0); MEAN CORPUSCULAR HGB CONC 34.6 g/dl (32.0-36.5); MEAN CORPUSCULAR VOLUME 86.9 fl (80.0-96.0); MONO # 0.5 10^3/uL (0.0-0.8); MONO % 8.6 % (2.0-8.0); NEUTROPHILS # 3.9 10^3/uL (1.5-8.5); NEUTROPHILS % 66.1 % (36.0-66.0); PLATELET COUNT, AUTOMATED 249 10^3/uL (150-450); RED BLOOD COUNT 4.52 10^6/uL (4.00-5.40); VENOUS BASE EXCESS -2.4 (-2.0-2.0); VENOUS HCO3 22.8 MEQ/L (23.0-27.0); VENOUS PARTIAL PRESSURE CO2 40.8 mmHg (38.0-50.0); VENOUS PARTIAL PRESSURE O2 55.2 mmHg (30.0-50.0); VENOUS PH 7.365 UNITS (7.330-7.430); VENOUS STANDARD HCO3 22.2 MEQ/L; WHITE BLOOD COUNT 5.8 10^3/uL (4.0-10.0)
[2021-11-30 03:48] LABS: ALBUMIN 3.5 GM/DL (3.2-5.2); ALT/SGPT 24 U/L (12-78); BILIRUBIN,DIRECT < 0.1 MG/DL (0.0-0.2); BILIRUBIN,TOTAL 0.3 MG/DL (0.2-1.0); BLOOD UREA NITROGEN 8 MG/DL (7-18); CALCIUM LEVEL 8.7 MG/DL (8.5-10.1); CARBON DIOXIDE LEVEL 25 MEQ/L (21-32); CHLORIDE LEVEL 109 MEQ/L (98-107); CREATININE FOR GFR 0.66 MG/DL (0.55-1.30); GLOMERULAR FILTRATION RATE > 60.0 (>60); GLUCOSE, FASTING 133 MG/DL (70-100); POTASSIUM SERUM 4.4 MEQ/L (3.5-5.1); SODIUM LEVEL 142 MEQ/L (136-145); TOTAL PROTEIN 6.9 GM/DL (6.4-8.2)
[2021-11-30] MEDS ORDERED: BENZONATATE 100MG CAPSULE PO ONE (03:55)
[2021-11-30] MEDS ORDERED: ACETAMINOPHEN 325 MG TAB PO ONE (03:55)
[2021-11-30] MEDS ORDERED: NORCO, ANEXSIA 5/325MG TABLET (HYDROcodone/ACETAMINOPHEN) PO ONE (03:55)
[2021-11-30] MEDS ORDERED: LevoFLOXacin IV 750 MG in IV 1 EA IV ONE (03:55)
[2021-11-30] MEDS ORDERED: LEVO750T13 PO (05:35)
[2021-11-30] MEDS ORDERED: NORCO 5/325MG TABLET (BULK FOR ED) PO ONE (05:35)
[2021-11-30] MEDS ORDERED: BENZ200C70 PO (05:36)
[2021-11-30 06:00] VITALS: BP 132/64
== END 2021-11-30 06:16 | disposition home or self-care (01) ==
LOC: M ED 00:06
DX: J12.3 Human metapneumovirus pneumonia (principal); J45.909 Unspecified asthma, uncomplicated; Z79.84 Long term (current) use of oral hypoglycemic drugs; Z79.899 Other long term (current) drug therapy
CPT/HCPCS: 71046; 80048; 80076; 82803; 83605; 84702; 85025; 87040; 87798; 93041; 94760; 96365; 96366; 99285; J1956

== ENCOUNTER → 2021-12-05 | Outpatient (CLI) | payer BC, OTHER ==
[~2021-12-05] MED LIST changes: +BENZ200C70 PO; +GNP15SYP PO; +LETR2.5T2 PO; +LEVO750T13 PO; +PRED20TA PO; +VENTAER INH; +ZITH250T PO
[2021-12-05 08:54] LABS: ESTRADIOL 136.8 PG/ML; LUTEINIZING HORMONE 5.8 mIU/mL; PROGESTERONE 0.33 NG/ML
== END ==
LOC: M LAB 06:36 → M RAD 06:36
PROVIDERS: ATTEND Obstetrics & Gynecology
DX: Z31.49 Encounter for other procreative investigation and testing (principal)

== ENCOUNTER → 2021-12-20 | Outpatient (CLI) | payer BC, OTHER | LOC: M LAB 06:25 | PROVIDERS: ATTEND Obstetrics & Gynecology | DX: Z32.00 Encounter for pregnancy test, result unknown (principal) ==

== ENCOUNTER → 2021-12-23 | Outpatient (CLI) | payer BC, OTHER | LOC: M LAB 06:57 | PROVIDERS: ATTEND Obstetrics & Gynecology | DX: O09.00 Supervision of pregnancy with history of infertility, unspecified trimester (principal) ==

== ENCOUNTER 2022-01-31 19:58 | Emergency (ER) | payer BC, OTHER ==
[~2022-01-31] VITALS: Ht 162.6 cm; Wt 111.4 kg
[2022-01-31] MEDS ORDERED: PREN1CHW6 PO (20:05)
[2022-01-31 21:35] LABS: BASO % 0.1 % (0.0-1.0); EOS # 0.1 10^3/uL (0.0-0.5); EOS % 0.6 % (0.0-3.0); HEMATOCRIT 37.4 % (36.0-47.0); HEMOGLOBIN 13.1 g/dl (12.0-15.5); LYMPH % 29.8 % (24.0-44.0); MEAN CORPUSCULAR HEMOGLOBIN 30.6 pg (27.0-33.0); MEAN CORPUSCULAR VOLUME 87.4 fl (80.0-96.0); MONO # 0.6 10^3/uL (0.0-0.8); NEUTROPHILS # 6.4 10^3/uL (1.5-8.5); NEUTROPHILS % 63.1 % (36.0-66.0); PLATELET COUNT, AUTOMATED 237 10^3/uL (150-450); RED BLOOD COUNT 4.28 10^6/uL (4.00-5.40); WHITE BLOOD COUNT 10.2 10^3/uL (4.0-10.0)
[2022-01-31 22:14] LABS: BLOOD UREA NITROGEN 9 MG/DL (7-18); CALCIUM LEVEL 8.8 MG/DL (8.5-10.1); CARBON DIOXIDE LEVEL 21 MEQ/L (21-32); CHLORIDE LEVEL 109 MEQ/L (98-107); CREATININE FOR GFR 0.78 MG/DL (0.55-1.30); GLOMERULAR FILTRATION RATE > 60.0 (>60); GLUCOSE, FASTING 124 MG/DL (70-100); HCG, SERUM QUANTITATIVE 36664 MIU/ML; POTASSIUM SERUM 3.4 MEQ/L (3.5-5.1); SODIUM LEVEL 138 MEQ/L (136-145)
[2022-01-31 22:41] VITALS: BP 171/80
== END 2022-01-31 22:42 | disposition home or self-care (01) ==
LOC: M ED 19:58
DX: O20.8 Other hemorrhage in early pregnancy (principal); O46.91 Antepartum hemorrhage, unspecified, first trimester; Z3A.09 9 weeks gestation of pregnancy; Z79.899 Other long term (current) drug therapy

== ENCOUNTER 2022-02-14 16:07 | Emergency (ER) | payer BC, OTHER ==
[~2022-02-14] VITALS: Ht 162.6 cm; Wt 112.3 kg
[~2022-02-14 16:07] MED LIST changes: +PREN1CHW6 PO
[2022-02-14 18:02] LABS: BASO % 0.4 % (0.0-1.0); EOS # 0.1 10^3/uL (0.0-0.5); EOS % 0.7 % (0.0-3.0); HEMATOCRIT 37.1 % (36.0-47.0); HEMOGLOBIN 13.1 g/dl (12.0-15.5); LYMPH % 33.1 % (24.0-44.0); MEAN CORPUSCULAR HEMOGLOBIN 30.9 pg (27.0-33.0); MEAN CORPUSCULAR HGB CONC 35.3 g/dl (32.0-36.5); MEAN CORPUSCULAR VOLUME 87.5 fl (80.0-96.0); MONO # 0.7 10^3/uL (0.0-0.8); MONO % 7.5 % (2.0-8.0); NEUTROPHILS # 5.2 10^3/uL (1.5-8.5); NEUTROPHILS % 58.1 % (36.0-66.0); PLATELET COUNT, AUTOMATED 266 10^3/uL (150-450); RED BLOOD COUNT 4.24 10^6/uL (4.00-5.40)
[2022-02-14 18:55] LABS: BLOOD UREA NITROGEN 9 MG/DL (7-18); GLUCOSE, FASTING 85 MG/DL (70-100)
[2022-02-14 18:56] LABS: CALCIUM LEVEL 8.9 MG/DL (8.5-10.1); CARBON DIOXIDE LEVEL 23 MEQ/L (21-32); CHLORIDE LEVEL 109 MEQ/L (98-107); CREATININE FOR GFR 0.47 MG/DL (0.55-1.30); GLOMERULAR FILTRATION RATE > 60.0 (>60); HCG, SERUM QUANTITATIVE 29594 MIU/ML; POTASSIUM SERUM 4.1 MEQ/L (3.5-5.1); SODIUM LEVEL 139 MEQ/L (136-145)
[2022-02-14 20:21] VITALS: BP 135/75
[2022-02-14 22:01] LABS: GC DNA AMPLIFICATION NEGATIVE (NEGATIVE)
== END 2022-02-14 20:36 | disposition home or self-care (01) ==
LOC: M ED 16:07
DX: O46.91 Antepartum hemorrhage, unspecified, first trimester (principal); O99.341 Other mental disorders complicating pregnancy, first trimester; Z3A.12 12 weeks gestation of pregnancy; Z79.899 Other long term (current) drug therapy

== ENCOUNTER → 2022-03-03 | Outpatient (REF) | payer BC, OTHER ==
[~2022-03-03] MED LIST changes: +ETON68IM SC; -NEXP1IMP SC
== END ==
LOC: M LAB REF 11:51
PROVIDERS: ATTEND Physician Assistant
DX: J02.9 Acute pharyngitis, unspecified (principal)

== ENCOUNTER → 2022-04-07 | Outpatient (CLI) | payer BC, OTHER ==
[~2022-04-07] MED LIST changes: +LEVO1TAB40 PO; -LEVO750T13 PO
== END ==
LOC: M WHC 14:41
PROVIDERS: ATTEND Physician Assistant Medical
DX: Z34.82 Encounter for supervision of other normal pregnancy, second trimester (principal)

== ENCOUNTER → 2022-04-14 | Outpatient (CLI) | payer BC, OTHER ==
[2022-04-14 16:29] LABS: HEMOGLOBIN A1c 5.3 %
== END ==
LOC: M PLALAB 11:25
PROVIDERS: ATTEND Specialist
DX: Z34.02 Encounter for supervision of normal first pregnancy, second trimester (principal)

== ENCOUNTER → 2022-04-24 | Outpatient (CLI) | payer BC, OTHER | LOC: M WHC 15:02 | PROVIDERS: ATTEND Specialist | DX: Z36.2 Encounter for other antenatal screening follow-up (principal); Z3A.22 22 weeks gestation of pregnancy ==

== ENCOUNTER → 2022-04-29 | Outpatient (CLI) | payer BC, OTHER | LOC: M LAB 06:53 | PROVIDERS: ATTEND Advanced Practice Midwife | DX: O99.810 Abnormal glucose complicating pregnancy (principal) ==

== ENCOUNTER 2022-05-05 21:01 | Outpatient (CLI) | payer BC, OTHER ==
[~2022-05-05] VITALS: Ht 160 cm; Wt 113.0 kg
[2022-05-05] MEDS ORDERED: ZYRTTAB8 PO (21:28)
[2022-05-05] MEDS ORDERED: UNIS25TA3 PO (21:28)
[2022-05-05] MEDS ORDERED: HOME MED LIST COMPLETE! XX SCH (21:30)
== END 2022-05-05 21:50 | disposition home or self-care (01) ==
LOC: M LDO 21:01
PROVIDERS: ATTEND Advanced Practice Midwife
DX: O36.8129 Decreased fetal movements, second trimester, other fetus (principal); O99.810 Abnormal glucose complicating pregnancy; O99.342 Other mental disorders complicating pregnancy, second trimester; F41.9 Anxiety disorder, unspecified; Z3A.23 23 weeks gestation of pregnancy
CPT/HCPCS: 59025; G0378; G0463

== ENCOUNTER → 2022-05-09 | Outpatient (CLI) | payer BC, OTHER ==
[~2022-05-09] MED LIST changes: +UNIS25TA3 PO; +ZYRTTAB8 PO
== END ==
LOC: M WHC 15:01
PROVIDERS: ATTEND Obstetrics & Gynecology
DX: O24.312 Unspecified pre-existing diabetes mellitus in pregnancy, second trimester (principal)

== ENCOUNTER → 2022-05-27 | Outpatient (CLI) | payer BC, OTHER ==
[2022-05-27 14:33] LABS: ALBUMIN 2.7 GM/DL (3.2-5.2); ALT/SGPT 16 U/L (12-78); BILIRUBIN,TOTAL 0.1 MG/DL (0.2-1.0); BLOOD UREA NITROGEN 11 MG/DL (7-18); CALCIUM LEVEL 8.6 MG/DL (8.5-10.1); CARBON DIOXIDE LEVEL 22 MEQ/L (21-32); CHLORIDE LEVEL 109 MEQ/L (98-107); CREATININE FOR GFR 0.43 MG/DL (0.55-1.30); GLOMERULAR FILTRATION RATE > 60.0 (>60); GLUCOSE, FASTING 78 MG/DL (70-100); POTASSIUM SERUM 3.9 MEQ/L (3.5-5.1); SODIUM LEVEL 140 MEQ/L (136-145); TOTAL PROTEIN 5.6 GM/DL (6.4-8.2)
== END ==
LOC: M PLALAB 12:07
PROVIDERS: ATTEND Advanced Practice Midwife
DX: O99.712 Diseases of the skin and subcutaneous tissue complicating pregnancy, second trimester (principal)

== ENCOUNTER → 2022-05-27 | Outpatient (CLI) | payer BC, OTHER ==
[2022-05-27 14:01] LABS: HEMATOCRIT 37.6 % (36.0-47.0); HEMOGLOBIN 13.1 g/dl (12.0-15.5); MEAN CORPUSCULAR HGB CONC 34.8 g/dl (32.0-36.5); MEAN CORPUSCULAR VOLUME 89.1 fl (80.0-96.0); PLATELET COUNT, AUTOMATED 221 10^3/uL (150-450); RED BLOOD COUNT 4.22 10^6/uL (4.00-5.40); WHITE BLOOD COUNT 8.8 10^3/uL (4.0-10.0)
== END ==
LOC: M PLALAB 12:09
PROVIDERS: ATTEND Advanced Practice Midwife
DX: Z34.02 Encounter for supervision of normal first pregnancy, second trimester (principal)

== ENCOUNTER → 2022-06-09 | Outpatient (CLI) | payer BC, OTHER, MEDICAID | LOC: M RAD 16:17 | PROVIDERS: ATTEND Obstetrics & Gynecology | DX: O24.312 Unspecified pre-existing diabetes mellitus in pregnancy, second trimester (principal) ==

== ENCOUNTER 2022-07-10 13:02 | Outpatient (CLI) | payer BC, OTHER, MEDICAID ==
[~2022-07-10] VITALS: Ht 162.6 cm; Wt 113.3 kg
[2022-07-10 13:38] VITALS: BP 128/75
[2022-07-10] MEDS ORDERED: HOME MED LIST COMPLETE! XX SCH (13:40)
[2022-07-10] MEDS ORDERED: INSUR50VL SC (13:42)
[2022-07-10] MEDS ORDERED: HUMU70IN SC (13:43)
[2022-07-10 13:55] VITALS: BP 122/72
[2022-07-10 14:09] VITALS: BP 118/68
[2022-07-10 15:11] LABS: APPEARANCE, URINE MANUAL HAZY (CLEAR); BILIRUBIN, URINE MANUAL NEGATIVE (NEGATIVE); BLOOD URINE MANUAL NEGATIVE (NEGATIVE); COLOR, URINE MANUAL LT YELLOW (YELLOW); GLUCOSE, URINE (UA) MANUAL NEGATIVE (NEGATIVE); KETONE, URINE MANUAL NEGATIVE (NEGATIVE); LEUKOCYTE ESTERASE, URINE MAN POSITIVE (NEGATIVE); NITRITE, URINE MANUAL NEGATIVE (NEGATIVE); PROTEIN, URINE MANUAL TRACE mg/dL (NEGATIVE); UROBILINOGEN, URINE MANUAL NORMAL (NORMAL)
[2022-07-10 15:56] VITALS: BP 106/53
[2022-07-10 16:04] LABS: HEMATOCRIT 36.1 % (36.0-47.0); HEMOGLOBIN 12.6 g/dl (12.0-15.5); MEAN CORPUSCULAR HEMOGLOBIN 31.1 pg (27.0-33.0); MEAN CORPUSCULAR HGB CONC 34.9 g/dl (32.0-36.5); MEAN CORPUSCULAR VOLUME 89.1 fl (80.0-96.0); PLATELET COUNT, AUTOMATED 240 10^3/uL (150-450); RED BLOOD COUNT 4.05 10^6/uL (4.00-5.40); WHITE BLOOD COUNT 7.7 10^3/uL (4.0-10.0)
[2022-07-10 16:06] LABS: BACTERIA, URINE LARGE AMOUNT; RBC, URINE NONE SEEN /hpf (0-3); SQUAMOUS EPITHELIAL CELL URINE LARGE AMOUNT /hpf (SMALL AMT)
[2022-07-10 17:14] LABS: ALBUMIN 2.6 GM/DL (3.2-5.2); ALT/SGPT 17 U/L (12-78); BILIRUBIN,TOTAL 0.3 MG/DL (0.2-1.0); BLOOD UREA NITROGEN 8 MG/DL (7-18); CALCIUM LEVEL 8.3 MG/DL (8.5-10.1); CARBON DIOXIDE LEVEL 22 MEQ/L (21-32); CHLORIDE LEVEL 108 MEQ/L (98-107); GLOMERULAR FILTRATION RATE > 60.0 (>60); GLUCOSE, FASTING 111 MG/DL (70-100); POTASSIUM SERUM 3.5 MEQ/L (3.5-5.1); SODIUM LEVEL 139 MEQ/L (136-145); TOTAL PROTEIN 5.6 GM/DL (6.4-8.2)
== END 2022-07-10 17:20 | disposition home or self-care (01) ==
LOC: M LDO 13:02
PROVIDERS: ATTEND Obstetrics & Gynecology
DX: O24.313 Unspecified pre-existing diabetes mellitus in pregnancy, third trimester (principal); O99.283 Endocrine, nutritional and metabolic diseases complicating pregnancy, third trimester; O99.343 Other mental disorders complicating pregnancy, third trimester; F32.A Depression, unspecified; Z91.410 Personal history of adult physical and sexual abuse; Z3A.32 32 weeks gestation of pregnancy
CPT/HCPCS: 36415; 59025; 80053; 81000; 85027; G0378; G0463

== ENCOUNTER → 2022-07-11 | Outpatient (CLI) | payer BC, OTHER, SELFPAY ==
[~2022-07-11] MED LIST changes: +HUMU70IN SC; +INSUR50VL SC
== END ==
LOC: M WHC 15:01
PROVIDERS: ATTEND Obstetrics & Gynecology
DX: O24.13 Pre-existing type 2 diabetes mellitus, in the puerperium (principal)

== ENCOUNTER 2022-07-22 11:20 | Outpatient (CLI) | payer MEDICAID, OTHER, SELFPAY ==
[~2022-07-22] VITALS: Ht 162.6 cm; Wt 115.6 kg
[2022-07-22] MEDS ORDERED: PEPC1TAB5 PO (11:38)
[2022-07-22] MEDS ORDERED: INSUR50VL SC (11:38)
[2022-07-22] MEDS ORDERED: FLUV100C PO (11:38)
[2022-07-22] MEDS ORDERED: HOME MED LIST COMPLETE! XX SCH (11:40)
[2022-07-22 11:41] VITALS: BP 115/74
[2022-07-22] MEDS ORDERED: HUMU70IN SC (11:55)
[2022-07-29] MEDS ORDERED: INSUN SC (11:10)
[2022-07-29] MEDS ORDERED: FIBE625T PO (11:10)
[2022-07-29] MEDS ORDERED: REGL10TA6 PO (11:10)
[2022-07-29] MEDS ORDERED: RA N1TAB PO (11:10)
[2022-07-29] MEDS ORDERED: INSUR SC (11:26)
== END 2022-07-22 12:45 | disposition home or self-care (01) ==
LOC: M LDO 11:20
PROVIDERS: ATTEND Obstetrics & Gynecology
DX: O36.8130 Decreased fetal movements, third trimester, not applicable or unspecified (principal); O24.313 Unspecified pre-existing diabetes mellitus in pregnancy, third trimester; Z79.4 Long term (current) use of insulin; Z3A.34 34 weeks gestation of pregnancy; Z91.410 Personal history of adult physical and sexual abuse

== ENCOUNTER → 2022-08-05 | Outpatient (REF) | payer MEDICAID ==
[~2022-08-05] MED LIST changes: +FIBE625T PO; +FLUV100C PO; +INSUN SC; +INSUR SC; +PEPC1TAB5 PO; +RA N1TAB PO; +REGL10TA6 PO
== END ==
LOC: M PLALAB 16:15
PROVIDERS: ATTEND Advanced Practice Midwife
DX: O24.419 Gestational diabetes mellitus in pregnancy, unspecified control (principal)

== ENCOUNTER → 2022-08-08 | Outpatient (CLI) | payer BC, MEDICAID, OTHER | LOC: M WHC 15:01 | PROVIDERS: ATTEND Advanced Practice Midwife | DX: O24.313 Unspecified pre-existing diabetes mellitus in pregnancy, third trimester (principal); Z3A.36 36 weeks gestation of pregnancy ==

== ENCOUNTER → 2022-08-11 | Outpatient (CLI) | payer MEDICAID | LOC: M LABSMTC 09:50 | PROVIDERS: ATTEND Anesthesiology | DX: Z01.812 Encounter for preprocedural laboratory examination (principal); Z11.52 Encounter for screening for COVID-19 ==

== ENCOUNTER 2022-08-13 06:57 | Inpatient (IN) | payer MEDICAID ==
[~2022-08-13] VITALS: Ht 162.6 cm; Wt 118.5 kg
[2022-08-13] MEDS ORDERED: LACTATED RINGER'S 1000 ML IV STA (07:52)
[2022-08-13] MEDS ORDERED: diphenhydrAMINE 50MG/ML VIAL IV PRN ×2 (07:55→11:50)
[2022-08-13] MEDS ORDERED: SLF 3 ML SYR IV SCH (07:55)
[2022-08-13] MEDS ORDERED: METOCLOPRAMIDE INJ 10MG/2ML VIAL IV PRN ×2 (07:55→11:50)
[2022-08-13] MEDS ORDERED: ONDANSETRON 4MG 2ML VIAL IV PRN ×4 (07:55→21:05)
[2022-08-13] MEDS ORDERED: fentaNYL 100 MCG/2 ML INJECTION IV PRN ×2 (07:55→11:50)
[2022-08-13] MEDS ORDERED: **NOTE PATIENT COMMENT** MISC XX SCH ×2 (07:55→11:50)
[2022-08-13] MEDS ORDERED: LR 1,000 ML IV SCH ×3 (07:55→11:50)
[2022-08-13] MEDS ORDERED: BICITRA 30ML SOLN UDC PO ONE ×2 (07:55→08:30)
[2022-08-13] MEDS ORDERED: NALOXONE INJ 0.4MG/1ML VIAL IV PRN ×4 (07:55→11:50)
[2022-08-13] MEDS ORDERED: oxyCODONE 5MG TAB PO PRN ×2 (07:55→11:50)
[2022-08-13] MEDS ORDERED: ceFAZolin SOD 2 GM in IV 1 EA IV ONE (08:30)
[2022-08-13] MEDS ORDERED: ceFAZolin SOD 1 GM in D5W MINI-BAG PLUS 50 ML IV ONE (08:30)
[2022-08-13] MEDS ORDERED: LR 1,000 ML IV ONE (08:30)
[2022-08-13 08:35] LABS: HEMATOCRIT 37.9 % (36.0-47.0); HEMOGLOBIN 13.1 g/dl (12.0-15.5); MEAN CORPUSCULAR HEMOGLOBIN 30.6 pg (27.0-33.0); MEAN CORPUSCULAR HGB CONC 34.6 g/dl (32.0-36.5); MEAN CORPUSCULAR VOLUME 88.6 fl (80.0-96.0); PLATELET COUNT, AUTOMATED 232 10^3/uL (150-450); RED BLOOD COUNT 4.28 10^6/uL (4.00-5.40); WHITE BLOOD COUNT 9.3 10^3/uL (4.0-10.0)
[2022-08-13] MEDS: PRENATAL VITAMINS CHEWABLE TABLET PO SCH (09:00)
[2022-08-13] MEDS ORDERED: MORPHINE PRES-FREE INJ 10 MG/10 ML VIAL As Ordered ONE (10:01)
[2022-08-13] MEDS ORDERED: OXYTOCIN 30 UNITS IN 0.9% NaCl 500ML IV BAG (J2590) As Ordered ONE ×2 (10:02→12:03)
[2022-08-13] MEDS ORDERED: ePHEDrine SULFATE 25 MG/5 ML(5MG/ML) SYRINGE As Ordered ONE (10:02)
[2022-08-13] MEDS ORDERED: PHENYLephrine 500MCG 5ML (100MCG/ML) SYRINGE As Ordered ONE (10:02)
[2022-08-13] MEDS ORDERED: ONDANSETRON 4MG 2ML VIAL As Ordered ONE (10:29)
[2022-08-13] MEDS ORDERED: KETOROLAC 60MG 2ML VIAL As Ordered ONE (10:53)
[2022-08-13] MEDS ORDERED: OXYTOCIN DRIP 30 UNITS in IV 1 EA IV SCH (11:50)
[2022-08-13] MEDS: SLF 3 ML SYR IV SCH ×2 (11:50→19:50)
[2022-08-13] MEDS ORDERED: RHOGAM 300 MCG (1500 IU) INJ (J2790) IM SCH (11:50)
[2022-08-13] MEDS ORDERED: ACETAMINOPHEN 500 MG TAB PO PRN (11:50)
[2022-08-13] MEDS ORDERED: SIMETHICONE 80MG CHEW TAB PO PRN (11:50)
[2022-08-13] MEDS ORDERED: COLA100C5 PO (12:02)
[2022-08-13] MEDS ORDERED: IBUP80TA PO (12:02)
[2022-08-13] MEDS ORDERED: PERC5TAB12 PO (12:02)
[2022-08-13 13:25] VITALS: BP 129/72
[2022-08-13 13:50] VITALS: BP 115/59
[2022-08-13 14:50] VITALS: BP 133/65
[2022-08-13 15:30] LABS: HEMATOCRIT 35.2 % (36.0-47.0); HEMOGLOBIN 12.4 g/dl (12.0-15.5); MEAN CORPUSCULAR HEMOGLOBIN 31.2 pg (27.0-33.0); MEAN CORPUSCULAR HGB CONC 35.2 g/dl (32.0-36.5); MEAN CORPUSCULAR VOLUME 88.7 fl (80.0-96.0); PLATELET COUNT, AUTOMATED 225 10^3/uL (150-450); RED BLOOD COUNT 3.97 10^6/uL (4.00-5.40); WHITE BLOOD COUNT 14.3 10^3/uL (4.0-10.0)
[2022-08-13 15:40] VITALS: BP 108/60
[2022-08-13 15:50] LABS: CREATININE FOR GFR 0.55 MG/DL (0.55-1.30); GLOMERULAR FILTRATION RATE > 60.0 (>60)
[2022-08-13] MEDS: KETOROLAC 30 MG/ML 1ML VIAL IV SCH (17:52)
[2022-08-13] MEDS: ENOXAPARIN 30MG/0.3ML SYRINGE (J1650 PER 10MG) SC SCH (17:52)
[2022-08-13 18:00] VITALS: BP 124/63
[2022-08-13] MEDS ORDERED: LACTATED RINGER'S 1000 ML IV ONE (18:30)
[2022-08-13] MEDS: DOCUSATE SODIUM 100MG CAPSULE PO SCH (20:43)
[2022-08-13] MEDS ORDERED: LR 1,000 ML IV STA (21:17)
[2022-08-13 22:00] VITALS: BP 107/56
[2022-08-13] MEDS: LR 1,000 ML IV SCH (22:47)
[2022-08-14] VITALS (7 sets, daily range): BP systolic 100–117; BP diastolic 55–64
[2022-08-14] MEDS: KETOROLAC 30 MG/ML 1ML VIAL IV SCH ×2 (00:08→05:56)
[2022-08-14] MEDS: SLF 3 ML SYR IV SCH (03:50)
[2022-08-14] MEDS: ENOXAPARIN 30MG/0.3ML SYRINGE (J1650 PER 10MG) SC SCH ×2 (05:09→17:34)
[2022-08-14] MEDS: LR 1,000 ML IV SCH (06:27)
[2022-08-14 08:10] LABS: HEMATOCRIT 30.6 % (36.0-47.0); HEMOGLOBIN 10.5 g/dl (12.0-15.5); MEAN CORPUSCULAR HEMOGLOBIN 31.1 pg (27.0-33.0); MEAN CORPUSCULAR HGB CONC 34.3 g/dl (32.0-36.5); MEAN CORPUSCULAR VOLUME 90.5 fl (80.0-96.0); PLATELET COUNT, AUTOMATED 179 10^3/uL (150-450); RED BLOOD COUNT 3.38 10^6/uL (4.00-5.40); WHITE BLOOD COUNT 9.3 10^3/uL (4.0-10.0)
[2022-08-14] MEDS: PRENATAL VITAMINS CHEWABLE TABLET PO SCH (08:31)
[2022-08-14] MEDS: DOCUSATE SODIUM 100MG CAPSULE PO SCH ×2 (08:31→20:16)
[2022-08-14] MEDS ORDERED: fluvoxaMINE MALEATE 50 MG TAB PO SCH (09:00)
[2022-08-14] MEDS ORDERED: FLUVOXAMINE 100 MG PO SCH ×2 (09:00→10:25)
[2022-08-14] MEDS: IBUPROFEN 800 MG TAB PO SCH ×2 (14:04→22:10)
[2022-08-14] MEDS ORDERED: PERCOCET 5MG/325MG TAB PO PRN ×2 (19:05)
[2022-08-15] MEDS: ENOXAPARIN 30MG/0.3ML SYRINGE (J1650 PER 10MG) SC SCH (05:03)
[2022-08-15] MEDS: IBUPROFEN 800 MG TAB PO SCH ×2 (05:07→14:32)
[2022-08-15 05:37] VITALS: BP 121/73
[2022-08-15] MEDS ORDERED: MEASLES,MUMPS,RUBELLA VACCINE INJ (MMR-II) (90707) SC.IMMUN ONE (09:00)
[2022-08-15] MEDS: PRENATAL VITAMINS CHEWABLE TABLET PO SCH (09:47)
[2022-08-15] MEDS: DOCUSATE SODIUM 100MG CAPSULE PO SCH (09:47)
== END 2022-08-15 16:45 | disposition home or self-care (01) | DRG 540 ==
LOC: M LDI 06:57 → M OBS 13:15
PROVIDERS: ADMIT Obstetrics & Gynecology; ATTEND Obstetrics & Gynecology
PROC: 0UB70ZZ Excision of Bilateral Fallopian Tubes, Open Approach (ICD-10-PCS; 2022-08-13)
PROC: 10D00Z1 Extraction of Products of Conception, Low, Open Approach (ICD-10-PCS; principal; 2022-08-13 09:30)
DX: O24.12 Pre-existing type 2 diabetes mellitus, in childbirth (principal); E66.01 Morbid (severe) obesity due to excess calories; O99.214 Obesity complicating childbirth; Z3A.37 37 weeks gestation of pregnancy; Z37.0 Single live birth; Z30.2 Encounter for sterilization; O99.344 Other mental disorders complicating childbirth; F32.A Depression, unspecified; F41.9 Anxiety disorder, unspecified; Z91.410 Personal history of adult physical and sexual abuse; Z79.4 Long term (current) use of insulin; N83.8 Other noninflammatory disorders of ovary, fallopian tube and broad ligament; O26.893 Other specified pregnancy related conditions, third trimester

== ENCOUNTER → 2022-09-19 | Outpatient (CLI) | payer MEDICAID, MEDICARE ==
[~2022-09-19] MED LIST changes: +COLA100C5 PO; +IBUP80TA PO; +PERC5TAB12 PO
== END ==
LOC: M PLALAB 14:49
PROVIDERS: ATTEND Physician Assistant
DX: E11.9 Type 2 diabetes mellitus without complications (principal)

== ENCOUNTER 2022-11-16 04:53 | Observation (INO) | payer OTHER, MEDICARE, MEDICAID ==
[~2022-11-16] VITALS: Ht 162.6 cm; Wt 112.5 kg
[~2022-11-16 04:53] MED LIST changes: +MONT-5 PO; -SING10TA32 PO; +[UNRECOGNIZED DRUG - CODE]; -[UNRECOGNIZED DRUG - OTHER]
[2022-11-16] MEDS ORDERED: NIFE30TA50 PO (05:00)
[2022-11-16] MEDS ORDERED: ACETAMINOPHEN TAB 650MG DOSE (2X325MG) PO ONE ×2 (06:55→13:50)
[2022-11-16] MEDS ORDERED: NS 1,000 ML IV ONE (06:55)
[2022-11-16 07:12] LABS: LIPASE 21 U/L (12-53)
[2022-11-16 07:14] LABS: ALBUMIN 3.6 G/DL (3.2-5.2); ALKALINE PHOSPHATASE 77 U/L (46-116); ALT/SGPT 22 U/L (7.0-40); AST/SGOT 15 U/L (<34); BILIRUBIN,DIRECT 0.1 MG/DL (<0.4); BILIRUBIN,TOTAL 0.5 MG/DL (0.3-1.2); BLOOD UREA NITROGEN 11 MG/DL (9-23); CALCIUM LEVEL 8.2 MG/DL (8.5-10.1); CARBON DIOXIDE LEVEL 25 MMOL/L (20-31); CHLORIDE LEVEL 104 MMOL/L (98-107); CREATININE FOR GFR 0.57 MG/DL (0.55-1.30); GLOMERULAR FILTRATION RATE > 60.0 (>60); GLUCOSE, FASTING 128 MG/DL (60-100); POTASSIUM SERUM 3.9 MMOL/L (3.5-5.1); SODIUM LEVEL 138 MMOL/L (136-145); TOTAL PROTEIN 6.3 G/DL (5.7-8.2)
[2022-11-16 07:15] LABS: BASO % 0.3 % (0.0-1.0); EOS # 0.1 10^3/uL (0.0-0.5); EOS % 0.4 % (0.0-3.0); HEMATOCRIT 40.4 % (36.0-47.0); LYMPH # 0.9 10^3/uL (1.5-5.0); LYMPH % 5.8 % (24.0-44.0); MEAN CORPUSCULAR HEMOGLOBIN 29.6 pg (27.0-33.0); MEAN CORPUSCULAR HGB CONC 34.7 g/dl (32.0-36.5); MEAN CORPUSCULAR VOLUME 85.4 fl (80.0-96.0); MONO % 6.3 % (2.0-8.0); NEUTROPHILS # 13.6 10^3/uL (1.5-8.5); NEUTROPHILS % 86.6 % (36.0-66.0); PLATELET COUNT, AUTOMATED 233 10^3/uL (150-450); RED BLOOD COUNT 4.73 10^6/uL (4.00-5.40); WHITE BLOOD COUNT 15.8 10^3/uL (4.0-10.0)
[2022-11-16] MEDS ORDERED: ISOVUE-370 76% 100ML VIAL As Ordered ONE (08:31)
[2022-11-16] MEDS ORDERED: PIPERACILLIN/TAZOBACTAM SOD 3.375 GM in D5W MINI-BAG PLUS 50 ML IV ONE (09:55)
[2022-11-16] MEDS ORDERED: HOME MED LIST COMPLETE! XX SCH (10:30)
[2022-11-16 14:02] VITALS: BP 114/73
[2022-11-16] MEDS: MIRALAX *UNIT DOSE* 17GM PACKET PO SCH (14:26)
[2022-11-16] MEDS: METAMUCIL (PSYLLIUM) PACKET PO SCH (14:26)
[2022-11-16] MEDS: NIFEdipine 30MG XL TAB PO SCH (14:26)
[2022-11-16 18:00] VITALS: BP 117/73
[2022-11-16] MEDS: ACETAMINOPHEN TAB 650MG DOSE (2X325MG) PO PRN (19:06)
[2022-11-16 20:00] VITALS: BP 119/74
[2022-11-16] MEDS: PIPERACILLIN/TAZOBACTAM SOD 3.375 GM in D5W MINI-BAG PLUS 50 ML IV SCH (20:41)
[2022-11-16] MEDS ORDERED: fluvoxaMINE MALEATE 50 MG TAB PO SCH (21:00)
[2022-11-16] MEDS ORDERED: FLUVOXAMINE 100 MG PO SCH (21:00)
[2022-11-17] VITALS: BP 103/72
[2022-11-17] MEDS ORDERED: UNRESOLVED PATIENT OWN MED ORDER XX SCH (00:01)
[2022-11-17] MEDS: PIPERACILLIN/TAZOBACTAM SOD 3.375 GM in D5W MINI-BAG PLUS 50 ML IV SCH ×2 (01:38→09:07)
[2022-11-17] MEDS: ACETAMINOPHEN TAB 650MG DOSE (2X325MG) PO PRN (01:55)
[2022-11-17 03:50] VITALS: BP 94/52
[2022-11-17 04:00] VITALS: BP 111/60
[2022-11-17 06:05] LABS: HEMATOCRIT 38.5 % (36.0-47.0); HEMOGLOBIN 13.3 g/dl (12.0-15.5); MEAN CORPUSCULAR HEMOGLOBIN 30.2 pg (27.0-33.0); MEAN CORPUSCULAR HGB CONC 34.5 g/dl (32.0-36.5); MEAN CORPUSCULAR VOLUME 87.3 fl (80.0-96.0); PLATELET COUNT, AUTOMATED 214 10^3/uL (150-450); RED BLOOD COUNT 4.41 10^6/uL (4.00-5.40); WHITE BLOOD COUNT 12.4 10^3/uL (4.0-10.0)
[2022-11-17 06:19] LABS: INR 0.9; PROTHROMBIN TIME 12.3 SECONDS (12.5-14.5)
[2022-11-17 06:32] LABS: BLOOD UREA NITROGEN 7 MG/DL (9-23); CALCIUM LEVEL 7.7 MG/DL (8.5-10.1); CARBON DIOXIDE LEVEL 25 MMOL/L (20-31); CHLORIDE LEVEL 107 MMOL/L (98-107); CREATININE FOR GFR 0.56 MG/DL (0.55-1.30); GLOMERULAR FILTRATION RATE > 60.0 (>60); GLUCOSE, FASTING 108 MG/DL (60-100); POTASSIUM SERUM 3.7 MMOL/L (3.5-5.1); SODIUM LEVEL 140 MMOL/L (136-145)
[2022-11-17] MEDS: NIFEdipine 30MG XL TAB PO SCH (09:00)
[2022-11-17] MEDS: METAMUCIL (PSYLLIUM) PACKET PO SCH (09:00)
[2022-11-17] MEDS: MIRALAX *UNIT DOSE* 17GM PACKET PO SCH (09:00)
[2022-11-17 10:00] VITALS: BP 113/63
[2022-11-17] MEDS ORDERED: ACET1TAB55 PO (12:04)
[2022-11-17] MEDS ORDERED: CEPH500C PO (12:04)
[2022-11-17] MEDS ORDERED: MIRA1POW3 PO (12:04)
[2022-11-17] MEDS ORDERED: CEPHALEXIN 500 MG CAP PO SCH (12:05)
== END 2022-11-17 14:19 | disposition home or self-care (01) ==
LOC: M ED 04:53 → M ED INP 04:54 → INTOOBSV 12:09 → M ED INP 12:09 → UNDOADMOB 12:09 → ENRESERV 13:32 → M MSPAV 14:15 → M ED INP 14:15
PROVIDERS: ADMIT Student in an Organized Health Care Education/Training Program; ATTEND Student in an Organized Health Care Education/Training Program
DX: O91.22 Nonpurulent mastitis associated with the puerperium (principal); R07.9 Chest pain, unspecified; F41.9 Anxiety disorder, unspecified; R18.8 Other ascites; O24.439 Gestational diabetes mellitus in the puerperium, unspecified control; M79.606 Pain in leg, unspecified; F32.A Depression, unspecified; F90.9 Attention-deficit hyperactivity disorder, unspecified type; F60.3 Borderline personality disorder; F42.9 Obsessive-compulsive disorder, unspecified; J45.909 Unspecified asthma, uncomplicated; Z88.8 Allergy status to other drugs, medicaments and biological substances; Z79.899 Other long term (current) drug therapy; Z83.2 Family history of diseases of the blood and blood-forming organs and certain disorders involving the immune mechanism
CPT/HCPCS: 36415; 74177; 80048; 80076; 81001; 83605; 83690; 85025; 85027; 85610; 87040; 87486; 87581; 87633; 87798; 93005; 93041; 93970; 96365; 96376; 99285; J2543; Q9967

== ENCOUNTER → 2022-11-25 | Outpatient (CLI) | payer OTHER ==
[~2022-11-25] MED LIST changes: +ACET1TAB55 PO; +CEPH500C PO; +LIDOCAINE 1% MDV 20ML VIAL As Ordered ONE; +MIRA1POW3 PO; +NIFE30TA50 PO
[2022-11-25 15:15] VITALS: BP 137/95
== END ==
LOC: M IRPRO 13:50
PROVIDERS: ATTEND Physician Assistant
DX: T88.8XXD Other specified complications of surgical and medical care, not elsewhere classified, subsequent encounter (principal)

== ENCOUNTER → 2022-12-17 | Outpatient (CLI) | payer MEDICAID, OTHER ==
[~2022-12-17] MED LIST changes: -LIDOCAINE 1% MDV 20ML VIAL As Ordered ONE
[2022-12-17 18:16] LABS: BASO # 0.1 10^3/uL (0.0-0.2); BASO % 0.7 % (0.0-1.0); EOS # 0.1 10^3/uL (0.0-0.5); EOS % 1.3 % (0.0-3.0); HEMOGLOBIN 14.3 g/dl (12.0-15.5); LYMPH # 2.9 10^3/uL (1.5-5.0); LYMPH % 38.7 % (24.0-44.0); MEAN CORPUSCULAR HEMOGLOBIN 29.6 pg (27.0-33.0); MEAN CORPUSCULAR HGB CONC 34.9 g/dl (32.0-36.5); MEAN CORPUSCULAR VOLUME 84.9 fl (80.0-96.0); MONO # 0.6 10^3/uL (0.0-0.8); MONO % 7.9 % (2.0-8.0); NEUTROPHILS # 3.9 10^3/uL (1.5-8.5); NEUTROPHILS % 51.1 % (36.0-66.0); PLATELET COUNT, AUTOMATED 278 10^3/uL (150-450); RED BLOOD COUNT 4.83 10^6/uL (4.00-5.40); WHITE BLOOD COUNT 7.6 10^3/uL (4.0-10.0)
[2022-12-17 19:09] LABS: ALBUMIN 3.6 G/DL (3.2-5.2); ALKALINE PHOSPHATASE 80 U/L (46-116); ALT/SGPT 17 U/L (7.0-40); AST/SGOT 12 U/L (<34); BILIRUBIN,TOTAL 0.2 MG/DL (0.3-1.2); BLOOD UREA NITROGEN 11 MG/DL (9-23); CALCIUM LEVEL 8.5 MG/DL (8.5-10.1); CARBON DIOXIDE LEVEL 24 MMOL/L (20-31); CHLORIDE LEVEL 103 MMOL/L (98-107); CREATININE FOR GFR 0.52 MG/DL (0.55-1.30); GLOMERULAR FILTRATION RATE > 60.0 (>60); GLUCOSE, FASTING 108 MG/DL (60-100); LUTEINIZING HORMONE 1.5 mIU/ML; POTASSIUM SERUM 3.9 MMOL/L (3.5-5.1); SODIUM LEVEL 136 MMOL/L (136-145); TOTAL PROTEIN 6.8 G/DL (5.7-8.2)
== END ==
LOC: M LAB 16:50
PROVIDERS: ATTEND Physician Assistant
DX: E28.2 Polycystic ovarian syndrome (principal)

== ENCOUNTER → 2023-01-30 | Outpatient (CLI) | payer OTHER, MEDICAID ==
[~2023-01-30] MED LIST changes: +LORA1TAB23 PO; -LORA1TAB4 PO
[2023-01-30 11:49] LABS: HEMOGLOBIN A1c 5.4 % (4.0-6.0)
== END ==
LOC: M LAB 10:51
PROVIDERS: ATTEND Physician Assistant
DX: E28.2 Polycystic ovarian syndrome (principal)

== ENCOUNTER → 2023-03-25 | Outpatient (REF) | payer OTHER, MEDICAID ==
[~2023-03-25] MED LIST changes: +NIFE-3 PO; -NIFE30TA50 PO
[2023-03-25 13:22] LABS: APPEARANCE, URINE HAZY (CLEAR); BACTERIA, URINE AUTO NEGATIVE (NEGATIVE); BILIRUBIN, URINE AUTO 1+ (NEGATIVE); BLOOD, URINE BLOOD NEGATIVE (NEGATIVE); COLOR, URINE AMBER (YELLOW); GLUCOSE, URINE (UA) AUTO 1+ mg/dL (NEGATIVE); KETONE, URINE AUTO TRACE mg/dL (NEGATIVE); LEUKOCYTE ESTERASE, URINE AUTO NEGATIVE (NEGATIVE); MUCUS, URINE LARGE (NEGATIVE); NITRITE, URINE AUTO NEGATIVE (NEGATIVE); PROTEIN, URINE AUTO 2+ mg/dL (NEGATIVE); RBC, URINE AUTO 1 /HPF (0-3); SPECIFIC GRAVITY URINE AUTO 1.045 (1.002-1.035); SQUAMOUS EPITHELIAL CELL UR AU 11 /HPF (0-6); UROBILINOGEN, URINE AUTO 0.2 mg/dL (0.0-2.0); WBC, URINE AUTO 1 /HPF (0-3)
== END ==
LOC: M LAB REF 12:03
PROVIDERS: ATTEND Physician Assistant
DX: N39.0 Urinary tract infection, site not specified (principal)

== ENCOUNTER 2023-05-04 10:06 | Emergency (ER) | payer MEDICAID, OTHER ==
[~2023-05-04] VITALS: Ht 162.6 cm; Wt 111.4 kg
[2023-05-04] MEDS ORDERED: FLUV100T25 (10:35)
[2023-05-04] MEDS ORDERED: AMPH1CAP16 (10:35)
[2023-05-04] MEDS ORDERED: IBUP80TA (10:35)
[2023-05-04] MEDS ORDERED: dexAMETHasone 20MG/5ML VIAL IV ONE (11:55)
[2023-05-04] MEDS ORDERED: AMPICILLIN SOD/SULBACTAM SOD 3 GM in D5W MINI-BAG PLUS 100 ML IV ONE (11:55)
[2023-05-04] MEDS ORDERED: ISOVUE-370 76% 100ML VIAL As Ordered ONE (12:23)
[2023-05-04 12:27] LABS: BASO % 0.6 % (0.0-1.0); EOS % 0.8 % (0.0-3.0); HEMATOCRIT 38.6 % (36.0-47.0); HEMOGLOBIN 13.8 g/dl (12.0-15.5); LYMPH # 2.3 10^3/uL (1.5-5.0); LYMPH % 48.4 % (24.0-44.0); MEAN CORPUSCULAR HEMOGLOBIN 31.5 pg (27.0-33.0); MEAN CORPUSCULAR HGB CONC 35.8 g/dl (32.0-36.5); MEAN CORPUSCULAR VOLUME 88.1 fl (80.0-96.0); MONO # 0.3 10^3/uL (0.0-0.8); MONO % 6.5 % (2.0-8.0); NEUTROPHILS # 2.1 10^3/uL (1.5-8.5); NEUTROPHILS % 43.5 % (36.0-66.0); PLATELET COUNT, AUTOMATED 253 10^3/uL (150-450); RED BLOOD COUNT 4.38 10^6/uL (4.00-5.40); WHITE BLOOD COUNT 4.8 10^3/uL (4.0-10.0)
[2023-05-04 12:43] LABS: ERYTHROCYTE SEDIMENTATION RATE < 1 mm/hr (0-20)
[2023-05-04 13:19] VITALS: BP 120/65; TEMP 98.3; O2SAT 99
== END 2023-05-04 13:27 | disposition home or self-care (01) ==
LOC: M ED 10:06
DX: K08.89 Other specified disorders of teeth and supporting structures (principal); E11.9 Type 2 diabetes mellitus without complications; F41.9 Anxiety disorder, unspecified; F32.A Depression, unspecified; Z98.818 Other dental procedure status; Z88.8 Allergy status to other drugs, medicaments and biological substances
CPT/HCPCS: 70487; 80047; 83605; 84702; 85025; 85652; 86140; 87040; 96365; 96375; 99283; J0295; J1100; Q9967

== ENCOUNTER → 2023-05-06 | Outpatient (REF) ==
[~2023-05-06] MED LIST changes: +AMPH1CAP16; +FLUV100T25; +IBUP80TA
== END ==
LOC: M EMP 08:01
PROVIDERS: ATTEND Family Medicine
DX: Z11.52 Encounter for screening for COVID-19 (principal)

== ENCOUNTER → 2023-07-01 | Outpatient (CLI) | payer BC, OTHER | LOC: M WHC 07:28 | PROVIDERS: ATTEND Nurse Practitioner Family | DX: R10.2 Pelvic and perineal pain (principal) ==

== ENCOUNTER → 2023-08-06 | Outpatient (CLI) | payer BC, OTHER | LOC: M WUC 09:41 | PROVIDERS: ATTEND Student in an Organized Health Care Education/Training Program | DX: J45.21 Mild intermittent asthma with (acute) exacerbation (principal) ==

== ENCOUNTER → 2023-11-14 | Outpatient (CLI) | payer BC ==
[~2023-11-14] MED LIST changes: -MIRA1POW3 PO; +MIRA33506 PO
[2023-11-14 16:18] LABS: HEMOGLOBIN A1c 5.5 % (4.0-6.0)
[2023-11-14 16:40] LABS: FOLLICLE STIMULATING HORMONE 5.7 mIU/ML
[2023-11-14 16:41] LABS: ESTRADIOL 66.2 PG/ML; LUTEINIZING HORMONE 1.7 mIU/ML; PROLACTIN 2.86 NG/ML; THYROID STIMULATING HORMONE 0.935 uIU/ML (0.55-4.78)
[2023-11-14 16:42] LABS: FREE T4 0.84 NG/DL (0.89-1.76)
== END ==
LOC: M LAB 15:13
PROVIDERS: ATTEND Advanced Practice Midwife
DX: E28.2 Polycystic ovarian syndrome (principal); E28.39 Other primary ovarian failure; N92.6 Irregular menstruation, unspecified

== ENCOUNTER → 2023-11-18 | Outpatient (REF) | payer BC | LOC: M SFHCDERM 17:21 | PROVIDERS: ATTEND Physician Assistant | DX: D23.5 Other benign neoplasm of skin of trunk (principal) ==

== ENCOUNTER → 2024-01-19 | Outpatient (REF) | payer BC | LOC: M SFHCWAGY 12:31 | PROVIDERS: ATTEND Advanced Practice Midwife | DX: Z12.4 Encounter for screening for malignant neoplasm of cervix (principal); R87.615 Unsatisfactory cytologic smear of cervix ==

== ENCOUNTER → 2024-02-17 | Outpatient (CLI) | payer BC ==
[2024-02-17 15:28] LABS: HEMATOCRIT 40.1 % (36.0-47.0); HEMOGLOBIN 14.1 g/dl (12.0-15.5); MEAN CORPUSCULAR HEMOGLOBIN 30.6 pg (27.0-33.0); MEAN CORPUSCULAR HGB CONC 35.2 g/dl (32.0-36.5); PLATELET COUNT, AUTOMATED 278 10^3/uL (150-450); RED BLOOD COUNT 4.61 10^6/uL (4.00-5.40); WHITE BLOOD COUNT 6.6 10^3/uL (4.0-10.0)
[2024-02-17 15:58] LABS: ALKALINE PHOSPHATASE 52 U/L (46-116); ALT/SGPT 16 U/L (7.0-40); AST/SGOT 15 U/L (<34); BILIRUBIN,TOTAL 0.5 MG/DL (0.3-1.2); BLOOD UREA NITROGEN 9 MG/DL (9-23); CALCIUM LEVEL 9.3 MG/DL (8.5-10.1); CARBON DIOXIDE LEVEL 27 MMOL/L (20-31); CHLORIDE LEVEL 105 MMOL/L (98-107); CREATININE FOR GFR 0.63 MG/DL (0.55-1.30); GLOMERULAR FILTRATION RATE > 60.0 (>60); GLUCOSE, FASTING 89 MG/DL (60-100); POTASSIUM SERUM 3.7 MMOL/L (3.5-5.1); SODIUM LEVEL 138 MMOL/L (136-145); TOTAL PROTEIN 6.9 G/DL (5.7-8.2)
[2024-02-17 16:00] LABS: PROLACTIN 6.64 NG/ML
[2024-02-17 16:12] LABS: HEPATITIS B SURFACE ANTIGEN NEGATIVE (NEGATIVE)
[2024-02-17 16:24] LABS: HIV 1&2 SCREEN NEGATIVE (NEGATIVE)
[2024-02-17 16:33] LABS: HEPATITIS C VIRUS ABY INDEX < 0.02 INDEX (<0.8)
== END ==
LOC: M PLALAB 12:30
PROVIDERS: ATTEND Advanced Practice Midwife
DX: N97.9 Female infertility, unspecified (principal)

== ENCOUNTER → 2024-04-14 | Outpatient (CLI) | payer BC ==
[2024-04-14 11:17] LABS: HEMOGLOBIN A1c 5.5 % (4.0-6.0)
== END ==
LOC: M PLALAB 07:58
PROVIDERS: ATTEND Physician Assistant
DX: R73.09 Other abnormal glucose (principal)

== ENCOUNTER → 2024-05-30 | Outpatient (CLI) | payer BC | LOC: M LAB 07:37 | PROVIDERS: ATTEND Obstetrics & Gynecology Reproductive Endocrinology | DX: O02.81 Inappropriate change in quantitative human chorionic gonadotropin (hCG) in early pregnancy (principal) ==

== ENCOUNTER → 2024-06-16 | Outpatient (REF) ==
[~2024-06-16] MED LIST changes: -OLAN15TA13 PO; +OLAN15TA69 PO
== END ==
LOC: M EMP 07:23
PROVIDERS: ATTEND Family Medicine
DX: Z11.52 Encounter for screening for COVID-19 (principal)

== ENCOUNTER 2024-08-05 06:05 | Day surgery (SDC) | payer BC ==
[~2024-08-05] VITALS: Ht 160 cm; Wt 111.1 kg
[~2024-08-05 06:05] MED LIST changes: +ALBU2.5V10; -AMPH1CAP16; +AMPH1CAP16 PO; +AMPH1TAB2 PO; +CITA40TA7 PO; -FLUV100T25; +FLUV100T25 PO; +MOME13HF5; +TACR0.5C3 PO
[2024-08-05] MEDS ORDERED: NS 1,000 ML IV SCH (06:25)
[2024-08-05 06:30] LABS: HEMATOCRIT 39.9 % (36.0-47.0); HEMOGLOBIN 13.7 g/dl (12.0-15.5); MEAN CORPUSCULAR HEMOGLOBIN 29.7 pg (27.0-33.0); MEAN CORPUSCULAR HGB CONC 34.3 g/dl (32.0-36.5); MEAN CORPUSCULAR VOLUME 86.4 fl (80.0-96.0); PLATELET COUNT, AUTOMATED 300 10^3/uL (150-450); RED BLOOD COUNT 4.62 10^6/uL (4.00-5.40); WHITE BLOOD COUNT 4.7 10^3/uL (4.0-10.0)
[2024-08-05] MEDS ORDERED: LIDOCAINE 2% 100MG/5ML SDV (FOR ANES.) As Ordered ONE (07:19)
[2024-08-05] MEDS ORDERED: MIDAZOLAM INJ 2MG/2ML VIAL As Ordered ONE (07:19)
[2024-08-05] MEDS ORDERED: fentaNYL 100 MCG/2 ML INJECTION As Ordered ONE (07:19)
[2024-08-05] MEDS ORDERED: propofoL 200 MG/20 ML VIAL As Ordered ONE (07:19)
[2024-08-05] MEDS ORDERED: KETOROLAC 60MG 2ML VIAL As Ordered ONE (07:20)
[2024-08-05] MEDS ORDERED: ONDANSETRON 4MG 2ML VIAL As Ordered ONE (07:20)
[2024-08-05] MEDS ORDERED: ACETAMINOPHEN 1000MG/100ML IV BAG As Ordered ONE (07:20)
[2024-08-05] MEDS: LEVONORGESTREL 52MG (MIRENA) IUD As Ordered ONE (08:10)
[2024-08-05] MEDS: SILVER NITRATE APPLICATOR (1 = QTY 10) As Ordered ONE (08:28)
[2024-08-05 09:09] VITALS: BP 120/71; TEMP 97.4; O2SAT 99
== END 2024-08-05 09:15 | disposition home or self-care (01) ==
LOC: M SDC 06:05
PROVIDERS: ATTEND Obstetrics & Gynecology
DX: N93.9 Abnormal uterine and vaginal bleeding, unspecified (principal); J45.909 Unspecified asthma, uncomplicated; Z79.899 Other long term (current) drug therapy; F41.9 Anxiety disorder, unspecified; F32.A Depression, unspecified; Z90.89 Acquired absence of other organs; Z88.8 Allergy status to other drugs, medicaments and biological substances
CPT/HCPCS: 36415; 58300; 58558; 81025; 85027; 86850; 86900; 86901; 88305; J0665; J1100; J1885; J2250; J2405; J3010; J7298

== ENCOUNTER → 2024-10-26 | Outpatient (REF) | payer BC | LOC: M SFHCWAGY 12:44 | PROVIDERS: ATTEND Nurse Practitioner Family | DX: N73.9 Female pelvic inflammatory disease, unspecified (principal) ==

== ENCOUNTER → 2024-12-19 | Outpatient (REF) ==
[~2024-12-19] MED LIST changes: +FLUV100T20 PO; -FLUV100T25 PO
== END ==
LOC: M EMP 08:01
PROVIDERS: ATTEND Family Medicine
DX: Z01.89 Encounter for other specified special examinations (principal)

== ENCOUNTER → 2025-04-05 | Outpatient (CLI) | payer BC ==
[~2025-04-05] MED LIST changes: +ADDE10CA3 PO; +ADDE1TAB14 PO; +CETI10CH PO; +LAMO-18; -LAMO25TA4; +METH54TA13; +METH54TA13 PO; -METH54TA5; -METH54TA5 PO; +SEMA2.4P SQ; +THERTAB52 PO
== END ==
LOC: M LAB 14:56 → M RAD 14:56
PROVIDERS: ATTEND Internal Medicine
DX: Z01.818 Encounter for other preprocedural examination (principal)

== ENCOUNTER 2025-04-13 08:22 | Observation (INO) | payer BC ==
[2025-04-13] VITALS (7 sets, daily range): BP systolic 100–113; BP diastolic 56–61; TEMP 97–98.2; O2SAT 95–97
[~2025-04-13] VITALS: Ht 162.6 cm; Wt 90.2 kg
[2025-04-13] MEDS ORDERED: MIDAZOLAM INJ 2 MG/2 ML VIAL As Ordered ONE (09:15)
[2025-04-13] MEDS ORDERED: dexAMETHasone 4 MG/ML 1 ML VIAL As Ordered ONE (09:15)
[2025-04-13] MEDS ORDERED: ROCURONIUM BROMIDE 50MG/5ML VIAL As Ordered ONE (09:15)
[2025-04-13] MEDS ORDERED: LIDOCAINE 2% 100 MG/5 ML SDV (FOR ANES.) As Ordered ONE (09:15)
[2025-04-13] MEDS ORDERED: ONDANSETRON 4MG 2ML VIAL As Ordered ONE (09:15)
[2025-04-13] MEDS ORDERED: dexmedeTOMIDine (4 MCG/ML) 200 MCG/50 ML BTL As Ordered ONE (09:15)
[2025-04-13] MEDS: HEPARIN SOD 5000 UNITS/ML 1 ML VIAL/SYRINGE SQ ONE (11:35)
[2025-04-13] MEDS: ceFAZolin SOD 2 GM IV ONCE IV ONE (11:45)
[2025-04-13] MEDS: GENTAMICIN SULF 80 MG/2 ML VIAL As Ordered ONE (12:05)
[2025-04-13] MEDS ORDERED: HYDROmorphone HCL 2 MG/ML 1 ML VIAL As Ordered ONE (12:10)
[2025-04-13] MEDS ORDERED: ACETAMINOPHEN 1000MG/100ML IV BAG As Ordered ONE (12:10)
[2025-04-13] MEDS ORDERED: LACRILUBE (AKWA TEARS) OPHTH OINT 3.5 GM As Ordered ONE (12:10)
[2025-04-13] MEDS ORDERED: SUGAMMADEX SODIUM 500 MG/5 ML VIAL As Ordered ONE (12:10)
[2025-04-13] MEDS ORDERED: MORPHINE 2 MG/ML 1 ML VIAL IV PRN (14:55)
[2025-04-13] MEDS ORDERED: HYDROMORPHONE HCL 0.5 MG/0.5 ML SYRINGE IV PRN (14:55)
[2025-04-13] MEDS ORDERED: PERCOCET 5MG/325MG TAB PO PRN (15:15)
[2025-04-13] MEDS: ONDANSETRON 4MG 2ML VIAL IV PRN (15:55)
[2025-04-13] MEDS: LR 1,000 ML IV SCH ×2 (16:10→17:34)
[2025-04-13] MEDS ORDERED: HOME MED LIST COMPLETE! XX SCH (17:35)
[2025-04-13] MEDS ORDERED: ADDE10TA PO (17:35)
[2025-04-13] MEDS: ACETAMINOPHEN 325 MG TAB PO PRN (19:43)
[2025-04-13] MEDS: ceFAZolin SODIUM 2 GM in DEXTROSE 5% (D5W) ADV/MINI-BAG 50 ML IV SCH (19:43)
[2025-04-14 01:50] VITALS: BP 94/51; TEMP 97.4; O2SAT 97
[2025-04-14 03:18] VITALS: BP 199/88
[2025-04-14 05:50] VITALS: BP 100/59; TEMP 97.9; O2SAT 98
[2025-04-14] MEDS: traMADol 50 MG TAB PO PRN (07:38)
[2025-04-14] MEDS ORDERED: TRAM50TA2 PO (09:41)
[2025-04-14 10:00] VITALS: BP 106/59; TEMP 97.9; O2SAT 99
== END 2025-04-14 12:00 | disposition home or self-care (01) ==
LOC: M SDC 08:22 → M ED INP 12:43 → M MS4PR 16:50
PROVIDERS: ADMIT Plastic Surgery Surgery of the Hand; ATTEND Plastic Surgery Surgery of the Hand
DX: N62 Hypertrophy of breast (principal)
CPT/HCPCS: 19318; 88305; 96365; 96366; J0131; J0665; J0666; J0690; J1100; J1171; J1580; J2250; J2405; J3010

== ENCOUNTER 2025-04-30 17:55 | Emergency (ER) | payer BC ==
[~2025-04-30] VITALS: Ht 162.6 cm; Wt 90.1 kg
[~2025-04-30 17:55] MED LIST changes: +ADDE10TA PO; +TRAM50TA2 PO
[2025-04-30 18:59] LABS: BASO # 0.1 10^3/uL (0.0-0.2); BASO % 0.6 % (0.0-1.0); EOS # 0.1 10^3/uL (0.0-0.5); EOS % 0.7 % (0.0-3.0); LYMPH # 2.5 10^3/uL (1.5-5.0); LYMPH % 23.4 % (24.0-44.0); MONO # 0.6 10^3/uL (0.0-0.8); MONO % 5.2 % (2.0-8.0); NEUTROPHILS # 7.6 10^3/uL (1.5-8.5); NEUTROPHILS % 69.8 % (36.0-66.0); PLATELET COUNT, AUTOMATED 392 10^3/uL (150-450)
[2025-04-30 19:12] LABS: KETONE, URINE AUTO RFX TRACE mg/dL (NEGATIVE); LEUKOCYTE ESTERASE UR AUTO RFX NEGATIVE (NEGATIVE); MUCUS, URINE RFX SMALL (NEGATIVE); NITRITE, URINE AUTO RFX NEGATIVE (NEGATIVE); RBC, URINE AUTO RFX 0 /HPF (0-3); SQUAM EPITHELIAL CELL UR AURFX 4 /HPF (0-6); WBC, URINE AUTO RFX 0 /HPF (0-3)
[2025-04-30 19:24] LABS: HCG, SERUM QUALITATIVE NEGATIVE (NEGATIVE)
[2025-04-30 19:27] LABS: ALT/SGPT 30 U/L (7.0-40); AST/SGOT 25 U/L (<34); CALCIUM LEVEL 9.4 MG/DL (8.5-10.1); CARBON DIOXIDE LEVEL 25 MMOL/L (20-31); CHLORIDE LEVEL 104 MMOL/L (98-107); CREATININE FOR GFR 0.52 MG/DL (0.55-1.30); GLOMERULAR FILTRATION RATE > 90.0 (>60); POTASSIUM SERUM 4.2 MMOL/L (3.5-5.1); SODIUM LEVEL 141 MMOL/L (136-145)
[2025-04-30] MEDS: NS 500 ML IV ONE (22:43)
[2025-04-30] MEDS: ONDANSETRON 4MG 2ML VIAL IV ONE (22:43)
[2025-04-30 23:51] VITALS: O2SAT 99
[2025-04-30] MEDS ORDERED: PROM25SU3 PR (23:52)
[2025-05-01] VITALS: BP 95/55
[2025-05-01 00:12] VITALS: TEMP 97
== END 2025-05-01 | disposition home or self-care (01) ==
LOC: M ED 17:55
DX: R11.2 Nausea with vomiting, unspecified (principal); T38.3X5A Adverse effect of insulin and oral hypoglycemic [antidiabetic] drugs, initial encounter; F90.9 Attention-deficit hyperactivity disorder, unspecified type; F42.9 Obsessive-compulsive disorder, unspecified; Z91.09 Other allergy status, other than to drugs and biological substances; Z79.1 Long term (current) use of non-steroidal anti-inflammatories (NSAID); Z79.899 Other long term (current) drug therapy; Z79.810 Long term (current) use of selective estrogen receptor modulators (SERMs)
CPT/HCPCS: 80048; 80076; 81001; 83690; 84703; 85025; 87486; 87581; 87633; 87798; 96374; 99284; J2405

== ENCOUNTER → 2025-08-08 | Outpatient (REF) | payer BC ==
[~2025-08-08] MED LIST changes: -L-ME1TAB PO; +LEVO15TA4 PO; +PROM25SU3 PR
== END ==
LOC: M SFHCWAGY 18:07
PROVIDERS: ATTEND Advanced Practice Midwife
DX: Z12.4 Encounter for screening for malignant neoplasm of cervix (principal)